=== PATIENT | female | born 1945 | race Caucasian/White ===

== ENCOUNTER 2020-09-10 09:28 | Outpatient (REF) | payer MEDICARE, OTHER, SELFPAY ==
[2020-09-10 11:35] LABS: Estimated Average Glucose 128 mg/dL; Hemoglobin A1c % 6.1 %
[2020-09-10 11:47] LABS: Alanine Aminotransferase 17 U/L (0-31); Albumin Level 4.2 g/dL (3.5-5.0); Alkaline Phosphatase 82 U/L (39-117); Anion Gap 13 (12-20); Aspartate Amino Transferase 18 U/L (5-31); Bilirubin Total 0.3 mg/dL (0.0-1.0); Blood Urea Nitrogen 24 mg/dL (9-16); Calcium 8.6 mg/dL (8.4-10.2); Carbon Dioxide 20 mmol/L (22-29); Chloride 108 mmol/L (96-108); Cholesterol 134 mg/dL; Estimated Glomerular Filt Rate 56; Glucose Random 137 mg/dL (60-115); HDL Cholesterol 34 mg/dL; LDL Cholesterol Calculated 63 mg/dl; Potassium 4.3 mmol/l (3.3-5.1); Sodium 137 mmol/L (135-145); Total Protein 6.7 g/dL (6.5-8.0); Triglycerides 187 mg/dL
[2020-09-10 16:59] LABS: Creatinine Urine 145.22 mg/dL; Microalbum/Creatinine Ratio Ur 35.8 ug/mg cr
== END 2020-09-10 09:29 | disposition home or self-care (01) ==
LOC: HO.LAB 09:28
PROVIDERS: Visit Provider Internal Medicine
DX: E11.9 Type 2 diabetes mellitus without complications (principal); I10 Essential (primary) hypertension; E78.2 Mixed hyperlipidemia; F32.5 Major depressive disorder, single episode, in full remission; R63.5 Abnormal weight gain
CPT/HCPCS: 80053; 80061; 82043; 83036

== ENCOUNTER 2020-10-26 14:44 | Emergency (ER) | payer MEDICARE, OTHER, SELFPAY ==
--- NOTE | ~2020-10-26 | XR_ITS ---
EXAMINATION: CHEST 2 VIEWS CLINICAL INFORMATION: pt c chest pain . COMPARISON: 02/11/2020. TECHNIQUE: PA and lateral views of the chest obtained. FINDINGS: The lungs are well expanded. No focal infiltrate, effusion, edema, or pneumothorax. Cardiac and mediastinal silhouettes are within normal limits for technique. No acute bony abnormality seen XR/XR chest 2V IMPRESSION: No evidence of acute disease
--- NOTE | ~2020-10-26 | US_ITS ---
EXAMINATION: US ABDOMEN COMPLETE CLINICAL INFORMATION: Decreased appetite and epigastric/chest pain. Evaluate for gallstones. COMPARISON: CT abdomen/pelvis dated 05/04/2016. TECHNIQUE: Real-time imaging of the abdominal viscera. FINDINGS: PANCREAS: Normal. ABDOMINAL AORTA: The proximal, mid, and distal segments are normal in caliber. INFERIOR VENA CAVA: Visualized portions are normal. LIVER: The liver is normal in size. The liver contour is normal. There is diffuse increased liver parenchymal echogenicity, consistent with hepatic steatosis. No focal hepatic lesion. There is no intrahepatic biliary duct dilatation seen. GALLBLADDER: Normal. The gallbladder is physiologically distended without evidence of stones, sludge, polyps, wall thickening or pericholecystic fluid. COMMON BILE DUCT: Normal in caliber measuring 0.2 cm in diameter. RIGHT KIDNEY: Normal. No hydronephrosis. No renal calculi or focal parenchymal lesions. The kidney measures 9.1 cm in maximum dimension. LEFT KIDNEY: Normal. No hydronephrosis. No renal calculi or focal parenchymal lesions. The kidney measures 9.7 cm in maximum dimension. SPLEEN: Normal. The spleen measures 9.6 cm in maximum dimension. FREE FLUID: None. US/US abdomen complete IMPRESSION: No cholelithiasis, gallbladder wall thickening, or pericholecystic free fluid to suggest acute cholecystitis. Hepatic steatosis. No hepatic parenchymal lesion or biliary ductal dilatation.
--- NOTE | ~2020-10-26 | CT_ITS ---
EXAMINATION: CT HEAD WITHOUT CONTRAST CLINICAL INFORMATION: Dizziness and generalized weakness. COMPARISON: None TECHNIQUE: Contiguous axial imaging was performed from the skull base to vertex without intravenous administration of contrast. This CT examination was performed using dose optimization techniques as appropriate, variously including the following: *Automated exposure control *Adjustment of mA and/or kV according to patient size (this includes techniques or standardized protocols for targeted exams where dose is matched to indication/reason for exam; i.e. extremities or head) *Use of iterative reconstruction technique DLP: 959 mGy-cm FINDINGS: There is no evidence of acute intracranial hemorrhage or territorial infarction. No abnormal mass effect or midline shift is seen. Garcia to white matter differentiation is well preserved. No extra-axial fluid collections are identified. Mild prominence of the ventricles out of proportion to the sulci, which can be seen in the setting of normal pressure hydrocephalus. Mild periventricular white matter hypoattenuation, consistent with mild chronic microvascular ischemic disease. The osseous structures and soft tissues are normal. The mastoid air cells and visualized portions of the paranasal sinuses are well aerated. CT/CT head/brain wo con IMPRESSION: No acute intracranial hemorrhage or mass effect. Mild chronic microvascular ischemic disease. Mild prominence of the ventricles out of proportion to the sulci, which may be related to atrophy or be seen in the setting of normal pressure hydrocephalus.
[2020-10-26 14:45] VITALS: BMI 26.0
--- NOTE | 2020-10-26 14:49 | ECG_ITS ---
Test Reason : EPIGASTRIC PAIN Blood Pressure : / mmHG Vent. Rate : 060 BPM Atrial Rate : 060 BPM P-R Int : 138 ms QRS Dur : 090 ms QT Int : 466 ms P-R-T Axes : 018 040 097 degrees QTc Int : 466 ms Normal sinus rhythm ST & T wave abnormality, consider anterolateral ischemia Abnormal ECG When compared with ECG of 26-OCT-2020 14:50, Left bundle branch block is no longer Present Referred By: Olga Lidia Ohara Electronically Signed By:Brandon Lozano
[2020-10-26 15:17] VITALS: BP 189/82; PULSE 69; RESP 20; TEMP 36.9; O2SAT 99; BMI 26.5
--- NOTE | 2020-10-26 15:42 | ED_ITS ---
HPI - General Adult General Chief complaint: General Medical Stated complaint: chest pain Time Seen by Provider: 10/26/20 14:46 Source: patient Mode of arrival: ambulatory Limitations: no limitations Related Data Allergies Allergy/AdvReac Type Severity Reaction Status Date / Time No Known Allergies Allergy Unverified 05/29/20 19:08 [No Known Allergies*] [facility] Past Medical History Medical History (Updated 10/26/20 @ 15:20 by Sinai Joiner) High cholesterol HTN (hypertension) Social History Social History Advance Directives: No Advance Directives Information Provided: Yes Physical Exam Vital Signs: Vital Signs: Last Vital Signs Temp 98.4 F 10/26/20 15:17 Pulse 69 10/26/20 15:17 Resp 20 10/26/20 15:17 BP 189/82 H 10/26/20 15:17 Pulse Ox 99 10/26/20 15:17 Body Mass Index 26.5
--- NOTE | 2020-10-26 15:47 | ED.CHESTPAIN ---
HPI - Chest Pain General Chief Complaint: General Medical Stated Complaint: chest pain Time Seen by Provider: 10/26/20 14:46 Source: patient Mode of arrival: ambulatory Limitations: no limitations History of Present Illness HPI narrative: 75-year-old female with a past medical history of anxiety disorder, hypertension, hyperlipidemia, diabetes, diverticulosis and insomnia presenting to the ED with complaints of generalized weakness, dizziness, loss of appetite, midsternal chest pain/epigastric abdominal pain, having to put her finger down her throat to forcefully make herself vomit constant for the past 2 weeks. Along with diarrhea that started today. Reports associated weight loss although cannot explain how much weight loss. Reports that she has a primary care appointment on Tuesday. Denies any fevers, focal weakness, headaches, jaw pain, paresthesia, dyspnea on exertion, orthopnea, cough, palpitations, extremity edema, back pain, dysuria, constipation or any other symptoms complaints or concerns at this time. MD complaint: chest pain Pertinent past history: other (See above) Onset (ago): week(s) (Two weeks) Timing of current episode: constant Prior episodes: No Onset: other (Cannot recall due to his been 2 weeks per patient) Pain location: substernal and epigastric Pain radiation: none Severity: moderate Quality: aching Relieving factors: nothing Exacerbating factors: nothing Associated symptoms: nausea and vomiting Treatment prior to arrival: none Risk Factors Coronary artery disease risk factors: diabetes, hyperlipidemia and hypertension Thoracic aortic dissection risk factors: none Related Data On Oral Contraceptives: No Allergies Allergy/AdvReac Type Severity Reaction Status Date / Time No Known Allergies Allergy Unverified 05/29/20 19:08 [No Known Allergies*] Review of Systems Review of Systems: Constitutional : + Weight loss, + Fatigue, + Malaise, No Fever, No Chills, No Night Sweats, No Fatigue, No Malaise ENT/Mouth : No Hearing loss, No Ear Pain, No Nasal Congestion, No Sinus Pain, No Hoarseness, No sore throat, No Rhinorrhea, No Swallowing Difficulty Eyes: No Eye Pain, No Swelling, No Redness, No Foreign Body, No Discharge, No Vision Changes Cardiovascular : + Chest pain, No SOB, no Dyspnea on Exertion, No Orthopnea, No Edema, No extremity swelling, No Palpitations Respiratory : No Cough, No Sputum, No Wheezing, No Dyspnea Gastrointestinal : + Nausea, + Vomiting, + Diarrhea, + abdominal Pain, No Hematochezia, No Melena Genitourinary : No irregular bleeding, No Dysuria, No Urinary Frequency, No Hematuria, No Urinary Incontinence, No Urgency, No Flank Pain, No Urinary Flow Changes, No Hesitancy Musculoskeletal : No joint pain, No Myalgias, No Joint Swelling Skin : No Skin Lesions, No rash Neuro : + Gen Weakness, + Dizziness, No Focal Weakness, No Numbness, No Paresthesias, No Loss of Consciousness, No Headache Psych : No Anxiety/Panic, No Depression, No SI/HI/AH/VH Heme/Lymph: No Bruising, No Bleeding,No Lymphadenopathy Endocrine : No Polyuria, No Polydipsia, No Temperature Intolerance Yes all other systems are reviewed and are negative [facility] Past Medical History Attestation statement: The following information was validated with the patient. Medical History High cholesterol HTN (hypertension) Social History Social History Advance Directives: No Advance Directives Information Provided: Yes Physical Exam Vital Signs: Vital Signs: Last Vital Signs Temp 98.4 F 10/26/20 15:17 Pulse 69 10/26/20 15:17 Resp 20 10/26/20 15:17 BP 189/82 H 10/26/20 15:17 Pulse Ox 99 10/26/20 15:17 Body Mass Index 26.5 Vital signs have been reviewed as normal and appeared to be correct. Blood pressure hypertensive at 189/82. Heart rate normal. Respiration rate normal. Temperature normal. Oxygen saturation normal. Appearance: Alert. Oriented X3. No acute distress. Head: Normal external exam. Normocephalic. Atraumatic. Able to rotate head bilaterally. Eyes: PERRLA. EOMI. No nystagmus noted. Conjunctiva and sclera normal. Eyelids normal. Corneal reflex normal. ENT: Hearing normal. Pharynx normal. Uvula midline. tongue midline. Moist mucous membranes. No trismus noted. No drooling noted. No muffled voice noted. No nystagmus noted. Neck: Normal inspection. Neck supple. FROM. No adenopathy. Trachea midline. Thyroid Normal. No meningeal signs. No neck mass noted. CVS: Normal heart rate and rhythm. Heart sound normal. No murmurs noted. Pulses normal throughout. Respiratory: No respiratory distress. Painless inspiration. Breath sounds normal. No wheezes/rales/rhonchi noted. Chest nontender. No accessory muscle usage noted or decreased air movement noted. Abdomen: Soft and tenderness to palpation to epigastric area. Bowel sounds normal in all 4 quadrants. No distention noted. No organomegaly noted. No visible injury noted. Negative Blanco's/negative Rovsing signs/negative obturator's/negative psoas sign. Back: No CVA tenderness. Full range of motion noted. Skin: Skin warm and dry. Normal skin color. Normal skin turgor. No rashes/lesions/lacerations noted. Extremities: No lower extremity edema. No calf tenderness noted. Extremities exhibit normal range of motion. Extremities nontender. Able to shrug shoulders bilaterally and keep up against resistance. Neuro: Oriented X 3. No motor deficit. No sensory deficit. Reflexes normal. Moving all extremities. No focal motor deficits. Cranial nerves II-XI intact bilaterally. Facial strength normal. Normal cognition. Speech normal. Gait normal. Strength 5/5 throughout. No pronator drift. No tremor noted. No fasciculations noted. No rigidity noted. Muscle tone normal throughout. No asterixis noted. NIHSS score 0. Course Course Course Narrative: 15:40pm - 75-year-old female with a past medical history of anxiety disorder, hypertension, hyperlipidemia, diabetes, diverticulosis and insomnia presenting to the ED with complaints of generalized weakness, dizziness, loss of appetite, midsternal chest pain/epigastric abdominal pain, having to put her finger down her throat to forcefully make herself vomit constant for the past 2 weeks. Along with diarrhea that started today. On exam patient is very anxious with pressured speech otherwise not in any acute distress. Nontoxic appearing. No signs of dehydration. Patient is hypertensive at 189/82 otherwise all other vitals are within normal limits. Patient alert and oriented x3. No focal neuro deficits noted. Patient has a normal steady gait. NIH SS score 0 at this time. Concern for CVA vs ACS versus cholelithiasis versus cholecystitis versus viral syndrome versus COVID Plan: Labs, chest x-ray, CT scan of brain, abdominal ultrasound, EKG, orthostatic vitals. Provide a L of IV fluids, 30 mg of IV Toradol, 0.5 mg of Ativan and 4 mg of Zofran then re-evaluate. Reevaluation(s) Reevaluation #1: - patient with elevated white blood cell count at 13,000. - troponin 31.5 therefore patient will have a repeat in 3 hours. - all other labs still pending - EKG was normal sinus rhythm with nonspecific T-wave abnormalities no acute ischemic changes noted today. - chest x-ray within normal limits no acute processes noted. - abdominal ultrasound revealed hepatic steatosis otherwise no other acute processes noted. - revealed chronic changes such as normal pressure hydrocephalus no acute processes noted. - sign-out to VENKATA Jarrell pending repeat troponin and other labs. Time: 17:07 [facility] - Chest Pain Medical Records Data Attestation: I reviewed the patient's medical records. Lab Data Attestation: I reviewed the patient's lab results. Result diagrams: 10/26/20 15:56 10/26/20 15:56 Labs: Lab Results 10/26/20 10/26/20 10/26/20 Range/Units 15:56 15:56 15:56 WBC 13.0 H (4.8-10.8) X10*3/uL RBC 3.78 L (4.20-5.50) X10*6/uL Hgb 11.8 L (12.0-16.0) g/dl Hct 35.2 L (37-47) % MCV 93.1 (80-98) fL MCH 31.2 (27.0-33.0) pg MCHC 33.5 (31.0-35.0) g/dl RDW 13.3 (11.0-16.0) % Plt Count 502 H (160-400) X10*3/uL MPV 9.1 L (9.4-12.3) fL Immature Gran % (Auto) 0.4 (0.0-0.4) % Neut % (Auto) 72.5 (45-73) % Lymph % (Auto) 17.1 L (20-40) % Anson % (Auto) 7.2 (2-11) % Eos % (Auto) 2.1 (0-4) % Baso % (Auto) 0.7 (0-2) % Lymph # (Auto) 2.2 (1.2-4.9) X10*3/uL Anson # (Auto) 0.9 (0.1-1.2) X10*3/uL Eos # (Auto) 0.3 (0.0-0.4) X10*3/uL Baso # (Auto) 0.1 (0.0-0.2) X10*3/uL Abs Immat Gran (auto) 0.05 H (0.00-0.03) X10*3/uL Absolute Neuts (auto) 9.4 H (2.0-8.3) X10*3/uL Absolute Nucleated RBC 0.000 (0.0-0.012) X10*3/uL Nucleated RBC % (auto) 0.0 (0.0-0.2) /100WBC Troponin I High Sens 31.5 H (<3.5-17.0) ng/L B-Natriuretic Peptide 66 (<100) pg/mL Coronavirus (PCR) NEGATIVE (Negative) Influenza Type A (PCR) NEGATIVE (Negative) Influenza Type B (PCR) NEGATIVE (Negative) RSV RNA Qual (PCR) NEGATIVE (Negative) Imaging Data Chest x-ray: Attestation: I personally reviewed and interpreted this imaging study as follows: Radiologist's impression: FINDINGS: The lungs are well expanded. No focal infiltrate, effusion, edema, or pneumothorax. Cardiac and mediastinal silhouettes are within normal limits for technique. No acute bony abnormality seen XR/XR chest 2V IMPRESSION: No evidence of acute disease Abdominal ultrasound: Attestation: I personally reviewed and interpreted this imaging study as follows: Radiologist's impression: FINDINGS: The lungs are well expanded. No focal infiltrate, effusion, edema, or pneumothorax. Cardiac and mediastinal silhouettes are within normal limits for technique. No acute bony abnormality seen XR/XR chest 2V IMPRESSION: No evidence of acute disease CT scan of brain: Attestation: I personally reviewed and interpreted this imaging study as follows: Radiologist's impression: FINDINGS: There is no evidence of acute intracranial hemorrhage or territorial infarction. No abnormal mass effect or midline shift is seen. Garcia to white matter differentiation is well preserved. No extra-axial fluid collections are identified. Mild prominence of the ventricles out of proportion to the sulci, which can be seen in the setting of normal pressure hydrocephalus. Mild periventricular white matter hypoattenuation, consistent with mild chronic microvascular ischemic disease. The osseous structures and soft tissues are normal. The mastoid air cells and visualized portions of the paranasal sinuses are well aerated. CT/CT head/brain wo con IMPRESSION: No acute intracranial hemorrhage or mass effect. Mild chronic microvascular ischemic disease. Mild prominence of the ventricles out of proportion to the sulci, which may be related to atrophy or be seen in the setting of normal pressure hydrocephalus. ECG Data ECG #1: Attestation: I personally reviewed and interpreted this ECG as follows: ECG interpretation date: 10/26/20 ECG interpretation time: 16:11 Interpretation: Normal sinus rhythm with nonspecific ST and T-wave abnormalities in V1/V2/V6 otherwise no acute ischemic changes noted at this time. Patient had a prior left bundle branch block on EKG in February 10 and today she does not have a left bundle branch block at this time. Could possibly be that patient has a rate control left bundle-branch block. Discharge Plan Discharge Clinical Impression: Elevated troponin, Hydrocephalus, idiopathic normal pressure
[2020-10-26 16:01] LABS: MANUAL DIFF FLAG NO
[2020-10-26 16:06] LABS: Basophils Absolute Auto 0.1 X10*3/uL (0.0-0.2); Basophils Percent Auto 0.7 % (0-2); Eosinophils Absolute Auto 0.3 X10*3/uL (0.0-0.4); Eosinophils Percent Auto 2.1 % (0-4); Hematocrit 35.2 % (37-47); Hemoglobin 11.8 g/dl (12.0-16.0); Imm Gran Abs Auto 0.05 X10*3/uL (0.00-0.03); Imm Gran Pct Auto 0.4 % (0.0-0.4); Lymphocytes Absolute Auto 2.2 X10*3/uL (1.2-4.9); Lymphocytes Percent Auto 17.1 % (20-40); Mean Corpuscular HGB Conc 33.5 g/dl (31.0-35.0); Mean Corpuscular Hemoglobin 31.2 pg (27.0-33.0); Mean Corpuscular Volume 93.1 fL (80-98); Mean Platelet Volume 9.1 fL (9.4-12.3); Monocytes Absolute Auto 0.9 X10*3/uL (0.1-1.2); Monocytes Percent Auto 7.2 % (2-11); Neutrophils Absolute Auto 9.4 X10*3/uL (2.0-8.3); Neutrophils Percent Auto 72.5 % (45-73); Platelet Count 502 X10*3/uL (160-400); Red Blood Count 3.78 X10*6/uL (4.20-5.50); Red Cell Distribution Width 13.3 % (11.0-16.0)
[2020-10-26] MEDS: ondansetron HCL 4 MG/2 ML VIAL IVPUSH (16:09)
[2020-10-26] MEDS: Ketorolac Tromethamine 30 MG/ML VIAL IVPUSH (16:10)
[2020-10-26] MEDS: 0.9 % Sodium Chloride 1,000 ML 999 ML IVCONT ×2 (16:10→20:19)
[2020-10-26] MEDS: LORazepam 2 MG/ML VIAL 0.5 MG IVPUSH (16:11)
[2020-10-26 16:45] LABS: B Type Natriuretic Peptide 66 pg/mL (<100); Troponin-I High Sensitivity 31.5 ng/L (<3.5-17.0)
[2020-10-26 16:54] LABS: Influenza A PCR NEGATIVE (Negative); Influenza B PCR NEGATIVE (Negative); Resp Syncy Virus RNA Qual PCR NEGATIVE (Negative); SARS COV2 PCR INHOUSE NEGATIVE (Negative)
--- NOTE | 2020-10-26 17:31 | PC.NURSE ---
Pt reporting epigastric pain and nausea, decreased appetite x 1 month. Upon initial assessment pt noted to be anxious and asking repeated questions, Ativan ordered and given with good effect. States pain improved s/p IV medications given and down to 5/10.
[2020-10-26 17:32] VITALS: BP 181/66; PULSE 106
[2020-10-26 17:33] VITALS: BP 191/86; BP 206/83; PULSE 106; PULSE 109
[2020-10-26 18:02] LABS: Glucose Urine UA NEG (NEG); Leukocyte Esterase Urine 1+ (NEG); Nitrite Urine NEG (NEG); UACC Culture Trigger YES; Urine Blood NEG (NEG); Urine Ketones NEG (NEG); Urine Protein NEG (NEG-TRACE)
[2020-10-26 18:09] LABS: Appearance Urine CLOUDY; Color Urine YELLOW
[2020-10-26 18:10] LABS: Bacteria Urine 4+ /LPF; RBC Urine 0-2 /HPF (0); Squamous Epithelial Cell Urine 1+ /LPF; WBC Urine 30-49 /HPF (0-4)
[2020-10-26 18:18] VITALS: BP 110/85; PULSE 72; RESP 16; TEMP 36.4; O2SAT 96
[2020-10-26 19:36] VITALS: BP 145/76; PULSE 67; RESP 17; TEMP 36.9; O2SAT 100
[2020-10-26 19:47] LABS: INTERNATIONAL NORM RATIO 1.1 (0.9-1.1); Prothrombin Time 13.5 SEC (10.8-13.0)
[2020-10-26 19:54] LABS: Partial Thromboplastin Time 73.3 SEC (24.1-38.0)
[2020-10-26 20:00] VITALS: BP 146/71; PULSE 62; RESP 18; O2SAT 98
[2020-10-26] MEDS: Simethicone 80 MG TAB.CHEW PO (20:01)
[2020-10-26] MEDS: Magnesium Hydrox/Alum Hydrox 30 ML ORAL.SUSP PO (20:01)
[2020-10-26 20:15] LABS: Alanine Aminotransferase 14 U/L (0-31); Albumin Level 4.2 g/dL (3.5-5.0); Alkaline Phosphatase 93 U/L (39-117); Anion Gap 15 (12-20); Aspartate Amino Transferase 17 U/L (5-31); Bilirubin Direct < 0.2 mg/dL (0.0-0.5); Bilirubin Total 0.5 mg/dL (0.0-1.0); Blood Urea Nitrogen 12 mg/dL (9-16); Calcium 9.3 mg/dL (8.4-10.2); Carbon Dioxide 25 mmol/L (22-29); Chloride 101 mmol/L (96-108); Creatinine Clr Calc Pharmacy 44.5; Estimated Glomerular Filt Rate 55; Glucose Random 133 mg/dL (60-115); Lipase 22 U/L (8-78); Magnesium 2.7 mg/dL (1.6-2.6); Potassium 4.2 mmol/L (3.3-5.1); Sodium 137 mmol/L (135-145); Total Protein 7.1 g/dL (6.5-8.0)
[2020-10-26 20:18] LABS: Troponin-I High Sensitivity 38.3 ng/L (<3.5-17.0)
[2020-10-26] MEDS: cefTRIAXone sodium 1 GM in 0.9 % Sodium Chloride 50 ML IV (20:19)
[2020-10-26 20:59] LABS: Lactic Acid 2.2 mmol/L (0.5-2.0)
[2020-10-26 22:23] LABS: Reflex Lactate? Lactic Acid Added
== END 2020-10-26 21:50 | disposition home or self-care (01) ==
PROVIDERS: Nurse Practitioner Family; Physician Assistant Medical; Emergency Provider Emergency Medicine Emergency Medical Services; PCP Internal Medicine
DX: G91.9 Hydrocephalus, unspecified (principal); R10.13 Epigastric pain; R77.8 Other specified abnormalities of plasma proteins; Z20.822 Contact with and (suspected) exposure to COVID-19; Z79.899 Other long term (current) drug therapy
CPT/HCPCS: 0241U; 36415; 70450; 71046; 76700; 80048; 80076; 81001; 81003; 83605; 83690; 83735; 83880; 84484; 85025; 85610; 85730; 87040; 87086; 87088; 87186; 93005; 96361; 96365; 96375; 99284; J0696; J1885; J2060; J2405

== ENCOUNTER 2020-10-29 16:55 | Inpatient (IN) | payer MEDICARE, OTHER, SELFPAY ==
--- NOTE | ~2020-10-29 | CT_ITS ---
EXAMINATION: CT ABDOMEN AND PELVIS WITHOUT CONTRAST CLINICAL INFORMATION: Abdominal pain. Bloody stool. COMPARISON: 05/04/2016 TECHNIQUE: Multidetector volumetric imaging was performed from the superior aspect of the liver through the pubic symphysis. Sagittal and coronal reformatted images were obtained on the technologist's workstation. This CT examination was performed using dose optimization techniques as appropriate, variously including the following: *Automated exposure control *Adjustment of mA and/or kV according to patient size (this includes techniques or standardized protocols for targeted exams where dose is matched to indication/reason for exam; i.e. extremities or head) *Use of iterative reconstruction technique DLP: 504 mGy-cm FINDINGS: LUNG BASES: The visualized lung bases are unremarkable. LIVER, GALLBLADDER, AND BILIARY TREE: The liver is normal in size and shape with decreased attenuation. No focal hepatic lesion or biliary ductal dilatation is present. The gallbladder is unremarkable with no evidence of radiopaque gallstones, gallbladder wall thickening, or obvious pericholecystic inflammatory changes. PANCREAS: Mild atrophy of the pancreas. No focal pancreatic lesion. SPLEEN: Unremarkable. ADRENAL GLANDS: Unremarkable. KIDNEYS AND URETERS: The kidneys are normal in size, shape, and attenuation. No hydronephrosis, hydroureter, or calculi seen. No perinephric stranding. BLADDER: Unremarkable. GASTROINTESTINAL TRACT: The stomach is unremarkable. Normal caliber small bowel. There is no obstruction. Normal appendix. No colonic wall thickening or acute inflammatory change. Scattered diverticulosis involving the descending colon. More prominent diverticulosis of the sigmoid colon. The sigmoid colon is decompressed which limits evaluation for wall thickening. There is faint stranding in the fat adjacent to the sigmoid colon. No free air. ABDOMINAL WALL: No significant hernia is appreciated. LYMPH NODES: Normal. VASCULAR: Normal caliber aorta with moderate atherosclerotic calcification. PELVIC VISCERA: The uterus and adnexa are unremarkable. OSSEOUS STRUCTURES: No acute or suspicious osseous abnormality. Degenerative changes throughout the spine. 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 CT/CT abdomen pelvis wo con IMPRESSION: Mild sigmoid diverticulitis. Hepatic steatosis.
--- NOTE | ~2020-10-29 | NM_ITS ---
EXAMINATION: NUCLEAR MEDICINE BLEEDING STUDY CLINICAL INFORMATION: Reason GI bleed COMPARISON: None TECHNIQUE: 22.4 mCi technetium used to label the patient's red blood cells. Imaging over the abdomen for 60 minutes FINDINGS: Angiographic images are within normal limits. On sequential imaging over 60 minutes there is no evidence for GI bleed. Some activity in the left and right upper quadrant is felt to be kidney and renal collecting system. There is bladder activity collected during the exam. NM/NM GI bleeding IMPRESSION: No convincing scintigraphic evidence for GI bleed at this time.
--- NOTE | ~2020-10-29 | XR_ITS ---
EXAMINATION: XR CHEST CLINICAL INFORMATION: ET tube placement COMPARISON: Chest x-ray 10/26/2020 TECHNIQUE: Frontal portable view of the chest was obtained. 7:32 PM FINDINGS: Tubes and lines: 1. Endotracheal tube in good position about 2 cm above magy. 2. Right IJ catheter tip in superior vena cava about 5 cm proximal from the caval atrial junction. 3. Nasogastric tube looped into the stomach. 4. Drainage catheter seen over the right upper quadrant of abdomen. Lung volume is low. There is patchy and linear airspace opacities at the right lung base with elevated right diaphragm. This is likely atelectasis. No significant central pulmonary vascular congestion. There is no pleural effusion and there is no pneumothorax. XR/XR chest 1V IMPRESSION: 1. Endotracheal tube in good position about 2 cm above magy. 2. Right IJ catheter tip in superior vena cava about 5 cm proximal from the caval atrial junction. 3. Nasogastric tube looped into the stomach. 4. Drainage catheter seen over the right upper quadrant of abdomen. 5. Low lung volume. There is patchy and linear airspace opacity at the right lung base.
--- NOTE | ~2020-10-29 | XR_ITS ---
EXAMINATION: XR ABDOMEN KUB CLINICAL INDICATION: No instrument count done COMPARISON: CT abdomen pelvis 10/30/2019 TECHNIQUE: AP view of the abdomen. A large portion of the pelvis is not included on the study. FINDINGS: NG tube is present in the stomach. A drain is present in the upper abdomen. No other foreign bodies are seen. Mild dilatation is present involving small bowel with possibly mild wall thickening. XR/XR KUB IMPRESSION: No retained surgical foreign bodies or instruments.
[2020-10-29 17:16] VITALS: BP 104/50; PULSE 102; RESP 20; TEMP 36.4; O2SAT 99
[2020-10-29 20:15] VITALS: BP 103/54; PULSE 87; RESP 22; TEMP 37.1; O2SAT 99; BMI 23.0
[2020-10-30] VITALS (21 sets, daily range): BP systolic 101–150; BP diastolic 45–80; PULSE 58–112; RESP 14–23; TEMP 36.1–37.3; O2SAT 95–100
--- NOTE | 2020-10-30 02:19 | ECG_ITS ---
Test Reason : WEAKNESS Blood Pressure : / mmHG Vent. Rate : 093 BPM Atrial Rate : 093 BPM P-R Int : 116 ms QRS Dur : 138 ms QT Int : 412 ms P-R-T Axes : -20 -08 150 degrees QTc Int : 512 ms Normal sinus rhythm Left bundle branch block Abnormal ECG When compared with ECG of 26-OCT-2020 16:11, Vent. rate has increased BY 33 BPM Left bundle branch block is now Present Referred By: Juanito Mix Electronically Signed By:Brandon Lozano
--- NOTE | 2020-10-30 02:28 | ED_ITS ---
HPI - General Adult General Chief complaint: General Medical Stated complaint: LOW BP Time Seen by Provider: 10/30/20 02:19 History of Present Illness HPI narrative: 75-year-old female who presents emergency department for evaluation of weakness, dizziness, abdominal pain. The patient was seen in the emergency department on 10/26/2020 for evaluation of generalized weakness, dizziness, loss of appetite, midsternal chest pain, epigastric pain vomiting and loose diarrheal stools. The patient's urinalysis revealed 30-49 WBCs and the patient was started on cefuroxime 500 mg q.12 hours for urinary tract infection. The patient states that she continues to feel very weak. She states that she has had 4-6 loose, dark, red, watery bowel movements per day. She states she is feeling dizzy and lightheaded. She is also complaining of epigastric pain which she describes as an ?gas which is intermittent and moderate in intensity. The patient had a telemedicine visit with her doctor today and was advised to go to the emergency department for evaluation. In reviewing her previous visit, the patient had an ultrasound of the upper abdomen which revealed hepatic steatosis otherwise unremarkable, chest x-ray was unremarkable, she had an elevated troponin 38.3, but refused repeat troponin. Related Data Home Medications Medication Instructions Recorded Confirmed losartan-hydrochlorothiazide 1 tab PO DAILY 10/26/20 10/30/20 sertraline 1 tab PO DAILY 10/26/20 10/30/20 simvastatin 1 tab PO BEDTIME 10/26/20 10/30/20 trazodone 1 tab PO BEDTIME 10/26/20 10/30/20 Previous Rx's Medication Instructions Recorded cefuroxime axetil 500 mg PO Q12H 7 Days #14 tab 10/26/20 Allergies Allergy/AdvReac Type Severity Reaction Status Date / Time No Known Allergies Allergy Verified 10/26/20 19:14 [No Known Allergies*] Review of Systems Review of Systems: Yes all other systems are reviewed and are negative Neurologic: Reports Abnormal speech present [facility] Past Medical History [facility] Narrative: Past medical history consistent with hypertension, depression, diabetes mellitus, high cholesterol, colonoscopy in 2009. She denies tobacco, alcohol and drug use. Medical History High cholesterol HTN (hypertension) UTI (urinary tract infection) Social History Social History Smoking Status: Former smoker Advance Directives: No Advance Directives Information Provided: No Physical Exam Vital Signs: Vital Signs: Last Vital Signs Temp 98.3 F 10/30/20 03:05 Pulse 86 10/30/20 03:05 Resp 20 10/30/20 03:05 BP 101/75 10/30/20 03:05 Pulse Ox 99 10/30/20 03:05 Body Mass Index 23.0 Const: General: cooperative and other (Anxious) Orientation/consciousness: oriented to person and oriented to place Limitations: no limitations HENMT: Head: Yes normal to inspection, Yes normocephalic and Yes atraumatic Ears: external ears normal General nose exam: Normal external nose present Face and sinus: Yes normal facial exam Mouth: Normal oral and palatal mucosa present Throat: Yes posterior oropharynx normal Eyes: Periorbital: periorbital findings normal Eyelids: Yes eyelids normal Conjunctivae: conjunctivae normal Sclerae: sclerae normal Corneas: corneas normal Pupils: Equal, round and reactive pupils present Direct Ophthalmoscopy: normal light reflex Neck: Neck: Yes full ROM, Yes no lymphadenopathy, Yes no meningeal signs, Yes trachea midline and Yes supple Chest: Chest palpation & inspection: normal inspection of the chest and tende rness (Anterior chest and sternum) Resp: Effort & Inspection: normal respiratory effort and able to speak in complete sentences Auscultation: clear to auscultation bilaterally Cardio: Rate: regular rate Rhythm: regular rhythm Heart sounds: S1 normal heart sound present, S2 normal heart sound present and no murmurs GI: Inspection: Yes normal to inspection Palpation (GI): Soft to palpation, Tenderness to palpation present (GI) in the epigastrum (Moderate), no guarding, not rigid and No hepatosplenomegaly present Rectal Exam - Female: visual inspection normal, normal sphincter tone and heme positive stool (Dark stool which was Hemoccult positive) : General: Yes no CVA tenderness Back/Spine/Pelvis: Back: no CVA tenderness Cervical Spine: normal cervical lordosis Thoracic/Lumbar Spine: thoracic and lumbar spine normal to inspection Skin: Lesions: no lesions Rashes: no rashes Wounds: no wounds Neuro: General: oriented to person, oriented to place and no meningeal signs Cranial nerves: Yes CN's II-XII intact bilaterally and Yes Equal, round and reactive pupils present Cognition (Neuro): normal cognition Speech: Abnormal speech present Motor exam (neuro): 5/5 motor strength present throughout Extrem: General: Yes normal to inspection and Yes full ROM Psych: Appearance: well kempt Mental Status: mental status grossly normal Speech and movement: Normal speech and movement present Affect: Anxious affect present Attitude: cooperative Thought process: Normal thought proc ess present Thought content: Normal thought content present Course Course Course Narrative: 75-year-old female who presents emergency department for evaluation of weakness, dizziness, abdominal pain, chest pain and 4-5 loose, dark, red stools times 1 week. Patient was seen in the emergency department on 10/26/2020 with similar complaints and diagnosed with urinary tract infection. On exam today she does have chest wall tenderness, midepigastric tenderness and dark stool which was Hemoccult positive. Laboratory evaluation revealed an H&H of 9.8 and 29.3 compared to an H&H of 11.8 and 35.2 on 10/26/2020. [place] [address]. The patient has an elevated BUN and creatinine of 46 and 2.05 compared to twelve and 0.89 from 10/26/2020. This could be secondary to an upper GI bleed or volume depletion. COVID-19 was negative. The patient's urine culture from her previous visit grew no bacteria. This time I suspect the patient's symptoms are secondary to a lower GI bleed, possible that she may have infectious colitis [place] [address]. I did order a type and screen on the patient, CT scan of the abdomen pelvis without IV contrast, normal saline IV x2 L. The patient will be treated with Zosyn 3.375 mg IV and Flagyl 500 mg IV. 0424: I did discuss the patient's presentation with the covering hospitalist. The patient will be admitted to the intermediate care unit for further treatment. The patient does meet SIRS criteria but I do not think that she has severe sepsis. She did have an elevated lactic acid and she did receive normal saline IV x2 L. Medical Decision Making Lab Data Result diagrams: 10/30/20 02:31 10/30/20 02:25 Labs: Lab Results 10/30/20 10/30/20 10/30/20 Range/Units 02:25 02:25 02:31 WBC 22.6 H (4.8-10.8) X10*3/uL RBC 3.14 L (4.20-5.50) X10*6/uL Hgb 9.8 L (12.0-16.0) g/dl Hct 29.3 L (37-47) % MCV 93.3 (80-98) fL MCH 31.2 (27.0-33.0) pg MCHC 33.4 (31.0-35.0) g/dl RDW 13.7 (11.0-16.0) % Plt Count 560 H (160-400) X10*3/uL MPV 9.3 L (9.4-12.3) fL Immature Gran % (Auto) 0.5 H (0.0-0.4) % Neut % (Auto) 80.7 H (45-73) % Lymph % (Auto) 12.6 L (20-40) % [place] % (Auto) 5.6 (2-11) % Eos % (Auto) 0.2 (0-4) % Baso % (Auto) 0.4 (0-2) % Lymph # (Auto) 2.9 (1.2-4.9) X10*3/uL [place] # (Auto) 1.3 H (0.1-1.2) X10*3/uL Eos # (Auto) 0.1 (0.0-0.4) X10*3/uL Baso # (Auto) 0.1 (0.0-0.2) X10*3/uL Abs Immat Gran (auto) 0.12 H (0.00-0.03) X10*3/uL Absolute Neuts (auto) 18.2 H (2.0-8.3) X10*3/uL Absolute Nucleated RBC 0.000 (0.0-0.012) X10*3/uL Nucleated RBC % (auto) 0.0 (0.0-0.2) /100WBC PT (10.8-13.0) SEC INR (0.9-1.1) APTT (24.1-38.0) SEC Sodium 132 L (135-145) mmol/L Potassium 3.8 (3.3-5.1) mmol/L Chloride 100 (96-108) mmol/L Carbon Dioxide 15 L (22-29) mmol/L Anion Gap 21 H (12-20) BUN 46 H D (9-16) mg/dL Creatinine 2.05 H (0.5-1.4) mg/dL Estim Creat Clear Calc 19.0 Estimated GFR 23 POC Glucose (60-115) mg/dL Random Glucose 214 H D (60-115) mg/dL Lactic Acid (0.5-2.0) mmol/L Calcium 8.6 D (8.4-10.2) mg/dL Total Bilirubin 0.3 (0.0-1.0) mg/dL AST 15 (5-31) U/L ALT 15 (0-31) U/L Alkaline Phosphatase 82 (39-117) U/L Troponin I High Sens (<3.5-17.0) ng/L Total Protein 6.5 (6.5-8.0) g/dL Albumin 4.0 (3.5-5.0) g/dL Stool Occult Blood (NEG) COVID-19 ([facility]) (Negative) COVID-19 Clin Com Blood Type O Positive Antibody Screen NEGATIVE 10/30/20 10/30/20 10/30/20 Range/Units 02:31 02:31 02:32 WBC (4.8-10.8) X10*3/uL RBC (4.20-5.50) X10*6/uL Hgb (12.0-16.0) g/dl Hct (37-47) % MCV (80-98) fL MCH (27.0-33.0) pg MCHC (31.0-35.0) g/dl RDW (11.0-16.0) % Plt Count (160-400) X10*3/uL MPV (9.4-12.3) fL Immature Gran % (Auto) (0.0-0.4) % Neut % (Auto) (45-73) % Lymph % (Auto) (20-40) % [place] % (Auto) (2-11) % Eos % (Auto) (0-4) % Baso % (Auto) (0-2) % Lymph # (Auto) (1.2-4.9) X10*3/uL [place] # (Auto) (0.1-1.2) X10*3/uL Eos # (Auto) (0.0-0.4) X10*3/uL Baso # (Auto) (0.0-0.2) X10*3/uL Abs Immat Gran (auto) (0.00-0.03) X10*3/uL Absolute Neuts (auto) (2.0-8.3) X10*3/uL Absolute Nucleated RBC (0.0-0.012) X10*3/uL Nucleated RBC % (auto) (0.0-0.2) /100WBC PT 12.9 (10.8-13.0) SEC INR 1.1 (0.9-1.1) APTT 33.1 D (24.1-38.0) SEC Sodium (135-145) mmol/L Potassium (3.3-5.1) mmol/L Chloride (96-108) mmol/L Carbon Dioxide (22-29) mmol/L Anion Gap (12-20) BUN (9-16) mg/dL Creatinine (0.5-1.4) mg/dL Estim Creat Clear Calc Estimated GFR POC Glucose (60-115) mg/dL Random Glucose (60-115) mg/dL Lactic Acid 2.4 H* (0.5-2.0) mmol/L Calcium (8.4-10.2) mg/dL Total Bilirubin (0.0-1.0) mg/dL AST (5-31) U/L ALT (0-31) U/L Alkaline Phosphatase (39-117) U/L Troponin I High Sens (<3.5-17.0) ng/L Total Protein (6.5-8.0) g/dL Albumin (3.5-5.0) g/dL Stool Occult Blood (NEG) COVID-19 ([facility]) Negative (Negative) COVID-19 Clin Com See Note Blood Type Antibody Screen 10/30/20 10/30/20 10/30/20 Range/Units 02:32 02:35 03:06 WBC (4.8-10.8) X10*3/uL RBC (4.20-5.50) X10*6/uL Hgb (12.0-16.0) g/dl Hct (37-47) % MCV (80-98) fL MCH (27.0-33.0) pg MCHC (31.0-35.0) g/dl RDW (11.0-16.0) % Plt Count (160-400) X10*3/uL MPV (9.4-12.3) fL Immature Gran % (Auto) (0.0-0.4) % Neut % (Auto) (45-73) % Lymph % (Auto) (20-40) % [place] % (Auto) (2-11) % Eos % (Auto) (0-4) % Baso % (Auto) (0-2) % Lymph # (Auto) (1.2-4.9) X10*3/uL [place] # (Auto) (0.1-1.2) X10*3/uL Eos # (Auto) (0.0-0.4) X10*3/uL Baso # (Auto) (0.0-0.2) X10*3/uL Abs Immat Gran (auto) (0.00-0.03) X10*3/uL Absolute Neuts (auto) (2.0-8.3) X10*3/uL Absolute Nucleated RBC (0.0-0.012) X10*3/uL Nucleated RBC % (auto) (0.0-0.2) /100WBC PT (10.8-13.0) SEC INR (0.9-1.1) APTT (24.1-38.0) SEC Sodium (135-145) mmol/L Potassium (3.3-5.1) mmol/L Chloride (96-108) mmol/L Carbon Dioxide (22-29) mmol/L Anion Gap (12-20) BUN (9-16) mg/dL Creatinine (0.5-1.4) mg/dL Estim Creat Clear Calc Estimated GFR POC Glucose 210 H (60-115) mg/dL Random Glucose (60-115) mg/dL Lactic Acid (0.5-2.0) mmol/L Calcium (8.4-10.2) mg/dL Total Bilirubin (0.0-1.0) mg/dL AST (5-31) U/L ALT (0-31) U/L Alkaline Phosphatase (39-117) U/L Troponin I High Sens 40.9 H (<3.5-17.0) ng/L Total Protein (6.5-8.0) g/dL Albumin (3.5-5.0) g/dL Stool Occult Blood POS (NEG) COVID-19 ([facility]) (Negative) COVID-19 Clin Com Blood Type Antibody Screen ECG Data Attestation: I personally reviewed and interpreted this ECG as follows: Interpretation: 0237: Normal sinus rhythm with a rate of 98, prolonged QRS of [address] of 512 milliseconds, inverted Q-waves in lead 1 and aVL, poor R-wave progression V1 through V3, left bundle-branch block, no old EKG for comparison. Pacemaker function: normal pacer function Discharge Plan Discharge Clinical Impression: Acute gastrointestinal bleeding, Acute diverticulitis, Anemia, Elevated troponin Patient Disposition: Admitted As Inpatient Prescriptions: No Action trazodone 50 mg tablet 1 tab PO BEDTIME RF: 0 simvastatin 40 mg tablet 1 tab PO BEDTIME RF: 0 losartan-hydrochlorothiazide 100-25 mg tablet 1 tab PO DAILY RF: 0 sertraline 50 mg tablet 1 tab PO DAILY RF: 0 cefuroxime axetil 500 mg tablet 500 mg PO Q12H 7 Days Qty: 14 RF: 0
[2020-10-30 02:39] LABS: Basophils Absolute Auto 0.1 X10*3/uL (0.0-0.2); Basophils Percent Auto 0.4 % (0-2); Eosinophils Absolute Auto 0.1 X10*3/uL (0.0-0.4); Eosinophils Percent Auto 0.2 % (0-4); Hematocrit 29.3 % (37-47); Hemoglobin 9.8 g/dl (12.0-16.0); Imm Gran Abs Auto 0.12 X10*3/uL (0.00-0.03); Imm Gran Pct Auto 0.5 % (0.0-0.4); Lymphocytes Absolute Auto 2.9 X10*3/uL (1.2-4.9); Lymphocytes Percent Auto 12.6 % (20-40); MANUAL DIFF FLAG NO; Mean Corpuscular HGB Conc 33.4 g/dl (31.0-35.0); Mean Corpuscular Hemoglobin 31.2 pg (27.0-33.0); Mean Corpuscular Volume 93.3 fL (80-98); Mean Platelet Volume 9.3 fL (9.4-12.3); Monocytes Absolute Auto 1.3 X10*3/uL (0.1-1.2); Monocytes Percent Auto 5.6 % (2-11); Neutrophils Absolute Auto 18.2 X10*3/uL (2.0-8.3); Neutrophils Percent Auto 80.7 % (45-73); Platelet Count 560 X10*3/uL (160-400); Red Blood Count 3.14 X10*6/uL (4.20-5.50); Red Cell Distribution Width 13.7 % (11.0-16.0); White Blood Count 22.6 X10*3/uL (4.8-10.8)
[2020-10-30 02:46] LABS: INTERNATIONAL NORM RATIO 1.1 (0.9-1.1); Prothrombin Time 12.9 SEC (10.8-13.0)
[2020-10-30 02:48] LABS: Partial Thromboplastin Time 33.1 SEC (24.1-38.0)
[2020-10-30 02:51] LABS: Alanine Aminotransferase 15 U/L (0-31); Alkaline Phosphatase 82 U/L (39-117); Anion Gap 21 (12-20); Aspartate Amino Transferase 15 U/L (5-31); Bilirubin Total 0.3 mg/dL (0.0-1.0); Blood Urea Nitrogen 46 mg/dL (9-16); Calcium 8.6 mg/dL (8.4-10.2); Carbon Dioxide 15 mmol/L (22-29); Chloride 100 mmol/L (96-108); Estimated Glomerular Filt Rate 23; Glucose Random 214 mg/dL (60-115); Potassium 3.8 mmol/L (3.3-5.1); Sodium 132 mmol/L (135-145); Total Protein 6.5 g/dL (6.5-8.0)
[2020-10-30] MEDS: ondansetron HCL 4 MG/2 ML VIAL IVPUSH (02:56)
[2020-10-30] MEDS: Pantoprazole Sodium 40 MG/10 ML VIAL 80 MG IVPUSH (02:56)
[2020-10-30] MEDS: 0.9 % Sodium Chloride 1,000 ML 999 ML IV ×2 (02:57→03:46)
[2020-10-30 03:04] LABS: Lactic Acid 2.4 mmol/L (0.5-2.0)
[2020-10-30 03:06] LABS: COVID-19 Test Negative (Negative); IDNOW Serial# 9DD0AD1C
[2020-10-30 03:07] LABS: Glucose, Whole Blood 210 mg/dL (60-115)
[2020-10-30 03:09] LABS: Troponin-I High Sensitivity 40.9 ng/L (<3.5-17.0)
[2020-10-30 03:12] LABS: OBS Int Ctl Valid YES; OBS1 POS (NEG)
[2020-10-30] MEDS: Piperacillin Sodium/Tazobactam 3.375 GM in 0.9 % Sodium Chloride 50 ML IV (03:46)
--- NOTE | 2020-10-30 04:31 | P.HPHOSP_ITS ---
History of Present Illness Date of Service: 10/30/20 Chief Complaint: Abdominal pain 75-year-old female with a past medical history of hypertension, hyperlipidemia, diabetes, anxiety, depression presented to the hospital with a chief complaint of abdominal pain. Patient presented to the hospital on 10/26/2020 with chief complaint of abdominal pain/dizziness. Noted to have slightly abnormal urinalysis and slight ly elevated troponin. Patient denied any chest pain. Patient was given cefuroxime and was discharged home for presumed UTI. A follow-up urine cultures came back negative. Patient presented to the hospital today with a chief complaint of abdominal pain and also noted to have multiple episodes of dark stool. And had nausea and vomiting. Denied any fevers. Also mentioned having loose stools. Currently denies any chest pain palpitations. Denies any numbness tingling. Review of all other systems is negative except mentioned above ER course Per ER team, patient had an episode of vomiting with blood in it concern for retching versus Adrienne-Oconnell tear in the ER. Lab showed drop in hemoglobin from 9.8-9.8. Also chemistry showed elevated creatinine consistent with a KI. CT abdomen showed mild sigmoid diverticulitis. Rectal exam showed guaiac- positive stools. Patient was given Zosyn and Flagyl. Blood cultures were sent. Stool studies were sent for C diff and stool culture. ER team also mentioned that on abdominal examination patient has mild tenderness; no guarding no rigidity. Admitted to the hospital for further management. [facility] Medical History High cholesterol HTN (hypertension) UTI (urinary tract infection) Social History Smoking Status: Former smoker Advance Directives: No Advance Directives Information Provided: No Meds Allergies Allergy/AdvReac Type Severity Reaction Status Date / Time No Known Allergies Allergy Verified 10/26/20 19:14 [No Known Allergies*] Active Medications: Current Medications Generic Name Dose Route Start Last Admin Trade Name Freq PRN Reason Stop Dose Admin Acetaminophen 650 mg 10/30/20 04:21 Acetaminophen Supp 650 Mg Supp.Rect OR Q6H PRN Pain, Mild (Pain Scale 1-3) Dextrose/Sodium Chloride 1,000 mls @ 100 mls/hr 10/30/20 04:30 D51/2ns IVCONT .Q10H LEOPOLDO Piperacillin Sod/Tazobactam 50 mls @ 100 mls/hr 10/30/20 04:30 Sod 2.25 gm/ Sodium Chloride IV Q6H LEOPOLDO Insulin Human Lispro 0 unit 10/30/20 07:30 Insulin Lispro 100 Unit/Ml 3 Ml Vial SUBCUT QIDACHS LEOPOLDO Pantoprazole Sodium 40 mg 10/30/20 06:30 Pantoprazole Sodium 40 Mg/10 Ml Vial IVPUSH DAILY@0630 LEOPOLDO Sertraline HCl 50 mg 10/30/20 09:00 Sertraline Hcl 50 Mg Tablet PO DAILY LEOPOLDO Sodium Chloride 3 ml 10/30/20 08:00 0.9 % Sodium Chloride Flush 3 Ml Syringe IVFLUSH QSHIFT LEOPOLDO Trazodone HCl 50 mg 10/30/20 21:00 Trazodone Hcl 50 Mg Tablet PO BEDTIME LEOPOLDO Zolpidem Tartrate 5 mg 10/30/20 04:21 Zolpidem Tartrate 5 Mg Tablet PO BEDTIME PRN Insomnia Home Medications Medication Instructions Recorded Confirmed Last Taken Type losartan-hydrochlorothiazide 1 tab PO DAILY 10/26/20 10/30/20 10/29/20 History sertraline 1 tab PO DAILY 10/26/20 10/30/20 10/29/20 History simvastatin 1 tab PO BEDTIME 10/26/20 10/30/20 10/29/20 History trazodone 1 tab PO BEDTIME 10/26/20 10/30/20 10/29/20 History Physical Exam Vital Signs and Narrative: Vital Signs: Last Vital Signs Temp 98.3 F 10/30/20 03:05 Pulse 90 10/30/20 03:30 Resp 20 10/30/20 03:30 BP 101/76 10/30/20 03:30 Pulse Ox 97 10/30/20 03:30 Body Mass Index 23.0 Gen: Appears be in no acute distress HEENT: NCAT, Moist mucosa. Pulmonary: Vesicular breath sounds, fair air entry CVS: Normal S1-S2 Abdomen: BS+, Soft, mildly tender diffusely; no guarding no rigidity. Extremities: Warm well perfused Neuro: Alert and awake. Results Labs CBC and Chem 7: 10/30/20 02:31 10/30/20 02:25 Labs: Laboratory Results - last 24 hr 10/30/20 10/30/20 10/30/20 02:25 02:25 02:31 MCV 93.3 MCH 31.2 MCHC 33.4 RDW 13.7 Plt Count 560 H MPV 9.3 L Immature Gran % (Auto) 0.5 H Neut % (Auto) 80.7 H Lymph % (Auto) 12.6 L [place] % (Auto) 5.6 Eos % (Auto) 0.2 Baso % (Auto) 0.4 Lymph # (Auto) 2.9 [place] # (Auto) 1.3 H Eos # (Auto) 0.1 Baso # (Auto) 0.1 Abs Immat Gran (auto) 0.12 H Absolute Neuts (auto) 18.2 H Absolute Nucleated RBC 0.000 Nucleated RBC % (auto) 0.0 PT INR APTT Anion Gap 21 H Estim Creat Clear Calc 19.0 Estimated GFR 23 POC Glucose Random Glucose 214 H D Lactic Acid Calcium 8.6 D Total Bilirubin 0.3 AST 15 ALT 15 Alkaline Phosphatase 82 Troponin I High Sens Total Protein 6.5 Albumin 4.0 Stool Occult Blood COVID-19 ([facility]) COVID-[employer] Com Blood Type O Positive Antibody Screen NEGATIVE 10/30/20 10/30/20 10/30/20 02:31 02:31 02:32 MCV MCH MCHC RDW Plt Count MPV Immature Gran % (Auto) Neut % (Auto) Lymph % (Auto) [place] % (Auto) Eos % (Auto) Baso % (Auto) Lymph # (Auto) [place] # (Auto) Eos # (Auto) Baso # (Auto) Abs Immat Gran (auto) Absolute Neuts (auto) Absolute Nucleated RBC Nucleated RBC % (auto) PT 12.9 INR 1.1 APTT 33.1 D Anion Gap Estim Creat Clear Calc Estimated GFR POC Glucose Random Glucose Lactic Acid 2.4 H* Calcium Total Bilirubin AST ALT Alkaline Phosphatase Troponin I High Sens Total Protein Albumin Stool Occult Blood COVID-19 ([facility]) Negative COVID-[employer] See Note Blood Type Antibody Screen 10/30/20 10/30/20 10/30/20 02:32 02:35 03:06 MCV MCH MCHC RDW Plt Count MPV Immature Gran % (Auto) Neut % (Auto) Lymph % (Auto) [place] % (Auto) Eos % (Auto) Baso % (Auto) Lymph # (Auto) [place] # (Auto) Eos # (Auto) Baso # (Auto) Abs Immat Gran (auto) Absolute Neuts (auto) Absolute Nucleated RBC Nucleated RBC % (auto) PT INR APTT Anion Gap Estim Creat Clear Calc Estimated GFR POC Glucose 210 H Random Glucose Lactic Acid Calcium Total Bilirubin AST ALT Alkaline Phosphatase Troponin I High Sens 40.9 H Total Protein Albumin Stool Occult Blood POS COVID-19 ([facility]) COVID-19 Clin Com Blood Type Antibody Screen Imaging Radiologist's Impressions: Impressions Abdomen/Pelvis CT 10/30/20 03:03 IMPRESSION: Mild sigmoid diverticulitis. Hepatic steatosis. Assessment and Plan (1) Acute diverticulitis: Status: Acute 75-year-old female with a past medical history of hypertension, hyperlipidemia, diabetes presented to the hospital with a chief complaint of nausea vomiting diarrhea, abdominal pain, blood in the stool. Noted to have MARIA LUZ/diverticulitis/GI bleed/anemia. Admitted to the hospital for further management Acute sigmoid diverticulitis: Patient has mild abdominal tenderness. No guarding no rigidity. Patient was recently on antibiotics presumed UTI. C diff and stool cultures have been sent-pending results. Continue IV Zosyn. Follow blood cultures. Consult general surgery for further recommendations. NPO IV fluids Pain control with morphine MARIA LUZ: Likely in the setting of dehydration. Prerenal. Gentle IV fluids. Avoid nephrotoxins. Hold home losartan/hydrochlorothiazide. GI bleed: Patient had dark stools. Guaiac-positive stools. Also had an episode of vomiting with blood in it concern for retching versus Adrienne-Oconnell tear. IV ppi GI consult possible EGD and colonoscopy. NPO as mentioned. Anemia: In the setting of GI bleed. Hemoglobin dropped from 11.8-9.8. Serial H& H. Type and screen done. Transfuse p.r.n. if H&H less than 7-8. High troponins: Patient denies any chest pain. EKG showed LBBB. Patient had similar troponins when she presented prior to the ER. Echocardiogram. Cardiology consult. History of hypertension: Hold home antihypertensives given soft blood pressure. History of diabetes: Insulin sliding scale. Monitor fingerstick glucose. DVT prophylaxis: SCD boots Code status: Full code
[2020-10-30 04:36] LABS: Reflex Lactate? Lactic Acid Added
[2020-10-30] MEDS: metroNIDAZOLE/NS 500 MG/100 ML PIGGYBACK 100 MG IV (04:41)
[2020-10-30 06:03] LABS: MANUAL DIFF FLAG NO
[2020-10-30 06:05] LABS: Basophils Percent Auto 0.2 % (0-2); Eosinophils Percent Auto 0.1 % (0-4); Hematocrit 24.4 % (37-47); Hemoglobin 7.8 g/dl (12.0-16.0); Imm Gran Abs Auto 0.09 X10*3/uL (0.00-0.03); Imm Gran Pct Auto 0.5 % (0.0-0.4); Lymphocytes Absolute Auto 1.7 X10*3/uL (1.2-4.9); Lymphocytes Percent Auto 9.7 % (20-40); Mean Corpuscular Volume 96.8 fL (80-98); Mean Platelet Volume 9.3 fL (9.4-12.3); Monocytes Percent Auto 5.5 % (2-11); Neutrophils Absolute Auto 14.7 X10*3/uL (2.0-8.3); Platelet Count 419 X10*3/uL (160-400); Red Blood Count 2.52 X10*6/uL (4.20-5.50); Red Cell Distribution Width 13.8 % (11.0-16.0); White Blood Count 17.5 X10*3/uL (4.8-10.8)
[2020-10-30] MEDS: Dextrose 5 % and 0.45 % NaCl 1,000 ML 100 ML IVCONT (06:22)
--- NOTE | 2020-10-30 06:32 | PC.NURSE ---
orders from hosptialist to hold protonix this morning. patient received 80mg at 3am and no more to be given this am.
[2020-10-30 06:45] LABS: Troponin-I High Sensitivity 39.5 ng/L (<3.5-17.0)
[2020-10-30 06:46] LABS: ~Lactic Acid-LAB USE ONLY 0.9 mmol/L (0.5-2.0)
[2020-10-30 08:12] LABS: Glucose Urine UA NEG (NEG); Leukocyte Esterase Urine 2+ (NEG); Nitrite Urine NEG (NEG); PH 5.5 (5.0-8.0); UACC Culture Trigger YES; Urine Blood 1+ (NEG); Urine Ketones NEG (NEG); Urine Protein NEG (NEG-TRACE)
[2020-10-30 08:13] LABS: Appearance Urine HAZY; Color Urine YELLOW
[2020-10-30 08:20] LABS: Bacteria Urine 1+ /LPF; Mucus Urine 1+ /LPF; Squamous Epithelial Cell Urine 2+ /LPF; WBC Urine 30-49 /HPF (0-4)
--- NOTE | 2020-10-30 08:53 | P.CONCA_ITS ---
History of Present Illness History of Present Illness Date of Service: 10/30/20 Requesting physician: Elvia Kuo Chief complaint: GI Bleed, positive troponins Narrative: 75-year-old female with HTN, HLD, anemia, DM and LBBB presenting for vague symptoms. Poor historian. She is saying she was dizzy and that is why her son brought her to the hospital. She has been experiencing some dyspepsia as well as poor appetite for long time. She also reportedly had some hematemesis. Black stools were noticed which are guaiac +. She does not remember any bleeding or abdominal pain. She is noticed to be anemic. We have been consulted for positive troponins. She is denying any chest pain or shortness of breath right now. There was significant drop in her hemoglobin. Review of Systems Review of Systems: Dizziness, dyspepsia Yes all other systems are reviewed and are negative PMF Past Medical History Medical History High cholesterol HTN (hypertension) UTI (urinary tract infection) Social History Social History Smoking Status: Former smoker Advance Directives: No Advance Directives Information Provided: No Meds Allergies Allergy/AdvReac Type Severity Reaction Status Date / Time No Known Allergies Allergy Verified 10/26/20 19:14 [No Known Allergies*] Active Medications: Current Medications Generic Name Dose Route Start Last Admin Trade Name Freq PRN Reason Stop Dose Admin Acetaminophen 650 mg 10/30/20 04:21 Acetaminophen Supp 650 Mg Supp.Rect TN Q6H PRN Pain, Mild (Pain Scale 1-3) Dextrose/Sodium Chloride 1,000 mls @ 100 mls/hr 10/30/20 04:30 10/30/20 06:22 D51/2ns IVCONT 100 mls/hr .Q10H LEOPOLDO Administration Piperacillin Sod/Tazobactam 50 mls @ 100 mls/hr 10/30/20 10:00 Sod 2.25 gm/ Sodium Chloride IV Q6H LEOPOLDO Insulin Human Lispro 0 unit 10/30/20 07:30 Insulin Lispro 100 Unit/Ml 3 Ml Vial SUBCUT QIDACHS LEOPOLDO Pantoprazole Sodium 40 mg 10/30/20 06:30 10/30/20 06:34 Pantoprazole Sodium 40 Mg/10 Ml Vial IVPUSH Not Given DAILY@0630 [facility] Sertraline HCl 50 mg 10/30/20 09:00 Sertraline Hcl 50 Mg Tablet PO DAILY LEOPOLDO Sodium Chloride 3 ml 10/30/20 08:00 0.9 % Sodium Chloride Flush 3 Ml Syringe IVFLUSH QSHIFT LEOPOLDO Trazodone HCl 50 mg 10/30/20 21:00 Trazodone Hcl 50 Mg Tablet PO BEDTIME LEOPOLDO Zolpidem Tartrate 5 mg 10/30/20 04:21 Zolpidem Tartrate 5 Mg Tablet PO BEDTIME PRN Insomnia Home Medications Medication Instructions Recorded Confirmed Last Taken Type losartan-hydrochlorothiazide 1 tab PO DAILY 10/26/20 10/30/20 10/29/20 History sertraline 1 tab PO DAILY 10/26/20 10/30/20 10/29/20 History simvastatin 1 tab PO BEDTIME 10/26/20 10/30/20 10/29/20 History trazodone 1 tab PO BEDTIME 10/26/20 10/30/20 10/29/20 History Physical Exam Vital Signs: Vital Signs: Last Vital Signs Temp 99.2 F 10/30/20 06:00 Pulse 70 10/30/20 06:00 Resp 20 10/30/20 06:00 BP 101/45 L 10/30/20 06:00 Pulse Ox 95 10/30/20 06:00 Body Mass Index 23.0 GENERAL APPEARANCE: in no acute distress, well developed, well nourished. HEENT: unremarkable. HEAD: normocephalic, atraumatic. NECK/THYROID: no carotid bruit, no jugular venous distention. SKIN: no suspicious lesions, warm and dry. HEART: no murmurs, regular rate and rhythm, S1, S2 normal. LUNGS: clear to auscultation bilaterally. ABDOMEN: normal, bowel sounds present, soft, nontender, nondistended. EXTREMITIES: no clubbing, cyanosis, or edema. PERIPHERAL PULSES: equal. NEUROLOGIC: nonfocal, alert and oriented. PSYCH: mood/affect full range. Results Labs and Meds Result diagrams: 10/30/20 10:47 10/30/20 02:25 Lab results: Laboratory Results - last 24 hr 10/30/20 10/30/20 10/30/20 02:25 02:25 02:31 WBC 22.6 H RBC 3.14 L Hgb 9.8 L Hct 29.3 L MCV 93.3 MCH 31.2 MCHC 33.4 RDW 13.7 Plt Count 560 H MPV 9.3 L Immature Gran % (Auto) 0.5 H Neut % (Auto) 80.7 H Lymph % (Auto) 12.6 L [place] % (Auto) 5.6 Eos % (Auto) 0.2 Baso % (Auto) 0.4 Lymph # (Auto) 2.9 [place] # (Auto) 1.3 H Eos # (Auto) 0.1 Baso # (Auto) 0.1 Abs Immat Gran (auto) 0.12 H Absolute Neuts (auto) 18.2 H Absolute Nucleated RBC 0.000 Nucleated RBC % (auto) 0.0 PT INR APTT Sodium 132 L Potassium 3.8 Chloride 100 Carbon Dioxide 15 L Anion Gap 21 H BUN 46 H D Creatinine 2.05 H Estim Creat Clear Calc 19.0 Estimated GFR 23 POC Glucose Random Glucose 214 H D Lactic Acid Lactic Acid Fup @ 2Hr Calcium 8.6 D Total Bilirubin 0.3 AST 15 ALT 15 Alkaline Phosphatase 82 Troponin I High Sens Total Protein 6.5 Albumin 4.0 Urine Color Urine Appearance Urine pH Ur Specific [place] Urine Protein Urine Glucose (UA) Urine Ketones Urine Blood Urine Nitrite Ur Leukocyte Esterase Urine RBC Urine WBC Ur Squamous Epith Cells Urine Bacteria Urine Mucus Stool Occult Blood COVID-19 ([facility]) COVID-19 Clin Com Blood Type O Positive Antibody Screen NEGATIVE 10/30/20 10/30/20 10/30/20 02:31 02:31 02:32 WBC RBC Hgb Hct MCV MCH MCHC RDW Plt Count MPV Immature Gran % (Auto) Neut % (Auto) Lymph % (Auto) [place] % (Auto) Eos % (Auto) Baso % (Auto) Lymph # (Auto) [place] # (Auto) Eos # (Auto) Baso # (Auto) Abs Immat Gran (auto) Absolute Neuts (auto) Absolute Nucleated RBC Nucleated RBC % (auto) PT 12.9 INR 1.1 APTT 33.1 D Sodium Potassium Chloride Carbon Dioxide Anion Gap BUN Creatinine Estim Creat Clear Calc Estimated GFR POC Glucose Random Glucose Lactic Acid 2.4 H* Lactic Acid Fup @ 2Hr Calcium Total Bilirubin AST ALT Alkaline Phosphatase Troponin I High Sens Total Protein Albumin Urine Color Urine Appearance Urine pH Ur Specific [place] Urine Protein Urine Glucose (UA) Urine Ketones Urine Blood Urine Nitrite Ur Leukocyte Esterase Urine RBC Urine WBC Ur Squamous Epith Cells Urine Bacteria Urine Mucus Stool Occult Blood COVID-19 ([facility]) Negative COVID-19 Clin Com See Note Blood Type Antibody Screen 10/30/20 10/30/20 10/30/20 02:32 02:35 03:06 WBC RBC Hgb Hct MCV MCH MCHC RDW Plt Count MPV Immature Gran % (Auto) Neut % (Auto) Lymph % (Auto) [place] % (Auto) Eos % (Auto) Baso % (Auto) Lymph # (Auto) [place] # (Auto) Eos # (Auto) Baso # (Auto) Abs Immat Gran (auto) Absolute Neuts (auto) Absolute Nucleated RBC Nucleated RBC % (auto) PT INR APTT Sodium Potassium Chloride Carbon Dioxide Anion Gap BUN Creatinine Estim Creat Clear Calc Estimated GFR POC Glucose 210 H Random Glucose Lactic Acid Lactic Acid Fup @ 2Hr Calcium Total Bilirubin AST ALT Alkaline Phosphatase Troponin I High Sens 40.9 H Total Protein Albumin Urine Color Urine Appearance Urine pH Ur Specific [place] Urine Protein Urine Glucose (UA) Urine Ketones Urine Blood Urine Nitrite Ur Leukocyte Esterase Urine RBC Urine WBC Ur Squamous Epith Cells Urine Bacteria Urine Mucus Stool Occult Blood POS COVID-19 ([facility]) COVID-19 [employer] Com Blood Type Antibody Screen 10/30/20 10/30/20 10/30/20 05:58 05:58 05:58 WBC 17.5 H RBC 2.52 L Hgb 7.8 L D Hct 24.4 L MCV 96.8 MCH 31.0 MCHC 32.0 RDW 13.8 Plt Count 419 H D MPV 9.3 L Immature Gran % (Auto) 0.5 H Neut % (Auto) 84.0 H Lymph % (Auto) 9.7 L [place] % (Auto) 5.5 Eos % (Auto) 0.1 Baso % (Auto) 0.2 Lymph # (Auto) 1.7 [place] # (Auto) 1.0 Eos # (Auto) 0.0 Baso # (Auto) 0.0 Abs Immat Gran (auto) 0.09 H Absolute Neuts (auto) 14.7 H Absolute Nucleated RBC 0.000 Nucleated RBC % (auto) 0.0 PT INR APTT Sodium Potassium Chloride Carbon Dioxide Anion Gap BUN Creatinine Estim Creat Clear Calc Estimated GFR POC Glucose Random Glucose Lactic Acid Lactic Acid Fup @ 2Hr 0.9 Calcium Total Bilirubin AST ALT Alkaline Phosphatase Troponin I High Sens 39.5 H Total Protein Albumin Urine Color Urine Appearance Urine pH Ur Specific [place] Urine Protein Urine Glucose (UA) Urine Ketones Urine Blood Urine Nitrite Ur Leukocyte Esterase Urine RBC Urine WBC Ur Squamous Epith Cells Urine Bacteria Urine Mucus Stool Occult Blood COVID-19 ([facility]) COVID-19 [employer] Com Blood Type Antibody Screen 10/30/20 08:05 WBC RBC Hgb Hct MCV MCH MCHC RDW Plt Count MPV Immature Gran % (Auto) Neut % (Auto) Lymph % (Auto) [place] % (Auto) Eos % (Auto) Baso % (Auto) Lymph # (Auto) [place] # (Auto) Eos # (Auto) Baso # (Auto) Abs Immat Gran (auto) Absolute Neuts (auto) Absolute Nucleated RBC Nucleated RBC % (auto) PT INR APTT Sodium Potassium Chloride Carbon Dioxide Anion Gap BUN Creatinine Estim Creat Clear Calc Estimated GFR POC Glucose Random Glucose Lactic Acid Lactic Acid Fup @ 2Hr Calcium Total Bilirubin AST ALT Alkaline Phosphatase Troponin I High Sens Total Protein Albumin Urine Color YELLOW Urine Appearance HAZY Urine pH 5.5 Ur Specific [place] 1.020 Urine Protein NEG Urine Glucose (UA) NEG Urine Ketones NEG Urine Blood 1+ H Urine Nitrite NEG Ur Leukocyte Esterase 2+ H Urine RBC 5-9 H Urine WBC 30-49 H Ur Squamous Epith Cells 2+ Urine Bacteria 1+ Urine Mucus 1+ Stool Occult Blood COVID-19 ([facility]) COVID-19 [employer] Com Blood Type Antibody Screen Imaging Radiologist's impression: Impressions Abdomen/Pelvis CT 10/30/20 03:03 IMPRESSION: Mild sigmoid diverticulitis. Hepatic steatosis. Assessment and Plan (1) Hypertension: Qualifiers: Hypertension type: essential hypertension Qualified Code(s): I10 - Essential (primary) hypertension Status: Acute (2) Acute gastrointestinal bleeding: Status: Acute (3) Elevated troponin: Status: Acute Pleasant 75-year-old female who is presenting with dizziness and some dyspepsia like episodes. Reportedly she had hematemesis and had significant drop in hemoglobin at this point. I think the troponin elevation is due to type 2 [place] due to anemia from blood loss. She is somewhat hypotensive at this point. Hold the antihypertensive therapy. She will need blood transfusion and GI input. No significant cardiovascular issues going on. She has known left bundle-branch block. She can have further testing for that as outpatient if required. Please call if any questions arise. Thank you for allowing me to participate in the care of your patient. Please feel free to contact me if you have any questions.
[2020-10-30 09:05] LABS: INTERNATIONAL NORM RATIO 1.1 (0.9-1.1); Prothrombin Time 13.2 SEC (10.8-13.0)
[2020-10-30 09:34] LABS: Magnesium 2.6 mg/dL (1.6-2.6)
[2020-10-30 10:54] LABS: Hematocrit 21.4 % (37-47); Hemoglobin 7.1 g/dl (12.0-16.0)
[2020-10-30] MEDS: Sertraline HCL 50 MG TABLET PO (11:28)
[2020-10-30] MEDS: Piperacillin Sodium/Tazobactam 2.25 GM in 0.9 % Sodium Chloride 50 ML IV ×3 (11:28→22:40)
[2020-10-30] MEDS: Lactated Ringers 1,000 ML 80 ML IVCONT ×2 (11:31→22:42)
[2020-10-30 12:16] LABS: Glucose, Whole Blood 112 mg/dL (60-115)
--- NOTE | 2020-10-30 13:49 | P.EN_ITS ---
Event Note Date of Service: 10/30/20 Event Note: GI Consult-Full note dictated Imp: 75 yo female on daily OTC Naprosyn for at least one month presenting with progressive anorexia and some weight loss, as well as approx 1 week of dark stools. She came to the ER for weakness and dizziness. She has had continued B M's that are dark as well as mixed with some BRB. She hd on episode of N/V with ? of BRB. She has had a drop in Hgb and is receiving 2 u PRBC.She denies abdominal pain and her abdominal exam is benign. The CT scan shows very questionable evidence of some sigmoid diverticulitis, but her exam is benign and the CT is far from definitive. Diff dx: UGI Bleed due to NSAIDs-R/O ulcer vs significant gastritis. I doubt this reflects a lower GI bleed. Rec: EGD with MAC. Full consent obtained from her for this, including risks of bleeding and perforation. Continue resuscitation with transfusions. F/U labs closely. Continue IV PPI. I don't think she needs antibiotics for any intraabdominal process. If EGD is negative then she would need an eventual Colonoscopy. D/W patient in detail. Thanks
--- NOTE | 2020-10-30 14:18 | P.CONGS_ITS ---
History of Present Illness Consult details Consult date: 10/30/20 <Agustina Vee PA-C - Last Filed: 10/30/20 14:41> Reason for consult: abdominal pain <ROMAN Holman Last Filed: 10/30/20 14:41> Requesting physician: Elvia Kuo <ROMAN Holman Last Filed: 10/30/20 14:41> Narrative: 75-year-old female with a past medical history of hypertension, hyperlipi demia, diabetes, anxiety, depression presented to the hospital with a chief complaint of upper abdominal pain and dark tarry stools. She was recently seen in the ED on 10/26/2020 with chief complaint of abdominal pain/dizziness found to have a slightly abnormal urinalysis and slightly elevated troponin. She was given cefuroxime and was discharged home for presumed UTI. Patient came back to the hospital today for the same epigastric abdominal pain. Patient apparently vomited in the ED and there was blood in the emesis which arose concern for a Adrienne-Oconnell tear. Lab values showed at that time a drop in hemoglobin from 9.8-7.8 and she had guaiac-positive stools. CT abdomen showed question of mild sigmoid diverticulitis. Patient was given Zosyn and Flagyl and she was admitted to the medical service for further management of the GI bleed, question of sigmoid diverticulitis. Surgery was consulted for the acute diverticulitis. She currently denies any abdominal pain and reports she only had epigastric pain, never lower abdominal pain. She does report dark tarry stools at home over the past couple of days and loose stools for the past month. She has been taking naprosyn 3 tablets in the morning every day for the past month for her back pain. She had a colonoscopy in 2012 which was normal and this was supposed to be repeated in 10 years. <ROMAN Holman Last Filed: 10/30/20 14:41> Review of Systems Constitutional: Constitutional: Denies chills, Denies fever(s) and Denies weakness <ROMAN Holman Last Filed: 10/30/20 14:41> Eyes: Eyes: Denies blurry vision <ROMAN Holman Filed: 10/30/20 14:41> ENT: Denies dizziness <Agustina Vee PA-C - Last Filed: 10/30/20 14:41> Cardiovascular: Cardiovascular: Denies chest pain, Denies rapid heart rate and Denies dyspnea <Agustina Vee PA-C - Last Filed: 10/30/20 14:41> Respiratory: Respiratory: Denies dyspnea <Agustina Vee PA-C - Last Filed: 10/30/20 14:41> Gastrointestinal: Gastrointestinal: Reports as per HPI, Reports melena, Reports diarrhea and Reports hematemesis <Agustina Vee PA-C - Last Filed: 10/30/20 14:41> Musculoskeletal: Musculoskeletal: Reports back pain <Agustina Vee PA-C - Last Filed: 10/30/20 14:41> Neurologic: Denies confusion, Denies dizziness, Reports focal weakness and Denies weakness <Agustina Vee PA-C - Last Filed: 10/30/20 14:41> Psychiatric: Psychiatric: Denies confusion <Agustina Vee PA-C - Last Filed: 10/30/20 14:41> [facility] Past Medical History Medical History: Medical History High cholesterol HTN (hypertension) UTI (urinary tract infection) <Agustina Vee PA-C - Last Filed: 10/30/20 14:41> Social History Social History: Social History (Updated 10/30/20 @ 14:33 by Agustina Vee PA-C) Household Members: Family and Children Housing: Apartment Smoking Status: Former smoker Tobacco Type: Cigarette Packs Per Day: 1 Years Smoked: 55 Smoked in Last 30 Days: No Smoking Quit Date: 2 years ago Second Hand Smoke Exposure: No <Agustina Vee PA-C - Last Filed: 10/30/20 14:41> Meds Allergies/Adverse reactions: Allergies Allergy/AdvReac Type Severity Reaction Status Date / Time No Known Allergies Allergy Verified 10/26/20 19:14 [No Known Allergies*] <Agustina Vee PA-C - Last Filed: 10/30/20 14:41> Active Medications: Current Medications Generic Name Dose Route Start Last Admin Trade Name Freq PRN Reason Stop Dose Admin Acetaminophen 650 mg 10/30/20 04:21 Acetaminophen Supp 650 Mg Supp.Rect TN Q6H PRN Pain, Mild (Pain Scale 1-3) Piperacillin Sod/Tazobactam 50 mls @ 100 mls/hr 10/30/20 10:00 10/30/20 12:15 Sod 2.25 gm/ Sodium Chloride IV Infused Q6H LEOPOLDO Infusion Lactated Ringer's 1,000 mls @ 80 mls/hr 10/30/20 09:30 10/30/20 11:31 Lr IVCONT 80 mls/hr .[id number] LEOPOLDO Administration Insulin Human Lispro 0 unit 10/30/20 07:30 10/30/20 12:14 Insulin Lispro 100 Unit/Ml 3 Ml Vial SUBCUT Not Given QIDACHS LEOPOLDO Pantoprazole Sodium 40 mg 10/30/20 06:30 10/30/20 06:34 Pantoprazole Sodium 40 Mg/10 Ml Vial IVPUSH Not Given DAILY@0630 [facility] Sertraline HCl 50 mg 10/30/20 09:00 10/30/20 11:28 Sertraline Hcl 50 Mg Tablet PO 50 mg DAILY LEOPOLDO Administration Sodium Chloride 3 ml 10/30/20 08:00 10/30/20 11:34 0.9 % Sodium Chloride Flush 3 Ml Syringe IVFLUSH Not Given QSHIFT LEOPOLDO Trazodone HCl 50 mg 10/30/20 21:00 Trazodone Hcl 50 Mg Tablet PO BEDTIME LEOPOLDO Zolpidem Tartrate 5 mg 10/30/20 04:21 Zolpidem Tartrate 5 Mg Tablet PO BEDTIME PRN Insomnia <Agustina Vee PA-C - Last Filed: 10/30/20 14:41> Home medications: Home Medications Medication Instructions Recorded Confirmed Last Taken Type losartan-hydrochlorothiazide 1 tab PO DAILY 10/26/20 10/30/20 10/29/20 History sertraline 1 tab PO DAILY 10/26/20 10/30/20 10/29/20 History simvastatin 1 tab PO BEDTIME 10/26/20 10/30/20 10/29/20 History trazodone 1 tab PO BEDTIME 0210/30/20 10/29/20 History <DIMITRIOS Holman [email or web address] Last Filed: 10/30/20 14:41> Physical Exam Vital Signs: Vital Signs: Last Vital Signs Temp 97.9 F 10/30/20 13:17 Pulse 81 10/30/20 13:17 Resp 17 10/30/20 13:17 BP 131/61 10/30/20 13:17 Pulse Ox 100 10/30/20 12:00 Body Mass Index 23.0 <DIMITRIOS Holman - Last Filed: 10/30/20 14:41> Const: General: No confusion <DIMITRIOS Holman [email or web address] Last Filed: 10/30/20 14:41> Orientation/consciousness: patient oriented x3 and No confusion <DIMITRIOS Webb [email or web address] Last Filed: 10/30/20 14:41> Eyes: Sclerae: sclerae normal <DIMITRIOS Holman [email or web address] Last Filed: 10/30/20 14:41> Resp: Effort & Inspection: normal respiratory effort <DIMITRIOS Holman [email or web address] Last Filed: 10/30/20 14:41> Cardio: Rate: regular rate <DIMITRIOS Holman [email or web address] Last Filed: 10/30/20 14:41> Rhythm: regular rhythm <DIMITRIOS Holman [email or web address] Last Filed: 10/30/20 14:41> GI: Inspection: Yes normal to inspection and No distended <DIMITRIOS Moffett [email or web address] Last Filed: 10/30/20 14:41> Palpation (GI): Soft to palpation, nontender, no guarding, not rigid and No Rebound tenderness present <DIMITRIOS Holman [email or web address] Last Filed: 10/30/20 14:41> Percussion: Yes normal to percussion <Agustina Vee PA-C [email or web address] Last Filed: 10/30/20 14:41> Skin: General skin exam: no rashes or lesions noted <DIMITRIOS Holman [email or web address] Last Filed: 10/30/20 14:41> Neuro: General: patient oriented x3 and No confusion <Agustina Vee PA-C - Last Filed: 10/30/20 14:41> Extrem: General: Yes no clubbing, cyanosis or edema <Agustina Vee PA-C - Last Filed: 10/30/20 14:41> Results Labs Result diagrams: : 10/30/20 10:47 10/30/20 02:25 <Agustina Vee PA-C - Last Filed: 10/30/20 14:41> Labs: Abnormal lab results 10/30/20 10/30/20 10/30/20 Range/Units 02:25 02:25 02:31 WBC 22.6 H (4.8-10.8) X10*3/uL RBC 3.14 L (4.20-5.50) X10*6/uL Hgb 9.8 L (12.0-16.0) g/dl Hct 29.3 L (37-47) % Plt Count 560 H (160-400) X10*3/uL MPV 9.3 L (9.4-12.3) fL Immature Gran % (Auto) 0.5 H (0.0-0.4) % Neut % (Auto) 80.7 H (45-73) % Lymph % (Auto) 12.6 L (20-40) % [place] # (Auto) 1.3 H (0.1-1.2) X10*3/uL Abs Immat Gran (auto) 0.12 H (0.00-0.03) X10*3/uL Absolute Neuts (auto) 18.2 H (2.0-8.3) X10*3/uL PT (10.8-13.0) SEC Sodium 132 L (135-145) mmol/L Carbon Dioxide 15 L (22-29) mmol/L Anion Gap 21 H (12-20) BUN 46 H D (9-16) mg/dL Creatinine 2.05 H (0.5-1.4) mg/dL POC Glucose (60-115) mg/dL Random Glucose 214 H D (60-115) mg/dL Lactic Acid (0.5-2.0) mmol/L Troponin I High Sens (<3.5-17.0) ng/L Urine Blood (NEG) Ur Leukocyte Esterase (NEG) Urine RBC (0) /HPF Urine WBC (0-4) /HPF Crossmatch See Detail 10/30/20 10/30/20 10/30/20 Range/Units 02:31 02:32 02:35 WBC (4.8-10.8) X10*3/uL RBC (4.20-5.50) X10*6/uL Hgb (12.0-16.0) g/dl Hct (37-47) % Plt Count (160-400) X10*3/uL MPV (9.4-12.3) fL Immature Gran % (Auto) (0.0-0.4) % Neut % (Auto) (45-73) % Lymph % (Auto) (20-40) % [place] # (Auto) (0.1-1.2) X10*3/uL Abs Immat Gran (auto) (0.00-0.03) X10*3/uL Absolute Neuts (auto) (2.0-8.3) X10*3/uL PT (10.8-13.0) SEC Sodium (135-145) mmol/L Carbon Dioxide (22-29) mmol/L Anion Gap (12-20) BUN (9-16) mg/dL Creatinine (0.5-1.4) mg/dL POC Glucose 210 H (60-115) mg/dL Random Glucose (60-115) mg/dL Lactic Acid 2.4 H* (0.5-2.0) mmol/L Troponin I High Sens 40.9 H (<3.5-17.0) ng/L Urine Blood (NEG) Ur Leukocyte Esterase (NEG) Urine RBC (0) /HPF Urine WBC (0-4) /HPF Crossmatch 10/30/20 10/30/20 10/30/20 Range/Units 05:58 05:58 08:05 WBC 17.5 H (4.8-10.8) X10*3/uL RBC 2.52 L (4.20-5.50) X10*6/uL Hgb 7.8 L D (12.0-16.0) g/dl Hct 24.4 L (37-47) % Plt Count 419 H D (160-400) X10*3/uL MPV 9.3 L (9.4-12.3) fL Immature Gran % (Auto) 0.5 H (0.0-0.4) % Neut % (Auto) 84.0 H (45-73) % Lymph % (Auto) 9.7 L (20-40) % [place] # (Auto) (0.1-1.2) X10*3/uL Abs Immat Gran (auto) 0.09 H (0.00-0.03) X10*3/uL Absolute Neuts (auto) 14.7 H (2.0-8.3) X10*3/uL PT (10.8-13.0) SEC Sodium (135-145) mmol/L Carbon Dioxide (22-29) mmol/L Anion Gap (12-20) BUN (9-16) mg/dL Creatinine (0.5-1.4) mg/dL POC Glucose (60-115) mg/dL Random Glucose (60-115) mg/dL Lactic Acid (0.5-2.0) mmol/L Troponin I High Sens 39.5 H (<3.5-17.0) ng/L Urine Blood 1+ H (NEG) Ur Leukocyte Esterase 2+ H (NEG) Urine RBC 5-9 H (0) /HPF Urine WBC 30-49 H (0-4) /HPF Crossmatch 10/30/20 10/30/20 Range/Units 08:45 10:47 WBC (4.8-10.8) X10*3/uL RBC (4.20-5.50) X10*6/uL Hgb 7.1 L (12.0-16.0) g/dl Hct 21.4 L (37-47) % Plt Count (160-400) X10*3/uL MPV (9.4-12.3) fL Immature Gran % (Auto) (0.0-0.4) % Neut % (Auto) (45-73) % Lymph % (Auto) (20-40) % [place] # (Auto) (0.1-1.2) X10*3/uL Abs Immat Gran (auto) (0.00-0.03) X10*3/uL Absolute Neuts (auto) (2.0-8.3) X10*3/uL PT 13.2 H (10.8-13.0) SEC Sodium (135-145) mmol/L Carbon Dioxide (22-29) mmol/L Anion Gap (12-20) BUN (9-16) mg/dL Creatinine (0.5-1.4) mg/dL POC Glucose (60-115) mg/dL Random Glucose (60-115) mg/dL Lactic Acid (0.5-2.0) mmol/L Troponin I High Sens (<3.5-17.0) ng/L Urine Blood (NEG) Ur Leukocyte Esterase (NEG) Urine RBC (0) /HPF Urine WBC (0-4) /HPF Crossmatch Short CBC 10/30/20 10/30/20 10/30/20 Range/Units 02:31 05:58 10:47 WBC 22.6 H 17.5 H (4.8-10.8) X10*3/uL Hgb 9.8 L 7.8 L D 7.1 L (12.0-16.0) g/dl Hct 29.3 L 24.4 L 21.4 L (37-47) % Plt Count 560 H 419 H D (160-400) X10*3/uL BMP 10/30/20 02:25 Sodium 132 L Potassium 3.8 Chloride 100 Carbon Dioxide 15 L BUN 46 H D Creatinine 2.05 H Calcium 8.6 D Liver Function 10/30/20 Range/Units 02:25 Total Bilirubin 0.3 (0.0-1.0) mg/dL AST 15 (5-31) U/L ALT 15 (0-31) U/L Alkaline Phosphatase 82 (39-117) U/L Albumin 4.0 (3.5-5.0) g/dL Urine 10/30/20 Range/Units 08:05 Urine Color YELLOW Urine Appearance HAZY Urine pH 5.5 (5.0-8.0) Ur Specific [place] 1.020 (1.005-1.025) Urine Protein NEG (NEG-TRACE) MG/DL Urine Glucose (UA) NEG (NEG) MG/DL All other labs normal. CT SCAN- question of mild sigmoid diverticulitis. GASTROINTESTINAL TRACT: The stomach is unremarkable. Normal caliber small bowel. There is no obstruction. Normal appendix. No colonic wall thickening or acute inflammatory change. Scattered diverticulosis involving the descending colon. More prominent diverticulosis of the sigmoid colon. The sigmoid colon is decompressed which limits evaluation for wall thickening. There is faint stranding in the fat adjacent to the sigmoid colon. No free air. <Agustina Vee PA-C - Last Filed: 10/30/20 14:41> Assessment and Plan (1) Acute gastrointestinal bleeding: Status: Acute <Agustina Vee PA-C - Last Filed: 10/30/20 14:41> Patient seen and examined Records reviewed Imaging studies also reviewed She was admitted for episodes of bleeding per rectum, initially dark and becoming more bright Multiple episodes since admission last night Hemoglobin has dropped to 7.1 from 9 Notes state that she had an episode of vomiting with small amounts of blood the ER Seen by GI -likely upper GI bleed patient, scheduled for upper GI endoscopy tomorrow - bleeding thought to be secondary to NSAIDs Need to rule out lower GI bleed as well; consider nuclear study Patient was having another bloody BM does before being interview Unlikely to have acute diverticulitis based on review of CT scan Follow hemoglobin Transfuse as needed Will follow closely <Dougie Parham MD - Last Filed: 10/30/20 15:26> (2) Diverticulosis: Status: Acute <Agustina Vee PA-C - Last Filed: 10/30/20 14:41> 75 year old female admitted for anemia, UGI bleed with CT scan showing question of sigmoid diverticulitis. She is completely asymptomatic in regards to abdominal pain. Her abdomen is completely benign- soft, nontender, nondistended. CT scan shows diverticulosis of the sigmoid colon with faint stranding in the fat adjacent to the sigmoid colon. Her WBC is normal. Unlikely that this actually represents diverticulitis. Can hold off on antibiotic treatment. GI consult for UGI bleed. Can advance diet as tolerated following possible endoscopic intervention. Thank you for the courtesy of this consult. Case discussed with Dr. Parham. <Agustina Vee PA-C - Last Filed: 10/30/20 14:41>
--- NOTE | 2020-10-30 14:55 | CONS_ITS ---
DATE OF SERVICE: 10/30/2020 REASON FOR CONSULTATION: GI bleeding and anemia. HISTORY OF PRESENT ILLNESS: This has been obtained from the patient, her nurse, and the medical record. The patient is a 75-year-old female, who describes using 3 [id number] Naprosyn every day for back pain over the past month or so. During this time, she has noticed a progressive anorexia and an approximately 10 pound weight loss. About a week or so ago, she began noticing some dark stool. There may have been some small amounts of bright red blood with it. She did have some nausea and belching, but no particular abdominal pain. She did have some nausea and vomiting in the ER today with perhaps a small amount of blood, but she has had no further episodes of vomiting. When she came to the ER yesterday, she was weak and somewhat dizzy. She has had a drop in her hemoglobin from a hemoglobin of 11.8 on October 26 to 9.8 on presentation early this morning. Her hemoglobin several hours later at 6 a.m. today was 7.8 and repeated at 11 a.m. was 7.1. She denies any history of ulcer disease. Aside from the Naprosyn, she does not use any other NSAIDs nor aspirin. She stopped smoking about 2 years ago. She does not use any significant amounts of alcohol. Prior to the past month or 2, she denies any real chronic GI complaints. She denies any history of ulcer disease. She does describe a negative colonoscopy about 7 years ago while living elsewhere in [place]. MEDICATIONS: At home are listed as recent course of cefuroxime for UTI, losartan, sertraline, simvastatin, and trazodone. Her medications here in the hospital include IV Zosyn, IV Flagyl, acetaminophen, sliding scale insulin, IV Protonix, sertraline, trazodone, and Ambien. PAST MEDICAL HISTORY: Fractured left ankle surgery. She denies any other surgeries. Medical problems include hyperlipidemia, back pain, hypertension, and urinary infections. She has history of anxiety. She denies history of [place], stroke, nor lung disease. SOCIAL HISTORY: She is single. She currently does not smoke or use any alcohol. FAMILY HISTORY: Noncontributory. REVIEW OF SYSTEMS: CONSTITUTIONAL: She has been feeling weak and anorectic over at least the past month or so. SKIN: Without rash. No pruritus. CARDIAC: No chest pain. PULMONARY: No cough. No hemoptysis. GASTROINTESTINAL: As above. PHYSICAL EXAMINATION: GENERAL: The patient is a pleasant, alert, comfortable-appearing female, in no distress. She answers questions appropriately. SKIN: Warm and dry. Anicteric sclerae. NECK: Supple. CHEST: Clear. CARDIAC: Normal S1 and S2. ABDOMEN: Soft, nondistended, normal bowel sounds, nontender without palpable mass, tenderness, rebound, or guarding. LABORATORY DATA: As above. Platelet count 419,000. PT 13.2 with INR 1.1. Sodium 132, potassium 3.8, BUN 46, creatinine 2.1, blood sugar 214. LFTs are normal. Her troponin levels are somewhat elevated at 40.9 at 2 a.m. and 39.5 at 6 a.m. IMPRESSION: Given the patient's clinical history of chronic NSAID use, dark stool, and worsening appetite with associated nausea, I suspect she is having an upper GI bleed in relation to an NSAID induced ulcer or significant gastritis. At this point, I would recommend continuing resuscitation with transfusions. Once things have stabilized, then she will need upper endoscopy with monitored anesthesia care. Full consent has been obtained from her for the upper endoscopy, including risks of bleeding and perforation. In the meantime, I would keep her n.p.o. and continue to monitor her blood work closely. I would continue her IV PPI. In reviewing her CAT scan, I do not think she has any significant intraabdominal process given the CAT scan reading and her very benign abdomen. Therefore, I think her antibiotics could be stopped. Of note, if the upper endoscopy is not revealing, she would need eventual colonoscopy for further evaluation as well. This has been discussed with the patient in detail and she is comfortable with the plan. Thank you for this consultation. MD CEFERINO Bustamante/FAITH / [phone] MTDFernie
--- NOTE | 2020-10-30 16:52 | HO.PM.IMPN ---
Subjective Subjective Date of Service: 10/31/20 Interval History: abd pain- seems to be improved, still keep bleeding per rectum pain less. Review of Systems Denies any nausea or vomiting or any weakness or numbness Physical Exam Vital Signs: Vital Signs: Last Vital Signs Temp 97.5 F 10/30/20 15:25 Pulse 63 10/30/20 15:25 Resp 19 10/30/20 15:25 BP 131/58 L 10/30/20 15:25 Pulse Ox 100 10/30/20 15:25 Body Mass Index 23.0 Physical exam : Constitutional: Noted acute distress. Heent: eyes : anicteric , no discharge. Cvs: rrr, [id number] , no murmur res: clear to auscultation ,no rhonchii or wheezing abd: no rebound or guarding ,nt, bs present. ext pulses present , no cyanosis neuro: axo3 , nonfocal. Objective Data Current Medications Generic Name Dose Route Start Last Admin Trade Name Freq PRN Reason Stop Dose Admin Acetaminophen 650 mg 10/30/20 04:21 Acetaminophen Supp 650 Mg Supp.Rect [place] Q6H PRN Pain, Mild (Pain Scale 1-3) Piperacillin Sod/Tazobactam 50 mls @ 100 mls/hr 10/30/20 10:00 10/30/20 12:15 Sod 2.25 gm/ Sodium Chloride IV Infused Q6H LEOPOLDO Infusion Lactated Ringer's 1,000 mls @ 80 mls/hr 10/30/20 09:30 10/30/20 11:31 Lr IVCONT 80 mls/hr .[id number] LEOPOLDO Administration Pantoprazole Sodium 80 mg/ 100 mls @ 10 mls/hr 10/30/20 15:15 Sodium Chloride IV .Q10H LEOPOLDO 8 MG/HR Insulin Human Lispro 0 unit 10/30/20 07:30 10/30/20 12:14 Insulin Lispro 100 Unit/Ml 3 Ml Vial SUBCUT Not Given QIDACHS LEOPOLDO Sertraline HCl 50 mg 10/30/20 09:00 10/30/20 11:28 Sertraline Hcl 50 Mg Tablet PO 50 mg DAILY LEOPOLDO Administration Sodium Chloride 3 ml 10/30/20 08:00 10/30/20 11:34 0.9 % Sodium Chloride Flush 3 Ml Syringe IVFLUSH Not Given QSHIFT LEOPOLDO Trazodone HCl 50 mg 10/30/20 21:00 Trazodone Hcl 50 Mg Tablet PO BEDTIME LEOPOLDO Zolpidem Tartrate 5 mg 10/30/20 04:21 Zolpidem Tartrate 5 Mg Tablet PO BEDTIME PRN Insomnia Labs CBC & Chem 7: 10/31/20 05:41 10/31/20 05:41 Assessment and Plan (1) GI bleed: Status: Acute Assessment and Plan: 75-year-old female with a past medical history of hypertension, hyperlipidemia, diabetes presented to the hospital with a chief complaint of nausea vomiting diarrhea, abdominal pain, blood in the stool. Noted to have MARIA LUZ/diverticulitis/GI bleed/anemia. Admitted to the hospital for further management 1.Acute sigmoid diverticulitis andacute blood loss anemia GI bleed : ? UGIB: Patient takes Naprosyn at home Patient still keep having per rectum bleeding 2 episodes since this morning fobt positive C diff and stool cultures ordered. urine and blood cultures -pending results. NPO IV fluids, Monitor H&H, transfuse 2 PRBC, bleeding scan, continue Zosyn seen buy GI: Recommended to transfuse, continue PPI drip, if continue to bleed significantly or any hemodynamic in separate instability patient may need ICU, and also will need GI to re-evaluate for EGD. Will repeat H&H after 2 PRBC if still low between 7-8 range may need more transfusion. Bleeding scan is being done now. 2.MARIA LUZ:multifcatorial: Likely in the setting of dehydration/Gi bleed Gentle IV fluids. Avoid nephrotoxins. Hold home losartan/hydrochlorothiazide. repeat cbc and bmp in the evening Acidosis is seems multifactorial-dehydration/GI bleed: Resolved with hydration. 3.High troponins: Patient denies any chest pain. EKG showed LBBB which is known. Further cardiac workup out patiently 4.History of hypertension: Hold home antihypertensives given soft blood pressure. 5.History of diabetes: Insulin sliding scale. Monitor fingerstick glucose
[2020-10-30 17:59] LABS: Glucose, Whole Blood 103 mg/dL (60-115)
[2020-10-30] MEDS: 0.9 % Sodium Chloride Flush 3 ML SYRINGE IVFLUSH ×2 (17:59→19:54)
[2020-10-30] MEDS: Acetaminophen 325 MG TABLET 650 MG PO (17:59)
--- NOTE | 2020-10-30 18:19 | PM.EVENT ---
Event Note Date of Service: 10/30/20 Event Note: remains comfortable looks well no further episodes of bloody BMs since last seen earlier ongoing blood transfusion - 2nd unit nuclear study done - no obvious suggestion of ongoing bleeding, official report pending follow Hg PPI dw GI - likely upper GI source? with hx of NSAIDS pt also has severe diverticulosis of the sigmoid as per GI - EGD tomorrow hemodynamically stable
[2020-10-30] MEDS: traZODone HCL 50 MG TABLET PO (19:52)
[2020-10-30 20:07] LABS: Hematocrit 31.5 % (37-47); Hemoglobin 10.5 g/dl (12.0-16.0)
[2020-10-30 20:59] LABS: Glucose, Whole Blood 92 mg/dL (60-115)
[2020-10-30] MEDS: Pantoprazole Sodium 80 MG in 0.9 % Sodium Chloride 80 ML 10 MG IV (23:15)
[2020-10-31] VITALS (11 sets, daily range): BP systolic 116–189; BP diastolic 57–89; PULSE 56–99; RESP 17–24; TEMP 35.8–37; O2SAT 96–100
[2020-10-31 00:04] LABS: Hematocrit 33.7 % (37-47); Hemoglobin 11.4 g/dl (12.0-16.0)
[2020-10-31] MEDS: Piperacillin Sodium/Tazobactam 2.25 GM in 0.9 % Sodium Chloride 50 ML IV ×2 (03:27→09:09)
[2020-10-31 06:33] LABS: MANUAL DIFF FLAG NO
[2020-10-31 07:04] LABS: Basophils Absolute Auto 0.1 X10*3/uL (0.0-0.2); Basophils Percent Auto 0.6 % (0-2); Eosinophils Absolute Auto 0.4 X10*3/uL (0.0-0.4); Eosinophils Percent Auto 3.1 % (0-4); Hemoglobin 10.2 g/dl (12.0-16.0); Imm Gran Abs Auto 0.06 X10*3/uL (0.00-0.03); Imm Gran Pct Auto 0.5 % (0.0-0.4); Lymphocytes Percent Auto 16.6 % (20-40); Mean Corpuscular Hemoglobin 31.7 pg (27.0-33.0); Mean Corpuscular Volume 93.2 fL (80-98); Mean Platelet Volume 9.4 fL (9.4-12.3); Monocytes Absolute Auto 0.8 X10*3/uL (0.1-1.2); Monocytes Percent Auto 6.7 % (2-11); NRBC Pct Auto 0.2 /100WBC (0.0-0.2); Neutrophils Absolute Auto 8.5 X10*3/uL (2.0-8.3); Neutrophils Percent Auto 72.5 % (45-73); Platelet Count 350 X10*3/uL (160-400); Red Blood Count 3.22 X10*6/uL (4.20-5.50); Red Cell Distribution Width 13.7 % (11.0-16.0); White Blood Count 11.8 X10*3/uL (4.8-10.8)
[2020-10-31 07:20] LABS: Anion Gap 12 (12-20); Blood Urea Nitrogen 34 mg/dL (9-16); Carbon Dioxide 21 mmol/L (22-29); Chloride 110 mmol/L (96-108); Creatinine Clr Calc Pharmacy 37.1; Estimated Glomerular Filt Rate 51; Glucose Fasting 81 mg/dL (60-99); Potassium 3.6 mmol/L (3.3-5.1); Sodium 139 mmol/L (135-145)
[2020-10-31 07:32] LABS: Calcium 7.6 mg/dL (8.4-10.2)
[2020-10-31 07:49] LABS: Glucose, Whole Blood 87 mg/dL (60-115)
--- NOTE | 2020-10-31 08:07 | PM.PNGS ---
Subjective Subjective Date of Service: 10/31/20 <Agustina Vee PA-C - Last Filed: 10/31/20 08:11> 10/31/20 <Dougie Parham MD - Last Filed: 10/31/20 08:53> Interval history: Having christa blood from rectum now. Less dizzy after transfusions. Denies abdominal pain. <Agustina Vee PA-C - Last Filed: 10/31/20 08:11> Physical Exam Vital Signs: Vital Signs: Last Vital Signs Temp 98.6 F 10/31/20 03:29 Pulse 61 10/31/20 03:29 Resp 18 10/31/20 03:29 BP 145/62 H 10/31/20 03:29 Pulse Ox 96 10/31/20 03:29 Body Mass Index 23.0 <Agustina Vee PA-C - Last Filed: 10/31/20 08:11> Const: General: comfortable and no acute distress <Agustina Vee PA-C - Last Filed: 10/31/20 08:11> Orientation/consciousness: patient oriented x3 <Agustina Vee PA-C - Last Filed: 10/31/20 08:11> Eyes: Sclerae: sclerae normal <Agustina Vee PA-C - Last Filed: 10/31/20 08:11> Resp: Effort & Inspection: normal respiratory effort <Agustina Vee PA-C - Last Filed: 10/31/20 08:11> GI: Inspection: Yes normal to inspection and No distended <Agustina Vee PA-C - Last Filed: 10/31/20 08:11> Palpation (GI): Soft to palpation and nontender <Agustina Vee PA-C - Last Filed: 10/31/20 08:11> Skin: Other: normal color, warm and dry <Agustina Vee PA-C - Last Filed: 10/31/20 08:11> General skin exam: no rashes or lesions noted <Agustina Vee PA-C - Last Filed: 10/31/20 08:11> Neuro: General: patient oriented x3 <Agustina Vee PA-C - Last Filed: 10/31/20 08:11> Extrem: General: Yes no clubbing, cyanosis or edema <Agustina Vee PA-C - Last Filed: 10/31/20 08:11> Progress Note: A&P Assessment and plan (1) GI bleed: Status: Acute <Agustina Vee PA-C - Last Filed: 10/31/20 08:11> Assessment and Plan: Nuclear scan negative for lower GI bleed yesterday. Appropriate rise in H/H following transfusions yesterday but slightly drifted down this morning. VSS. Abd exam benign. NPO for upper endo today. Continue to trend H/H, tranfuse as needed. <Agustina Vee PA-C - Last Filed: 10/31/20 08:11> says she feels well epsiode of blood per rectum this morning nuclear scan last night - no bleeding seen Hg up after transfusion - had 2 units yesterday abd soft clinically no diveriticulitis looks well EGD today with Dr. Oconnell PPI seen and examined - agree with TOYA Mills <Dougie Parham MD - Last Filed: 10/31/20 08:53> (2) Diverticulosis: Status: Acute <Agustina Vee PA-C - Last Filed: 10/31/20 08:11> (3) Anemia: Status: Acute <Agustina Vee PA-C - Last Filed: 10/31/20 08:11> (4) Elevated troponin: Status: Acute <Agustina Vee PA-C - Last Filed: 10/31/20 08:11> Fall Risk Details Current Medications: Current Medications Generic Name Dose Route Start Last Admin Trade Name Freq PRN Reason Stop Dose Admin Acetaminophen 650 mg 10/30/20 04:21 Acetaminophen Supp 650 Mg Supp.Rect [place] Q6H PRN Pain, Mild (Pain Scale 1-3) Piperacillin Sod/Tazobactam 50 mls @ 100 mls/hr 10/30/20 10:00 10/31/20 05:08 Sod 2.25 gm/ Sodium Chloride IV Infused Q6H LEOPOLDO Infusion Lactated Ringer's 1,000 mls @ 80 mls/hr 10/30/20 09:30 10/31/20 05:52 Lr IVCONT 0 mls/hr .[id number] LEOPOLDO Infusion Pantoprazole Sodium 80 mg/ 100 mls @ 10 mls/hr 10/30/20 15:15 10/30/20 23:15 Sodium Chloride IV 8 mg/hr .Q10H LEOPOLDO 10 mls/hr Administration 8 MG/HR Insulin Human Lispro 0 unit 10/30/20 07:30 10/30/20 21:05 Insulin Lispro 100 Unit/Ml 3 Ml Vial SUBCUT Not Given QIDACHS LEOPOLDO Sertraline HCl 50 mg 10/30/20 09:00 10/30/20 11:28 Sertraline Hcl 50 Mg Tablet PO 50 mg DAILY LEOPOLDO Administration Sodium Chloride 3 ml 10/30/20 08:00 10/30/20 19:54 0.9 % Sodium Chloride Flush 3 Ml Syringe IVFLUSH 3 ml QSHIFT LEOPOLDO Administration Trazodone HCl 50 mg 10/30/20 21:00 10/30/20 19:52 Trazodone Hcl 50 Mg Tablet PO 50 mg BEDTIME LEOPOLDO Administration Zolpidem Tartrate 5 mg 10/30/20 04:21 Zolpidem Tartrate 5 Mg Tablet PO BEDTIME PRN Insomnia <Agustina Vee PA-C - Last Filed: 10/31/20 08:11> Time Spent With Patient Time: Total time spent is greater than 50% in coordination of care (as documented) at patient's floor/unit and/or counseling patient: <Agustina Vee PA-C - Last Filed: 10/31/20 08:11> Time with patient: less than 15 minutes <ROMAN Holman Last Filed: 10/31/20 08:11>
[2020-10-31] MEDS: oxyCODONE HCl Immed Release 5 MG TABLET PO ×2 (09:09→13:41)
[2020-10-31] MEDS: Sertraline HCL 50 MG TABLET PO (09:10)
--- NOTE | 2020-10-31 09:25 | P.CDIC_ITS ---
CDI Concurrent Query Service Date: 10/31/20 Documentation Clarification: Please clarify if you are treating a proba ble/suspected/likely or confirmed: Sirs (POA)- not present Please specify if known or other Provider Response: Other Other Diagnosis: divertculitis , no sirs PLEASE DO NOT DELETE/MODIFY EXISTING CONTENT Additional information is needed in order to code to the highest accuracy and appropriate Severity of Illness (SOI). Please clarify the information noted below in your progress notes and discharge summary. Risk Factors/Clinical Indicators/Treatments Ed: patient does meet SIRS criteria but not severe sepsis, IV fluids. WBC 22.6 CDS: Janessa Rizvi CCS, CDIS Contact Number: Please Review the information above and exercise your independent professional judgment in responding to the query. If you concur, pleas document in the PROGRESS NOTES and DISCHARGE SUMMARY. If you do not agree with the query, please document in the query above. THIS QUERY IS PART OF THE PERMANENT MEDICAL RECORD
[2020-10-31] MEDS: Lactated Ringers 1,000 ML 80 ML IVCONT (09:49)
[2020-10-31] MEDS: Pantoprazole Sodium 80 MG in 0.9 % Sodium Chloride 80 ML 10 MG IV ×2 (09:50→21:57)
[2020-10-31 11:35] LABS: Glucose, Whole Blood 85 mg/dL (60-115)
[2020-10-31 14:07] LABS: Glucose, Whole Blood 74 mg/dL (60-115)
[2020-10-31] MEDS: Lactated Ringers 1,000 ML 100 ML IVCONT (14:11)
--- NOTE | 2020-10-31 14:40 | HO.PM.IMPN ---
Subjective Subjective Date of Service: 11/01/20 Interval History: gi bleed Review of Systems Denies any abdominal pain or nausea or vomiting. Denies any shortness of breath or chest pain or any weakness or numbness Physical Exam Vital Signs: Vital Signs: Last Vital Signs Temp 97 F 10/31/20 13:50 Pulse 70 10/31/20 13:50 Resp 20 10/31/20 13:50 BP 146/60 H 10/31/20 13:50 Pulse Ox 98 10/31/20 13:50 Body Mass Index 23.0 Physical exam Constitutional: Noted acute distress. Heent: eyes : anicteric , no discharge. Cvs: rrr, [id number] , no murmur res: clear to auscultation ,no rhonchii or wheezing abd: no rebound or guarding ,nt, bs present. ext pulses present , no cyanosis neuro: axo3 , nonfocal. Objective Data Current Medications Generic Name Dose Route Start Last Admin Trade Name Freq PRN Reason Stop Dose Admin Acetaminophen 650 mg 10/30/20 04:21 Acetaminophen Supp 650 Mg Supp.Rect [place] Q6H PRN Pain, Mild (Pain Scale 1-3) Piperacillin Sod/Tazobactam 50 mls @ 100 mls/hr 10/30/20 10:00 10/31/20 09:40 Sod 2.25 gm/ Sodium Chloride IV Infused Q6H LEOPOLDO Infusion Lactated Ringer's 1,000 mls @ 80 mls/hr 10/30/20 09:30 10/31/20 09:49 Lr IVCONT 80 mls/hr .[id number] LEOPOLDO Administration Pantoprazole Sodium 80 mg/ 100 mls @ 10 mls/hr 10/30/20 15:15 10/31/20 09:50 Sodium Chloride IV 8 mg/hr .Q10H LEOPOLDO 10 mls/hr Administration 8 MG/HR Lactated Ringer's 1,000 mls @ 100 mls/hr 10/31/20 14:00 10/31/20 14:11 Lr IVCONT 100 mls/hr .Q10H LEOPOLDO Administration Insulin Human Lispro 0 unit 10/30/20 07:30 10/31/20 11:42 Insulin Lispro 100 Unit/Ml 3 Ml Vial SUBCUT Not Given QIDACHS LEOPOLDO Oxycodone HCl 5 mg 10/31/20 08:55 10/31/20 13:41 Oxycodone Hcl Immed Release 5 Mg Tablet PO 5 mg Q6H PRN Administration Pain, Moderate (Pain Scale 4-6 Sertraline HCl 50 mg 10/30/20 09:00 10/31/20 09:10 Sertraline Hcl 50 Mg Tablet PO 50 mg DAILY LEOPOLDO Administration Sodium Chloride 3 ml 10/30/20 08:00 10/31/20 08:15 0.9 % Sodium Chloride Flush 3 Ml Syringe IVFLUSH Not Given QSHIFT LEOPOLDO Trazodone HCl 50 mg 10/30/20 21:00 10/30/20 19:52 Trazodone Hcl 50 Mg Tablet PO 50 mg BEDTIME LEOPOLDO Administration Zolpidem Tartrate 5 mg 10/30/20 04:21 Zolpidem Tartrate 5 Mg Tablet PO BEDTIME PRN Insomnia Labs CBC & Chem 7: 11/01/20 05:07 11/01/20 05:07 Microbiology Microbiology Results: Microbiology 10/30/20 07:56 Urine clean catch - Clean Catch Midstream Urine Culture - Final 10/30/20 03:41 Blood - Venous Blood Culture - Preliminary No growth after 24 hours. 10/30/20 02:25 Blood - Venous Blood Culture - Preliminary No growth after 24 hours. Assessment and Plan (1) Diabetes: Status: Acute (2) GI bleed: Status: Acute Assessment and Plan: 75-year-old female with a past medical history of hypertension, hyperlipidemia, diabetes presented to the hospital with a chief complaint of nausea vomiting diarrhea, abdominal pain, blood in the stool. Noted to have MARIA LUZ/diverticulitis/GI bleed/anemia. Admitted to the hospital for further management 1.Acute sigmoid diverticulitis and acute blood loss anemia GI bleed : ? UGIB: Patient takes Naprosyn at home. fobt positive Bleeding scan negative In addition: C diff and stool cultures needs to be sent , Urine culture growin-mixed, <50k caloniies Blood culture preliminary negative, leukocytosis trending down, no fever, did not met SIRS criteria on admission. plan: Patient is status post 3 PRBC transfusion:h/h improved from 7 to 10 now- h/h stable around 10 she seems haemodynmically stable , but still having bloody diarrahe went to egd today moniter h/h closley -next h/h diverticulitis:continue zosyn day/. 2.MARIA LUZ:multifcatorial: Likely in the setting of dehydration/Gi bleed Gentle IV fluids. Avoid nephrotoxins. Hold home losartan/hydrochlorothiazide. seems to be imrpoving with above management moniter bmp 3.High troponins: Patient denies any chest pain. EKG showed LBBB which is known. Further cardiac workup out patiently 4.History of hypertension: Hold home antihypertensives given soft blood pressure. 5.History of diabetes: Insulin sliding scale. Monitor fingerstick glucose. avoid coverage below 200 mg/dl patient was found to have active Gi bleed fromduodenal bulb ulcer -went to OR for emergent sugery . ICU is aware about above also
--- NOTE | 2020-10-31 15:01 | P.CONAN_ITS ---
[facility] Active Problems Active Problems: All Active Problems (Updated 10/30/20 @ 16:57 by Elvia feliciano MD) GI bleed (Acute) Hypertension (Acute) Hyperlipidemia (Acute) Diabetes (Acute) Insomnia (Acute) Diverticulosis (Acute) Anxiety reaction (Acute) Acute gastrointestinal bleeding (Acute) Acute diverticulitis (Acute) Anemia (Acute) Elevated troponin (Acute) Past Medical History Medical History High cholesterol HTN (hypertension) UTI (urinary tract infection) Social History Social History (Updated 10/30/20 @ 14:33 by Agustina Vee PA-C) Household Members: Family and Children Housing: Apartment Smoking Status: Never smoker Tobacco Type: Cigarette Packs Per Day: 1 Years Smoked: 55 Smoked in Last 30 Days: No Smoking Quit Date: 2 years ago Second Hand Smoke Exposure: No Meds Allergies Allergy/AdvReac Type Severity Reaction Status Date / Time No Known Allergies Allergy Verified 10/26/20 19:14 [No Known Allergies*] Active Medications: Current Medications Generic Name Dose Route Start Last Admin Trade Name Freq PRN Reason Stop Dose Admin Acetaminophen 650 mg 10/30/20 04:21 Acetaminophen Supp 650 Mg Supp.Rect AL Q6H PRN Pain, Mild (Pain Scale 1-3) Piperacillin Sod/Tazobactam 50 mls @ 100 mls/hr 10/30/20 10:00 10/31/20 09:40 Sod 2.25 gm/ Sodium Chloride IV Infused Q6H LEOPOLDO Infusion Lactated Ringer's 1,000 mls @ 80 mls/hr 10/30/20 09:30 10/31/20 09:49 Lr IVCONT 80 mls/hr .[id number] LEOPOLDO Administration Pantoprazole Sodium 80 mg/ 100 mls @ 10 mls/hr 10/30/20 15:15 10/31/20 09:50 Sodium Chloride IV 8 mg/hr .Q10H LEOPOLDO 10 mls/hr Administration 8 MG/HR Lactated Ringer's 1,000 mls @ 100 mls/hr 10/31/20 14:00 10/31/20 14:11 Lr IVCONT 100 mls/hr .Q10H LEOPOLDO Administration Insulin Human Lispro 0 unit 10/30/20 07:30 10/31/20 11:42 Insulin Lispro 100 Unit/Ml 3 Ml Vial SUBCUT Not Given QIDACHS LEOPOLDO Oxycodone HCl 5 mg 10/31/20 08:55 10/31/20 13:41 Oxycodone Hcl Immed Release 5 Mg Tablet PO 5 mg Q6H PRN Administration Pain, Moderate (Pain Scale 4-6 Sertraline HCl 50 mg 10/30/20 09:00 10/31/20 09:10 Sertraline Hcl 50 Mg Tablet PO 50 mg DAILY LEOPOLDO Administration Sodium Chloride 3 ml 10/30/20 08:00 10/31/20 08:15 0.9 % Sodium Chloride Flush 3 Ml Syringe IVFLUSH Not Given QSHIFT LEOPOLDO Trazodone HCl 50 mg 10/30/20 21:00 10/30/20 19:52 Trazodone Hcl 50 Mg Tablet PO 50 mg BEDTIME LEOPOLDO Administration Zolpidem Tartrate 5 mg 10/30/20 04:21 Zolpidem Tartrate 5 Mg Tablet PO BEDTIME PRN Insomnia Home Medications Medication Instructions Recorded Confirmed Last Taken Type losartan-hydrochlorothiazide 1 tab PO DAILY 10/26/20 10/30/20 10/29/20 History sertraline 1 tab PO DAILY 10/26/20 10/30/20 10/29/20 History simvastatin 1 tab PO BEDTIME 10/26/20 10/30/20 10/29/20 History trazodone 1 tab PO BEDTIME 10/26/20 10/30/20 10/29/20 History Exam Exam Date and Time: October 31, 2020 1501 Height,Weight and Vital Signs: Height 5 ft 3 in Weight 58.967 kg Last Vital Signs Temp 97 F 10/31/20 13:50 Pulse 70 10/31/20 13:50 Resp 20 10/31/20 13:50 BP 146/60 H 10/31/20 13:50 Pulse Ox 98 10/31/20 13:50 Pertinent Lab Results Pertinent Lab Results: Laboratory Tests 10/30/20 10/30/20 10/30/20 02:25 02:25 02:31 WBC 22.6 H RBC 3.14 L Hgb 9.8 L Hct 29.3 L MCV 93.3 MCH 31.2 MCHC 33.4 RDW 13.7 Plt Count 560 H MPV 9.3 L Immature Gran % (Auto) 0.5 H Neut % (Auto) 80.7 H Lymph % (Auto) 12.6 L Saunders % (Auto) 5.6 Eos % (Auto) 0.2 Baso % (Auto) 0.4 Lymph # (Auto) 2.9 Saunders # (Auto) 1.3 H Eos # (Auto) 0.1 Baso # (Auto) 0.1 Abs Immat Gran (auto) 0.12 H Absolute Neuts (auto) 18.2 H Absolute Nucleated RBC 0.000 Nucleated RBC % (auto) 0.0 PT INR APTT Sodium 132 L Potassium 3.8 Chloride 100 Carbon Dioxide 15 L Anion Gap 21 H BUN 46 H D Creatinine 2.05 H Estim Creat Clear Calc 19.0 Estimated GFR 23 POC Glucose Random Glucose 214 H D Fasting Glucose Lactic Acid Lactic Acid Fup @ 2Hr Calcium 8.6 D Magnesium Total Bilirubin 0.3 AST 15 ALT 15 Alkaline Phosphatase 82 Troponin I High Sens Total Protein 6.5 Albumin 4.0 Urine Color Urine Appearance Urine pH Ur Specific [place] Urine Protein Urine Glucose (UA) Urine Ketones Urine Blood Urine Nitrite Ur Leukocyte Esterase Urine RBC Urine WBC Ur Squamous Epith Cells Urine Bacteria Urine Mucus Stool Occult Blood COVID-19 ([facility]) COVID-19 Clin Com Blood Type O Positive Antibody Screen NEGATIVE Crossmatch See Detail 10/30/20 10/30/20 10/30/20 02:31 02:31 02:32 WBC RBC Hgb Hct MCV MCH MCHC RDW Plt Count MPV Immature Gran % (Auto) Neut % (Auto) Lymph % (Auto) Saunders % (Auto) Eos % (Auto) Baso % (Auto) Lymph # (Auto) Saunders # (Auto) Eos # (Auto) Baso # (Auto) Abs Immat Gran (auto) Absolute Neuts (auto) Absolute Nucleated RBC Nucleated RBC % (auto) PT 12.9 INR 1.1 APTT 33.1 D Sodium Potassium Chloride Carbon Dioxide Anion Gap BUN Creatinine Estim Creat Clear Calc Estimated GFR POC Glucose Random Glucose Fasting Glucose Lactic Acid 2.4 H* Lactic Acid Fup @ 2Hr Calcium Magnesium Total Bilirubin AST ALT Alkaline Phosphatase Troponin I High Sens Total Protein Albumin Urine Color Urine Appearance Urine pH Ur Specific [place] Urine Protein Urine Glucose (UA) Urine Ketones Urine Blood Urine Nitrite Ur Leukocyte Esterase Urine RBC Urine WBC Ur Squamous Epith Cells Urine Bacteria Urine Mucus Stool Occult Blood COVID-19 ([facility]) Negative COVID-19 Clin Com See Note Blood Type Antibody Screen Crossmatch 10/30/20 10/30/20 10/30/20 02:32 02:35 03:06 WBC RBC Hgb Hct MCV MCH MCHC RDW Plt Count MPV Immature Gran % (Auto) Neut % (Auto) Lymph % (Auto) Saunders % (Auto) Eos % (Auto) Baso % (Auto) Lymph # (Auto) Saunders # (Auto) Eos # (Auto) Baso # (Auto) Abs Immat Gran (auto) Absolute Neuts (auto) Absolute Nucleated RBC Nucleated RBC % (auto) PT INR APTT Sodium Potassium Chloride Carbon Dioxide Anion Gap BUN Creatinine Estim Creat Clear Calc Estimated GFR POC Glucose 210 H Random Glucose Fasting Glucose Lactic Acid Lactic Acid Fup @ 2Hr Calcium Magnesium Total Bilirubin AST ALT Alkaline Phosphatase Troponin I High Sens 40.9 H Total Protein Albumin Urine Color Urine Appearance Urine pH Ur Specific [place] Urine Protein Urine Glucose (UA) Urine Ketones Urine Blood Urine Nitrite Ur Leukocyte Esterase Urine RBC Urine WBC Ur Squamous Epith Cells Urine Bacteria Urine Mucus Stool Occult Blood POS COVID-19 ([facility]) COVID-19 Clin Com Blood Type Antibody Screen Crossmatch 10/30/20 10/30/20 10/30/20 05:58 05:58 05:58 WBC 17.5 H RBC 2.52 L Hgb 7.8 L D Hct 24.4 L MCV 96.8 MCH 31.0 MCHC 32.0 RDW 13.8 Plt Count 419 H D MPV 9.3 L Immature Gran % (Auto) 0.5 H Neut % (Auto) 84.0 H Lymph % (Auto) 9.7 L Saunders % (Auto) 5.5 Eos % (Auto) 0.1 Baso % (Auto) 0.2 Lymph # (Auto) 1.7 Saunders # (Auto) 1.0 Eos # (Auto) 0.0 Baso # (Auto) 0.0 Abs Immat Gran (auto) 0.09 H Absolute Neuts (auto) 14.7 H Absolute Nucleated RBC 0.000 Nucleated RBC % (auto) 0.0 PT INR APTT Sodium Potassium Chloride Carbon Dioxide Anion Gap BUN Creatinine Estim Creat Clear Calc Estimated GFR POC Glucose Random Glucose Fasting Glucose Lactic Acid Lactic Acid Fup @ 2Hr 0.9 Calcium Magnesium Total Bilirubin AST ALT Alkaline Phosphatase Troponin I High Sens 39.5 H Total Protein Albumin Urine Color Urine Appearance Urine pH Ur Specific [place] Urine Protein Urine Glucose (UA) Urine Ketones Urine Blood Urine Nitrite Ur Leukocyte Esterase Urine RBC Urine WBC Ur Squamous Epith Cells Urine Bacteria Urine Mucus Stool Occult Blood COVID-19 ([facility]) COVID-19 [facility] Blood Type Antibody Screen Crossmatch 10/30/20 10/30/20 10/30/20 08:05 08:45 08:45 WBC RBC Hgb Hct MCV MCH MCHC RDW Plt Count MPV Immature Gran % (Auto) Neut % (Auto) Lymph % (Auto) Saunders % (Auto) Eos % (Auto) Baso % (Auto) Lymph # (Auto) Saunders # (Auto) Eos # (Auto) Baso # (Auto) Abs Immat Gran (auto) Absolute Neuts (auto) Absolute Nucleated RBC Nucleated RBC % (auto) PT 13.2 H INR 1.1 APTT Sodium Potassium Chloride Carbon Dioxide Anion Gap BUN Creatinine Estim Creat Clear Calc Estimated GFR POC Glucose Random Glucose Fasting Glucose Lactic Acid Lactic Acid Fup @ 2Hr Calcium Magnesium 2.6 Total Bilirubin AST ALT Alkaline Phosphatase Troponin I High Sens Total Protein Albumin Urine Color YELLOW Urine Appearance HAZY Urine pH 5.5 Ur Specific [place] 1.020 Urine Protein NEG Urine Glucose (UA) NEG Urine Ketones NEG Urine Blood 1+ H Urine Nitrite NEG Ur Leukocyte Esterase 2+ H Urine RBC 5-9 H Urine WBC 30-49 H Ur Squamous Epith Cells 2+ Urine Bacteria 1+ Urine Mucus 1+ Stool Occult Blood COVID-19 ([facility]) COVID-19 [facility] Blood Type Antibody Screen Crossmatch 10/30/20 10/30/20 10/30/20 10:47 12:12 17:54 WBC RBC Hgb 7.1 L Hct 21.4 L MCV MCH MCHC RDW Plt Count MPV Immature Gran % (Auto) Neut % (Auto) Lymph % (Auto) Saunders % (Auto) Eos % (Auto) Baso % (Auto) Lymph # (Auto) Saunders # (Auto) Eos # (Auto) Baso # (Auto) Abs Immat Gran (auto) Absolute Neuts (auto) Absolute Nucleated RBC Nucleated RBC % (auto) PT INR APTT Sodium Potassium Chloride Carbon Dioxide Anion Gap BUN Creatinine Estim Creat Clear Calc Estimated GFR POC Glucose 112 103 Random Glucose Fasting Glucose Lactic Acid Lactic Acid Fup @ 2Hr Calcium Magnesium Total Bilirubin AST ALT Alkaline Phosphatase Troponin I High Sens Total Protein Albumin Urine Color Urine Appearance Urine pH Ur Specific [place] Urine Protein Urine Glucose (UA) Urine Ketones Urine Blood Urine Nitrite Ur Leukocyte Esterase Urine RBC Urine WBC Ur Squamous Epith Cells Urine Bacteria Urine Mucus Stool Occult Blood COVID-19 ([facility]) COVID-19 Clin Com Blood Type Antibody Screen Crossmatch 10/30/20 10/30/20 10/30/20 19:52 20:43 23:41 WBC RBC Hgb 10.5 L D 11.4 L Hct 31.5 L D 33.7 L MCV MCH MCHC RDW Plt Count MPV Immature Gran % (Auto) Neut % (Auto) Lymph % (Auto) Saunders % (Auto) Eos % (Auto) Baso % (Auto) Lymph # (Auto) Saunders # (Auto) Eos # (Auto) Baso # (Auto) Abs Immat Gran (auto) Absolute Neuts (auto) Absolute Nucleated RBC Nucleated RBC % (auto) PT INR APTT Sodium Potassium Chloride Carbon Dioxide Anion Gap BUN Creatinine Estim Creat Clear Calc Estimated GFR POC Glucose 92 Random Glucose Fasting Glucose Lactic Acid Lactic Acid Fup @ 2Hr Calcium Magnesium Total Bilirubin AST ALT Alkaline Phosphatase Troponin I High Sens Total Protein Albumin Urine Color Urine Appearance Urine pH Ur Specific [place] Urine Protein Urine Glucose (UA) Urine Ketones Urine Blood Urine Nitrite Ur Leukocyte Esterase Urine RBC Urine WBC Ur Squamous Epith Cells Urine Bacteria Urine Mucus Stool Occult Blood COVID-19 ([facility]) COVID-19 [facility] Com Blood Type Antibody Screen Crossmatch 10/31/20 10/31/20 10/31/20 05:41 05:41 07:39 WBC 11.8 H RBC 3.22 L D Hgb 10.2 L Hct 30.0 L MCV 93.2 MCH 31.7 MCHC 34.0 RDW 13.7 Plt Count 350 MPV 9.4 Immature Gran % (Auto) 0.5 H Neut % (Auto) 72.5 Lymph % (Auto) 16.6 L Saunders % (Auto) 6.7 Eos % (Auto) 3.1 Baso % (Auto) 0.6 Lymph # (Auto) 2.0 Saunders # (Auto) 0.8 Eos # (Auto) 0.4 Baso # (Auto) 0.1 Abs Immat Gran (auto) 0.06 H Absolute Neuts (auto) 8.5 H Absolute Nucleated RBC 0.020 H Nucleated RBC % (auto) 0.2 PT INR APTT Sodium 139 Potassium 3.6 Chloride 110 H Carbon Dioxide 21 L Anion Gap 12 BUN 34 H Creatinine 1.05 Estim Creat Clear Calc 37.1 Estimated GFR 51 POC Glucose 87 Random Glucose Cancelled Fasting Glucose 81 Lactic Acid Lactic Acid Fup @ 2Hr Calcium 7.6 L D Magnesium Total Bilirubin AST ALT Alkaline Phosphatase Troponin I High Sens Total Protein Albumin Urine Color Urine Appearance Urine pH Ur Specific [place] Urine Protein Urine Glucose (UA) Urine Ketones Urine Blood Urine Nitrite Ur Leukocyte Esterase Urine RBC Urine WBC Ur Squamous Epith Cells Urine Bacteria Urine Mucus Stool Occult Blood COVID-19 ([facility]) COVID-19 [facility] Com Blood Type Antibody Screen Crossmatch 10/31/20 10/31/20 11:20 14:03 WBC RBC Hgb Hct MCV MCH MCHC RDW Plt Count MPV Immature Gran % (Auto) Neut % (Auto) Lymph % (Auto) Saunders % (Auto) Eos % (Auto) Baso % (Auto) Lymph # (Auto) Saunders # (Auto) Eos # (Auto) Baso # (Auto) Abs Immat Gran (auto) Absolute Neuts (auto) Absolute Nucleated RBC Nucleated RBC % (auto) PT INR APTT Sodium Potassium Chloride Carbon Dioxide Anion Gap BUN Creatinine Estim Creat Clear Calc Estimated GFR POC Glucose 85 74 Random Glucose Fasting Glucose Lactic Acid Lactic Acid Fup @ 2Hr Calcium Magnesium Total Bilirubin AST ALT Alkaline Phosphatase Troponin I High Sens Total Protein Albumin Urine Color Urine Appearance Urine pH Ur Specific [place] Urine Protein Urine Glucose (UA) Urine Ketones Urine Blood Urine Nitrite Ur Leukocyte Esterase Urine RBC Urine WBC Ur Squamous Epith Cells Urine Bacteria Urine Mucus Stool Occult Blood COVID-19 ([facility]) COVID-19 [facility] [place] Com Blood Type Antibody Screen Crossmatch Airway Mallampati Class: II TM Dist: >3cm Neck ROM: Full Lungs: CTA Other: CTA
--- NOTE | 2020-10-31 16:11 | MHC.CM.PN ---
CM attempted to see pt multiple times. Pt off unit. CM to return tomorrow
--- NOTE | 2020-10-31 16:48 | PM.EVENT ---
Event Note Date of Service: 10/31/20 Event Note: 75 year old female patient with active bleeding found on endoscopy at the duodenal bulb. Patient will need an emergency exploratory laparotomy to control the active bleeding. Patient's son, Trell, contacted and consent obtained.
--- NOTE | 2020-10-31 18:29 | W.PM.CCHP ---
Procedures Central Line Placement Right IJ: Central Line Comments: Right internal jugular Cordis sheath introducer emergently placed in the operating room during the surgical procedure for hemorrhagic shock resuscitation under ultrasound guidance and usual sterile technique with no immediate complications.
--- NOTE | 2020-10-31 18:45 | W.PM.OPN ---
Operative Note Operative Note Date of Service: 10/31/20 Narrative: Preoperative diagnosis: Bleeding duodenal ulcer Postoperative diagnosis: Same Procedure: Exploratory laparotomy, duodenotomy, suture plication of bleeding duodenal ulcer Surgeon: Jeramy Lau MD Sheet Metal Worker Apprentice: None Anesthesia: General endotracheal Indications for procedure: 75-year-old female patient with history of ibuprofen use found to have bloody stools, underwent upper endoscopy this afternoon performed by Dr. Oconnell. A large bleeding duodenal ulcer was noted at the duodenal bulb. This was located at a difficult location to reach endoscopically. The patient was found to be actively bleeding and the patient was hypotensive due to the acute blood-loss. Surgical consultation was requested for emergency exploratory laparotomy. Operative findings: Bleeding posterior gastroduodenal vessel noted in the duodenal bulb just beyond the pylorus. A large amount of liquid and clotted blood was noted within the duodenum and stomach. Specimen: None Estimated blood loss: 250 Complications: None Drains: Ryan-Monroy Procedure details: Patient was brought to the OR emergently and placed in a supine position. After administering general anesthesia the patient's abdomen was prepped with Betadine and draped in a sterile fashion. A surgical time-out was called. Consent could not be obtained from the patient due to the Emergency of the procedure. Verbal consent was obtained from the patient's son Trell ([phone]). A generous midline incision was made in the upper abdomen extended down just below the umbilicus. This was carried out through subcutaneous tissue past the linea alba and into the abdominal cavity. A self retaining retractors was then placed in the abdominal cavity. The abdomen was explored and an area of inflammation noted in the 1st portion of the duodenum. Two stay sutures were placed through the pylorus an a longitudinal incision made through the proximal duodenum and distal stomach through the pylorus. A large blood clot and liquid blood was found in this location. This was evacuated with suction. The area of bleeding was identified in the posterior wall consistent with a bleeding gastroduodenal vessel. 3-0 Surgilon sutures were then used to ligate this vessel in 3 quadrants. Excellent hemostasis was achieved. Remaining clot was evacuated from the stomach and the ulcer observed while of anesthesia was able to catch up on blood loss. Once the patient's blood pressure was stabilized the duodenum was closed transversely using a running 3-0 chromic suture on the anterior wall for hemostasis. This was followed by interrupted Lembert 3-0 Surgilon sutures. Omentum was then brought up and placed over the repair and secured using 3-0 Surgilon sutures. A large Ryan-Monroy drain was then placed over the omentum and brought out through a separate stab wound in the right upper quadrant. This was secured to skin using a 3-0 nylon suture. The drain was connected to bulb suction. The abdomen was then irrigated and suctioned dry. Fascia was then closed using a running 0 Maxon suture from above and below and tied in the center. Dermis was then reapproximated using interrupted 3-0 Polysorb sutures. Skin was closed using skin raulito. Sterile dressings were then applied. The patient was subsequently transported to ICU with a stable blood pressure. An abdominal x-ray was obtained in the operating room and no foreign bodies identified within the abdominal cavity. As this was an emergency procedure an adequate count was not able to be performed.
--- NOTE | 2020-10-31 19:18 | P.EN_ITS ---
Event Note Date of Service: 10/31/20 Event Note: GI-EGD-Full note dictated Findings: 1. Large approx. 2cm duodenal bulb ulcer with an actively bleeding vessel that was refractory to clipping x 1, cauterization, and sclerotherapy with 1:10,000 Epi. Active bleeding remained brisk and pulsatile with resultant poor v isualization. 2. < 10mm prepyloric gastric ulcers-no active bleeding nor visible vessels. Due to the ongoing and significant bleeding with hemodynamic compromise a call was made to Dr. Lau. At that point the patient was taken directly to the OR for emergent surgery. Her son was advised of these plans by Dr. Lau.
--- NOTE | 2020-10-31 19:25 | PM.OP ---
Brief Operative Note Date of Service: 10/31/20 Pre-op diagnosis: UGI bleeding Post-op diagnosis: other (Duodenal bulb ulcer with active bleeding, inactive gastric ulcers) Procedure: EGD with Resolution clip x1, Gold probe cautery, and sclerotherapy with 1:10,000 Epi Surgeon: Cruz Oconnell Anesthesia: MAC Estimated blood loss (mL): 200 Pathology: none sent Condition: critical Disposition: other (OR with Dr. Lau for emergent surgery)
[2020-10-31] MEDS: propofoL 1,000 MG/100 ML VIAL 7.08 MG IVCONT (19:47)
[2020-10-31] MEDS: Albumin Human 25 % 100 ML IV (19:53)
[2020-10-31 20:02] LABS: MANUAL DIFF FLAG NO
[2020-10-31 20:04] LABS: Basophils Absolute Auto 0.1 X10*3/uL (0.0-0.2); Basophils Percent Auto 0.3 % (0-2); Eosinophils Absolute Auto 0.1 X10*3/uL (0.0-0.4); Eosinophils Percent Auto 0.3 % (0-4); Hematocrit 43.1 % (37-47); Hemoglobin 14.5 g/dl (12.0-16.0); Imm Gran Abs Auto 0.32 X10*3/uL (0.00-0.03); Imm Gran Pct Auto 1.4 % (0.0-0.4); Lymphocytes Absolute Auto 1.7 X10*3/uL (1.2-4.9); Lymphocytes Percent Auto 7.5 % (20-40); Mean Corpuscular HGB Conc 33.6 g/dl (31.0-35.0); Mean Platelet Volume 8.9 fL (9.4-12.3); Monocytes Absolute Auto 1.3 X10*3/uL (0.1-1.2); Monocytes Percent Auto 5.7 % (2-11); NRBC Pct Auto 0.1 /100WBC (0.0-0.2); Neutrophils Absolute Auto 18.9 X10*3/uL (2.0-8.3); Neutrophils Percent Auto 84.8 % (45-73); Platelet Count 209 X10*3/uL (160-400); Red Blood Count 4.84 X10*6/uL (4.20-5.50); Red Cell Distribution Width 14.8 % (11.0-16.0); White Blood Count 22.3 X10*3/uL (4.8-10.8)
[2020-10-31 20:05] LABS: Base Excess VBG -10.2 mmol/L; HCO3 VBG 16 mmol/L; PCO2 VBG 40 mmHg; PO2 VBG 71 mmHg; pH VBG 7.22 (7.32-7.43)
[2020-10-31 20:15] LABS: Fibrinogen 428 MG/DL (259-690); INTERNATIONAL NORM RATIO 1.1 (0.9-1.1); Prothrombin Time 13.2 SEC (10.8-13.0)
[2020-10-31 20:19] LABS: Albumin Level 3.7 g/dL (3.5-5.0)
[2020-10-31] MEDS: Magnesium Sulfate/H2O 2 GM/50 ML PIGGYBACK IV (20:23)
[2020-10-31 20:28] LABS: Glucose, Whole Blood 141 mg/dL (60-115)
[2020-10-31 20:32] LABS: Alanine Aminotransferase 57 U/L (0-31); Albumin Level 3.7 g/dL (3.5-5.0); Alkaline Phosphatase 64 U/L (39-117); Anion Gap 18 (12-20); Aspartate Amino Transferase 75 U/L (5-31); Bilirubin Total 0.5 mg/dL (0.0-1.0); Blood Urea Nitrogen 25 mg/dL (9-16); Calcium 7.4 mg/dL (8.4-10.2); Carbon Dioxide 18 mmol/L (22-29); Chloride 109 mmol/L (96-108); Creatinine Clr Calc Pharmacy 47.5; Estimated Glomerular Filt Rate > 60; Glucose Random 168 mg/dL (60-115); Magnesium 1.7 mg/dL (1.6-2.6); Potassium 3.6 mmol/L (3.3-5.1); Sodium 141 mmol/L (135-145); Total Protein 5.4 g/dL (6.5-8.0)
--- NOTE | 2020-10-31 20:36 | P.EN_ITS ---
Event Note Date of Service: 10/31/20 Event Note: This is a 75-year-old female with a past medical history of hypert ension, hyperlipidemia, diabetes mellitus and NSAID use who was admitted on 10/26/2020 and to Hospital Medicine for acute diverticulitis/ GI bleed/ anemia. Today during upper endoscopy procedure with Dr Oconnell A large bleeding duodenal ulcer was noted at the duodenal bulb which did not respond to clipping x 1, cauterization, and sclerotherapy with 1:10,000 Epi. Due to the ongoing and significant bleeding with severe hypotension she was taken emergently to OR by Dr. Colon . In the OR The area of bleeding was identified in the posterior wall consistent with a bleeding gastroduodenal vessel, sutures were then used to ligated. There was also significant amount of blood noted in the stomach, required x 4 RBCs, 1 FFP and platelets. Patient required ICU admission for mechanical ventilation and hemodynamic monitoring. Plan: Repeat labs Avoid hypotension Wean of vent when possible Case discussed with ICU attending Dr Ha
--- NOTE | 2020-10-31 21:18 | OP_ITS ---
SURGEON: Cruz Oconnell MD INDICATIONS: The patient presents for evaluation of GI bleeding with associated melena and anemia. Full consent has been obtained from her for this, including risks of bleeding and perforation. PREOPERATIVE DIAGNOSIS: Upper gastrointestinal bleeding. POSTOPERATIVE DIAGNOSIS: PROCEDURE PERFORMED: Esophagogastroduodenoscopy with placement of 1 resolution clip and Gold probe cauterization of duodenal ulcer, as well as attempted sclerotherapy with Epinephrine 1:10,000. ESTIMATED BLOOD LOSS: COMPLICATIONS: ANESTHESIA: Monitored anesthesia care. ASSISTANTS: SPECIMENS: POSTOPERATIVE DIAGNOSES: Upper gastrointestinal bleeding with large duodenal bulb ulcer with active bleeding vessel that was not able to be controlled by endoscopic therapy. Also, noted were small inactive gastric ulcers. DESCRIPTION OF PROCEDURE: The patient was placed in the left lateral decubitus position. The Olympus video gastroscope was passed in the posterior oropharynx and upper esophagus under direct vision. The scope was passed slowly to the distal esophagus. The gastroesophageal junction appeared normal at 36 cm. There was no sign of any esophagitis nor varices. The scope was entered into the stomach. There was a small hiatal hernia. The scope was advanced to pylorus. There was no blood in the stomach. There were several small less than 1 cm pre-pyloric antral ulcers with clean bases and no bleeding. There was good peristalsis. The duodenum was cannulated to the descending portion. The descending duodenum appeared normal. As the scope was withdrawn back in the duodenal bulb, I was able to visualize a large ulcer crater. It was quite large, approximately 2cm, and deep. There was initially no sign of bleeding and no definitive visible vessel. However, as I was inspecting it carefully, there began to be brisk, pulsatile bleeding from a visible vessel in the center of the ulcer. I deployed a single resolution clip onto the vessel with good deployment, but with only very transient hemostasis. At that point, there was quite a bit of further brisk bleeding which persisted. Visualization was very limited. I therefore tried to control bleeding by injecting epinephrine. However, the epinephrine would not inject into the ulcer nor surrounding area despite numerous attempts. It was met with quite a bit of resistance. Ultimately, I was not able to inject any epinephrine other than topically into the ulcer crater itself in the vicinity of the pulsatile bleeding. Bleeding continued to remain quite active. After copious irrigation and suction, I was able to visualize the bleeding site intermittently. I used the Gold probe to try to cauterize that, but also without any success. Visualization remained very limited, and for the great majority of the time, visualization was impossible. At that point, a call was put out to Dr. Lau given what I felt was active bleeding that would not be amenable to endoscopic treatment. She was hemodynamically unstable with associated hypotension and tachycardia, and at that point further endoscopic treatment was abandoned in favor of resuscitative efforts by the anesthesia team with transfusions and pressor agents. Upon Dr. Lau's arrival in the endoscopy room, it became quite apparent that the patient needed to go to surgery. Dr. Lau was able to reach one of her sons to explain the situation to them. At that point, she was taken directly to the OR. At that point, her care was turned over to Dr. Lau. IMPRESSION: Large duodenal bulb ulcer with active and persistent bleeding, with associated hemodynamic compromise.. PLAN: At this point, her care will be taken over by Dr. Lau, as mentioned above. Hopefully, she will tolerate surgery and be able to make a recovery. As mentioned, Dr. Lau was able to reach one of her sons prior to the surgery, and was able to explain the situation to him. MD CEFERINO Bustamante/FAITH / [phone] MTDFernie
[2020-11-01] VITALS (23 sets, daily range): BP systolic 116–154; BP diastolic 49–76; PULSE 66–96; RESP 12–29; TEMP 36.3–37.6; O2SAT 91–100
--- NOTE | 2020-11-01 | ECG_ITS ---
Test Reason : chest pain Blood Pressure : / mmHG Vent. Rate : 085 BPM Atrial Rate : 085 BPM P-R Int : 154 ms QRS Dur : 144 ms QT Int : 432 ms P-R-T Axes : 045 031 188 degrees QTc Int : 514 ms Normal sinus rhythm Left bundle branch block Abnormal ECG When compared with ECG of 30-OCT-2020 02:37, Inverted T waves have replaced nonspecific T wave abnormality in Inferior leads Referred By: Fred Ha Electronically Signed By:Brandon Lozano
[2020-11-01] MEDS: 0.9 % Sodium Chloride Flush 3 ML SYRINGE IVFLUSH ×3 (00:11→18:27)
[2020-11-01] MEDS: Piperacillin Sodium/Tazobactam 2.25 GM in 0.9 % Sodium Chloride 50 ML IV ×5 (00:15→22:17)
[2020-11-01] MEDS: propofoL 1,000 MG/100 ML VIAL 14.15 MG IVCONT ×2 (00:24→05:20)
[2020-11-01] MEDS: fentaNYL citrate/PF 100 MCG/2 ML VIAL 50 MCG IVPUSH ×8 (00:30→15:00)
[2020-11-01] MEDS: Calcium Gluconate/NaCl,Iso-Osm 1 GM/50 ML PLAST..BAG IV (01:47)
[2020-11-01 05:14] LABS: Basophils Percent Auto 0.2 % (0-2); Eosinophils Percent Auto 0.1 % (0-4); Hematocrit 31.6 % (37-47); Hemoglobin 10.9 g/dl (12.0-16.0); Imm Gran Abs Auto 0.08 X10*3/uL (0.00-0.03); Imm Gran Pct Auto 0.6 % (0.0-0.4); Lymphocytes Absolute Auto 1.5 X10*3/uL (1.2-4.9); Lymphocytes Percent Auto 10.3 % (20-40); MANUAL DIFF FLAG NO; Mean Corpuscular HGB Conc 34.5 g/dl (31.0-35.0); Mean Corpuscular Volume 87.1 fL (80-98); Mean Platelet Volume 9.3 fL (9.4-12.3); Monocytes Absolute Auto 0.6 X10*3/uL (0.1-1.2); Monocytes Percent Auto 4.5 % (2-11); Neutrophils Absolute Auto 11.8 X10*3/uL (2.0-8.3); Neutrophils Percent Auto 84.3 % (45-73); Platelet Count 218 X10*3/uL (160-400); Red Blood Count 3.63 X10*6/uL (4.20-5.50); Red Cell Distribution Width 14.9 % (11.0-16.0)
[2020-11-01 05:28] LABS: Base Excess VBG -2.8 mmol/L; HCO3 VBG 20 mmol/L; PCO2 VBG 28 mmHg; PO2 VBG 47 mmHg; pH VBG 7.45 (7.32-7.43)
--- NOTE | 2020-11-01 05:44 | PC.NURSE ---
PT TO ICU AT 1920 LAST NIGHT FROM RECOVERY ROOM ON ASSIST CONTROL VENT SETTINGS IN NO ACUTE DISTRESS. VITAL SIGNS STABLE. MONITOR SHOWS SR-ST, 90-110, BBB NOTED, OCC PVC NOTED. PROPOFOL DRIP STARTED. BP STARTED TO GO UP 160/65, 209/89. TEMP 95.8 RECTALLY. WARMING BLANKET PUT ON PT. TEMP CAME UP TO 97.7 AND BLANKET TAKEN OFF. TEMP CONTINUES TO RISE TO 99-100 RANGE CORE VIA ESPHAGEAL TEMP PROBE. BP CAME DOWN TO NORMAL. SORENSEN CATH #16 INSERTED, DRAINED 400 ML CLEAR YELLOW URINE INITIALLY THEN DWINDLED EACH HOUR TO 3-40 ML/HR. VENKATA WISE AWARE OF URINE OUTPUT. PANTOPRAZOLE DRIP AT 8 MG/HR. OGT TO LOW WALL INTERMITTENT SUCTION DRAINING BLOODY OUTPUT 150 ML OVERNIGHT. LARGE MIDLINE ABD DSG IS INTACT WITH SMALL AMT OF BLOODY STAINING MARKED AT 2100 AND NO NEW STAINING SINCE. LABS DRAWN AT 1999 REVIEWED BY VENKATA WISE AND VENT CHANGES MADE. VENT HAD BEEN CHANGED TO PRESSURE CONTROLSETTINGS JUST AFTER ARRIVAL TO THE UNIT AND AFTER LAB RESULTS CAME BACK, RATE WAS INCREASED TO 20. FIO2 SLOWLY WEANED FROM 100% TO 40%. PT WILL WAKE UP AND BECOME ANXIOUS AND RECEIVED FENTANYL 50 MG PRN FOR VENT CONTROL WITH GOOD EFFECT.
[2020-11-01 05:50] LABS: Anion Gap 11 (12-20); Blood Urea Nitrogen 27 mg/dL (9-16); Calcium 7.9 mg/dL (8.4-10.2); Carbon Dioxide 22 mmol/L (22-29); Chloride 112 mmol/L (96-108); Creatinine Clr Calc Pharmacy 46.9; Estimated Glomerular Filt Rate > 60; Glucose Random 85 mg/dL (60-115); Magnesium 2.1 mg/dL (1.6-2.6); Potassium 3.2 mmol/L (3.3-5.1); Sodium 142 mmol/L (135-145)
[2020-11-01] MEDS: Pantoprazole Sodium 80 MG in 0.9 % Sodium Chloride 80 ML 10 MG IV ×2 (06:35→19:32)
[2020-11-01 07:09] LABS: Glucose, Whole Blood 76 mg/dL (60-115)
[2020-11-01] MEDS: Albumin Human 25 % 100 ML IV (08:10)
--- NOTE | 2020-11-01 08:49 | PM.PNGS ---
Subjective Subjective Date of Service: 11/01/20 Interval history: POD #1 exploratory laparotomy, ligation of bleeding duodenal ulcer. Patient intubated and sedated in ICU. Dark blood per NG tube. Physical Exam Vital Signs: Vital Signs: Last Vital Signs Temp 99.7 F 11/01/20 07:57 Pulse 76 11/01/20 07:57 Resp 20 11/01/20 07:57 BP 136/61 11/01/20 07:57 Pulse Ox 98 11/01/20 07:57 Body Mass Index 23.0 Const: Other: Intubated and sedated on vent Resp: Other: On vent GI: Other: Abdominal incisions dressings clean and intact. CATRACHO with thin serosanguineous fluid, no bilious fluid Abdomen image: 1. Midline incision 2. CATRACHO drain right upper quadrant Skin: Other: Warm and dry, no rash Extrem: Other: Pedal edema bilaterally Progress Note: A&P Assessment and plan (1) Acute duodenal ulcer with bleeding: Status: Acute Assessment and Plan: Postoperative day 1. Status post exploratory laparotomy with suture ligation of bleeding duodenal ulcer. Patient has dark bloody fluid for NG tube which is not unexpected due to the large amount of clot within her stomach. Patient remains in critical condition, on vent, sedated. No evidence of rebleeding at this time. Will continue to monitor closely (2) Anemia: Status: Acute Assessment and Plan: Anemia of acute blood loss due to upper GI bleed. No evidence of ongoing bleeding. Fall Risk Details Current Medications: Current Medications Generic Name Dose Route Start Last Admin Trade Name Freq PRN Reason Stop Dose Admin Fentanyl 50 mcg 10/31/20 23:23 11/01/20 08:04 Fentanyl Citrate/Pf 100 Mcg/2 Ml Vial IVPUSH 50 mcg Q2H PRN Administration Pain, Severe (Pain Scale 7-10) Piperacillin Sod/Tazobactam 50 mls @ 100 mls/hr 10/30/20 10:00 11/01/20 06:34 Sod 2.25 gm/ Sodium Chloride IV Infused Q6H LEOPOLDO Infusion Pantoprazole Sodium 80 mg/ 100 mls @ 10 mls/hr 10/30/20 15:15 11/01/20 06:35 Sodium Chloride IV 8 mg/hr .Q10H LEOPOLDO 10 mls/hr Administration 8 MG/HR Propofol 1,000 mg in 100 mls @ 0 mls/hr 10/31/20 18:30 11/01/20 05:20 Diprivan IVCONT 40 mcg/kg/min .Q0M LEOPOLDO 14.15 mls/hr Administration Protocol Per Protocol Potassium Chloride 40 meq in 100 mls @ 100 mls/hr 11/01/20 08:40 IV 11/01/20 09:39 ONCE ONE Insulin Human Lispro 0 unit 10/30/20 07:30 11/01/20 08:16 Insulin Lispro 100 Unit/Ml 3 Ml Vial SUBCUT Not Given QIDACHS LEOPOLDO Sodium Chloride 3 ml 10/30/20 08:00 11/01/20 08:09 0.9 % Sodium Chloride Flush 3 Ml Syringe IVFLUSH 3 ml QSHIFT LEOPOLDO Administration Time Spent With Patient Time: Total time spent is greater than 50% in coordination of care (as documented) at patient's floor/unit and/or counseling patient: Time with patient: 15 - 24 minutes
[2020-11-01] MEDS: ondansetron HCL 4 MG/2 ML VIAL IVPUSH (09:30)
--- NOTE | 2020-11-01 10:40 | HO.POSTANES ---
Post Anesthesia Evaluation Post Anesthesia Evaluation Vital Signs: Vital Signs Temp Pulse Resp BP Pulse Ox 11/01/20 09:57 83 20 144/55 H 94 11/01/20 09:30 12 11/01/20 08:54 99.7 F 76 20 133/54 L 98 11/01/20 07:57 99.7 F 76 20 136/61 98 11/01/20 06:59 99.3 F 72 20 116/49 L 99 11/01/20 06:00 99.3 F 77 20 132/62 97 11/01/20 05:00 99.3 F 75 20 150/70 H 100 11/01/20 04:00 99.7 F 74 20 143/64 H 99 11/01/20 03:00 99.3 F 72 20 147/64 H 100 11/01/20 02:00 99 F 66 20 146/66 H 100 11/01/20 01:00 99 F 71 20 129/60 100 11/01/20 00:00 99.1 F 72 20 154/70 H 100 10/31/20 22:53 97.7 F 79 20 149/70 H Anesthesia: General Endotracheal-GETA Mental Status: Awake Pain Control: Satisfactory Nausea/Vomiting: None Hydration: Adequate Anesthesia-Related Issues: No Anes. Related Issues
--- NOTE | 2020-11-01 11:01 | PM.CCPN ---
Subjective Subjective Date of Service: 11/01/20 Interval History: 75-year-old lady with underlying history of hypertension, UTI, recent NSAID use admitted 10/30/2020 with upper GI bleed and sigmoid diverticulitis. Patient has been monitored on the general medical ocampo and on 10/31/2020 she has had an EGD which demonstrated an actively bleeding duodenal ulcer with development of hemorrhagic shock that required conversion to emergent exploratory laparotomy with surgical ligation for hemostasis. Patient has a remained intubated after the procedure and has been transferred to intensive care unit. Her hemoglobin has stabilized. She has been extubated 11/01/2020 uneventfully. Physical Exam Vital Signs: Vital Signs: Last Vital Signs Temp 99.7 F 11/01/20 08:54 Pulse 83 11/01/20 09:57 Resp 20 11/01/20 09:57 BP 144/55 H 11/01/20 09:57 Pulse Ox 94 11/01/20 09:57 Body Mass Index 23.0 Const: General: no acute distress, alert and awake Eyes: Sclerae: sclerae normal EOM: EOMs intact bilaterally Neck: Neck: Yes no lymphadenopathy, Yes trachea midline and Yes supple Resp: Effort & Inspection: normal respiratory effort and no respiratory distress Auscultation: clear to auscultation bilaterally Cardio: Rate: regular rate Rhythm: regular rhythm Heart sounds: no gallops, no murmurs and no rubs GI: Inspection: Yes other (Surgical incision with dressing, CATRACHO drainage) Palpation (GI): Soft to palpation and Other GI palpation findings present ( Nontender) Auscultation: normal bowel sounds Extrem: General: Yes no pedal edema, No clubbing and No cyanosis Objective Data Labs CBC & Chem 7: 11/01/20 05:07 11/01/20 05:07 Labs: Laboratory Results - last 24 hr 10/30/20 10/31/20 10/31/20 02:25 11:20 14:03 WBC RBC Hgb Hct MCV MCH MCHC RDW Plt Count MPV Immature Gran % (Auto) Neut % (Auto) Lymph % (Auto) [place] % (Auto) Eos % (Auto) Baso % (Auto) Lymph # (Auto) [place] # (Auto) Eos # (Auto) Baso # (Auto) Abs Immat Gran (auto) Absolute Neuts (auto) Absolute Nucleated RBC Nucleated RBC % (auto) PT INR Fibrinogen VBG pH VBG pCO2 VBG pO2 VBG HCO3 VBG O2 Saturation VBG Base Excess Sodium Potassium Chloride Carbon Dioxide Anion Gap BUN Creatinine Estim Creat Clear Calc Estimated GFR POC Glucose 85 74 Random Glucose Calcium Phosphorus Magnesium Total Bilirubin AST ALT Alkaline Phosphatase Total Protein Albumin Blood Type O Positive Antibody Screen NEGATIVE Crossmatch See Detail 10/31/20 10/31/20 10/31/20 19:56 19:56 19:56 WBC 22.3 H RBC 4.84 D Hgb 14.5 D Hct 43.1 D MCV 89.0 MCH 30.0 MCHC 33.6 RDW 14.8 Plt Count 209 D MPV 8.9 L Immature Gran % (Auto) 1.4 H Neut % (Auto) 84.8 H Lymph % (Auto) 7.5 L [place] % (Auto) 5.7 Eos % (Auto) 0.3 Baso % (Auto) 0.3 Lymph # (Auto) 1.7 [place] # (Auto) 1.3 H Eos # (Auto) 0.1 Baso # (Auto) 0.1 Abs Immat Gran (auto) 0.32 H Absolute Neuts (auto) 18.9 H Absolute Nucleated RBC 0.020 H Nucleated RBC % (auto) 0.1 PT 13.2 H INR 1.1 Fibrinogen 428 VBG pH VBG pCO2 VBG pO2 VBG HCO3 VBG O2 Saturation VBG Base Excess Sodium 141 Potassium 3.6 Chloride 109 H Carbon Dioxide 18 L Anion Gap 18 BUN 25 H Creatinine 0.82 Estim Creat Clear Calc 47.5 Estimated GFR > 60 POC Glucose Random Glucose 168 H Calcium 7.4 L Phosphorus 4.0 Magnesium 1.7 Total Bilirubin 0.5 AST 75 H ALT 57 H Alkaline Phosphatase 64 D Total Protein 5.4 L Albumin 3.7 Blood Type Antibody Screen Crossmatch 10/31/20 10/31/20 10/31/20 19:56 19:56 20:20 WBC RBC Hgb Hct MCV MCH MCHC RDW Plt Count MPV Immature Gran % (Auto) Neut % (Auto) Lymph % (Auto) [place] % (Auto) Eos % (Auto) Baso % (Auto) Lymph # (Auto) [place] # (Auto) Eos # (Auto) Baso # (Auto) Abs Immat Gran (auto) Absolute Neuts (auto) Absolute Nucleated RBC Nucleated RBC % (auto) PT INR Fibrinogen VBG pH 7.22 L VBG pCO2 40 VBG pO2 71 VBG HCO3 16 VBG O2 Saturation 89.0 VBG Base Excess -10.2 Sodium Potassium Chloride Carbon Dioxide Anion Gap BUN Creatinine Estim Creat Clear Calc Estimated GFR POC Glucose 141 H Random Glucose Calcium Phosphorus Magnesium Total Bilirubin AST ALT Alkaline Phosphatase Total Protein Albumin 3.7 Blood Type Antibody Screen Crossmatch 11/01/20 11/01/20 11/01/20 05:07 05:07 05:07 WBC 14.0 H RBC 3.63 L D Hgb 10.9 L D Hct 31.6 L D MCV 87.1 MCH 30.0 MCHC 34.5 RDW 14.9 Plt Count 218 MPV 9.3 L Immature Gran % (Auto) 0.6 H Neut % (Auto) 84.3 H Lymph % (Auto) 10.3 L [place] % (Auto) 4.5 Eos % (Auto) 0.1 Baso % (Auto) 0.2 Lymph # (Auto) 1.5 [place] # (Auto) 0.6 Eos # (Auto) 0.0 Baso # (Auto) 0.0 Abs Immat Gran (auto) 0.08 H Absolute Neuts (auto) 11.8 H Absolute Nucleated RBC 0.000 Nucleated RBC % (auto) 0.0 PT INR Fibrinogen VBG pH 7.45 H VBG pCO2 28 VBG pO2 47 VBG HCO3 20 VBG O2 Saturation 78.0 VBG Base Excess -2.8 Sodium 142 Potassium 3.2 L Chloride 112 H Carbon Dioxide 22 Anion Gap 11 L BUN 27 H Creatinine 0.83 Estim Creat Clear Calc 46.9 Estimated GFR > 60 POC Glucose Random Glucose 85 D Calcium 7.9 L D Phosphorus 3.0 Magnesium 2.1 Total Bilirubin AST ALT Alkaline Phosphatase Total Protein Albumin 3.0 L Blood Type Antibody Screen Crossmatch 11/01/20 07:03 WBC RBC Hgb Hct MCV MCH MCHC RDW Plt Count MPV Immature Gran % (Auto) Neut % (Auto) Lymph % (Auto) [place] % (Auto) Eos % (Auto) Baso % (Auto) Lymph # (Auto) [place] # (Auto) Eos # (Auto) Baso # (Auto) Abs Immat Gran (auto) Absolute Neuts (auto) Absolute Nucleated RBC Nucleated RBC % (auto) PT INR Fibrinogen VBG pH VBG pCO2 VBG pO2 VBG HCO3 VBG O2 Saturation VBG Base Excess Sodium Potassium Chloride Carbon Dioxide Anion Gap BUN Creatinine Estim Creat Clear Calc Estimated GFR POC Glucose 76 Random Glucose Calcium Phosphorus Magnesium Total Bilirubin AST ALT Alkaline Phosphatase Total Protein Albumin Blood Type Antibody Screen Crossmatch Microbiology Microbiology Results: Microbiology 10/30/20 03:41 Blood - Venous Blood Culture - Preliminary No growth after 48 hours. 10/30/20 02:25 Blood - Venous Blood Culture - Preliminary No growth after 48 hours. 10/30/20 07:56 Urine clean catch - Clean Catch Midstream Urine Culture - Final Progress Note: A&P Assessment and plan (1) Acute duodenal ulcer with bleeding: Status: Acute Assessment and Plan: Assessment: 75-year-old lady admitted with upper GI bleed and sigmoid diverticulitis, EGD with actively bleeding duodenal ulcer, now postop day 1 after exploratory laparotomy with ligation of bleeding ulcer. Plan: Neuro: No acute issues. Cardiac: No acute issues. Underlying history of hypertension. Pulmonary: Remains intubated after the procedure. Extubated uneventfully this a.m. Renal: No acute issues. Endo: No acute issues. Underlying diabetes mellitus. GI: Upper GI bleed secondary to duodenal ulcer, now status post exploratory laparotomy a with ligation of bleeding ulcer. Gastroenterology and General surgery services care appreciated. ID: No acute issues Heme/Onc: Hemorrhagic shock secondary to upper GI bleed, now resolved. Hemoglobin stabilized. Psych: No acute issues. Miscellaneous: No acute issues. Prophylaxis: Intermittent pneumatic compression Diet: Nothing by mouth Critical care time spent: 60 minutes (2) Diabetes: Status: Acute (3) Hemorrhagic shock: Status: Acute (4) Hypertension: Status: Acute Time Spent With Patient Total time spent with greater than 50% in coordination of care (as documented) at patient's floor/unit and/or counseling patient:: 0 Critical Care Time Critical Care Time (minutes): 60
[2020-11-01 11:24] LABS: Glucose, Whole Blood 102 mg/dL (60-115)
[2020-11-01] MEDS: LORazepam 2 MG/ML VIAL 0.5 MG IVPUSH (11:25)
[2020-11-01] MEDS: Potassium Chloride/H20 10 MEQ/100 ML PIGGYBACK 100 MEQ IV ×4 (11:27→18:24)
--- NOTE | 2020-11-01 11:53 | MHC.CM.PN ---
imm 11/01/20 pt is in icu; intubated, sedated, on mech. vent. dc plan deferred to a future time. cm to cont. to follow.
[2020-11-01 12:09] LABS: MANUAL DIFF FLAG NO
[2020-11-01 12:11] LABS: Basophils Percent Auto 0.3 % (0-2); Eosinophils Absolute Auto 0.1 X10*3/uL (0.0-0.4); Eosinophils Percent Auto 0.3 % (0-4); Hematocrit 31.8 % (37-47); Hemoglobin 10.9 g/dl (12.0-16.0); Imm Gran Pct Auto 0.7 % (0.0-0.4); Lymphocytes Absolute Auto 1.3 X10*3/uL (1.2-4.9); Lymphocytes Percent Auto 8.2 % (20-40); Mean Corpuscular HGB Conc 34.3 g/dl (31.0-35.0); Mean Corpuscular Hemoglobin 29.9 pg (27.0-33.0); Mean Corpuscular Volume 87.4 fL (80-98); Mean Platelet Volume 9.3 fL (9.4-12.3); Monocytes Absolute Auto 0.9 X10*3/uL (0.1-1.2); Monocytes Percent Auto 5.5 % (2-11); Neutrophils Absolute Auto 13.1 X10*3/uL (2.0-8.3); Platelet Count 225 X10*3/uL (160-400); Red Blood Count 3.64 X10*6/uL (4.20-5.50); Red Cell Distribution Width 15.1 % (11.0-16.0); White Blood Count 15.4 X10*3/uL (4.8-10.8)
--- NOTE | 2020-11-01 15:59 | PC.NURSE ---
ASSUMED CARE AT 0700. PATIENT WAS ON VENTILATOR, PRESSURE CONTROL SETTINGS, WAS FAIRLY RESTLESS AND ROUSABLE TO LIGHT PAIN DESPITE SEDATION OF 30 OF PROPOFOL, UPTITRATED TO 40. PATIENT HAD SOME BLOOD-TINGED SECRETIONS TO INLINE CATHETER, AND MD AWARE. PATIENT APPEARED UNCOMFORTABLE AT THAT TIME, AND WAS MEDICATED WITH PRN FENTANYL. MD ORDERED SEDATION VACATION, AND ASSESSMENT OF READINESS TO EXTUBATE, AND THIS WAS DONE SUCESSFULLY, AND PATIENT WAS EXTUBATED AT 0915. SHE WAS GIVEN ORAL CARE AND WAS EDUCATED TO HER HEALTH STATUS AND PLAN OF CARE, AND MONITORED AND HER NEUROLOGICAL STATUS WAS IMPROVING THROUGHOUT THE DAY, SHE WAS ALERT AND ORIENTED X4, BUT FORGETFUL AND VAGUE AND NEEDING FREQUENT REMINDERS NOT TO REACH FOR HER NASOGASTRIC TUBE, WHICH WAS TO LOW INTERMITTENT SUCTION, AND PUT OUT 150 CCS OF BRACKISH BILEOUS RED-TINGED LIQUID SINCE 07:00 AM. PATIENT PLACED ON 3 LPM NASAL CANNULA, AND SATTING IN MID 90'S. PATENT HAS ABDOMINAL INCISION AND ABDOMINAL DRESSING IS INTACT, DRY, AND HAS SLIGHT SHADOWING ON DISTAL END, WHICH WAS CIRCLED FROM PREVIOUS SHIFT AND APPEARS NOT TO HAVE INCREASED. PATIENT HAS RACHEL-CARBAJAL DRAIN TO INCISION SITE, WHICH PUT OUT 35 CCS OF SEROSANGUINEOUS FLUID SINCE 7 AM. PATIENT WAS EDUCATED ABOUT ALL THESE DRAINS WITH GOOD TEACHBACK. PATIENT CENTRAL LINE WAS FOUND TO BE NO LONGER PATENT AFTER EXTUBATION; MD NOTIFIED AND IN TO ASSESS, AND ORDERED REMOVAL, WHICH WAS ACCOMPLISHED BY 1200, XEROFORM AND GAUZE DRESSING APPLIED, MINIMAL BLEEDING NOTED. NEW PERIPHERAL 22 G TO RIGHT HAND, LEAKING IV WAS REMOVED FROM RIGHT ARM. IV POTASSIUM DOSAGE WAS CHANGED BY MD TO REFLECT LACK OF CENTRAL LINE, AND 3/4 BAGS OF 10 MEQ KCL WERE GIVEN PERIPHERALLY, WITH FOURTH TO BE GIVEN ON IMC, WARM HANDOVER GIVEN.
[2020-11-01 16:20] LABS: Glucose, Whole Blood 97 mg/dL (60-115)
[2020-11-01] MEDS: Morphine Sulfate 2 MG/ML CARTRIDGE IVPUSH ×3 (18:23→22:48)
[2020-11-01] MEDS: Dextrose 5 % and 0.9 % NaCl 1,000 ML 80 ML IVCONT (18:32)
--- NOTE | 2020-11-01 19:03 | PC.NURSE ---
Patient transferred from ICU around 1600. Both of the patient's IV's infiltrated; new IVs placed: #20 to left forearm and #22 to left hand. Patient reports 9/10 pain to abdomen, morphine administered with good effect. CATRACHO drain draining serosangeous fluid, stevens draining clear, yellow urine, and NG tube suctioning dark, red output. Patient very anxious and yells ay frequently. Bowel sounds not present, patient reports not passing flatus at this time. Area of shadowing outlined on abdominal dressing.
[2020-11-01 20:01] LABS: Glucose, Whole Blood 95 mg/dL (60-115)
[2020-11-01] MEDS: Melatonin 3 MG TABLET 6 MG PO (22:45)
[2020-11-02 03:44] VITALS: BP 153/63; PULSE 79; RESP 18; TEMP 36.8; O2SAT 94
[2020-11-02] MEDS: Piperacillin Sodium/Tazobactam 2.25 GM in 0.9 % Sodium Chloride 50 ML IV ×4 (03:49→21:41)
[2020-11-02] MEDS: Dextrose 5 % and 0.9 % NaCl 1,000 ML 80 ML IVCONT ×2 (04:29→18:08)
[2020-11-02] MEDS: Pantoprazole Sodium 80 MG in 0.9 % Sodium Chloride 80 ML 10 MG IV ×2 (04:29→19:13)
[2020-11-02] MEDS: Morphine Sulfate 2 MG/ML CARTRIDGE IVPUSH ×2 (04:35→08:17)
[2020-11-02 07:04] LABS: MANUAL DIFF FLAG NO
[2020-11-02 07:12] LABS: Basophils Absolute Auto 0.1 X10*3/uL (0.0-0.2); Basophils Percent Auto 0.4 % (0-2); Eosinophils Absolute Auto 0.5 X10*3/uL (0.0-0.4); Eosinophils Percent Auto 3.8 % (0-4); Hematocrit 30.6 % (37-47); Hemoglobin 10.1 g/dl (12.0-16.0); Imm Gran Abs Auto 0.12 X10*3/uL (0.00-0.03); Lymphocytes Absolute Auto 1.6 X10*3/uL (1.2-4.9); Mean Corpuscular Hemoglobin 29.5 pg (27.0-33.0); Mean Corpuscular Volume 89.5 fL (80-98); Mean Platelet Volume 9.8 fL (9.4-12.3); Monocytes Absolute Auto 0.8 X10*3/uL (0.1-1.2); Monocytes Percent Auto 6.6 % (2-11); Neutrophils Absolute Auto 9.2 X10*3/uL (2.0-8.3); Neutrophils Percent Auto 75.2 % (45-73); Platelet Count 264 X10*3/uL (160-400); Red Blood Count 3.42 X10*6/uL (4.20-5.50); Red Cell Distribution Width 15.6 % (11.0-16.0); White Blood Count 12.2 X10*3/uL (4.8-10.8)
[2020-11-02 07:43] LABS: Albumin Level 3.3 g/dL (3.5-5.0); Anion Gap 12 (12-20); Blood Urea Nitrogen 20 mg/dL (9-16); Calcium 7.7 mg/dL (8.4-10.2); Carbon Dioxide 23 mmol/L (22-29); Chloride 114 mmol/L (96-108); Creatinine Clr Calc Pharmacy 48.7; Estimated Glomerular Filt Rate > 60; Glucose Random 109 mg/dL (60-115); Potassium 3.5 mmol/L (3.3-5.1); Sodium 145 mmol/L (135-145)
[2020-11-02 08:00] VITALS: BP 180/81; PULSE 83; RESP 20; TEMP 36.6; O2SAT 93
[2020-11-02 08:15] LABS: Glucose, Whole Blood 120 mg/dL (60-115)
--- NOTE | 2020-11-02 08:57 | PM.PNGS ---
Subjective Subjective Date of Service: 11/02/20 Interval history: Reports incisional pain. Pain medication helps but for short period of time. Patient transferred from ICU to [facility] yesterday afternoon. Patient informed of the operative findings and the need for emergency surgery. Patient's questions answered to her apparent satisfaction. Physical Exam Vital Signs: Vital Signs: Last Vital Signs Temp 97.8 F 11/02/20 08:00 Pulse 83 11/02/20 08:00 Resp 20 11/02/20 08:00 BP 180/81 H 11/02/20 08:00 Pulse Ox 93 11/02/20 08:00 Body Mass Index 23.0 Const: General: cooperative and anxious Nutritional Appearance: well nourished Orientation/consciousness: patient oriented x3 Eyes: Sclerae: sclerae normal EOM: EOMs intact bilaterally Resp: Effort & Inspection: normal respiratory effort, no stridor and not tachypneic GI: Other: Incision clean and intact with dressings clean with only small amount of staining. CATRACHO intact with serosanguineous output. No bile noted in drainage. Abdomen slightly distended Skin: Other: Warm, dry, no rash Neuro: General: patient oriented x3 Extrem: Other: Pedal edema Progress Note: A&P Assessment and plan (1) Hemorrhagic shock: Status: Acute Assessment and Plan: Blood pressure stabilized, hemoglobin and hematocrit stabilized. No evidence of ongoing bleeding. Nasogastric tube draining old appearing blood (2) Acute duodenal ulcer with bleeding: Status: Acute Assessment and Plan: Status post exploratory laparotomy, duodenotomy, plication of bleeding duodenal ulcer, postoperative day 2. Patient reports incisional pain therefore I will increase her pain medication. NG tube draining old blood. Will keep the tube in for now to the keep the stomach and duodenum decompressed. Ryan-Monroy draining only bloody fluid. No evidence of duodenal leak at this time. Continue to monitor output. Patient will need to mobilize including out of bed to chair, ambulation. Miller catheter to be removed. Continue pantoprazole drip. Recheck CBC in a.m. Fall Risk Details Current Medications: Current Medications Generic Name Dose Route Start Last Admin Trade Name Freq PRN Reason Stop Dose Admin Piperacillin Sod/Tazobactam 50 mls @ 100 mls/hr 10/30/20 10:00 11/02/20 04:28 Sod 2.25 gm/ Sodium Chloride IV Infused Q6H LEOPOLDO Infusion Pantoprazole Sodium 80 mg/ 100 mls @ 10 mls/hr 10/30/20 15:15 11/02/20 04:29 Sodium Chloride IV 8 mg/hr .Q10H LEOPOLDO 10 mls/hr Administration 8 MG/HR Dextrose/Sodium Chloride 1,000 mls @ 80 mls/hr 11/01/20 15:45 11/02/20 04:29 D5ns IVCONT 80 mls/hr .[id number] LEOPOLDO Administration Insulin Human Lispro 0 unit 10/30/20 07:30 11/02/20 08:13 Insulin Lispro 100 Unit/Ml 3 Ml Vial SUBCUT Not Given QIDACHS LEOPOLDO Melatonin 6 mg 11/01/20 22:38 11/01/20 22:45 Melatonin 3 Mg Tablet PO 6 mg BEDTIME PRN Administration Insomnia Morphine Sulfate 4 mg 11/02/20 08:47 Morphine Sulfate 2 Mg/Ml Cartridge IVPUSH Q3H PRN Pain, Severe (Pain Scale 7-10) Ondansetron HCl 4 mg 11/01/20 09:20 11/01/20 09:30 Ondansetron Hcl 4 Mg/2 Ml Vial IVPUSH 4 mg Q6H PRN Administration nausea Sodium Chloride 3 ml 10/30/20 08:00 11/02/20 08:13 0.9 % Sodium Chloride Flush 3 Ml Syringe IVFLUSH Not Given QSHIFT [facility] Time Spent With Patient Time: Total time spent is greater than 50% in coordination of care (as documented) at patient's floor/unit and/or counseling patient: Time with patient: 25 - 35 minutes
[2020-11-02 10:05] VITALS: BP 158/74; PULSE 74
--- NOTE | 2020-11-02 10:18 | MHC.CM.PN ---
CM met with Patient at bedside (IMM had already been addressed by another CM). Patient lives in an apartment with her Son/Trell and she was functionally independent [employer] (now apparently requiring 2 assist). Patient had VNA in the distant past and her goal is to return home. Patient will need a PT eval to assist with home vs str determination. DC planning has been initiated and CM will follow to secure the dc plan.PCP is Dr.Purnima Alberto.
[2020-11-02 11:27] VITALS: BP 164/74; PULSE 76; RESP 18; TEMP 36.7; O2SAT 94
[2020-11-02 11:27] LABS: Glucose, Whole Blood 120 mg/dL (60-115)
--- NOTE | 2020-11-02 11:36 | P.PNIM_ITS ---
Subjective Subjective Date of Service: 11/02/20 Interval History: Patient seen and examined at bedside patient was reporting abdominal pain Constitutional Constitutional: Denies chills, Denies fever(s) and Denies weakness Eyes Eyes: Denies blurry vision ENT Ears, Nose, Mouth, and Throat: Denies dizziness Cardiovascular Cardiovascular: Denies chest pain, Denies rapid heart rate and Denies dyspnea Respiratory Respiratory: Denies dyspnea Gastrointestinal Gastrointestinal: Reports as per HPI, Reports melena, Reports diarrhea and Reports hematemesis Musculoskeletal Musculoskeletal: Reports back pain Neurologic Neurologic: Reports Abnormal speech present, Denies confusion, Denies dizziness, Reports focal weakness and Denies weakness Psychiatric Psychiatric: Denies confusion Physical Exam Vital Signs: Vital Signs: Last Vital Signs Temp 98.1 F 11/02/20 11:27 Pulse 76 11/02/20 11:27 Resp 18 11/02/20 11:27 BP 164/74 H 11/02/20 11:27 Pulse Ox 94 11/02/20 11:27 Body Mass Index 23.0 Const: General: cooperative, comfortable, no acute distress, alert, awake, anxious and other (Anxious); No confusion Nutritional Appearance: well nourished Orientation/consciousness: oriented to person, oriented to place, patient oriented x3 and No confusion Limitations: no limitations and No language barrier HENMT: Head: Yes normal to inspection, Yes normocephalic and Yes atraumatic Ears: external ears normal General nose exam: Normal external nose present Face and sinus: Yes normal facial exam Mouth: Normal oral and palatal mucosa present Throat: Yes posterior oropharynx normal Eyes: Periorbital: periorbital findings normal Eyelids: Yes eyelids normal Conjunctivae: conjunctivae normal Sclerae: sclerae normal Corneas: corneas normal Pupils: Equal, round and reactive pupils present EOM: EOMs intact bilaterally Direct Ophthalmoscopy: normal light reflex Neck: Neck: Yes full ROM, Yes no lymphadenopathy, Yes no meningeal signs, Yes trachea midline and Yes supple Chest: Chest palpation & inspection: normal inspection of the chest and tenderness (Anterior chest and sternum) Resp: Effort & Inspection: normal respiratory effort, able to speak in complete sentences, no respiratory distress, no stridor and not tachypneic Auscultation: clear to auscultation bilaterally Cardio: Rate: regular rate Rhythm: regular rhythm Heart sounds: S1 normal heart sound present, S2 normal heart sound present, no gallops, no murmurs and no rubs GI: Inspection: Yes normal to inspection, No distended and Yes other (Surgical incision with dressing, CATRACHO drainage) Palpation (GI): Soft to palpation, nontender, no guarding, not rigid, No hepatosplenomegaly present, No Rebound tenderness present and Other GI palpation findings present ( Nontender) Percussion: Yes normal to percussion Auscultation: normal bowel sounds Rectal Exam - Female: visual inspection normal, normal sphincter tone and heme positive stool (Dark stool which was Hemoccult positive) : General: Yes no CVA tenderness Back/Spine/Pelvis: Back: no CVA tenderness Cervical Spine: normal cervical lordosis Thoracic/Lumbar Spine: thoracic and lumbar spine normal to inspection Skin: General skin exam: no rashes or lesions noted Lesions: no lesions Rashes: no rashes Wounds: no wounds Neuro: General: oriented to person, oriented to place, patient oriented x3, no meningeal signs and No confusion Cranial nerves: Yes CN's II-XII intact bilaterally and Yes Equal, round and reactive pupils present Cognition (Neuro): normal cognition Speech: Abnormal speech present Motor exam (neuro): 5/5 motor strength present throughout Extrem: General: Yes normal to inspection, Yes full ROM, Yes no clubbing, cyanosis or edema, Yes no pedal edema, No clubbing and No cyanosis Psych: Appearance: well kempt Mental Status: mental status grossly normal Speech and movement: Normal speech and movement present Affect: Anxious affect present Attitude: cooperative Thought process: Normal thought process present Thought content: Normal thought content present Objective Data Current Medications Generic Name Dose Route Start Last Admin Trade Name Freq PRN Reason Stop Dose Admin Piperacillin Sod/Tazobactam 50 mls @ 100 mls/hr 10/30/20 10:00 11/02/20 10:58 Sod 2.25 gm/ Sodium Chloride IV Infused Q6H LEOPOLDO Infusion Pantoprazole Sodium 80 mg/ 100 mls @ 10 mls/hr 10/30/20 15:15 11/02/20 04:29 Sodium Chloride IV 8 mg/hr .Q10H LEOPOLDO 10 mls/hr Administration 8 MG/HR Dextrose/Sodium Chloride 1,000 mls @ 80 mls/hr 11/01/20 15:45 11/02/20 04:29 D5ns IVCONT 80 mls/hr .[id number] LEOPOLDO Administration Insulin Human Lispro 0 unit 10/30/20 07:30 11/02/20 08:13 Insulin Lispro 100 Unit/Ml 3 Ml Vial SUBCUT Not Given QIDACHS LEOPOLDO Melatonin 6 mg 11/01/20 22:38 11/01/20 22:45 Melatonin 3 Mg Tablet PO 6 mg BEDTIME PRN Administration Insomnia Morphine Sulfate 4 mg 11/02/20 08:47 Morphine Sulfate 2 Mg/Ml Cartridge IVPUSH Q3H PRN Pain, Severe (Pain Scale 7-10) Ondansetron HCl 4 mg 11/01/20 09:20 11/01/20 09:30 Ondansetron Hcl 4 Mg/2 Ml Vial IVPUSH 4 mg Q6H PRN Administration nausea Sodium Chloride 3 ml 10/30/20 08:00 11/02/20 08:13 0.9 % Sodium Chloride Flush 3 Ml Syringe IVFLUSH Not Given QSHIFT [facility] Labs CBC & Chem 7: 11/02/20 05:41 11/02/20 05:41 Microbiology Microbiology Results: Microbiology 10/30/20 03:41 Blood - Venous Blood Culture - Preliminary No growth after 48 hours. 10/30/20 02:25 Blood - Venous Blood Culture - Preliminary No growth after 48 hours. 10/30/20 07:56 Urine clean catch - Clean Catch Midstream Urine Culture - Final Assessment and Plan (1) Diabetes: Status: Acute (2) GI bleed: Status: Acute Assessment and Plan: 75-year-old lady with underlying history of hypertension, UTI, recent NSAID use admitted 10/30/2020 with upper GI bleed and sigmoid diverticulitis. Patient has been monitored on the general medical ocampo and on 10/31/2020 she has had an EGD which demonstrated an actively bleeding duodenal ulcer with development of hemorrhagic shock that required conversion to emergent exploratory laparotomy with surgical ligation for hemostasis. Patient has a remained intubated after the procedure and transferred to intensive care unit. Her hemoglobin was stabilized. She has been extubated 11/01/2020 uneventfully.and transferred to floor Acute blood loss anemia secondary to UGIB s/p EGD shows active bleeding ulcer status post exploratory laparotomy with surgical ligation for anastomosis status post 3 PRBC transfusion:h/h improved from 7 to 10 now- h/h stable around 10 continue PPI drip monitor H&H continue NG tube per surgery management per surgery continue IV fluid Acute diverticulitis: continue zosyn day / supportive management currently NPO given surgery MARIA LUZ:multifcatorial: Likely in the setting of dehydration/Gi bleed resolving creatinine trended down to 1 back to baseline Avoid nephrotoxins. mildly elevated troponin with flat trend no chest pain EKG shows chronic LBB ACS less likely Further cardiac workup out patiently Hypertension: Hold home antihypertensives given GI bleed if blood pressure continues to remain high Will restart BP meds Diabetes mellitus blood glucose controlled on lower side continue Insulin sliding scale monitor blood glucose DVT prophylaxis Venodyne given GI bleed
[2020-11-02] MEDS: Morphine Sulfate 2 MG/ML CARTRIDGE 4 MG IVPUSH ×3 (13:38→21:42)
[2020-11-02 15:30] VITALS: BP 152/74; PULSE 80; RESP 18; TEMP 36.7; O2SAT 94
[2020-11-02] MEDS: 0.9 % Sodium Chloride Flush 3 ML SYRINGE IVFLUSH (16:29)
[2020-11-02 16:48] LABS: Glucose, Whole Blood 124 mg/dL (60-115)
[2020-11-02 19:16] VITALS: BP 145/86; PULSE 84; RESP 18; TEMP 36.8; O2SAT 95
[2020-11-02 20:39] LABS: Glucose, Whole Blood 122 mg/dL (60-115)
[2020-11-02] MEDS: Melatonin 3 MG TABLET 6 MG PO (21:42)
[2020-11-03] VITALS (7 sets, daily range): BP systolic 141–178; BP diastolic 70–82; PULSE 78–89; RESP 16–20; TEMP 36.1–37.2; O2SAT 92–95
[2020-11-03] MEDS: Pantoprazole Sodium 80 MG in 0.9 % Sodium Chloride 80 ML 10 MG IV ×3 (03:46→23:58)
[2020-11-03] MEDS: Morphine Sulfate 2 MG/ML CARTRIDGE 4 MG IVPUSH ×4 (03:46→20:50)
[2020-11-03] MEDS: Piperacillin Sodium/Tazobactam 2.25 GM in 0.9 % Sodium Chloride 50 ML IV ×2 (03:46→10:32)
[2020-11-03] MEDS: Dextrose 5 % and 0.9 % NaCl 1,000 ML 80 ML IVCONT ×2 (04:27→20:56)
[2020-11-03 06:49] LABS: MANUAL DIFF FLAG NO
[2020-11-03 06:54] LABS: Basophils Absolute Auto 0.1 X10*3/uL (0.0-0.2); Basophils Percent Auto 0.4 % (0-2); Eosinophils Absolute Auto 0.5 X10*3/uL (0.0-0.4); Eosinophils Percent Auto 4.1 % (0-4); Hematocrit 30.3 % (37-47); Hemoglobin 10.1 g/dl (12.0-16.0); Imm Gran Abs Auto 0.11 X10*3/uL (0.00-0.03); Imm Gran Pct Auto 0.9 % (0.0-0.4); Lymphocytes Absolute Auto 1.8 X10*3/uL (1.2-4.9); Mean Corpuscular HGB Conc 33.3 g/dl (31.0-35.0); Mean Corpuscular Hemoglobin 30.1 pg (27.0-33.0); Mean Corpuscular Volume 90.4 fL (80-98); Mean Platelet Volume 9.6 fL (9.4-12.3); Monocytes Absolute Auto 0.9 X10*3/uL (0.1-1.2); Monocytes Percent Auto 6.9 % (2-11); Neutrophils Absolute Auto 9.3 X10*3/uL (2.0-8.3); Neutrophils Percent Auto 73.7 % (45-73); Platelet Count 286 X10*3/uL (160-400); Red Blood Count 3.35 X10*6/uL (4.20-5.50); Red Cell Distribution Width 15.6 % (11.0-16.0); White Blood Count 12.6 X10*3/uL (4.8-10.8)
[2020-11-03 07:24] LABS: Glucose, Whole Blood 143 mg/dL (60-115)
[2020-11-03 08:19] LABS: Anion Gap 12 (12-20); Blood Urea Nitrogen 10 mg/dL (9-16); Calcium 7.6 mg/dL (8.4-10.2); Carbon Dioxide 21 mmol/L (22-29); Chloride 114 mmol/L (96-108); Creatinine Clr Calc Pharmacy 56.4; Estimated Glomerular Filt Rate > 60; Glucose Random 149 mg/dL (60-115); Potassium 3.3 mmol/L (3.3-5.1); Sodium 144 mmol/L (135-145)
[2020-11-03] MEDS: 0.9 % Sodium Chloride Flush 3 ML SYRINGE IVFLUSH ×3 (08:37→20:53)
[2020-11-03] MEDS: LORazepam 2 MG/ML VIAL 0.5 MG IVPUSH (10:32)
--- NOTE | 2020-11-03 10:39 | PM.PNGS ---
Subjective Subjective Date of Service: 11/03/20 <Agustina Vee PA-C - Last Filed: 11/03/20 10:46> 11/03/20 <Jeramy Lau MD - Last Filed: 11/03/20 16:00> Interval history: Complaining about NGT discomfort. Also c/o incisional pain but comfortable with medications. Has not been OOB. Denies flatus. <Agustina Vee PA-C - Last Filed: 11/03/20 10:46> Physical Exam Vital Signs: Vital Signs: Last Vital Signs Temp 97 F 11/03/20 07:07 Pulse 78 11/03/20 07:07 Resp 20 11/03/20 07:07 BP 141/77 H 11/03/20 07:07 Pulse Ox 94 11/03/20 07:07 Body Mass Index 23.0 <Agustina Vee PA-C - Last Filed: 11/03/20 10:46> Const: General: comfortable, no acute distress and alert <Agustina Vee PA-C - Last Filed: 11/03/20 10:46> Orientation/consciousness: patient oriented x3 <Agustina Vee PA-C - Last Filed: 11/03/20 10:46> Eyes: Sclerae: sclerae normal <Agustina Vee PA-C Last Filed: 11/03/20 10:46> Resp: Effort & Inspection: normal respiratory effort <Agustina Vee PA-C - Last Filed: 11/03/20 10:46> Cardio: Rate: regular rate <Agustina Vee PA-C - Last Filed: 11/03/20 10:46> GI: Other: CATRACHO with serosanguineous drainage <ROMAN Holman Last Filed: 11/03/20 10:46> Inspection: Yes distended (mild) and Yes incision (clean, no erythema) <ROMAN Holman Last Filed: 11/03/20 10:46> Palpation (GI): Soft to palpation, Tenderness to palpation present (GI) (incisional), no guarding, not rigid and No Rebound tenderness present <ROMAN Holman Last Filed: 11/03/20 10:46> Percussion: Yes normal to percussion <ROMAN Holman Last Filed: 11/03/20 10:46> Skin: Other: normal color, warm and dry <ROMAN Holman Last Filed: 11/03/20 10:46> General skin exam: no rashes or lesions noted <ROMAN Holman Last Filed: 11/03/20 10:46> Neuro: General: patient oriented x3 and moves all extremities <ROMAN Holman Last Filed: 11/03/20 10:46> Extrem: General: Yes no clubbing, cyanosis or edema and Yes no calf tenderness <ROMAN Holman Last Filed: 11/03/20 10:46> Progress Note: A&P Assessment and plan (1) Hemorrhagic shock: Status: Acute <ROMAN Holman Last Filed: 11/03/20 10:46> Assessment and Plan: Transferred from ICU to [facility] [place] 11/01/20. BP, HR and H/H remain stable. <Agustina Vee PA-C Last Filed: 11/03/20 10:46> (2) Acute duodenal ulcer with bleeding: Problem details: POD #3 Status post exploratory laparotomy, duodenotomy, plication of bleeding duodenal ulcer <ROMAN Holman Last Filed: 11/03/20 10:46> Status: Acute <ROMAN Holman Last Filed: 11/03/20 10:46> Assessment and Plan: Doing fairly well now post operatively. NGT with moderate output, old blood, will continue for stomach and duodenum decompression. VSS. Abd exam with appopriate post op tenderness, incision clean. [place]Monroy with nonbilious output, serosanguineous drainage. No evidence of duodenal leak at this time. Continue to monitor output. Encouraged OOB/ambulation and IS use. D/c stevens. Continue pantoprazole drip. H/H stable, Follow CBC. <Agustina Vee PA-C - Last Filed: 11/03/20 10:46> Agree with the above assessment and plan. Patient remains hemodynamically stable with a stable hemoglobin. She complains of incisional pain but this is improved from yesterday. May be able to remove nasogastric tube tomorrow and start clear liquids. Patient does not have incentive spirometry in her room. Encourage patient to take deep breaths every hour. She does not know if she was out of bed today. Encouraged her to get helping get out of bed daily. <Jeramy Lau MD - Last Filed: 11/03/20 16:00> (3) Diverticulosis: Status: Acute <Agustina Vee PA-C - Last Filed: 11/03/20 10:46> Assessment and Plan: No evidence of acute diverticulitis. Bib driver d/c. <Agustina Vee PA-C - Last Filed: 11/03/20 10:46> Fall Risk Details Current Medications: Current Medications Generic Name Dose Route Start Last Admin Trade Name Freq PRN Reason Stop Dose Admin Dextrose/Sodium Chloride 1,000 mls @ 80 mls/hr 11/01/20 15:45 11/03/20 04:27 D5ns IVCONT 80 mls/hr .[id number] LEOPOLDO Administration Pantoprazole Sodium 80 mg/ 100 mls @ 10 mls/hr 11/02/20 18:15 11/03/20 03:46 Sodium Chloride IV 8 mg/hr .Q10H LEOPOLDO 10 mls/hr Administration 8 MG/HR Insulin Human Lispro 0 unit 10/30/20 07:30 11/03/20 08:38 Insulin Lispro 100 Unit/Ml 3 Ml Vial SUBCUT Not Given QIDACHS LEOPOLDO Melatonin 6 mg 11/01/20 22:38 11/02/20 21:42 Melatonin 3 Mg Tablet PO 6 mg BEDTIME PRN Administration Insomnia Morphine Sulfate 4 mg 11/02/20 08:47 11/03/20 08:37 Morphine Sulfate 2 Mg/Ml Cartridge IVPUSH 4 mg Q3H PRN Administration Pain, Severe (Pain Scale 7-10) Ondansetron HCl 4 mg 11/01/20 09:20 11/01/20 09:30 Ondansetron Hcl 4 Mg/2 Ml Vial IVPUSH 4 mg Q6H PRN Administration nausea Sodium Chloride 3 ml 02/18/21 08:00 11/03/20 08:37 0.9 % Sodium Chloride Flush 3 Ml Syringe IVFLUSH 3 ml QSHIFT LEOPOLDO Administration <Agustina Vee PA-C - Last Filed: 11/03/20 10:46> Time Spent With Patient Time: Total time spent is greater than 50% in coordination of care (as documented) at patient's floor/unit and/or counseling patient: <Agustina Vee PA-C - Last Filed: 11/03/20 10:46> Time with patient: 15 - 24 minutes <Agustina Vee PA-C - Last Filed: 11/03/20 10:46>
[2020-11-03 11:09] LABS: Glucose, Whole Blood 119 mg/dL (60-115)
--- NOTE | 2020-11-03 14:35 | HO.PM.IMPN ---
Subjective Subjective Date of Service: 11/03/20 Interval History: Patient seen and examined at bedside patient was reporting abdominal pain feeling anxious today Constitutional Constitutional: Denies chills, Denies fever(s) and Denies weakness Eyes Eyes: Denies blurry vision ENT Ears, Nose, Mouth, and Throat: Denies dizziness Cardiovascular Cardiovascular: Denies chest pain, Denies rapid heart rate and Denies dyspnea Respiratory Respiratory: Denies dyspnea Gastrointestinal Gastrointestinal: Reports as per HPI, Reports melena, Reports diarrhea and Reports hematemesis Musculoskeletal Musculoskeletal: Reports back pain Neurologic Neurologic: Reports Abnormal speech present, Denies confusion, Denies dizziness, Reports focal weakness and Denies weakness Psychiatric Psychiatric: Denies confusion Physical Exam Vital Signs: Vital Signs: Last Vital Signs Temp 98 F 11/03/20 10:52 Pulse 83 11/03/20 10:52 Resp 20 11/03/20 10:52 BP 174/81 H 11/03/20 10:52 Pulse Ox 95 11/03/20 10:52 Body Mass Index 23.0 Const: General: cooperative, comfortable, no acute distress, alert, awake, anxious and other (Anxious); No confusion Nutritional Appearance: well nourished Orientation/consciousness: oriented to person, oriented to place, patient oriented x3 and No confusion Limitations: no limitations and No language barrier HENMT: Head: Yes normal to inspection, Yes normocephalic and Yes atraumatic Ears: external ears normal General nose exam: Normal external nose present Face and sinus: Yes normal facial exam Mouth: Normal oral and palatal mucosa present Throat: Yes posterior oropharynx normal Eyes: Periorbital: periorbital findings normal Eyelids: Yes eyelids normal Conjunctivae: conjunctivae normal Sclerae: sclerae normal Corneas: corneas normal Pupils: Equal, round and reactive pupils present EOM: EOMs intact bilaterally Direct Ophthalmoscopy: normal light reflex Neck: Neck: Yes full ROM, Yes no lymphadenopathy, Yes no meningeal signs, Yes trachea midline and Yes supple Chest: Chest palpation & inspection: normal inspection of the chest and tenderness (Anterior chest and sternum) Resp: Effort & Inspection: normal respiratory effort, able to speak in complete sentences, no respiratory distress, no stridor and not tachypneic Auscultation: clear to auscultation bilaterally Cardio: Rate: regular rate Rhythm: regular rhythm Heart sounds: S1 normal heart sound present, S2 normal heart sound present, no gallops, no murmurs and no rubs GI: Inspection: Yes distended and Yes other (Surgical incision with dressing, CATRACHO drainagein place ) Palpation (GI): Soft to palpation, Tenderness to palpation present (GI), no guarding, not rigid, No hepatosplenomegaly present, No Rebound tenderness present and Other GI palpation findings present ( Nontender) Auscultation: Hyperactive bowel sounds present Rectal Exam - Female: heme positive stool (Dark stool which was Hemoccult positive) : General: Yes no CVA tenderness Back/Spine/Pelvis: Back: no CVA tenderness Cervical Spine: normal cervical lordosis Thoracic/Lumbar Spine: thoracic and lumbar spine normal to inspection Skin: General skin exam: no rashes or lesions noted Lesions: no lesions Rashes: no rashes Wounds: no wounds Neuro: General: oriented to person, oriented to place, patient oriented x3, no meningeal signs and No confusion Cranial nerves: Yes CN's II-XII intact bilaterally and Yes Equal, round and reactive pupils present Cognition (Neuro): normal cognition Speech: Abnormal speech present Motor exam (neuro): 5/5 motor strength present throughout Extrem: General: Yes normal to inspection, Yes full ROM, Yes no clubbing, cyanosis or edema, Yes no pedal edema, No clubbing and No cyanosis Psych: Appearance: well kempt Mental Status: mental status grossly normal Speech and movement: Normal speech and movement present Affect: Anxious affect present Attitude: cooperative Thought process: Normal thought process present Thought content: Normal thought content present Objective Data Current Medications Generic Name Dose Route Start Last Admin Trade Name Freq PRN Reason Stop Dose Admin Dextrose/Sodium Chloride 1,000 mls @ 80 mls/hr 11/01/20 15:45 11/03/20 04:27 D5ns IVCONT 80 mls/hr .[id number] LEOPOLDO Administration Pantoprazole Sodium 80 mg/ 100 mls @ 10 mls/hr 11/02/20 18:15 11/03/20 14:23 Sodium Chloride IV 8 mg/hr .Q10H LEOPOLDO 10 mls/hr Administration 8 MG/HR Insulin Human Lispro 0 unit 10/30/20 07:30 11/03/20 12:35 Insulin Lispro 100 Unit/Ml 3 Ml Vial SUBCUT Not Given QIDACHS LEOPOLDO Melatonin 6 mg 11/01/20 22:38 11/02/20 21:42 Melatonin 3 Mg Tablet PO 6 mg BEDTIME PRN Administration Insomnia Morphine Sulfate 4 mg 11/02/20 08:47 11/03/20 14:20 Morphine Sulfate 2 Mg/Ml Cartridge IVPUSH 4 mg Q3H PRN Administration Pain, Severe (Pain Scale 7-10) Ondansetron HCl 4 mg 11/01/20 09:20 11/01/20 09:30 Ondansetron Hcl 4 Mg/2 Ml Vial IVPUSH 4 mg Q6H PRN Administration nausea Sodium Chloride 3 ml 10/30/20 08:00 11/03/20 08:37 0.9 % Sodium Chloride Flush 3 Ml Syringe IVFLUSH 3 ml QSHIFT LEOPOLDO Administration Labs CBC & Chem 7: 11/03/20 05:54 11/03/20 05:54 Microbiology Microbiology Results: Microbiology 10/30/20 03:41 Blood - Venous Blood Culture - Preliminary No growth after 48 hours. 10/30/20 02:25 Blood - Venous Blood Culture - Preliminary No growth after 48 hours. 10/30/20 07:56 Urine clean catch - Clean Catch Midstream Urine Culture - Final Assessment and Plan (1) Diabetes: Status: Acute (2) GI bleed: Status: Acute Assessment and Plan: 75-year-old lady with underlying history of hypertension, UTI, recent NSAID use admitted 10/30/2020 with upper GI bleed and sigmoid diverticulitis. Patient has been monitored on the general medical ocampo and on 10/31/2020 she has had an EGD which demonstrated an actively bleeding duodenal ulcer with development of hemorrhagic shock that required conversion to emergent exploratory laparotomy with surgical ligation for hemostasis. Patient has a remained intubated after the procedure and transferred to intensive care unit. Her hemoglobin was stabilized. She has been extubated 11/01/2020 uneventfully.and transferred to floor Acute blood loss anemia secondary to UGIB s/p EGD shows active bleeding ulcer status post exploratory laparotomy with surgical ligation for anastomosis status post 3 PRBC transfusion:h/h improved from 7 to 10 now- h/h stable around 10 continue PPI drip monitor H&H continue NG tube per surgery management per surgery continue IV fluid Acute diverticulitis: continue zosyn day 5/7 supportive management MARIA LUZ:multifcatorial: Likely in the setting of dehydration/Gi bleed resolving creatinine trended down to 1 back to baseline Avoid nephrotoxins. mildly elevated troponin with flat trend no chest pain EKG shows chronic LBB ACS less likely Further cardiac workup out patiently Hypertension: blood pressure on higher side will restart losartan Diabetes mellitus blood glucose controlled on lower side continue Insulin sliding scale monitor blood glucose DVT prophylaxis Venodyne given GI bleed
[2020-11-03] MEDS: Losartan Potassium 50 MG TABLET PO (15:45)
[2020-11-03 16:17] LABS: Glucose, Whole Blood 134 mg/dL (60-115)
[2020-11-03 19:49] LABS: Glucose, Whole Blood 114 mg/dL (60-115)
[2020-11-03] MEDS: Melatonin 3 MG TABLET 6 MG PO (20:51)
[2020-11-03] MEDS: ondansetron HCL 4 MG/2 ML VIAL IVPUSH (20:53)
--- NOTE | 2020-11-03 22:25 | PM.GIPN ---
Subjective Subjective Date of Service: 11/03/20 Interval History: Hx via patient and her RN, and from the EMR. Course noted. She continues with the NG tube which is draining small amounts of old blood. She is having small amounts of melena. She c/o incisional pain. But overall, she feels fairly well considering the course of events on 10/31. Physical Exam Vital Signs: Vital Signs: Last Vital Signs Temp 98.9 F 11/03/20 19:31 Pulse 82 11/03/20 19:31 Resp 18 11/03/20 19:31 BP 178/82 H 11/03/20 19:31 Pulse Ox 95 11/03/20 19:31 Body Mass Index 23.0 Const: General: cooperative, comfortable and alert Nutritional Appearance: well nourished Eyes: Sclerae: sclerae normal Objective Data Labs CBC & Chem 7: 11/03/20 05:54 11/03/20 05:54 Labs: Laboratory Results - last 24 hr 10/30/20 11/03/20 11/03/20 02:25 05:54 05:54 WBC 12.6 H RBC 3.35 L Hgb 10.1 L Hct 30.3 L MCV 90.4 MCH 30.1 MCHC 33.3 RDW 15.6 Plt Count 286 MPV 9.6 Immature Gran % (Auto) 0.9 H Neut % (Auto) 73.7 H Lymph % (Auto) 14.0 L [place] % (Auto) 6.9 Eos % (Auto) 4.1 H Baso % (Auto) 0.4 Lymph # (Auto) 1.8 [place] # (Auto) 0.9 Eos # (Auto) 0.5 H Baso # (Auto) 0.1 Abs Immat Gran (auto) 0.11 H Absolute Neuts (auto) 9.3 H Absolute Nucleated RBC 0.000 Nucleated RBC % (auto) 0.0 Sodium 144 Potassium 3.3 Chloride 114 H Carbon Dioxide 21 L Anion Gap 12 BUN 10 Creatinine 0.69 Estim Creat Clear Calc 56.4 Estimated GFR > 60 POC Glucose Random Glucose 149 H D Calcium 7.6 L Blood Type O Positive Antibody Screen NEGATIVE Crossmatch See Detail 11/03/20 11/03/20 11/03/20 07:08 10:54 16:14 WBC RBC Hgb Hct MCV MCH MCHC RDW Plt Count MPV Immature Gran % (Auto) Neut % (Auto) Lymph % (Auto) [place] % (Auto) Eos % (Auto) Baso % (Auto) Lymph # (Auto) [place] # (Auto) Eos # (Auto) Baso # (Auto) Abs Immat Gran (auto) Absolute Neuts (auto) Absolute Nucleated RBC Nucleated RBC % (auto) Sodium Potassium Chloride Carbon Dioxide Anion Gap BUN Creatinine Estim Creat Clear Calc Estimated GFR POC Glucose 143 H 119 H 134 H Random Glucose Calcium Blood Type Antibody Screen Crossmatch 11/03/20 19:45 WBC RBC Hgb Hct MCV MCH MCHC RDW Plt Count MPV Immature Gran % (Auto) Neut % (Auto) Lymph % (Auto) [place] % (Auto) Eos % (Auto) Baso % (Auto) Lymph # (Auto) [place] # (Auto) Eos # (Auto) Baso # (Auto) Abs Immat Gran (auto) Absolute Neuts (auto) Absolute Nucleated RBC Nucleated RBC % (auto) Sodium Potassium Chloride Carbon Dioxide Anion Gap BUN Creatinine Estim Creat Clear Calc Estimated GFR POC Glucose 114 Random Glucose Calcium Blood Type Antibody Screen Crossmatch Microbiology Microbiology Results: Microbiology 10/30/20 03:41 Blood - Venous Blood Culture - Preliminary No growth after 48 hours. 10/30/20 02:25 Blood - Venous Blood Culture - Preliminary No growth after 48 hours. 10/30/20 07:56 Urine clean catch - Clean Catch Midstream Urine Culture - Final Progress Note: A&P Assessment and plan (1) Acute duodenal ulcer with bleeding: Problem details: Imp: Overall, doing remarkably well considering her hemorrhagic shock on 10/31 in relation to the large duodenal bulb ulcer. She has not shown any signs of recurrent bleeding. Rec: Continue plans as per surgery. Continue IV PPI infusion. Once taking po's she can be switched to a BID oral PPI Rx. F/U labs. Of note, I did speak with the patient's Medical Lab Technologist at her request. I reviewed the course of events during and after the endoscopy with both of them in detail. 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 They were comfortable with this explanation and the current plan. Thanks Status: Acute Fall Risk Details Current Medications: Current Medications Generic Name Dose Route Start Last Admin Trade Name Freq PRN Reason Stop Dose Admin Dextrose/Sodium Chloride 1,000 mls @ 80 mls/hr 11/01/20 15:45 11/03/20 20:56 D5ns IVCONT 80 mls/hr .[id number] LEOPOLDO Administration Pantoprazole Sodium 80 mg/ 100 mls @ 10 mls/hr 11/02/20 18:15 11/03/20 14:23 Sodium Chloride IV 8 mg/hr .Q10H LEOPOLDO 10 mls/hr Administration 8 MG/HR Insulin Human Lispro 0 unit 10/30/20 07:30 11/03/20 20:47 Insulin Lispro 100 Unit/Ml 3 Ml Vial SUBCUT Not Given QIDACHS LEOPOLDO Losartan Potassium 50 mg 11/03/20 14:40 11/03/20 15:45 Losartan Potassium 50 Mg Tablet PO 50 mg DAILY LEOPOLDO Administration Protocol Melatonin 6 mg 11/01/20 22:38 11/03/20 20:51 Melatonin 3 Mg Tablet PO 6 mg BEDTIME PRN Administration Insomnia Morphine Sulfate 4 mg 11/02/20 08:47 11/03/20 20:50 Morphine Sulfate 2 Mg/Ml Cartridge IVPUSH 4 mg Q3H PRN Administration Pain, Severe (Pain Scale 7-10) Ondansetron HCl 4 mg 11/01/20 09:20 11/03/20 20:53 Ondansetron Hcl 4 Mg/2 Ml Vial IVPUSH 4 mg Q6H PRN Administration nausea Sodium Chloride 3 ml 10/30/20 08:00 11/03/20 20:53 0.9 % Sodium Chloride Flush 3 Ml Syringe IVFLUSH 3 ml QSHIFT LEOPOLDO Administration Time Spent With Patient Time: Total time spent is greater than 50% in coordination of care (as documented) at patient's floor/unit and/or counseling patient: Time with patient: 15 - 24 minutes Procedures Date of Service Date of Service: 11/03/20
[2020-11-04] MEDS: Morphine Sulfate 2 MG/ML CARTRIDGE 4 MG IVPUSH (03:38)
[2020-11-04] MEDS: ondansetron HCL 4 MG/2 ML VIAL IVPUSH (03:39)
[2020-11-04 03:45] VITALS: BP 167/71; PULSE 80; RESP 18; TEMP 36.2; O2SAT 93
--- NOTE | 2020-11-04 05:56 | PC.NURSE ---
At approximately 0500 patient began to call out for help and upon arrival, was noted to have displaced her NG tube. Hospitalist Jerome was contacted, informed of the patients visit and current condition and she recommended that surgery be called in regards to if the NG tube needed to be replaced or not. Dr. Delgadillo was the provider supervisor home energy consultant and she was informed of the current status of the patient. Per her recommendation, the pt does not need the NG tube to be replaced at this time and further assessment will happen during hospital rounds. Patient was informed of this information and educated on the plan of care.
[2020-11-04 06:22] LABS: MANUAL DIFF FLAG NO
[2020-11-04 06:45] LABS: Basophils Absolute Auto 0.1 X10*3/uL (0.0-0.2); Basophils Percent Auto 0.4 % (0-2); Eosinophils Absolute Auto 0.5 X10*3/uL (0.0-0.4); Eosinophils Percent Auto 3.7 % (0-4); Hematocrit 30.1 % (37-47); Hemoglobin 9.9 g/dl (12.0-16.0); Imm Gran Pct Auto 0.8 % (0.0-0.4); Lymphocytes Absolute Auto 1.8 X10*3/uL (1.2-4.9); Lymphocytes Percent Auto 13.4 % (20-40); Mean Corpuscular HGB Conc 32.9 g/dl (31.0-35.0); Mean Corpuscular Hemoglobin 29.6 pg (27.0-33.0); Mean Corpuscular Volume 89.9 fL (80-98); Mean Platelet Volume 9.5 fL (9.4-12.3); Monocytes Absolute Auto 0.9 X10*3/uL (0.1-1.2); Monocytes Percent Auto 6.7 % (2-11); Neutrophils Absolute Auto 9.9 X10*3/uL (2.0-8.3); Platelet Count 360 X10*3/uL (160-400); Red Blood Count 3.35 X10*6/uL (4.20-5.50); Red Cell Distribution Width 15.2 % (11.0-16.0); White Blood Count 13.2 X10*3/uL (4.8-10.8)
[2020-11-04 06:54] LABS: Anion Gap 11 (12-20); Blood Urea Nitrogen 8 mg/dL (9-16); Calcium 7.9 mg/dL (8.4-10.2); Carbon Dioxide 23 mmol/L (22-29); Chloride 112 mmol/L (96-108); Creatinine Clr Calc Pharmacy 54.8; Estimated Glomerular Filt Rate > 60; Glucose Fasting 138 mg/dL (60-99); Potassium 3.3 mmol/L (3.3-5.1); Sodium 143 mmol/L (135-145)
[2020-11-04 07:17] VITALS: BP 150/86; PULSE 74; RESP 20; TEMP 36; O2SAT 92
[2020-11-04 07:21] LABS: Glucose, Whole Blood 128 mg/dL (60-115)
[2020-11-04] MEDS: Morphine Sulfate 4 MG/ML CARTRIDGE IVPUSH (08:07)
[2020-11-04] MEDS: Losartan Potassium 50 MG TABLET PO (08:09)
--- NOTE | 2020-11-04 08:09 | PM.PNGS ---
Subjective Subjective Date of Service: 11/04/20 Interval history: Patient pulled out in nasogastric tube during the night, output had decreased significantly. Feels much improved this morning with no abdominal pain. Denies nausea or vomiting. Physical Exam Vital Signs: Vital Signs: Last Vital Signs Temp 96.8 F 11/04/20 07:17 Pulse 74 11/04/20 07:17 Resp 20 11/04/20 07:17 BP 150/86 H 11/04/20 07:17 Pulse Ox 92 11/04/20 07:17 Body Mass Index 23.0 Const: General: cooperative, comfortable and no acute distress Resp: Effort & Inspection: normal respiratory effort Cardio: Jugular venous distension: no JVD Rate: regular rate Rhythm: regular rhythm GI: Other: Wounds clean and intact Palpation (GI): Soft to palpation Auscultation: normal bowel sounds Skin: General skin exam: dry skin Rashes: no rashes Extrem: General: Yes pedal edema Progress Note: A&P Assessment and plan (1) Acute duodenal ulcer with bleeding: Status: Acute Assessment and Plan: Patient feels much improved this morning following removal of nasogastric tube. Patient remains hemodynamically stable with no evidence of ongoing bleeding. Output has decreased therefore the tube will be left out and she will be started on a clear liquid diet. Diet to be advanced as tolerated. Patient still has not been given incentive spirometer. She was provided with 1 by me instructed on how to use the instrument 10 times every hour. She expressed understanding and agreed to the plan. Patient should be ambulating every shift. Anticipate discharge in the next 2-3 days. Fall Risk Details Current Medications: Current Medications Generic Name Dose Route Start Last Admin Trade Name Ciriloq PRN Reason Stop Dose Admin Dextrose/Sodium Chloride 1,000 mls @ 80 mls/hr 11/01/20 15:45 11/03/20 20:56 D5ns IVCONT 80 mls/hr .[id number] LEOPOLDO Administration Pantoprazole Sodium 80 mg/ 100 mls @ 10 mls/hr 11/02/20 18:15 11/03/20 23:58 Sodium Chloride IV 8 mg/hr .Q10H LEOPOLDO 10 mls/hr Administration 8 MG/HR Insulin Human Lispro 0 unit 10/30/20 07:30 11/03/20 20:47 Insulin Lispro 100 Unit/Ml 3 Ml Vial SUBCUT Not Given QIDACHS LEOPOLDO Losartan Potassium 50 mg 11/03/20 14:40 11/03/20 15:45 Losartan Potassium 50 Mg Tablet PO 50 mg DAILY LEOPOLDO Administration Protocol Melatonin 6 mg 11/01/20 22:38 11/03/20 20:51 Melatonin 3 Mg Tablet PO 6 mg BEDTIME PRN Administration Insomnia Morphine Sulfate 4 mg 11/04/20 08:01 Morphine Sulfate 4 Mg/Ml Cartridge IVPUSH Q3H PRN Pain, Severe (Pain Scale 7-10) Ondansetron HCl 4 mg 11/01/20 09:20 11/04/20 03:39 Ondansetron Hcl 4 Mg/2 Ml Vial IVPUSH 4 mg Q6H PRN Administration nausea Sodium Chloride 3 ml 10/30/20 08:00 11/03/20 20:53 0.9 % Sodium Chloride Flush 3 Ml Syringe IVFLUSH 3 ml QSHIFT LEOPOLDO Administration Time Spent With Patient Time: Total time spent is greater than 50% in coordination of care (as documented) at patient's floor/unit and/or counseling patient: Time with patient: 15 - 24 minutes Procedures Date of Service Date of Service: 11/04/20
[2020-11-04] MEDS: Dextrose 5 % and 0.9 % NaCl 1,000 ML 80 ML IVCONT ×2 (09:37→20:27)
[2020-11-04] MEDS: Pantoprazole Sodium 80 MG in 0.9 % Sodium Chloride 80 ML 10 MG IV ×2 (11:04→20:27)
[2020-11-04 11:17] VITALS: BP 157/83; PULSE 76; RESP 18; TEMP 35.5; O2SAT 97
[2020-11-04 11:28] LABS: Glucose, Whole Blood 153 mg/dL (60-115)
[2020-11-04] MEDS: oxyCODONE HCl Immed Release 5 MG TABLET 10 MG PO ×2 (12:30→18:47)
--- NOTE | 2020-11-04 14:45 | P.PNIM_ITS ---
Subjective Subjective Date of Service: 11/04/20 Interval History: Patient seen and examined at bedside patient was reporting feeling better Patient pulled out NG tube last In nausea vomiting Constitutional Constitutional: Denies chills, Denies fever(s) and Denies weakness Eyes Eyes: Denies blurry vision ENT Ears, Nose, Mouth, and Throat: Denies dizziness Cardiovascular Cardiovascular: Denies chest pain, Denies rapid heart rate and Denies dyspnea Respiratory Respiratory: Denies dyspnea Gastrointestinal Gastrointestinal: Reports as per HPI, Reports melena, Reports diarrhea and Reports hematemesis Musculoskeletal Musculoskeletal: Reports back pain Neurologic Neurologic: Reports Abnormal speech present, Denies confusion, Denies dizziness, Reports focal weakness and Denies weakness Psychiatric Psychiatric: Denies confusion Physical Exam Vital Signs: Vital Signs: Last Vital Signs Temp 96 F L 11/04/20 11:17 Pulse 76 11/04/20 11:17 Resp 18 11/04/20 11:17 BP 157/83 H 11/04/20 11:17 Pulse Ox 97 11/04/20 11:17 Body Mass Index 23.0 Const: General: cooperative, comfortable, no acute distress, alert, awake, anxious and other (Anxious); No confusion Nutritional Appearance: well nourished Orientation/consciousness: oriented to person, oriented to place, patient oriented x3 and No confusion Limitations: no limitations and No language barrier HENMT: Head: Yes normal to inspection, Yes normocephalic and Yes atraumatic Ears: external ears normal General nose exam: Normal external nose present Face and sinus: Yes normal facial exam Mouth: Normal oral and palatal mucosa present Throat: Yes posterior oropharynx normal Eyes: Periorbital: periorbital findings normal Eyelids: Yes eyelids normal Conjunctivae: conjunctivae normal Sclerae: sclerae normal Corneas: corneas normal Pupils: Equal, round and reactive pupils present EOM: EOMs intact bilaterally Direct Ophthalmoscopy: normal light reflex Neck: Neck: Yes full ROM, Yes no lymphadenopathy, Yes no meningeal signs, Yes trachea midline and Yes supple Chest: Chest palpation & inspection: normal inspection of the chest and tenderness (Anterior chest and sternum) Resp: Effort & Inspection: normal respiratory effort, able to speak in complete sentences, no respiratory distress, no stridor and not tachypneic Auscultation: clear to auscultation bilaterally Cardio: Rate: regular rate Rhythm: regular rhythm Heart sounds: S1 normal heart sound present, S2 normal heart sound present, no gallops, no murmurs and no rubs GI: Inspection: Yes distended and Yes other (Surgical incision with dressing, CATRACHO drainagein place ) Palpation (GI): Soft to palpation, Tenderness to palpation present (GI), no guarding, not rigid, No hepatosplenomegaly present, No Rebound tenderness present and Other GI palpation findings present ( Nontender) Percussion: Yes normal to percussion Auscultation: Hyperactive bowel sounds present Rectal Exam - Female: heme positive stool (Dark stool which was Hemoccult positive) : General: Yes no CVA tenderness Back/Spine/Pelvis: Back: no CVA tenderness Cervical Spine: normal cervical lordosis Thoracic/Lumbar Spine: thoracic and lumbar spine normal to inspection Skin: General skin exam: no rashes or lesions noted Lesions: no lesions Rashes: no rashes Wounds: no wounds Neuro: General: oriented to person, oriented to place, patient oriented x3, no meningeal signs and No confusion Cranial nerves: Yes CN's II-XII intact bilaterally and Yes Equal, round and reactive pupils present Cognition (Neuro): normal cognition Speech: Abnormal speech present Motor exam (neuro): 5/5 motor strength present throughout Extrem: General: Yes normal to inspection, Yes full ROM, Yes no clubbing, cyanosis or edema, Yes no pedal edema, No clubbing and No cyanosis Psych: Appearance: well kempt Mental Status: mental status grossly normal Speech and movement: Normal speech and movement present Affect: Anxious affect present Attitude: cooperative Thought process: Normal thought process present Thought content: Normal thought content present Objective Data Current Medications Generic Name Dose Route Start Last Admin Trade Name Vaishali PRN Reason Stop Dose Admin Dextrose/Sodium Chloride 1,000 mls @ 80 mls/hr 11/01/20 15:45 11/04/20 09:37 D5ns IVCONT 80 mls/hr .[id number] LEOPOLDO Administration Pantoprazole Sodium 80 mg/ 100 mls @ 10 mls/hr 11/02/20 18:15 11/04/20 11:04 Sodium Chloride IV 8 mg/hr .Q10H LEOPOLDO 10 mls/hr Administration 8 MG/HR Insulin Human Lispro 0 unit 10/30/20 07:30 11/04/20 12:25 Insulin Lispro 100 Unit/Ml 3 Ml Vial SUBCUT Not Given QIDACHS [facility] Losartan Potassium 50 mg 11/03/20 14:40 11/04/20 08:09 Losartan Potassium 50 Mg Tablet PO 50 mg DAILY [facility] Administration Protocol Melatonin 6 mg 11/01/20 22:38 11/03/20 20:51 Melatonin 3 Mg Tablet PO 6 mg BEDTIME PRN Administration Insomnia Morphine Sulfate 4 mg 11/04/20 08:01 11/04/20 08:07 Morphine Sulfate 4 Mg/Ml Cartridge IVPUSH 4 mg Q3H PRN Administration Pain, Severe (Pain Scale 7-10) Ondansetron HCl 4 mg 11/01/20 09:20 11/04/20 03:39 Ondansetron Hcl 4 Mg/2 Ml Vial IVPUSH 4 mg Q6H PRN Administration nausea Oxycodone HCl 5 mg 11/04/20 10:39 Oxycodone Hcl Immed Release 5 Mg Tablet PO Q4H PRN Pain, Moderate (Pain Scale 4-6 Oxycodone HCl 10 mg 11/04/20 10:39 11/04/20 12:30 Oxycodone Hcl Immed Release 5 Mg Tablet PO 10 mg Q4H PRN Administration Pain, Severe (Pain Scale 7-10) Sodium Chloride 3 ml 10/30/20 08:00 11/04/20 08:08 0.9 % Sodium Chloride Flush 3 Ml Syringe IVFLUSH Not Given QSHIFT [facility] Labs CBC & Chem 7: 11/04/20 05:32 11/04/20 05:32 Microbiology Microbiology Results: Microbiology 10/30/20 03:41 Blood - Venous Blood Culture - Final No growth after 5 days. 10/30/20 02:25 Blood - Venous Blood Culture - Final No growth after 5 days. 10/30/20 07:56 Urine clean catch - Clean Catch Midstream Urine Culture - Final Assessment and Plan (1) Diabetes: Status: Acute (2) GI bleed: Status: Acute Assessment and Plan: 75-year-old lady with underlying history of hypertension, UTI, recent NSAID use admitted 10/30/2020 with upper GI bleed and sigmoid diverticulitis. Patient has been monitored on the general medical ocampo and on 10/31/2020 she has had an EGD which demonstrated an actively bleeding duodenal ulcer with development of hemorrhagic shock that required conversion to emergent exploratory laparotomy with surgical ligation for hemostasis. Patient has a remained intubated after the procedure and transferred to intensive care unit. Her hemoglobin was stabilized. She has been extubated 11/01/2020 uneventfully.and transferred to floor Acute blood loss anemia secondary to UGIB s/p EGD shows active bleeding ulcer status post exploratory laparotomy with surgical ligation for anastomosis status post 3 PRBC transfusion:h/h improved from 7 to 10 now- h/h stable around 10 continue PPI drip monitor H&H Stable management per surgery continue IV fluid Advanced diet as tolerated started on clear per surgery Acute diverticulitis: continue zosyn day 6/7 supportive management MARIA LUZ:multifcatorial: Likely in the setting of dehydration/Gi bleed resolving creatinine trended down to 1 back to baseline Avoid nephrotoxins. mildly elevated troponin with flat trend no chest pain EKG shows chronic LBB ACS less likely Further cardiac workup out patiently Hypertension: Continue losartan Monitor blood pressure Diabetes mellitus blood glucose controlled on lower side continue Insulin sliding scale monitor blood glucose DVT prophylaxis Venodyne given GI bleed
[2020-11-04 15:42] VITALS: BP 142/76; PULSE 86; RESP 16; TEMP 36.4; O2SAT 96
[2020-11-04] MEDS: 0.9 % Sodium Chloride Flush 3 ML SYRINGE IVFLUSH ×2 (16:17→23:49)
[2020-11-04 16:24] LABS: Glucose, Whole Blood 106 mg/dL (60-115)
[2020-11-04 19:15] VITALS: BP 170/87; PULSE 80; RESP 14; TEMP 37; O2SAT 94
[2020-11-04 19:43] LABS: Glucose, Whole Blood 130 mg/dL (60-115)
[2020-11-04] MEDS: Melatonin 3 MG TABLET 6 MG PO (21:31)
[2020-11-04 23:37] VITALS: BP 168/78; PULSE 79; RESP 18; TEMP 36.9; O2SAT 93
[2020-11-05] VITALS (10 sets, daily range): BP systolic 118–184; BP diastolic 67–95; PULSE 64–91; RESP 18–20; TEMP 36.4–37.8; O2SAT 94–98
[2020-11-05] MEDS: oxyCODONE HCl Immed Release 5 MG TABLET 10 MG PO ×3 (04:26→18:45)
[2020-11-05] MEDS: Pantoprazole Sodium 80 MG in 0.9 % Sodium Chloride 80 ML 10 MG IV (06:31)
[2020-11-05 07:01] LABS: MANUAL DIFF FLAG NO
[2020-11-05 07:10] LABS: Basophils Absolute Auto 0.1 X10*3/uL (0.0-0.2); Basophils Percent Auto 0.4 % (0-2); Eosinophils Absolute Auto 0.5 X10*3/uL (0.0-0.4); Hematocrit 28.6 % (37-47); Hemoglobin 9.5 g/dl (12.0-16.0); Imm Gran Abs Auto 0.11 X10*3/uL (0.00-0.03); Imm Gran Pct Auto 0.8 % (0.0-0.4); Lymphocytes Absolute Auto 1.6 X10*3/uL (1.2-4.9); Mean Corpuscular HGB Conc 33.2 g/dl (31.0-35.0); Mean Corpuscular Hemoglobin 29.9 pg (27.0-33.0); Mean Corpuscular Volume 89.9 fL (80-98); Mean Platelet Volume 9.3 fL (9.4-12.3); Monocytes Percent Auto 7.5 % (2-11); Neutrophils Absolute Auto 9.9 X10*3/uL (2.0-8.3); Neutrophils Percent Auto 75.3 % (45-73); Platelet Count 392 X10*3/uL (160-400); Red Blood Count 3.18 X10*6/uL (4.20-5.50); Red Cell Distribution Width 15.2 % (11.0-16.0); White Blood Count 13.1 X10*3/uL (4.8-10.8)
[2020-11-05 07:45] LABS: Glucose, Whole Blood 127 mg/dL (60-115)
[2020-11-05] MEDS: Losartan Potassium 50 MG TABLET PO (07:56)
[2020-11-05] MEDS: 0.9 % Sodium Chloride Flush 3 ML SYRINGE IVFLUSH ×2 (07:57→16:03)
--- NOTE | 2020-11-05 08:04 | P.PNGS_ITS ---
Subjective Subjective Date of Service: 11/05/20 <Agustina Vee PA-C - Last Filed: 11/05/20 08:10> 11/05/20 <Jeramy Lau MD - Last Filed: 11/05/20 08:29> Interval history: Feeling better. Sore but comfortable. Was OOB to chair yesterday. Passing flatus. Tolerating clear liquids. <Agustina Vee PA-C - Last Filed: 11/05/20 08:10> Physical Exam Vital Signs: Vital Signs: Last Vital Signs Temp 98.1 F 11/05/20 03:26 Pulse 83 11/05/20 03:26 Resp 18 11/05/20 03:26 BP 160/74 H 11/05/20 03:26 Pulse Ox 97 11/05/20 03:26 Body Mass Index 23.0 <Agustina Vee PA-C - Last Filed: 11/05/20 08:10> Const: General: comfortable, no acute distress and alert <Agustina Vee PA-C - Last Filed: 11/05/20 08:10> Orientation/consciousness: patient oriented x3 <Agustina Vee PA-C - Last Filed: 11/05/20 08:10> Eyes: Sclerae: sclerae normal <Agustina Vee PA-C Last Filed: 11/05/20 08:10> Resp: Effort & Inspection: normal respiratory effort <Agustina Vee PA-C - Last Filed: 11/05/20 08:10> Cardio: Rate: regular rate <Agustina Vee PA-C - Last Filed: 11/05/20 08:10> GI: Other: CATRACHO with scanty serous output <Agustina Vee PA-C - Last Filed: 11/05/20 08:10> Inspection: Yes incision (clean, some mild ecchymosis) <ROMAN Holman Last Filed: 11/05/20 08:10> Palpation (GI): Soft to palpation, Tenderness to palpation present (GI) (mild, incisional), no guarding and No Rebound tenderness present <Agustina Vee PA-C - Last Filed: 11/05/20 08:10> Percussion: Yes normal to percussion <ROMAN Holman Last Filed: 11/05/20 08:10> Skin: Other: normal color, warm and dry <ROMAN Holman Last Filed: 11/05/20 08:10> General skin exam: no rashes or lesions noted <ROMAN Holman Last Filed: 11/05/20 08:10> Neuro: General: patient oriented x3 <ROMAN Holman Last Filed: 11/05/20 08:10> Extrem: General: Yes no clubbing, cyanosis or edema <ROMAN Holman Last Filed: 11/05/20 08:10> Progress Note: A&P Assessment and plan (1) Hemorrhagic shock: Status: Acute <ROMAN Holman Last Filed: 11/05/20 08:10> (2) Acute duodenal ulcer with bleeding: Problem details: POD #5 s/p ex lap, duodenotomy, suture plication of bleeding duodenal ulcer <ROMAN Holman Last Filed: 11/05/20 08:10> Status: Acute <ROMAN Holman Last Filed: 11/05/20 08:10> Assessment and Plan: Doing very well post op, no further evidence of active or recurrent bleed. VSS. H/H remains stable, WBC remains slightly elevated. Abd benign, incision clean and CATRACHO with scanty nonbilious output, and therefore removed. Advance to solid diet. D/c IVF. Transition to PO PPI BID. Encouraged to get OOB and ambulate every shift, IS use. Anticipate discharge in the next 1-2 days. <ROMAN Holman Last Filed: 11/05/20 08:10> Agree with the above assessment and plan. Advance diet to regular. Ryan-Monroy drain removed today. Agree with increased mobilization and incentive spirometry. Discharge planning for 1-2 days. Patient with itching diffusely may be related to morphine.. Morphine and IV Protonix. Switch to oral meds. Benadryl for itching. <Jeramy Lau MD - Last Filed: 11/05/20 08:29> (3) Diabetes: Status: Acute <Agustina Vee PA-C - Last Filed: 11/05/20 08:10> (4) Anemia: Status: Acute <Agustina Vee PA-C - Last Filed: 11/05/20 08:10> (5) Elevated troponin: Status: Acute <Agustina Vee PA-C - Last Filed: 11/05/20 08:10> (6) Hypertension: Status: Acute <Agustina Vee PA-C - Last Filed: 11/05/20 08:10> Fall Risk Details Current Medications: Current Medications Generic Name Dose Route Start Last Admin Trade Name Freq PRN Reason Stop Dose Admin Pantoprazole Sodium 80 mg/ 100 mls @ 10 mls/hr 11/02/20 18:15 11/05/20 06:31 Sodium Chloride IV 8 mg/hr .Q10H LEOPOLDO 10 mls/hr Administration 8 MG/HR Insulin Human Lispro 0 unit 10/30/20 07:30 11/04/20 20:28 Insulin Lispro 100 Unit/Ml 3 Ml Vial SUBCUT Not Given QIDACHS [facility] Losartan Potassium 50 mg 11/03/20 14:40 11/04/20 08:09 Losartan Potassium 50 Mg Tablet PO 50 mg DAILY LEOPOLDO Administration Protocol Melatonin 6 mg 11/01/20 22:38 11/04/20 21:31 Melatonin 3 Mg Tablet PO 6 mg BEDTIME PRN Administration Insomnia Morphine Sulfate 4 mg 11/04/20 08:01 11/04/20 08:07 Morphine Sulfate 4 Mg/Ml Cartridge IVPUSH 4 mg Q3H PRN Administration Pain, Severe (Pain Scale 7-10) Ondansetron HCl 4 mg 11/01/20 09:20 11/04/20 03:39 Ondansetron Hcl 4 Mg/2 Ml Vial IVPUSH 4 mg Q6H PRN Administration nausea Oxycodone HCl 5 mg 11/04/20 10:39 Oxycodone Hcl Immed Release 5 Mg Tablet PO Q4H PRN Pain, Moderate (Pain Scale 4-6 Oxycodone HCl 10 mg 11/04/20 10:39 11/05/20 04:26 Oxycodone Hcl Immed Release 5 Mg Tablet PO 10 mg Q4H PRN Administration Pain, Severe (Pain Scale 7-10) Sodium Chloride 3 ml 10/30/20 08:00 11/04/20 23:49 0.9 % Sodium Chloride Flush 3 Ml Syringe IVFLUSH 3 ml QSHIFT LEOPOLDO Administration <Agustina Vee PA-C - Last Filed: 11/05/20 08:10> Time Spent With Patient Time: Total time spent is greater than 50% in coordination of care (as documented) at patient's floor/unit and/or counseling patient: <Agustina Vee PA-C - Last Filed: 11/05/20 08:10> Time with patient: 15 - 24 minutes <Agustina Vee PA-C - Last Filed: 11/05/20 08:10> Procedures Date of Service Date of Service: 11/05/20 <Agustina Vee PA-C - Last Filed: 11/05/20 08:10>
[2020-11-05] MEDS: Omeprazole 40 MG CAPSULE.DR PO ×2 (09:40→17:41)
[2020-11-05] MEDS: diphenhydrAMINE HCL 25 MG TABLET PO (09:40)
--- NOTE | 2020-11-05 10:59 | MHC.CM.PN ---
Per MD documentation, anticipate dc within 1-2 days. CATRAHCO drain has been removed and will try to advance diet to Solid. Patient may benefit from a PT eval to determine home vs STR. CM will follow to confirm the dc plan.
[2020-11-05 11:17] LABS: Glucose, Whole Blood 115 mg/dL (60-115)
--- NOTE | 2020-11-05 15:42 | HO.PM.IMPN ---
Subjective Subjective Date of Service: 11/05/20 Interval History: Patient seen and examined at bedside patient was reporting feeling better Constitutional Constitutional: Denies chills, Denies fever(s) and Denies weakness Eyes Eyes: Denies blurry vision ENT Ears, Nose, Mouth, and Throat: Denies dizziness Cardiovascular Cardiovascular: Denies chest pain, Denies rapid heart rate and Denies dyspnea Respiratory Respiratory: Denies dyspnea Gastrointestinal Gastrointestinal: Reports as per HPI, Reports melena, Reports diarrhea and Reports hematemesis Musculoskeletal Musculoskeletal: Reports back pain Neurologic Neurologic: Reports Abnormal speech present, Denies confusion, Denies dizziness, Reports focal weakness and Denies weakness Psychiatric Psychiatric: Denies confusion Physical Exam Vital Signs: Vital Signs: Last Vital Signs Temp 98 F 11/05/20 11:14 Pulse 77 11/05/20 11:14 Resp 18 11/05/20 11:14 BP 118/67 11/05/20 11:14 Pulse Ox 95 11/05/20 11:12 Body Mass Index 23.0 Const: General: cooperative, comfortable, no acute distress, alert, awake, anxious and other (Anxious); No confusion Nutritional Appearance: well nourished Orientation/consciousness: oriented to person, oriented to place, patient oriented x3 and No confusion Limitations: no limitations and No language barrier HENMT: Head: Yes normal to inspection, Yes normocephalic and Yes atraumatic Ears: external ears normal General nose exam: Normal external nose present Face and sinus: Yes normal facial exam Mouth: Normal oral and palatal mucosa present Throat: Yes posterior oropharynx normal Eyes: Periorbital: periorbital findings normal Eyelids: Yes eyelids normal Conjunctivae: conjunctivae normal Sclerae: sclerae normal Corneas: corneas normal Pupils: Equal, round and reactive pupils present EOM: EOMs intact bilaterally Direct Ophthalmoscopy: normal light reflex Neck: Neck: Yes full ROM, Yes no lymphadenopathy, Yes no meningeal signs, Yes trachea midline and Yes supple Chest: Chest palpation & inspection: normal inspection of the chest and tenderness (Anterior chest and sternum) Resp: Effort & Inspection: normal respiratory effort, able to speak in complete sentences, no respiratory distress, no stridor and not tachypneic Auscultation: clear to auscultation bilaterally Cardio: Rate: regular rate Rhythm: regular rhythm Heart sounds: S1 normal heart sound present, S2 normal heart sound present, no gallops, no murmurs and no rubs GI: Inspection: Yes distended and Yes other (Surgical incision with dressing, CATRACHO drainagein place ) Palpation (GI): Soft to palpation, Tenderness to palpation present (GI), no guarding, not rigid, No hepatosplenomegaly present, No Rebound tenderness present and Other GI palpation findings present ( Nontender) Percussion: Yes normal to percussion Auscultation: Hyperactive bowel sounds present Rectal Exam - Female: heme positive stool (Dark stool which was Hemoccult positive) : General: Yes no CVA tenderness Back/Spine/Pelvis: Back: no CVA tenderness Cervical Spine: normal cervical lordosis Thoracic/Lumbar Spine: thoracic and lumbar spine normal to inspection Skin: General skin exam: no rashes or lesions noted Lesions: no lesions Rashes: no rashes Wounds: no wounds Neuro: General: oriented to person, oriented to place, patient oriented x3, no meningeal signs and No confusion Cranial nerves: Yes CN's II-XII intact bilaterally and Yes Equal, round and reactive pupils present Cognition (Neuro): normal cognition Speech: Abnormal speech present Motor exam (neuro): 5/5 motor strength present throughout Extrem: General: Yes normal to inspection, Yes full ROM, Yes no clubbing, cyanosis or edema, Yes no pedal edema, No clubbing and No cyanosis Psych: Appearance: well kempt Mental Status: mental status grossly normal Speech and movement: Normal speech and movement present Affect: Anxious affect present Attitude: cooperative Thought process: Normal thought process present Thought content: Normal thought content present Objective Data Current Medications Generic Name Dose Route Start Last Admin Trade Name Ciriloq PRN Reason Stop Dose Admin Diphenhydramine HCl 25 mg 11/05/20 08:04 11/05/20 09:40 Diphenhydramine Hcl 25 Mg Tablet PO 25 mg Q6H PRN Administration Itching Insulin Human Lispro 0 unit 10/30/20 07:30 11/05/20 11:46 Insulin Lispro 100 Unit/Ml 3 Ml Vial SUBCUT Not Given QIDACHS LEOPOLDO Losartan Potassium 50 mg 11/03/20 14:40 11/05/20 07:56 Losartan Potassium 50 Mg Tablet PO 50 mg DAILY LEOPOLDO Administration Protocol Melatonin 6 mg 11/01/20 22:38 11/04/20 21:31 Melatonin 3 Mg Tablet PO 6 mg BEDTIME PRN Administration Insomnia Omeprazole 40 mg 11/05/20 08:15 11/05/20 09:40 Omeprazole 40 Mg Capsule. PO 40 mg BID@0630,1630 [facility] Administration Ondansetron HCl 4 mg 11/01/20 09:20 11/04/20 03:39 Ondansetron Hcl 4 Mg/2 Ml Vial IVPUSH 4 mg Q6H PRN Administration nausea Oxycodone HCl 5 mg 11/04/20 10:39 Oxycodone Hcl Immed Release 5 Mg Tablet PO Q4H PRN Pain, Moderate (Pain Scale 4-6 Oxycodone HCl 10 mg 11/04/20 10:39 11/05/20 14:43 Oxycodone Hcl Immed Release 5 Mg Tablet PO 10 mg Q4H PRN Administration Pain, Severe (Pain Scale 7-10) Sodium Chloride 3 ml 10/30/20 08:00 11/05/20 07:57 0.9 % Sodium Chloride Flush 3 Ml Syringe IVFLUSH 3 ml QSHIFT [facility] Administration Labs CBC & Chem 7: 11/05/20 06:28 11/04/20 05:32 Microbiology Microbiology Results: Microbiology 10/30/20 03:41 Blood - Venous Blood Culture - Final No growth after 5 days. 10/30/20 02:25 Blood - Venous Blood Culture - Final No growth after 5 days. 10/30/20 07:56 Urine clean catch - Clean Catch Midstream Urine Culture - Final Assessment and Plan (1) Diabetes: Status: Acute (2) GI bleed: Status: Acute Assessment and Plan: 75-year-old lady with underlying history of hypertension, UTI, recent NSAID use admitted 10/30/2020 with upper GI bleed and sigmoid diverticulitis. Patient has been monitored on the general medical ocampo and on 10/31/2020 she has had an EGD which demonstrated an actively bleeding duodenal ulcer with development of hemorrhagic shock that required conversion to emergent exploratory laparotomy with surgical ligation for hemostasis. Patient has a remained intubated after the procedure and transferred to intensive care unit. Her hemoglobin was stabilized. She has been extubated 11/01/2020 uneventfully.and transferred to floor Acute blood loss anemia secondary to UGIB s/p EGD shows active bleeding ulcer status post exploratory laparotomy with surgical ligation for anastomosis status post 3 PRBC transfusion:h/h improved from 7 to 10 now- h/h stable around 10 continue PPI drip monitor H&H Stable management per surgery continue IV fluid Advanced diet as tolerated on clear per surgery Acute diverticulitis: completed zosyn supportive management MARIA LUZ:multifcatorial: Likely in the setting of dehydration/Gi bleed resolving creatinine trended down to 1 back to baseline Avoid nephrotoxins. mildly elevated troponin with flat trend no chest pain EKG shows chronic LBB ACS less likely Further cardiac workup out patiently Hypertension: Continue losartan Monitor blood pressure Diabetes mellitus blood glucose controlled on lower side continue Insulin sliding scale monitor blood glucose DVT prophylaxis Venodyne given GI bleed
[2020-11-05 16:10] LABS: Glucose, Whole Blood 107 mg/dL (60-115)
[2020-11-05 17:46] LABS: Anion Gap 13 (12-20); Blood Urea Nitrogen 7 mg/dL (9-16); Calcium 8.2 mg/dL (8.4-10.2); Carbon Dioxide 22 mmol/L (22-29); Chloride 110 mmol/L (96-108); Creatinine Clr Calc Pharmacy 53.4; Estimated Glomerular Filt Rate > 60; Glucose Random 96 mg/dL (60-115); Potassium 3.1 mmol/L (3.3-5.1); Sodium 142 mmol/L (135-145)
[2020-11-05] MEDS: Acetaminophen 325 MG TABLET 650 MG PO (18:46)
[2020-11-05 20:19] LABS: Glucose, Whole Blood 144 mg/dL (60-115)
[2020-11-05] MEDS: Melatonin 3 MG TABLET 6 MG PO (21:58)
[2020-11-06] MEDS: diphenhydrAMINE HCL 25 MG TABLET PO (00:01)
[2020-11-06] MEDS: 0.9 % Sodium Chloride Flush 3 ML SYRINGE IVFLUSH ×2 (00:03→08:14)
[2020-11-06 03:13] VITALS: BP 161/74; PULSE 70; RESP 20; TEMP 36.9; O2SAT 96
[2020-11-06 05:00] LABS: MANUAL DIFF FLAG NO
[2020-11-06 05:05] LABS: Basophils Percent Auto 0.3 % (0-2); Eosinophils Absolute Auto 0.5 X10*3/uL (0.0-0.4); Hematocrit 28.9 % (37-47); Hemoglobin 9.6 g/dl (12.0-16.0); Imm Gran Abs Auto 0.12 X10*3/uL (0.00-0.03); Imm Gran Pct Auto 0.9 % (0.0-0.4); Lymphocytes Absolute Auto 2.2 X10*3/uL (1.2-4.9); Lymphocytes Percent Auto 16.6 % (20-40); Mean Corpuscular HGB Conc 33.2 g/dl (31.0-35.0); Mean Corpuscular Hemoglobin 29.8 pg (27.0-33.0); Mean Corpuscular Volume 89.8 fL (80-98); Mean Platelet Volume 9.3 fL (9.4-12.3); Monocytes Absolute Auto 1.2 X10*3/uL (0.1-1.2); Monocytes Percent Auto 9.1 % (2-11); Neutrophils Absolute Auto 9.1 X10*3/uL (2.0-8.3); Neutrophils Percent Auto 69.1 % (45-73); Platelet Count 442 X10*3/uL (160-400); Red Blood Count 3.22 X10*6/uL (4.20-5.50); Red Cell Distribution Width 15.3 % (11.0-16.0); White Blood Count 13.1 X10*3/uL (4.8-10.8)
[2020-11-06] MEDS: Omeprazole 40 MG CAPSULE.DR PO (06:02)
--- NOTE | 2020-11-06 06:36 | PC.NURSE ---
pt had 2 small dark stools and she ambulated in [place] up to window and back about 200 feet she used inspr up to 1500
[2020-11-06 07:28] VITALS: PULSE 74; RESP 20; TEMP 36.5; O2SAT 95
[2020-11-06 07:29] LABS: Glucose, Whole Blood 100 mg/dL (60-115)
[2020-11-06] MEDS: oxyCODONE HCl Immed Release 5 MG TABLET 10 MG PO (08:13)
[2020-11-06 08:14] VITALS: BP 161/74; PULSE 74
[2020-11-06] MEDS: Losartan Potassium 50 MG TABLET PO (08:14)
[2020-11-06 11:09] VITALS: BP 161/75; PULSE 78; RESP 20; TEMP 36.3; O2SAT 95
[2020-11-06 11:29] LABS: Glucose, Whole Blood 99 mg/dL (60-115)
--- NOTE | 2020-11-06 12:38 | PM.DS ---
DS: Providers Provider Date of Service: 11/11/20 Date of admission: 10/30/20 04:22 Primary care physician: Argelia Alberto MD Consults: 10/30/20 04:24 Consult to Gastroenterology Routine Consulting Provider: Cruz Oconnell Reason for consultation: GI bleed Consult to General Surgery Routine Consulting Provider: Jeramy Lau Reason for consultation: diverticulitis; 10/30/20 05:28 Consult to Cardiology Routine Consulting Provider: Brandon Lozano Reason for consultation: high trops;LBBB DS: Diagnosis Discharge Diagnosis (1) Hemorrhagic shock: Status: Acute (2) Acute duodenal ulcer with bleeding: Status: Acute Problem details: POD #6 s/p ex lap, duodenotomy, suture plication of bleeding duodenal ulcer (3) Diverticulosis: Status: Acute (4) Diabetes: Status: Acute (5) Hypertension: Status: Acute DS: Medications Discharge Medications Home Medications: Home Medications Medication Instructions Recorded Confirmed losartan-hydrochlorothiazide 1 tab PO DAILY 10/26/20 10/30/20 sertraline 1 tab PO DAILY 10/26/20 10/30/20 simvastatin 1 tab PO BEDTIME 10/26/20 10/30/20 trazodone 1 tab PO BEDTIME 10/26/20 10/30/20 Previous Rx's Medication Instructions Recorded omeprazole 40 mg PO BID #60 cap 11/04/20 acetaminophen [Tylenol 8 Hour] 650 mg PO Q8H PRN #30 tab 11/05/20 oxycodone 5 mg PO Q4H PRN #26 cap 11/05/20 walker #1 ea 11/06/20 DS: Summary Hospital Course Hospital Course: BRIEF HPI: 75-year-old female with a past medical history of hypertension, hyperlipidemia, diabetes, anxiety, depression presented to the hospital with a chief complaint of upper abdominal pain and dark tarry stools. She was recently seen in the ED on 10/26/2020 with chief complaint of abdominal pain/dizziness found to have a slightly abnormal urinalysis and slightly elevated troponin. She was given cefuroxime and was discharged home for presumed UTI. Patient came back to the hospital for the same epigastric abdominal pain. Patient apparently vomited in the ED and there was blood in the emesis which arose concern for a Adrienne-Oconnell tear. Lab values showed at that time a drop in hemoglobin from 9.8-7.8 and she had guaiac-positive stools. CT abdomen showed question of mild sigmoid diverticulitis. Patient was given Zosyn and Flagyl and she was admitted to the medical service for further management of the GI bleed, question of sigmoid diverticulitis. Surgery was consulted for the acute diverticulitis. She currently denies any abdominal pain and reports she only had epigastric pain, never lower abdominal pain. She does report dark tarry stools at home over the past couple of days and loose stools for the past month. She has been taking naprosyn 3 tablets in the morning every day for the past month for her back pain. She had a colonoscopy in 2012 which was normal and this was supposed to be repeated in 10 years. HOSPITAL COURSE: The patient was admitted to the hospitalist service for further treatment of the GI bleed. She received 1U of FFP and several units of PRBC that first day with appropriate rise in her H/H. She was started on IVF, IV protonix and made NPO. She was started on IV zosyn for the presumed diverticulitis on CT scan. She was also noted to have a mild elevation in her troponins with LBBB on EKG. Echocardiogram and cardiology consult were therefore obtained who felt elevated troponin was due to type 2 NJ due to anemia from blood loss, without any significant cardiovascular issues currently and can have further outpatient work up. GI consult was also obtained for management of the GI bleed and surgical consult for the possible diverticulitis. She was seen by Dr. Oconnell of GI who recommended upper endoscopy for evaluation of the UGI bleed and she was added onto the OR schedule for the following day. She was asymptomatic in regards to lower abdominal pain and her abdomen was very benign and it was felt unlikely that it actually represents diverticulitis. A nuclear study for lower GI bleed was performed to r/o lower GI bleed which was negative. The following day, on 10/31/20, an upper endoscopy was performed by Dr. Oconnell. A large bleeding duodenal ulcer was noted at the duodenal bulb and was located at a difficult location to reach endoscopically. She was actively bleeding and the patient was hypotensive and unstable due to the acute blood-loss. Surgical consultation was requested for emergency exploratory laparotomy and she was brought immediately to the OR. On 10/31/20, an exploratory laparotomy, duodenotomy, suture plication of bleeding duodenal ulcer was performed by Dr. Jeramy Lau without immediate complication. A bleeding posterior gastroduodenal vessel noted in the duodenal bulb just beyond the pylorus with a large amount of liquid and clotted blood was noted within the duodenum and stomach intraoperatively. A CATRACHO drain and NGT was placed intraoperatively. She required 4U PRBCs, 1 FFP and platelets intraoperatively.The patient remained intubated and was transferred to the ICU for mechanical ventilation and hemodynamic monitoring. She was extubated on POD #1. Her vitals and H/H remained stable. [place] [facility] [place] The NGT was kept in place for decompression. She was kept NPO, on IVF. Zosyn was d/c. She had an uncomplicated recovery course. Post operative days 2-6, her pain gradually became better controlled. She accidently removed her NGT tube on POD #4, however the output was minimal and she was advanced to a clear liquid diet and then a solid diet later. Her stevens was removed. She was ambulated. Her H/H remained stable throughout this time without any evidence of rebleeding. She began to pass flatus and move her bowels. Her CATRACHO drain had scanty serous output and was removed. A PT consult was obtained for disposition planning who recommended home with VNA and PT services. On the day of discharge, the patient felt well, her vitals were stable. She was tolerating a solid diet without N/V, her incisional pain was well controlled, her abdomen was benign with a clean incision. She was getting OOB and ambulating well with a walker. She felt ready for discharge. She was discharged to home on 11/06/20 in stable condition with VNA/PT services. She was discharged to home on omeprazole 40mg PO BID. She was thoroughly educated to avoid all NSAIDs. Status at Discharge Functional status at discharge: uses cane/walker Overall status at discharge: patient is progressing back to baseline Time Spent with Patient Time attestation: Total time spent providing and/or coordinating discharge services: 45 min Discharge coordination time: Greater than 30 minutes Physical Exam Vital Signs: Vital Signs: Last Vital Signs Temp 97.4 F 11/06/20 11:09 Pulse 78 11/06/20 11:09 Resp 20 11/06/20 11:09 BP 161/75 H 11/06/20 11:09 Pulse Ox 95 11/06/20 11:09 Body Mass Index 23.0 Const: General: comfortable, no acute distress and alert Orientation/consciousness: patient oriented x3 Eyes: Sclerae: sclerae normal Resp: Effort & Inspection: normal respiratory effort Cardio: Rate: regular rate GI: Inspection: No distended and Yes incision (clean) Palpation (GI): Soft to palpation, Tenderness to palpation present (GI) (mild, incisional), no guarding and not rigid Percussion: Yes normal to percussion Skin: Other: normal color, warm and dry General skin exam: no rashes or lesions noted Neuro: General: patient oriented x3 Extrem: General: Yes no clubbing, cyanosis or edema DS: Data Data Completed and Pending Completed studies during hospitalization [Text1]: Procedures Control Bleeding in Gastrointestinal Tract, Via Natural or Artificial Opening Endoscopic (10/30/20) Insertion of Infusion Device into Superior Vena Cava, Percutaneous Approach (10/30/20) Transfusion of Nonautologous Frozen Plasma into Peripheral Vein, Percutaneous Approach (10/30/20) Transfusion of Nonautologous Platelets into Peripheral Vein, Percutaneous Approach (10/30/20) Transfusion of Nonautologous Red Blood Cells into Peripheral Vein, Percutaneous Approach (10/30/20) Ultrasonography of Superior Vena Cava, Guidance (10/30/20) Discharge Plan Discharge Patient Disposition: Home Health Service Referrals: [facility] [Outside] Argelia Alberto MD [Primary Care Provider] - 2 Weeks (Upon discharge) Brandon Lozano MD [Physician] - 2 Weeks (elevated troponins, known LBBB) Jeramy Lau MD [Physician] - 1 Week Cruz Oconnell [Physician] - 1 Month Discharge Medications: New omeprazole 40 mg capsule,delayed release(DR/EC) 40 mg PO BID Qty: 60 RF: 1 oxycodone 5 mg capsule 5 mg PO Q4H PRN (Reason: pain) Qty: 26 RF: 0 acetaminophen [Tylenol 8 Hour] 650 mg tablet extended release 650 mg PO Q8H PRN (Reason: pain) Qty: 30 RF: 0 (DME) walker Misc See Rx Instructions .ROUTE .MEDSUPPLY Qty: 1 RF: 0 Continued trazodone 50 mg tablet 1 tab PO BEDTIME RF: 0 simvastatin 40 mg tablet 1 tab PO BEDTIME RF: 0 losartan-hydrochlorothiazide 100-25 mg tablet 1 tab PO DAILY RF: 0 sertraline 50 mg tablet 1 tab PO DAILY RF: 0 Discontinued cefuroxime axetil 500 mg tablet 500 mg PO Q12H 7 Days Qty: 14 RF: 0 Discharge Orders: Discharge Order (Routine); Ordered 11/06/20 Ordered By: Agustina Vee Diet: diabetic diet Activity on Discharge: No heavy lifting Stand Alone Forms: Patient Portal Discharge page Activity Restrictions/Additional Instructions: If the incision area is tender, you may apply an ice pack for short intervals (No more than 20 minutes on, followed by at least 20 minutes off). Do not apply heat. Do not use creams, lotions, or topical antibiotics unless instructed to do so by your surgeon. These can cause infection or allergic reaction. Ok to shower. You have raulito closing your incision and these will be removed approximately 10-14 days after surgery. NO HEAVY LIFTING (<10lbs)! AVOID ALL NSAIDS (ie ibuprofen, motrin, advil, aleve, naprosyn, aspirin) Call Your Doctor If: -Your temperature exceeds 101.5? F -You experience excessive pain or swelling -You have an unexpected reaction to medication -You have excessive bleeding -You experience continued vomiting/nausea -Your incision begins to separate -Your incision shows signs of infection such as increased redness, swelling, excessive pain, drainage (light blood or clear fluid is normal) or heat Care Plan Goals: Return to baseline health and activity following recovery period Health Concerns: GI bleed from duodenal ulcer, s/p EGD and ex lap, duodenotomy, suture plication of bleeding duodenal ulcer Plan of Treatment: AVOID NSAIDs, PPI BID, discharge to home with services Discharge Date/Time: 11/06/20 17:27
--- NOTE | 2020-11-06 12:54 | PM.PNGS ---
Subjective Subjective Date of Service: 11/06/20 Interval history: Feels a lot better. Having pain at incision but comfortable with analgesics. Has been able to get OOB and ambulate in halls with walker. Tolerating solid diet. Wants to go home. Physical Exam Vital Signs: Vital Signs: Last Vital Signs Temp 97.4 F 11/06/20 11:09 Pulse 78 11/06/20 11:09 Resp 20 11/06/20 11:09 BP 161/75 H 11/06/20 11:09 Pulse Ox 95 11/06/20 11:09 Body Mass Index 23.0 Const: General: comfortable, no acute distress and alert Orientation/consciousness: patient oriented x3 Eyes: Sclerae: sclerae normal Resp: Effort & Inspection: normal respiratory effort Cardio: Rate: regular rate GI: Inspection: No distended and Yes incision (clean) Palpation (GI): Soft to palpation, Tenderness to palpation present (GI) (incisional), no guarding, not rigid and No Rebound tenderness present Percussion: Yes normal to percussion Skin: Other: normal color, warm and dry General skin exam: no rashes or lesions noted Neuro: General: patient oriented x3 Extrem: General: Yes no clubbing, cyanosis or edema Progress Note: A&P Assessment and plan (1) Hemorrhagic shock: Status: Acute (2) Acute duodenal ulcer with bleeding: Problem details: POD #6 s/p ex lap, duodenotomy, suture plication of bleeding duodenal ulcer Status: Acute Assessment and Plan: Doing well. Tolerating solid diet, pain controlled on PO analgesics, ambulating with walker without difficulty. VSS. Abd exam benign, incision clean. Her H/H has been stable and there is no evidence of further bleeding. She feels ready and comfortable with discharge to home today with VNA/PT services per PT recommendations. Will d/c on omeprazole 40mg PO BID, educated thoroughly to avoid all NSAIDs, no heavy lifting. F/u in office with Dr. Lau in 1 week. F/u with Dr. Oconnell and Dr. Lozano in office. (3) Diverticulosis: Status: Acute (4) Diabetes: Status: Acute (5) Hypertension: Status: Acute Fall Risk Details Current Medications: Current Medications Generic Name Dose Route Start Last Admin Trade Name Freq PRN Reason Stop Dose Admin Acetaminophen 650 mg 11/05/20 18:26 11/05/20 18:46 Acetaminophen 325 Mg Tablet PO 650 mg Q6H PRN Administration Fever Diphenhydramine HCl 25 mg 11/05/20 08:04 11/06/20 00:01 Diphenhydramine Hcl 25 Mg Tablet PO 25 mg Q6H PRN Administration Itching Insulin Human Lispro 0 unit 10/30/20 07:30 11/06/20 12:23 Insulin Lispro 100 Unit/Ml 3 Ml Vial SUBCUT Not Given QIDACHS [facility] Losartan Potassium 50 mg 11/03/20 14:40 11/06/20 08:14 Losartan Potassium 50 Mg Tablet PO 50 mg DAILY LEOPOLDO Administration Protocol Melatonin 6 mg 11/01/20 22:38 11/05/20 21:58 Melatonin 3 Mg Tablet PO 6 mg BEDTIME PRN Administration Insomnia Omeprazole 40 mg 11/05/20 08:15 11/06/20 06:02 Omeprazole 40 Mg Capsule.Dr PO 40 mg BID@0630,8620 [facility] Administration Ondansetron HCl 4 mg 11/01/20 09:20 11/04/20 03:39 Ondansetron Hcl 4 Mg/2 Ml Vial IVPUSH 4 mg Q6H PRN Administration nausea Oxycodone HCl 5 mg 11/04/20 10:39 Oxycodone Hcl Immed Release 5 Mg Tablet PO Q4H PRN Pain, Moderate (Pain Scale 4-6 Oxycodone HCl 10 mg 11/04/20 10:39 11/06/20 08:13 Oxycodone Hcl Immed Release 5 Mg Tablet PO 5 mg Q4H PRN Administration Pain, Severe (Pain Scale 7-10) Sodium Chloride 3 ml 10/30/20 08:00 11/06/20 08:14 0.9 % Sodium Chloride Flush 3 Ml Syringe IVFLUSH 3 ml QSHIFT [facility] Administration Time Spent With Patient Time: Total time spent is greater than 50% in coordination of care (as documented) at patient's floor/unit and/or counseling patient: Time with patient: 15 - 24 minutes Procedures Date of Service Date of Service: 11/06/20
--- NOTE | 2020-11-06 13:02 | W.MHC.F2F ---
Service Date Service Date: 11/06/20 Encounter Date of encounter: 11/06/20 Reasons for Services Signs and symptoms assessed: Abdominal pain, incision appearance, abdominal tenderness; H/H Reason for retirement: wound care and postoperative assessment and/or care Reason for physical therapy: home safety and mobility Overseeing Care: Jeramy Lau Homebound: Leaving the home is medically contraindicated at this time without the asist of a device and/or another person due th the listed conditions above and below. Reason homebound: weakness related to hospital stay and unable to drive Homebound supporting statement: Ms. Dickinson had a significant UGI bleed secondary to a large duodenal ulcer necessitating surgical intervention with an upper endoscopy and ultimately an exploratory laparotomy, suture plication of bleeding duodenal ulcer. She developed hemorrhagic shock due to the GI bleed and required ICU level care. She is deconditioned and weak related to the hospital stay and will need home services while she recovers. Certification: Based on the above findings, I certify that this patient is confined to the home and needs intermittent retirement care, physical therapy and/or speech therapy, or continues to need occupational therapy. The patient is under my care, and I have initiated the establishment of the plan of care. The patient will be followed by a physician who will periodically review the plan of care.
--- NOTE | 2020-11-06 13:25 | MHC.CM.PN ---
Patient has been medically cleared for dc to home today, with services. A referral has been made to [facility], who has been made aware of today's dc. Second IMM addressed with Patient and original has been given to her and a copy has been placed on the chart.
[2020-11-06] MEDS: oxyCODONE HCl Immed Release 5 MG TABLET PO (14:21)
[2020-11-06] MEDS: Potassium Chloride ER 20 MEQ TAB.ER.PRT 40 MEQ PO (14:21)
== END 2020-11-06 17:27 | disposition home health service (06) | DRG 326 ==
LOC: HO.ED 10-30 04:27 → HO.EDOVER 10-30 04:34 → HO.IMC 10-30 11:05 → HO.ICU 10-31 19:10 → HO.IMC 11-01 13:47
PROVIDERS: Internal Medicine; Internal Medicine Pulmonary Disease; Physician Assistant Surgical; Admitting Provider Hospitalist; Emergency Provider Emergency Medicine Emergency Medical Services; PCP Internal Medicine; Visit Provider Surgery
PROC: 0W3P8ZZ Control Bleeding in Gastrointestinal Tract, Via Natural or Artificial Opening Endoscopic (ICD-10-PCS; principal; 2020-10-31 14:20)
PROC: 30233K1 Transfusion of Nonautologous Frozen Plasma into Peripheral Vein, Percutaneous Approach (ICD-10-PCS; CPT 49000; 2020-10-31 14:20)
DX: K26.0 Acute duodenal ulcer with hemorrhage (principal); R57.8 Other shock; D62 Acute posthemorrhagic anemia; N17.9 Acute kidney failure, unspecified; K57.33 Diverticulitis of large intestine without perforation or abscess with bleeding; I44.7 Left bundle-branch block, unspecified; E11.9 Type 2 diabetes mellitus without complications; I10 Essential (primary) hypertension; E86.0 Dehydration; E78.5 Hyperlipidemia, unspecified; F17.210 Nicotine dependence, cigarettes, uncomplicated; Z20.822 Contact with and (suspected) exposure to COVID-19; Z79.899 Other long term (current) drug therapy
CPT/HCPCS: 36415; 36430; 71045; 74018; 74176; 78278; 80048; 80053; 81001; 81003; 82040; 82272; 82803; 82947; 83605; 83735; 84100; 84484; 85014; 85018; 85025; 85027; 85384; 85610; 85730; 86850; 86900; 86901; 86923; 87040; 87086; 87635; 93005; 94002; 94003; 96361; 96365; 96367; 96375; 97116; 97162; 97530; 99024; 99285; A9512; J0171; J0610; J2060; J2250; J2270; J2370; J2405; J2543; J3010; J3475; P9016; P9017; P9035; P9047; Q0163

== ENCOUNTER → 2020-11-12 14:21 | Outpatient (BNVA) | payer MEDICARE, OTHER, SELFPAY | PROVIDERS: PCP Internal Medicine; Visit Provider Surgery | DX: Z48.815 Encounter for surgical aftercare following surgery on the digestive system (principal); Z87.19 Personal history of other diseases of the digestive system | CPT/HCPCS: 99212 ==

== ENCOUNTER 2020-11-18 13:14 | Outpatient (REF) | payer MEDICARE, OTHER, SELFPAY ==
[2020-11-18 14:21] LABS: MANUAL DIFF FLAG NO
[2020-11-18 14:25] LABS: Basophils Absolute Auto 0.1 X10*3/uL (0.0-0.2); Basophils Percent Auto 0.8 % (0-2); Eosinophils Absolute Auto 0.3 X10*3/uL (0.0-0.4); Eosinophils Percent Auto 3.6 % (0-4); Hematocrit 38.9 % (37-47); Hemoglobin 12.7 g/dl (12.0-16.0); Imm Gran Abs Auto 0.02 X10*3/uL (0.00-0.03); Imm Gran Pct Auto 0.2 % (0.0-0.4); Lymphocytes Absolute Auto 2.5 X10*3/uL (1.2-4.9); Lymphocytes Percent Auto 27.7 % (20-40); Mean Corpuscular HGB Conc 32.6 g/dl (31.0-35.0); Mean Corpuscular Hemoglobin 29.6 pg (27.0-33.0); Mean Corpuscular Volume 90.7 fL (80-98); Monocytes Percent Auto 10.8 % (2-11); Neutrophils Absolute Auto 5.1 X10*3/uL (2.0-8.3); Neutrophils Percent Auto 56.9 % (45-73); Platelet Count 608 X10*3/uL (160-400); Red Blood Count 4.29 X10*6/uL (4.20-5.50); Red Cell Distribution Width 15.9 % (11.0-16.0); White Blood Count 8.9 X10*3/uL (4.8-10.8)
[2020-11-18 15:18] LABS: Alanine Aminotransferase 14 U/L (0-31); Albumin Level 4.2 g/dL (3.5-5.0); Alkaline Phosphatase 96 U/L (39-117); Anion Gap 16 (12-20); Aspartate Amino Transferase 18 U/L (5-31); Bilirubin Total 0.4 mg/dL (0.0-1.0); Blood Urea Nitrogen 16 mg/dL (9-16); Calcium 9.6 mg/dL (8.4-10.2); Carbon Dioxide 22 mmol/L (22-29); Chloride 104 mmol/L (96-108); Estimated Glomerular Filt Rate 36; Glucose Random 127 mg/dL (60-115); Potassium 3.4 mmol/L (3.3-5.1); Sodium 139 mmol/L (135-145); Total Protein 7.5 g/dL (6.5-8.0)
== END 2020-11-18 13:15 | disposition home or self-care (01) ==
LOC: HO.LAB 13:14
PROVIDERS: PCP Internal Medicine; Visit Provider Internal Medicine
DX: A08.39 Other viral enteritis (principal); I95.89 Other hypotension; N39.0 Urinary tract infection, site not specified; R53.83 Other fatigue
CPT/HCPCS: 36415; 80053; 85025

== ENCOUNTER → 2020-11-24 11:44 | Outpatient (BNVA) | payer MEDICARE, OTHER, SELFPAY | PROVIDERS: PCP Internal Medicine; Visit Provider Nurse Practitioner Family | DX: I21.4 Non-ST elevation (NSTEMI) myocardial infarction (principal); I10 Essential (primary) hypertension; E78.5 Hyperlipidemia, unspecified; K92.2 Gastrointestinal hemorrhage, unspecified; Z98.890 Other specified postprocedural states; Z79.899 Other long term (current) drug therapy | CPT/HCPCS: 99212 ==

== ENCOUNTER → 2020-12-16 10:28 | Outpatient (BNVA) | payer MEDICARE, OTHER, SELFPAY | PROVIDERS: PCP Internal Medicine; Visit Provider Surgery | DX: Z98.890 Other specified postprocedural states (principal) | CPT/HCPCS: 99212 ==

== ENCOUNTER → 2020-12-23 11:37 | Outpatient (BNVA) | payer MEDICARE, OTHER, SELFPAY | PROVIDERS: PCP Internal Medicine; Visit Provider Surgery | DX: K26.0 Acute duodenal ulcer with hemorrhage (principal); Z98.890 Other specified postprocedural states | CPT/HCPCS: 99212 ==

== ENCOUNTER 2021-02-04 09:35 | Outpatient (REF) | payer MEDICARE, OTHER, SELFPAY ==
[2021-02-04 10:13] LABS: MANUAL DIFF FLAG NO
[2021-02-04 10:17] LABS: Basophils Absolute Auto 0.1 X10*3/uL (0.0-0.2); Basophils Percent Auto 0.9 % (0-2); Eosinophils Absolute Auto 0.4 X10*3/uL (0.0-0.4); Eosinophils Percent Auto 4.6 % (0-4); Hematocrit 38.4 % (37-47); Hemoglobin 12.4 g/dl (12.0-16.0); Imm Gran Abs Auto 0.03 X10*3/uL (0.00-0.03); Imm Gran Pct Auto 0.4 % (0.0-0.4); Lymphocytes Percent Auto 25.1 % (20-40); Mean Corpuscular HGB Conc 32.3 g/dl (31.0-35.0); Mean Corpuscular Hemoglobin 29.7 pg (27.0-33.0); Mean Corpuscular Volume 92.1 fL (80-98); Mean Platelet Volume 9.4 fL (9.4-12.3); Monocytes Absolute Auto 0.6 X10*3/uL (0.1-1.2); Neutrophils Absolute Auto 4.7 X10*3/uL (2.0-8.3); Platelet Count 411 X10*3/uL (160-400); Red Blood Count 4.17 X10*6/uL (4.20-5.50); Red Cell Distribution Width 14.5 % (11.0-16.0); White Blood Count 7.8 X10*3/uL (4.8-10.8)
[2021-02-04 11:00] LABS: Vitamin B12 413 pg/mL (200-900)
[2021-02-04 11:14] LABS: Alanine Aminotransferase 11 U/L (0-31); Albumin Level 4.1 g/dL (3.5-5.0); Alkaline Phosphatase 80 U/L (39-117); Anion Gap 16 (12-20); Aspartate Amino Transferase 16 U/L (5-31); Bilirubin Total 0.4 mg/dL (0.0-1.0); Blood Urea Nitrogen 12 mg/dL (9-16); Calcium 9.4 mg/dL (8.4-10.2); Carbon Dioxide 22 mmol/L (22-29); Chloride 105 mmol/L (96-108); Cholesterol 164 mg/dL; Estimated Glomerular Filt Rate 50; Glucose Random 97 mg/dL (60-115); HDL Cholesterol 37 mg/dL; LDL Cholesterol Calculated 91 mg/dl; Potassium 3.9 mmol/L (3.3-5.1); Sodium 139 mmol/L (135-145); Total Protein 7.1 g/dL (6.5-8.0); Triglycerides 183 mg/dL
[2021-02-04 11:33] LABS: Ferritin 25 ng/mL (10-250)
== END 2021-02-04 09:36 | disposition home or self-care (01) ==
LOC: HO.LAB 09:35
PROVIDERS: PCP Internal Medicine; Visit Provider Internal Medicine
DX: Z00.01 Encounter for general adult medical examination with abnormal findings (principal); D50.0 Iron deficiency anemia secondary to blood loss (chronic); E11.9 Type 2 diabetes mellitus without complications; F32.9 Major depressive disorder, single episode, unspecified; N18.32 Chronic kidney disease, stage 3b; R10.9 Unspecified abdominal pain; R42 Dizziness and giddiness; R63.4 Abnormal weight loss
CPT/HCPCS: 36415; 80053; 80061; 82607; 82728; 85025

== ENCOUNTER 2021-10-13 11:57 | Outpatient (REF) | payer MEDICARE, OTHER, SELFPAY ==
[2021-10-13 12:41] LABS: MANUAL DIFF FLAG NO
[2021-10-13 13:03] LABS: Basophils Absolute Auto 0.1 X10*3/uL (0.0-0.2); Basophils Percent Auto 0.7 % (0-2); Eosinophils Absolute Auto 0.2 X10*3/uL (0.0-0.4); Eosinophils Percent Auto 2.9 % (0-4); Hematocrit 39.2 % (37.0-47.0); Hemoglobin 12.7 g/dl (12.0-16.0); Imm Gran Abs Auto 0.03 X10*3/uL (0.00-0.03); Imm Gran Pct Auto 0.4 % (0.0-0.4); Lymphocytes Percent Auto 27.3 % (20-40); Mean Corpuscular HGB Conc 32.4 g/dl (31.0-35.0); Mean Corpuscular Hemoglobin 30.1 pg (27.0-33.0); Mean Corpuscular Volume 92.9 fL (80.0-98.0); Mean Platelet Volume 9.2 fL (9.4-12.3); Monocytes Absolute Auto 0.6 X10*3/uL (0.1-1.2); Monocytes Percent Auto 8.4 % (2-11); Neutrophils Absolute Auto 4.4 x10*3/uL (2.0-8.3); Neutrophils Percent Auto 60.3 % (45-73); Platelet Count 413 X10*3/uL (160-400); Red Blood Count 4.22 X10*6/uL (4.20-5.50); Red Cell Distribution Width 13.2 % (11.0-16.0); White Blood Count 7.4 X10*3/uL (4.8-10.8)
[2021-10-13 13:35] LABS: Alanine Aminotransferase 15 U/L (0-31); Albumin Level 4.5 g/dL (3.5-5.0); Alkaline Phosphatase 95 U/L (39-117); Anion Gap 13 (12-20); Aspartate Amino Transferase 17 U/L (5-31); Bilirubin Total 0.4 mg/dL (0.0-1.0); Blood Urea Nitrogen 13 mg/dL (9-16); Calcium 9.9 mg/dL (8.4-10.2); Carbon Dioxide 25 mmol/L (22-29); Chloride 105 mmol/L (96-108); Cholesterol 187 mg/dL; Estimated Glomerular Filt Rate 38; Glucose Random 84 mg/dL (60-115); HDL Cholesterol 33 mg/dL; LDL Cholesterol Calculated 104 mg/dl; Potassium 3.9 mmol/L (3.3-5.1); Sodium 139 mmol/L (135-145); Total Protein 7.5 g/dL (6.5-8.0); Triglycerides 252 mg/dL
[2021-10-13 13:44] LABS: Estimated Average Glucose 148 mg/dL; Hemoglobin A1c % 6.8 %
[2021-10-13 13:59] LABS: Thyroid Stimulating Hormone 1.97 uIU/mL (0.32-4.0)
== END 2021-10-13 11:58 | disposition home or self-care (01) ==
LOC: HO.LAB 11:57
PROVIDERS: PCP Internal Medicine; Visit Provider Internal Medicine
DX: E11.9 Type 2 diabetes mellitus without complications (principal); E78.2 Mixed hyperlipidemia; F32.5 Major depressive disorder, single episode, in full remission; I10 Essential (primary) hypertension
CPT/HCPCS: 36415; 80053; 80061; 83036; 84443; 85025

== ENCOUNTER 2021-11-02 15:01 | Emergency (ER) | payer MEDICARE, OTHER, SELFPAY ==
--- NOTE | ~2021-11-02 | XR_ITS ---
EXAMINATION: XR RIBS, RIGHT CLINICAL INFORMATION: Right rib pain. Status post fall COMPARISON: None TECHNIQUE: 4 views of the right ribs were obtained. Chest one view. FINDINGS: Lungs are clear. No consolidation, pneumothorax, or pleural effusion. The cardiomediastinal silhouette and pulmonary vasculature are normal. Osseous structures are unremarkable. Multiple views of right ribs reveal no visible fracture. No fractures are identified. XR/XR ribs RT min 3V w CXR1V IMPRESSION: Unremarkable chest and right rib exam.
--- NOTE | ~2021-11-02 | CT_ITS ---
EXAMINATION: CT BRAIN, CT CERVICAL SPINE AND CT FACIAL BONES. CLINICAL INFORMATION: Status post fall with head injury. COMPARISON: None TECHNIQUE: 5 mm thin axial and reformatted 2 mm thin sagittal and coronal images of brain were obtained. Axial 3 mm thin and reformatted 2 mm thin sagittal and coronal images of cervical spine were obtained. Lastly axial 3 mm thin and reformatted 1.5 mm thin sagittal and coronal images of facial bones were obtained. DLP [id number]. FINDINGS: BRAIN: There is no acute intra-axial, extra-axial bleed, masses or midline shift. There is no acute infarct in evolution. There is no edema. The lateral ventricles are symmetrical but moderately enlarged. There is diffuse periventricular hypodensity in both cerebral hemispheres without mass effect. Bone windows reveal no calvarial abnormality. Bilateral paranasal sinuses and mastoid air cells are well-aerated. FACIAL BONES: There is normal aeration of bilateral paranasal sinuses with minimal mucoperiosteal thickening right maxillary sinus. Rest the paranasal sinuses and the bony sinus alexander are intact. The drainage pathways are widely patent. The nasal septum is mildly deviated to left with symmetrical turbinates. The lamina papyracea and cribriform plate is normal. The bony orbits are symmetrical and intact.. Bilateral TM joints and the mandible appears normal. The nasal bone is intact. CERVICAL SPINE: There is mild straightening of cervical lordosis. The vertebral heights and alignment is normal. There is mild loss of C5-C6 disc height. The craniovertebral junction and the C1-C2 alignment is normal. There is mild superior spondylosis at the C1-C2 disc level. No lytic or sclerotic process seen. There is mild left C4-C5 facet joint arthropathy. No lytic process seen. The prevertebral and the paravertebral soft tissues are normal. The lung apices are clear. Central trachea is clear. CT/CT cervical spine wo con IMPRESSION: No acute intracranial process seen except for moderate cerebral volume loss and mild chronic small vessel ischemic changes. No maxillofacial, nasal or mandibular fracture. Mild degenerative disc changes C5-C6 disc level with mild ventral spondylosis. No visible acute fracture, dislocation or subluxation seen.`
[2021-11-02 15:08] VITALS: BP 146/97; PULSE 72; RESP 20; TEMP 36.8; O2SAT 100; BMI 24.7
[2021-11-02] MEDS: Acetaminophen 325 MG TABLET 650 MG PO (15:18)
--- NOTE | 2021-11-02 18:50 | ED.GENADULT ---
HPI - General Adult General Chief complaint: Fall Stated complaint: fall head laceration chest pain Time Seen by Provider: 11/02/21 15:23 Source: patient and family Mode of arrival: ambulatory Limitations: no limitations History of Present Illness HPI narrative: This is a 76-year-old female past medical history significant for diabetes, hyperlipidemia, hypertension, NSTEMI presenting to the emergency department status post trip and fall with pain to her right Graves in the right side of her forehead patient also has a laceration on the right side of her forehead. Patient tells me she was walking, she tripped on a board falling forward, hitting her face on the ground. Patient did not lose consciousness, she denies headache or neck pain. She is not on blood thinners. There were no preceding symptoms such as chest pain, shortness of breath, dizziness, vision changes. Patient denies chest pain, nausea, vomiting, chest pain, shortness of breath, abdominal pain, vision changes, neck pain. Onset (ago): hour(s) (2) Location: head, face and chest (right sided ribs ) Radiation: non-radiation Severity: mild Quality: burning Pain Consistency: constant Relieving factors: none Exacerbating factors: none Associated symptoms: denies other symptoms Treatments prior to arrival: none Related Data Home Medications Medication Instructions Recorded Confirmed losartan 100 1 tab PO DAILY 10/26/20 12/23/20 mg-hydrochlorothiazide 25 mg tablet sertraline 50 mg tablet 1 tab PO DAILY 10/26/20 12/23/20 simvastatin 40 mg tablet 1 tab PO BEDTIME 10/26/20 12/23/20 trazodone 50 mg tablet 1 tab PO BEDTIME 10/26/20 12/23/20 Previous Rx's Medication Instructions Recorded acetaminophen 650 mg 650 mg PO Q8H PRN #30 tab 11/05/20 tablet,extended release (Tylenol 8 Hour) oxycodone 5 mg capsule 5 mg PO Q4H PRN #26 cap 11/05/20 walker #1 ea 11/06/20 omeprazole 40 mg capsule,delayed 40 mg PO BID #60 cap 03/11/21 release doxycycline hyclate 100 mg capsule 100 mg PO BID 10 Days #20 cap 11/02/21 Allergies Allergy/AdvReac Type Severity Reaction Status Date / Time No Known Allergies Allergy Verified 10/26/20 19:14 [No Known Allergies*] Review of Systems Review of Systems: Constitutional : No Weight loss, No Fever, No Chills, No Fatigue, No Malaise ENT/Mouth : No sore throat, No Rhinorrhea Eyes: No Eye Pain, No Swelling, No Redness Cardiovascular : No Chest Pain, No SOB, No Dyspnea on Exertion, No Orthopnea, No Edema, No Palpitations Respiratory : No Cough, No Sputum, No Wheezing Gastrointestinal : No Nausea, No Vomiting, No Diarrhea, No Constipation, No abdominal Pain, No Hematochezia, No Melena Genitourinary : No Dysuria, No Urinary Frequency, No Hematuria, Musculoskeletal : No joint pain, No Myalgias, No Joint Swelling, + right sided rib pain Skin : No Skin Lesions, No rash, + laceration Neuro : No Weakness, No Numbness, No Dizziness, No Headache Psych : No Anxiety/Panic, No Depression All other systems reviewed and are negative Yes all other systems are reviewed and are negative [facility] Past Medical History Attestation statement: The following information was validated with the patient. Source: old records reviewed Medical History Acute diverticulitis Acute duodenal ulcer with bleeding High cholesterol HTN (hypertension) NSTEMI (non-ST elevated myocardial infarction) UTI (urinary tract infection) Surgical History Status post exploratory laparotomy (~10/2020) Social History Social History Household Members: Family and Children Housing: Apartment Do you presently have visiting nurse or other home services: No Cigarette Packs Per Day: 1 Years Smoked: 55 Second Hand Smoke Exposure: No Advance Directives: No Advance Directives Information Provided: Yes Physical Exam ED Vital Signs: Vital Signs - 24 hr 11/02/21 15:08 Temperature 98.3 F Pulse Rate 72 Respiratory Rate 20 Blood Pressure 146/97 H Pulse Oximetry 100 BMI result Body Mass Index 24.7 VSS Appearance: Alert.? Oriented X3.? No acute distress.? Head: Normocephalic, atraumatic, no step-offs or deformities Eyes: Pupils equal, round and reactive to light.? Extraocular movements intact. ENT: Pharynx normal.? Neck: Normal inspection.? Neck supple.? CVS: Normal heart rate and rhythm.? Pulses normal.? Respiratory: No respiratory distress.? Breath sounds normal.? Abdomen: Soft and nontender.? Skin: Skin warm and dry.? Normal skin color.? Normal skin turgor.?+ 5 cm laceration to right eyebrow linear, no fb visualized in laceration Extremities: No lower extremity edema.? No calf ttp. 5/5 strength to bilateral upper and lower extremities Back: No midline tenderness, no C-spine tenderness, full range of motion, no CVA tenderness bilaterally Neuro: Oriented X 3.? No motor deficit.? No sensory deficit. CN 2-12 intact. Patient ambulating with steady gait. Course Reevaluation(s) Reevaluation #1: Area was successfully sutured using non-disolvable 6-0 sutures 7 of them patient tolerated procedure well. X-ray of the ribs unremarkable. No pneumothorax. No acute intracranial processes seen on CT scan, no maxillofacial nasal or mandibular fractures. No cervical spine dislocations subluxations or fractures. At this time patient will be discharged home on doxycycline p.o. b.i.d. x7 days for infection prophylaxis is patient is a diabetic and high risk for infection. Although this was a simple laceration it was deep so will cover with antibiotics. Educated patient on worrisome signs and symptoms, alkaline them on her discharge. Comfortable with discharge home with PCP follow-up or returning to the emergency department with new or worsening symptoms. Time: 18:57 Procedures Laceration Laceration 1: Site: face Side (If applicable): right Size (cm): 5 Description: linear Depth: simple, single layer Local Anesthetic: lidocaine 2% Amount of anesthesia used (mL): 5 Pre-repair: wound explored, irrigated extensively and deep structures intact Skin layer closed with: vicryl Size (cm): 6-0 Number of sutures: 7 Medical Decision Making [facility] Narrative Medical decision making narrative: 1845 76 yo f presnts s/p trip and fall with laceration to right eye brow and right sided rib pain. Patient fell at home, no preceding symptoms. Appears to be a mechanical trip and fall. Not on blood thinners no loss of consciousness. No neck pain, headache, vision changes, dizziness. Physical examination significant for a 5 cm laceration overlying the right eyebrow, linear, no foreign bodies visualized. Patient's neuro exam nonfocal. No changes overlying the right side of thorax/ribs. Patient ambulating with a steady gait. Pupils equal round and reactive. Extraocular movements intact. Lungs clear. Regular rate and rhythm. Based off history and physical examination low probability for pneumothorax however imaging will be obtained. Low suspicion for ICH. Plan at this time is to obtain imaging and suture the laceration. Medical Records Medical records reviewed: Yes I reviewed the patient's medical records. Lab Data Lab results reviewed: Yes I reviewed the patient's lab results. Critical Care Time Critical Care Time Critical Care Time: No Discharge Plan Discharge Clinical Impression: Eyebrow laceration, Fall, Rib pain Patient Disposition: Home, Self-Care Instructions: Care For Your Stitches (DC), Laceration (DC), Fall Prevention for Older Adults (ED), Fall Prevention (ED), Facial Laceration (ED) Additional Instructions: Take your medications as prescribed. If you were prescribed antibiotics today, it is important that you take your medication to their entirety, do not skip any doses, do not finish them early. Follow-up with your primary care provider this week. Return to the emergency department with new or worsening symptoms. Such as nausea, vomiting, headache, neck pain, vision changes, dizziness, shortness of breath, chest pain. In case of emergency call 911 [place] cathy medicamentos seg?n lo prescrito. Si le recetaron antibi?ticos hoy, es importante que tome nugent medicamento en nugent totalidad, no se salte ninguna dosis, no los termine antes de tiempo. Seguimiento con nugent proveedor de atenci?n primaria esta semana. Regrese al departamento de emergencias con s?ntomas nuevos o que empeoran. Tales valerio n?useas, v?mitos, dolor de nahomi, dolor de janeth, cambios en la visi?n, mareos, dificultad para respirar, dolor en el pecho. En jose de emergencia llama al 911 Prescriptions: New doxycycline hyclate 100 mg capsule 100 mg PO BID 10 Days Qty: 20 0RF No Action omeprazole 40 mg capsule,delayed release(DR/EC) 40 mg PO BID Qty: 60 1RF trazodone 50 mg tablet 1 tab PO BEDTIME 0RF simvastatin 40 mg tablet 1 tab PO BEDTIME 0RF losartan-hydrochlorothiazide 100-25 mg tablet 1 tab PO DAILY 0RF sertraline 50 mg tablet 1 tab PO DAILY 0RF oxycodone 5 mg capsule 5 mg PO Q4H PRN (Reason: pain) Qty: 26 0RF Rx Instructions: Take 1-2 capsules every 4-6 hours as needed for pain. acetaminophen [Tylenol 8 Hour] 650 mg tablet extended release 650 mg PO Q8H PRN (Reason: pain) Qty: 30 0RF (DME) [facility] [place]TE .MEDSUPPLY Qty: 1 0RF Rx Instructions: As needed Referrals: Argelia Alberto MD [Primary Care Provider] - 2 days Stand Alone Forms: Work/School Release
[2021-11-02] MEDS: Lidocaine HCl 2 % MPF 5 ML VIAL SUBCUT (19:10)
[2021-11-02] MEDS: Diphth,Pertus(ACell),Tet Adult 0.5 ML SYRINGE IM (19:10)
== END 2021-11-02 19:21 | disposition home or self-care (01) ==
PROVIDERS: Emergency Provider Internal Medicine; PCP Internal Medicine
DX: S01.81XA Laceration without foreign body of other part of head, initial encounter (principal); S00.81XA Abrasion of other part of head, initial encounter; G44.309 Post-traumatic headache, unspecified, not intractable; R07.81 Pleurodynia; W01.0XXA Fall on same level from slipping, tripping and stumbling without subsequent striking against object, initial encounter; Y93.9 Activity, unspecified; Y92.9 Unspecified place or not applicable; Y99.9 Unspecified external cause status; Z79.899 Other long term (current) drug therapy
CPT/HCPCS: 12013; 70450; 70486; 71101; 72125; 90471; 90715; 99284

== ENCOUNTER 2021-11-08 11:47 | Emergency (ER) | payer MEDICARE, OTHER, SELFPAY ==
--- NOTE | ~2021-11-08 | XR_ITS ---
EXAMINATION: XR CHEST CLINICAL INFORMATION: Chest pain COMPARISON: 11/02/2021 TECHNIQUE: 2 views of the chest were obtained. FINDINGS: No significant abnormality is noted involving the heart, lungs, mediastinum, bony thorax or soft tissues. XR/XR chest 2V IMPRESSION: Unremarkable examination, without interval change.
[2021-11-08 12:03] VITALS: BP 131/99; PULSE 60; RESP 17; TEMP 36.6; O2SAT 100; BMI 25.7
--- NOTE | 2021-11-08 14:04 | ED.GENADULT ---
HPI - General Adult General Chief complaint: General Medical Stated complaint: Suture removal/breast pain Time Seen by Provider: 11/08/21 14:04 History of Present Illness HPI narrative: Patient presents for both suture removal for a laceration on her forehead as well as re-evaluation for some right chest wall pain since a fall 6 days ago She hit her chest when she fell several days ago and came here and had a negative x-ray and had the forehead laceration sewed up, she has no difficulty breathing, her pain is with movement of the right side of her chest there is no exertional component Related Data Home Medications Medication Instructions Recorded Confirmed losartan 100 1 tab PO DAILY 10/26/20 12/23/20 mg-hydrochlorothiazide 25 mg tablet sertraline 50 mg tablet 1 tab PO DAILY 10/26/20 12/23/20 simvastatin 40 mg tablet 1 tab PO BEDTIME 10/26/20 12/23/20 trazodone 50 mg tablet 1 tab PO BEDTIME 10/26/20 12/23/20 Previous Rx's Medication Instructions Recorded acetaminophen 650 mg 650 mg PO Q8H PRN #30 tab 11/05/20 tablet,extended release (Tylenol 8 Hour) oxycodone 5 mg capsule 5 mg PO Q4H PRN #26 cap 11/05/20 walker #1 ea 11/06/20 omeprazole 40 mg capsule,delayed 40 mg PO BID #60 cap 03/11/21 release doxycycline hyclate 100 mg capsule 100 mg PO BID 10 Days #20 cap 11/02/21 oxycodone 5 mg tablet 2.5 mg PO Q8H PRN #10 tab 11/08/21 Allergies Allergy/AdvReac Type Severity Reaction Status Date / Time No Known Allergies Allergy Verified 11/08/21 12:02 [No Known Allergies*] Review of Systems Review of Systems: Positive for right side chest wall pain and suture removal Negatives are no fever no chills no dizziness no weakness no headache no confusion no loss of consciousness no vomiting no fainting no feeling faint no palpitations no shortness of breath no radiation of the chest pain, no pain when she is not moving, no exertional component no abdominal pain no nausea vomiting no extremity pains Yes all other systems are reviewed and are negative PMFSH Past Medical History Source: nursing notes reviewed Medical History Acute diverticulitis Acute duodenal ulcer with bleeding High cholesterol HTN (hypertension) NSTEMI (non-ST elevated myocardial infarction) UTI (urinary tract infection) Surgical History Status post exploratory laparotomy (~10/2020) Social History Social History Household Members: Family and Children Housing: Apartment Do you presently have visiting nurse or other home services: No Cigarette Packs Per Day: 1 Years Smoked: 55 Second Hand Smoke Exposure: No Advance Directives: No Advance Directives Information Provided: No Physical Exam ED Vital Signs: Vital Signs - 24 hr 11/08/21 12:03 11/08/21 14:25 Temperature 98 F 98.2 F Pulse Rate 60 58 Respiratory Rate 17 18 Blood Pressure 131/99 H 171/72 H Pulse Oximetry 100 99 BMI result Body Mass Index 25.7 General appearance is no acute distress There is sutures in place on the forehead with no evidence of wound infection no redness no swelling no discharge, the head is otherwise normocephalic atraumatic neck is supple Respiratory no distress The chest is clear to auscultation bilateral with symmetric equal breath sounds The chest wall exam there is tenderness over the right ribs which is reproduced with movement palpation and a deep breath Abdomen is soft nontender Extremities full range of motion x4 , no calf swelling or tenderness Neuro no focal deficits Course Course Course Narrative: Sutures were removed from cut on the right side of the forehead with no wound dehiscence no problems Chest x-ray was done with no acute findings and well-appearing patient was discharged breathing easily Discharge Plan Discharge Clinical Impression: Visit for suture removal, Rib pain on right side Patient Disposition: Home, Self-Care Additional Instructions: Sutures were removed with no problem from the face X-ray did not show any infection or obvious broken bones on the right side of the chest X-ray can miss small injuries If Tylenol is not enough you can try the oxycodone which is a narcotic which may cause dizziness so use with caution I wrote for a half tablet which is 2.5 mg, if that is not sufficient and there are no side effects it is okay to take 5 mg which is 2 half tablets or 1 whole tablet Follow with primary care doctor Return any time if worse Prescriptions: New oxycodone 5 mg tablet 2.5 mg PO Q8H PRN (Reason: pain) Qty: 10 0RF Rx Instructions: Narcotic may cause dizziness or drowsiness so use with caution No Action omeprazole 40 mg capsule,delayed release(DR/EC) 40 mg PO BID Qty: 60 1RF trazodone 50 mg tablet 1 tab PO BEDTIME 0RF simvastatin 40 mg tablet 1 tab PO BEDTIME 0RF losartan-hydrochlorothiazide 100-25 mg tablet 1 tab PO DAILY 0RF sertraline 50 mg tablet 1 tab PO DAILY 0RF oxycodone 5 mg capsule 5 mg PO Q4H PRN (Reason: pain) Qty: 26 0RF Rx Instructions: Take 1-2 capsules every 4-6 hours as needed for pain. acetaminophen [Tylenol 8 Hour] 650 mg tablet extended release 650 mg PO Q8H PRN (Reason: pain) Qty: 30 0RF (DME) [facility] See Rx Instructions .ROUTE .MEDSUPPLY Qty: 1 0RF Rx Instructions: As needed doxycycline hyclate 100 mg capsule 100 mg PO BID 10 Days Qty: 20 0RF Interventions: ED Discharge Assessment Last Done: 11/08/21 15:45 Discharge Date/Time: 11/08/21 15:46
[2021-11-08 14:25] VITALS: BP 171/72; PULSE 58; RESP 18; TEMP 36.8; O2SAT 99
== END 2021-11-08 15:46 | disposition home or self-care (01) ==
PROVIDERS: Emergency Provider Emergency Medicine Emergency Medical Services; PCP Internal Medicine
DX: N64.4 Mastodynia (principal); Z48.02 Encounter for removal of sutures; Z79.899 Other long term (current) drug therapy
CPT/HCPCS: 71046; 99284

== ENCOUNTER 2022-01-14 11:17 | Outpatient (REF) | payer MEDICARE, OTHER, SELFPAY ==
[2022-01-14 11:33] LABS: MANUAL DIFF FLAG NO
[2022-01-14 11:48] LABS: Basophils Absolute Auto 0.1 X10*3/uL (0.0-0.2); Basophils Percent Auto 0.8 % (0-2); Eosinophils Absolute Auto 0.3 X10*3/uL (0.0-0.4); Eosinophils Percent Auto 4.4 % (0-4); Hematocrit 37.9 % (37.0-47.0); Hemoglobin 12.3 g/dl (12.0-16.0); Imm Gran Abs Auto 0.03 X10*3/uL (0.00-0.03); Imm Gran Pct Auto 0.4 % (0.0-0.4); Lymphocytes Absolute Auto 1.9 X10*3/uL (1.2-4.9); Lymphocytes Percent Auto 26.5 % (20-40); Mean Corpuscular HGB Conc 32.5 g/dl (31.0-35.0); Mean Corpuscular Hemoglobin 29.9 pg (27.0-33.0); Mean Corpuscular Volume 92.2 fL (80.0-98.0); Mean Platelet Volume 9.3 fL (9.4-12.3); Monocytes Absolute Auto 0.6 X10*3/uL (0.1-1.2); Monocytes Percent Auto 7.6 % (2-11); Neutrophils Absolute Auto 4.4 x10*3/uL (2.0-8.3); Neutrophils Percent Auto 60.3 % (45-73); Platelet Count 336 X10*3/uL (160-400); Red Blood Count 4.11 X10*6/uL (4.20-5.50); Red Cell Distribution Width 13.4 % (11.0-16.0); White Blood Count 7.2 X10*3/uL (4.8-10.8)
[2022-01-14 11:57] LABS: Estimated Average Glucose 137 mg/dL; Hemoglobin A1c % 6.4 %
[2022-01-14 12:21] LABS: Alanine Aminotransferase 11 U/L (0-31); Albumin Level 4.3 g/dL (3.5-5.0); Alkaline Phosphatase 105 U/L (39-117); Anion Gap 12 (12-20); Aspartate Amino Transferase 16 U/L (5-31); Bilirubin Total 0.4 mg/dL (0.0-1.0); Blood Urea Nitrogen 12 mg/dL (9-16); Calcium 9.7 mg/dL (8.4-10.2); Carbon Dioxide 24 mmol/L (22-29); Chloride 105 mmol/L (96-108); Cholesterol 181 mg/dL; Estimated Glomerular Filt Rate 45; Glucose Random 92 mg/dL (60-115); HDL Cholesterol 40 mg/dL; LDL Cholesterol Calculated 89 mg/dl; Potassium 3.6 mmol/L (3.3-5.1); Sodium 137 mmol/L (135-145); Triglycerides 260 mg/dL
[2022-01-14 12:41] LABS: Vitamin B12 425 pg/mL (200-900)
[2022-01-14 13:18] LABS: Creatinine Urine 135.24 mg/dL; Microalbum/Creatinine Ratio Ur 18.4 ug/mg cr
== END 2022-01-14 11:18 | disposition home or self-care (01) ==
LOC: HO.LAB 11:17
PROVIDERS: PCP Internal Medicine; Visit Provider Internal Medicine
DX: E11.9 Type 2 diabetes mellitus without complications (principal); E78.2 Mixed hyperlipidemia; N18.30 Chronic kidney disease, stage 3 unspecified; H81.11 Benign paroxysmal vertigo, right ear; S20.01XS Contusion of right breast, sequela
CPT/HCPCS: 36415; 80053; 80061; 82043; 82607; 83036; 85025

== ENCOUNTER 2022-01-22 16:28 | Outpatient (REF) | payer MEDICARE, OTHER, SELFPAY ==
--- NOTE | ~2022-01-22 | MM_ITS ---
EXAMINATION: MM SCREENING DIGITAL BREAST TOMOSYNTHESIS, BILATERAL CLINICAL INFORMATION: Screening. Asymptomatic. The lifetime risk of breast cancer based on the Tyrer-Cuzick Model is 2%. COMPARISON: Mammography: 01/24/2017. TECHNIQUE: Digital breast tomosynthesis is performed in both the craniocaudal and mediolateral oblique views along with computer-aided detection (CAD). Synthesized 2D images are generated from the tomosynthesis. Additional left MLO view is provided. FINDINGS: There are scattered areas of fibroglandular density (ACR BI-RADS breast composition Category b). Parenchymal pattern is similar to prior studies. Mild retroareolar duct ectasia on right stable. There is no interval mass or architectural abnormality. No abnormal calcifications. The axilla and skin contours are unremarkable. MM/MM tomosynthesis screening BI IMPRESSION: No significant changes from prior exam. ASSESSMENT: BI-RADS 2: Benign RECOMMENDATION: Routine annual mammography screening. This patient's information was entered into a reminder system with a target due date for their next mammogram.
== END 2022-01-22 16:29 | disposition home or self-care (01) ==
LOC: HO.MAMMO 16:28
PROVIDERS: PCP Internal Medicine; Visit Provider Internal Medicine
DX: Z12.31 Encounter for screening mammogram for malignant neoplasm of breast (principal)
CPT/HCPCS: 77063; 77067

== ENCOUNTER 2022-04-13 12:30 | Emergency (ER) | payer MEDICARE, OTHER, SELFPAY ==
[2022-04-13 13:29] VITALS: BP 146/99; PULSE 62; RESP 18; TEMP 35.9; O2SAT 98; BMI 24.8
[2022-04-13 13:46] LABS: MANUAL DIFF FLAG NO
[2022-04-13 13:51] LABS: Basophils Absolute Auto 0.1 X10*3/uL (0.0-0.2); Basophils Percent Auto 0.8 % (0-2); Eosinophils Absolute Auto 0.3 X10*3/uL (0.0-0.4); Eosinophils Percent Auto 3.7 % (0-4); Hematocrit 38.6 % (37.0-47.0); Hemoglobin 12.8 g/dl (12.0-16.0); Imm Gran Abs Auto 0.03 X10*3/uL (0.00-0.03); Imm Gran Pct Auto 0.4 % (0.0-0.4); Lymphocytes Absolute Auto 1.6 X10*3/uL (1.2-4.9); Lymphocytes Percent Auto 20.6 % (20-40); Mean Corpuscular HGB Conc 33.2 g/dl (31.0-35.0); Mean Corpuscular Hemoglobin 29.8 pg (27.0-33.0); Mean Platelet Volume 9.7 fL (9.4-12.3); Monocytes Absolute Auto 0.6 X10*3/uL (0.1-1.2); Monocytes Percent Auto 8.4 % (2-11); Neutrophils Percent Auto 66.1 % (45-73); Platelet Count 340 X10*3/uL (160-400); Red Blood Count 4.29 X10*6/uL (4.20-5.50); Red Cell Distribution Width 13.3 % (11.0-16.0); White Blood Count 7.6 X10*3/uL (4.8-10.8)
[2022-04-13 14:09] LABS: Alanine Aminotransferase 13 U/L (0-31); Albumin Level 4.4 g/dL (3.5-5.0); Alkaline Phosphatase 89 U/L (39-117); Anion Gap 14 (12-20); Aspartate Amino Transferase 15 U/L (5-31); Bilirubin Total 0.3 mg/dL (0.0-1.0); Blood Urea Nitrogen 13 mg/dL (9-16); Calcium 9.4 mg/dL (8.4-10.2); Carbon Dioxide 22 mmol/L (22-29); Chloride 106 mmol/L (96-108); Creatinine Clr Calc Pharmacy 34.9; Estimated Glomerular Filt Rate 44; Glucose Random 166 mg/dL (60-115); Potassium 2.9 mmol/L (3.3-5.1); Sodium 139 mmol/L (135-145); Total Protein 7.2 g/dL (6.5-8.0)
== END 2022-04-13 19:36 | disposition left against medical advice (07) ==
PROVIDERS: Emergency Provider Emergency Medicine; PCP Internal Medicine
DX: R19.7 Diarrhea, unspecified (principal); R53.1 Weakness; R42 Dizziness and giddiness; I10 Essential (primary) hypertension; E11.9 Type 2 diabetes mellitus without complications; E78.5 Hyperlipidemia, unspecified
CPT/HCPCS: 36415; 80053; 85025; 99281; 99283

== ENCOUNTER 2022-05-10 11:29 | Outpatient (REF) | payer MEDICARE, OTHER, SELFPAY ==
[2022-05-10 13:41] LABS: MANUAL DIFF FLAG NO
[2022-05-10 13:50] LABS: Basophils Absolute Auto 0.1 X10*3/uL (0.0-0.2); Basophils Percent Auto 1.1 % (0-2); Eosinophils Absolute Auto 0.3 X10*3/uL (0.0-0.4); Eosinophils Percent Auto 4.1 % (0-4); Hematocrit 37.7 % (37.0-47.0); Hemoglobin 12.6 g/dl (12.0-16.0); Imm Gran Abs Auto 0.03 X10*3/uL (0.00-0.03); Imm Gran Pct Auto 0.5 % (0.0-0.4); Lymphocytes Absolute Auto 1.8 X10*3/uL (1.2-4.9); Mean Corpuscular HGB Conc 33.4 g/dl (31.0-35.0); Mean Corpuscular Hemoglobin 30.2 pg (27.0-33.0); Mean Corpuscular Volume 90.4 fL (80.0-98.0); Mean Platelet Volume 9.6 fL (9.4-12.3); Monocytes Absolute Auto 0.5 X10*3/uL (0.1-1.2); Monocytes Percent Auto 8.1 % (2-11); Neutrophils Absolute Auto 3.7 x10*3/uL (2.0-8.3); Neutrophils Percent Auto 58.2 % (45-73); Platelet Count 377 X10*3/uL (160-400); Red Blood Count 4.17 X10*6/uL (4.20-5.50); Red Cell Distribution Width 14.1 % (11.0-16.0); White Blood Count 6.3 X10*3/uL (4.8-10.8)
[2022-05-10 14:10] LABS: Alanine Aminotransferase 16 U/L (0-31); Albumin Level 4.4 g/dL (3.5-5.0); Alkaline Phosphatase 94 U/L (39-117); Anion Gap 15 (12-20); Aspartate Amino Transferase 19 U/L (5-31); Bilirubin Total 0.5 mg/dL (0.0-1.0); Blood Urea Nitrogen 13 mg/dL (9-16); Calcium 9.5 mg/dL (8.4-10.2); Carbon Dioxide 23 mmol/L (22-29); Chloride 105 mmol/L (96-108); Estimated Glomerular Filt Rate 48; Glucose Fasting 108 mg/dL (60-99); Potassium 4.4 mmol/L (3.3-5.1); Sodium 139 mmol/L (135-145); Total Protein 7.2 g/dL (6.5-8.0)
[2022-05-10 14:17] LABS: Estimated Average Glucose 140 mg/dL; Hemoglobin A1c % 6.5 %
[2022-05-10 14:25] LABS: Thyroid Stimulating Hormone 2.54 uIU/mL (0.32-4.0)
[2022-05-10 14:34] LABS: Vitamin B12 432 pg/mL (200-900)
== END 2022-05-10 11:30 | disposition home or self-care (01) ==
LOC: HO.10HDL 11:29
PROVIDERS: Visit Provider Internal Medicine
DX: E11.9 Type 2 diabetes mellitus without complications (principal); K92.1 Melena; N18.30 Chronic kidney disease, stage 3 unspecified; R19.7 Diarrhea, unspecified; R26.81 Unsteadiness on feet; R42 Dizziness and giddiness
CPT/HCPCS: 36415; 80053; 82607; 83036; 84443; 85025

== ENCOUNTER 2022-08-16 10:31 | Emergency (ER) | payer MEDICARE, OTHER, SELFPAY ==
--- NOTE | ~2022-08-16 | XR_ITS ---
EXAMINATION: XR FOOT, LEFT CLINICAL INFORMATION: Pain after falling COMPARISON: None TECHNIQUE: AP, lateral, and oblique views of the left foot. FINDINGS: Diffuse osteopenia but no fracture or destructive process. Alignment is preserved. 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 Vascular calcifications are present. XR/XR foot LT min 3V IMPRESSION: No acute findings.
--- NOTE | ~2022-08-16 | CT_ITS ---
EXAMINATION: CT HEAD WITHOUT CONTRAST CLINICAL INFORMATION: False COMPARISON: None TECHNIQUE: Contiguous axial imaging was performed from the skull base to vertex without intravenous administration of contrast. This CT examination was performed using dose optimization techniques as appropriate, variously including the following: *Automated exposure control *Adjustment of mA and/or kV according to patient size (this includes techniques or standardized protocols for targeted exams where dose is matched to indication/reason for exam; i.e. extremities or head) *Use of iterative reconstruction technique DLP: 1182 mGy-cm FINDINGS: There is no acute intra-axial, extra-axial bleed, masses or midline shift. There is no acute infarction evolution. There is no edema. There is diffuse periventricular hypodensity in both cerebral hemispheres without mass effect. The lateral ventricles are symmetrical in size and configuration with moderate enlargement. Bone windows reveal no calvarial abnormality. There is no scalp soft tissue abnormality. Bilateral paranasal sinuses and mastoid air cells are well-aerated. CT/CT head/brain wo IV con IMPRESSION: No acute intracranial process seen.
[2022-08-16 10:35] VITALS: BP 174/78; PULSE 76; RESP 16; TEMP 36.1; O2SAT 98; BMI 23.1
--- NOTE | 2022-08-16 12:51 | ECG_ITS ---
Test Reason : FALL Blood Pressure : / mmHG Vent. Rate : 053 BPM Atrial Rate : 053 BPM P-R Int : 152 ms QRS Dur : 090 ms QT Int : 440 ms P-R-T Axes : 052 021 050 degrees QTc Int : 412 ms Sinus bradycardia Septal infarct , age undetermined Abnormal ECG When compared with ECG of 01-NOV-2020 11:14, Vent. rate has decreased BY 32 BPM Left bundle branch block is no longer Present Septal infarct is now Present Referred By: Radha Florentino Electronically Signed By:NICK BAUER MD
[2022-08-16 14:31] LABS: COVID-19 Test Negative (Negative); IDNOW Serial# 9DB6401D; Influenza A Negative (Negative); Influenza B2 Negative (Negative)
--- NOTE | 2022-08-16 15:18 | ED.FALL ---
HPI - Fall General Chief Complaint: Fall Stated Complaint: fall l leg inj Time Seen by Provider: 08/16/22 15:09 Source: patient, family and EMS Mode of arrival: EMS History of Present Illness HPI Narrative: 77-year-old female with past medical history of NSTEMI, GI bleed, anemia, elevated troponin presents to the emergency department today after a fall. The patient's daughter states she fell last night. The patient complains of pain in the left foot. There are no other complaints of any acute pain or injury. MD complaint: fall Onset (ago): day(s) (1) Fall from: standing Fall witnessed: yes, by family Place fall occurred: home Loss of consciousness: none Prolonged down time: no Related Data Home Medications Medication Instructions Recorded Confirmed losartan 100 1 tab PO DAILY 10/26/20 12/23/20 mg-hydrochlorothiazide 25 mg tablet sertraline 50 mg tablet 1 tab PO DAILY 10/26/20 12/23/20 simvastatin 40 mg tablet 1 tab PO BEDTIME 10/26/20 12/23/20 trazodone 50 mg tablet 1 tab PO BEDTIME 10/26/20 12/23/20 Previous Rx's Medication Instructions Recorded acetaminophen 650 mg 650 mg PO Q8H PRN pain #30 tabs 11/05/20 tablet,extended release (Tylenol 8 Hour) oxycodone 5 mg capsule 5 mg PO Q4H PRN pain #26 caps 11/05/20 walker #1 ea 11/06/20 omeprazole 40 mg capsule,delayed 40 mg PO BID #60 caps 03/11/21 release doxycycline hyclate 100 mg capsule 100 mg PO BID 10 days #20 caps 11/02/21 oxycodone 5 mg tablet 2.5 mg PO Q8H PRN pain #10 tabs 11/08/21 Allergies Allergy/AdvReac Type Severity Reaction Status Date / Time No Known Allergies Allergy Verified 08/16/22 10:40 [No Known Allergies*] Review of Systems Review of Systems: Constitutional: Denies chills and Denies fever(s) Eyes: Denies blurry vision and Denies diplopia ENT: Denies nasal congestion and Denies sore throat Cardiovascular: Denies chest pain, Denies syncope and Denies rapid heart rate Respiratory: Denies cough and Denies wheezing Gastrointestinal: Denies diarrhea, Denies nausea and Denies vomiting Genitourinary: No dysuria, frequency or urgency. Musculoskeletal: Denies back pain and Denies myalgias. Admits to polyarthralgia Neuro: Denies dizziness and Denies syncope Allergic/Immunologic: Denies wheezing, rash Neurologic: Denies Abnormal speech present [facility] Past Medical History Medical History Acute diverticulitis Acute duodenal ulcer with bleeding High cholesterol HTN (hypertension) NSTEMI (non-ST elevated myocardial infarction) UTI (urinary tract infection) Surgical History Status post exploratory laparotomy (~10/2020) Social History Social History Household Members: Family and Children Housing: Apartment Do you presently have visiting nurse or other home services: No Cigarette Packs Per Day: 1 Years Smoked: 55 Second Hand Smoke Exposure: No Advance Directives: No Advance Directives Information Provided: Yes Physical Exam Vital Signs: Vital Signs: Last Vital Signs Temp 97.8 F 08/16/22 15:34 Pulse 57 08/16/22 16:32 Resp 16 08/16/22 15:34 BP 200/85 H 08/16/22 16:32 Pulse Ox 98 08/16/22 16:32 O2 Del Method 08/16/22 15:34 BMI result Body Mass Index 23.1 Vital signs show only mild hypertension Const: General: cooperative, comfortable and no acute distress Nutritional Appearance: average body habitus Orientation/consciousness: patient oriented x3 HEENT: Head: Yes normal to inspection, Yes normocephalic and Yes atraumatic Ears: external ears normal General nose exam: Normal external nose present Eyes: Conjunctivae: conjunctivae normal Sclerae: sclerae normal Pupils: Equal, round and reactive pupils present EOM: EOMs intact bilaterally Neck: Neck: Yes normal visual inspection and Yes full ROM Chest: Chest palpation & inspection: normal inspection of the chest Resp: Effort & Inspection: normal respiratory effort and no cough Auscultation: clear to auscultation bilaterally Cardio: Rate: regular rate Rhythm: regular rhythm GI: Inspection: Yes normal to inspection Palpation (GI): nontender Back/Spine/Pelvis: Cervical Spine: normal cervical lordosis and cervical ROM normal Skin: General skin exam: no rashes or lesions noted Neuro: General: patient oriented x3 and CN's II-XI intact bilaterally Cranial nerves: Yes Equal, round and reactive pupils present Speech: No Abnormal speech present Extrem: Other: Small contusion noted on the inside of the right knee Medical Decision Making Medical Decision Making [facility] Narrative: Xray reviewed, no acute fracture. PT/CM consult for possible placement in short term rehab. Discussion of test interpretation with radiology: Discussion of test interpretation with radiology (My interpretation of the CT scan of the head is no acute hemorrhage or abnormality) Radiologist's interpretation of plain films and CT scan Left foot FINDINGS: Diffuse osteopenia but no fracture or destructive process. Alignment is preserved. 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 Vascular calcifications are present. CT scan of the head Discharge Plan Discharge Clinical Impression: Fall in elderly patient, Acute pain of left foot Prescriptions: No Action omeprazole 40 mg capsule,delayed release(DR/EC) 40 mg PO BID Qty: 60 1RF trazodone 50 mg tablet 1 tab PO BEDTIME simvastatin 40 mg tablet 1 tab PO BEDTIME losartan-hydrochlorothiazide 100-25 mg tablet 1 tab PO DAILY sertraline 50 mg tablet 1 tab PO DAILY oxycodone 5 mg capsule 5 mg PO Q4H PRN (Reason: pain) Qty: 26 0RF Rx Instructions: Take 1-2 capsules every 4-6 hours as needed for pain. acetaminophen [Tylenol 8 Hour] 650 mg tablet extended release 650 mg PO Q8H PRN (Reason: pain) Qty: 30 0RF (DME) walker Misc See Rx Instructions .ROUTE .MEDSUPPLY Qty: 1 0RF Rx Instructions: As needed oxycodone 5 mg tablet 2.5 mg PO Q8H PRN (Reason: pain) Qty: 10 0RF Rx Instructions: Narcotic may cause dizziness or drowsiness so use with caution doxycycline hyclate 100 mg capsule 100 mg PO BID 10 Days Qty: 20 0RF
[2022-08-16 15:34] VITALS: BP 200/85; PULSE 57; RESP 16; TEMP 36.6; O2SAT 98
--- OUTSIDE RECORDS SUMMARY | 2022-08-16 15:48 | XMS_ITS | Continuity of Care Document ---
:1945 Author Organization [facility] Address [address] [place] [id number] Care Team Providers Name Role Phone Remy LEUNG, Argelia Sanchez Primary Care Physician Encounter [facility] [place] Date(s): 01/26/20 - 01/26/[address] [address] Discharge Disposition: A-D/C Home Attending Physician: Alexandra Madden MD Admitting Physician: Alexandra Madden MD Referring Physician: Not on Staff, Referring MD Medications cephalexin monohydrate 250 mg oral capsule 1 capsule = 250 mg, By Mouth, 4 times a day, for 7 days, # 28 capsule, 0 Refills, Acute 02/02/20 20:56:00 EDT, 01/26/20 20:56:00 EDT, Capsule, [id number], 56, kg, 01/26/20 18:59:00 EDT, Dry Weight Start Date: 01/26/20 Stop Date: 02/02/20 Status: Ordered Results Radiology Reports Exam Date Time Procedure Performing Provider Status 01/26/20 7:20 PM Chest Portable Lizet Arriaga; Angely (Verified ) Notes:(Chest Portable) Reason For Exam: pt is PUI;AnginaRESULT: Chest Portable Chest Portable 01/26/2020 Reason: Angina; pt is PUI; Clinical Question(s): Pneumonia; Hx of Present Illness: Epigastric Pain COMPARISON: None. FINDINGS: LINES AND TUBES: None. LUNGS AND PLEURA: Clear lungs. Normal pulmonary vascularity. No pleural effusion. No pneumothorax. HEART, MEDIASTINUM AND GRETCHEN: Heart is normal in size. Normal mediastinal and hilar contour. BONES AND SOFT TISSUES: No acute abnormality. IMPRESSION: No acute abnormality. WSN: [id number] Ordering Physician: Romina Schmitz Dictated By: Angeline Davis MD, I Dictated Date/Time: 01/26/20 7:26 pm Reviewed By: Angeline Davis MD, I Signed By: Angeline Davis MD, I Signed Date/Time: 01/26/20 7:26 pm Transcribed By: ASHLEY Transcribed Date/Time: 01/26/20 7:26 pm Vital Signs Most recent to oldest 1 2 3 [Reference Range]: Weight 56 kg 56 kg 56 kg (01/26/20 9:10 PM) (01/26/20 6:59 PM) (01/26/20 6:2 1 PM) Oxygen Saturation [94-100 100 % 100 % %] (01/26/20 9:10 PM) (01/26/20 6:21 PM) Pulse Rate [55-90 bpm] 97 bpm 88 bpm *H* (01/26/20 6:21 PM) (01/26/20 9:10 PM) Blood Pressure 180/88 mm Hg 179/84 mm Hg [90-138/55-84 mm Hg] *H* *H* (01/26/20 9:10 PM) (01/26/20 6:21 PM) Respiratory Rate [16-30 20 br/min 24 br/min br/min] (01/26/20 9:10 PM) (01/26/20 6:21 PM) Temperature [96.8-100.4 98.0 DegF DegF] (01/26/20 6:21 PM) Mode of Delivery (Oxygen) Room air Room air (01/26/20 9:10 PM) (01/26/20 6:21 PM) Blood pressure sites Arm, right Arm, right (01/26/20 9:10 PM) (01/26/20 6:21 PM) Temperature Route Oral (01/26/20 6:21 PM) Dry Weight 56 kg 56 kg 56 kg (01/26/20 9:10 PM) (01/26/20 6:59 PM) (01/26/20 6:2 1 PM) Weight Obtained Via Patient/family stated (01/26/20 6:21 PM) Dry Weight Obtained Via Patient/family stated (01/26/20 6:21 PM)
[2022-08-16 16:32] VITALS: BP 200/85; PULSE 57; O2SAT 98
--- NOTE | 2022-08-16 17:57 | MHC.CM.ED ---
PT recommending Home w PT if 04/04 help available for patient. POP met with patient and daughter, Yuliya Cardoso ([phone]). Pt currently lives with daughter. Has a walker that she doesn't use, and has no services. Pt is currently scheduled to move in with her son in [place]. Son, Tien Cardoso, will pick patient up on Tuesday. Daughter is not interested in Home PT or STR, as patient is moving. Daughter is in school [employer] medical field representative school and has her practical experience at [facility] on [facility] in [place]. She is requesting a note from the provider, so she can stay home to care for her mother this week. Dr. Mejia met with patient and daughter. Will right school note for daughter. Both patient and daughter feel safe going home. POP reiterated with patient need for her to use her walker all of the time for safety and stability. RN aware of above. Pt to be d/c home.
== END 2022-08-16 17:26 | disposition home or self-care (01) ==
PROVIDERS: Student in an Organized Health Care Education/Training Program; Emergency Provider Emergency Medicine; PCP Internal Medicine
DX: M79.672 Pain in left foot (principal); R51.9 Headache, unspecified; R26.81 Unsteadiness on feet; Z20.822 Contact with and (suspected) exposure to COVID-19; Z79.899 Other long term (current) drug therapy
CPT/HCPCS: 70450; 73630; 87502; 87635; 93005; 97161; 99284

== ENCOUNTER 2022-09-29 10:04 | Outpatient (REF) | payer MEDICARE, SELFPAY ==
[2022-09-29 10:20] LABS: MANUAL DIFF FLAG NO
[2022-09-29 11:02] LABS: Basophils Absolute Auto 0.1 X10*3/uL (0.0-0.2); Eosinophils Absolute Auto 0.4 X10*3/uL (0.0-0.4); Eosinophils Percent Auto 5.7 % (0-4); Hemoglobin 13.3 g/dl (12.0-16.0); Imm Gran Abs Auto 0.02 X10*3/uL (0.00-0.03); Imm Gran Pct Auto 0.3 % (0.0-0.4); Lymphocytes Percent Auto 26.7 % (20-40); Mean Corpuscular HGB Conc 33.3 g/dl (31.0-35.0); Mean Corpuscular Hemoglobin 30.1 pg (27.0-33.0); Mean Corpuscular Volume 90.5 fL (80.0-98.0); Mean Platelet Volume 9.5 fL (9.4-12.3); Monocytes Absolute Auto 0.5 X10*3/uL (0.1-1.2); Monocytes Percent Auto 7.1 % (2-11); Neutrophils Absolute Auto 4.4 x10*3/uL (2.0-8.3); Neutrophils Percent Auto 59.2 % (45-73); Platelet Count 447 X10*3/uL (160-400); Red Blood Count 4.42 X10*6/uL (4.20-5.50); Red Cell Distribution Width 14.1 % (11.0-16.0); White Blood Count 7.4 X10*3/uL (4.8-10.8)
[2022-09-29 11:45] LABS: Alanine Aminotransferase 12 U/L (0-31); Albumin Level 4.3 g/dL (3.5-5.0); Alkaline Phosphatase 107 U/L (39-117); Anion Gap 15 (12-20); Aspartate Amino Transferase 16 U/L (5-31); Bilirubin Total 0.5 mg/dL (0.0-1.0); Blood Urea Nitrogen 16 mg/dL (9-16); Calcium 9.7 mg/dL (8.4-10.2); Carbon Dioxide 22 mmol/L (22-29); Chloride 107 mmol/L (96-108); Cholesterol 221 mg/dL; Estimated Glomerular Filt Rate 54; Glucose Random 107 mg/dL (60-115); HDL Cholesterol 38 mg/dL; LDL Cholesterol Calculated 142 mg/dl; Potassium 3.8 mmol/L (3.3-5.1); Sodium 140 mmol/L (135-145); Total Protein 6.9 g/dL (6.5-8.0); Triglycerides 205 mg/dL
[2022-09-29 12:07] LABS: Ferritin 30 ng/mL (10-250); Folate 5.9 ng/mL (> or = 4.0); TSH reflex Free T4 1.72 uIU/mL (0.32-4.0); Vitamin B12 690 pg/mL (200-900)
== END 2022-09-29 10:05 | disposition home or self-care (01) ==
LOC: HO.LAB 10:04
PROVIDERS: PCP Internal Medicine; Visit Provider Internal Medicine
DX: E78.00 Pure hypercholesterolemia, unspecified (principal); I10 Essential (primary) hypertension; R42 Dizziness and giddiness; R63.4 Abnormal weight loss; W19.XXXS Unspecified fall, sequela
CPT/HCPCS: 36415; 80053; 80061; 82607; 82728; 82746; 84443; 85025

== ENCOUNTER 2023-03-30 08:37 | Inpatient (IN) | payer OTHER, SELFPAY ==
[2023-03-30] VITALS (13 sets, daily range): BP systolic 122–222; BP diastolic 52–97; PULSE 72–92; RESP 14–220; TEMP 36.3–37.2; O2SAT 96–99; BMI 24.4; BMI 22.3
--- NOTE | 2023-03-30 | ECG_ITS ---
Test Reason : postop Blood Pressure : / mmHG Vent. Rate : 078 BPM Atrial Rate : 078 BPM P-R Int : 122 ms QRS Dur : 088 ms QT Int : 400 ms P-R-T Axes : -04 026 180 degrees QTc Int : 456 ms Normal sinus rhythm ST & T wave abnormality, consider lateral ischemia Abnormal ECG When compared with ECG of 16-AUG-2022 15:29, Nonspecific T wave abnormality, worse in Inferior leads T wave inversion now evident in Anterolateral leads Referred By: Zeny Dozier Electronically Signed By:Brandon Lozano
--- NOTE | ~2023-03-30 | CT_ITS ---
EXAMINATION: CT ABDOMEN AND PELVIS WITHOUT AND WITH CONTRAST CLINICAL INFORMATION: Acute lower GI bleed COMPARISON: CT abdomen pelvis 10/30/2020 TECHNIQUE: Multidetector volumetric imaging was performed from the superior aspect of the liver through the pubic symphysis both before as well as after the administration of intravenous contrast. 85 mL of Omnipaque 350 was used for the contrast-enhanced portion of the exam. A third set of scans were performed after a delay of 2 minutes to assess extravasation into the bowel. Sagittal and coronal reformatted images were obtained on the technologist's workstation. This CT examination was performed using dose optimization techniques as appropriate, variously including the following: *Automated exposure control *Adjustment of mA and/or kV according to patient size (this includes techniques or standardized protocols for targeted exams where dose is matched to indication/reason for exam; i.e. extremities or head) *Use of iterative reconstruction technique DLP: 1180 mGy-cm FINDINGS: LUNG BASES: The visualized lung bases are unremarkable. LIVER, GALLBLADDER, AND BILIARY TREE: The liver is normal in size and shape but with decreased attenuation suggesting hepatic steatosis. No focal hepatic lesion or biliary ductal dilatation is present. The gallbladder is unremarkable with no evidence of radiopaque gallstones, gallbladder wall thickening, or obvious pericholecystic inflammatory changes. PANCREAS: Unremarkable. SPLEEN: Unremarkable. ADRENAL GLANDS: Unremarkable. KIDNEYS AND URETERS: The kidneys are normal in size, shape, and attenuation. No hydronephrosis, hydroureter, or calculi seen. No perinephric stranding. BLADDER: Unremarkable. GASTROINTESTINAL TRACT: Unfortunately, on the noncontrast imaging, radiopaque material is present throughout the colon filling nearly every diverticulum and therefore assessment for GI bleeding is not really possible. No new or additional contrast is seen in the bowel lumen on the immediate contrast enhanced imaging as well as on the delayed imaging, but there is marked limitation because of the presence of contrast on the delayed imaging. If this patient is truly bleeding, recommend tagged red blood cell study for further assessment. As stated above, extensive diverticular changes are present throughout the colon. No evidence of bowel obstruction. The small and large bowel are otherwise unremarkable. The appendix is unremarkable. ABDOMINAL WALL: No significant hernia is appreciated. LYMPH NODES: No retroperitoneal lymphadenopathy. VASCULAR: Atherosclerotic changes without aneurysm. PELVIC VISCERA: The uterus and adnexa are unremarkable. OSSEOUS STRUCTURES: Degenerative changes are present in the spine. Mild compression fracture at T12. CT/CT gi bleed abd pel wo/w IVcon IMPRESSION: 1. Limited study for evaluation of GI bleeding at this dense material is present throughout the colon filling most of the diverticula prior to the injection of IV contrast. No evidence of active GI bleeding. Consider tagged radionuclide RBC study in this setting if available. 2. Extensive colonic diverticulosis without diverticulitis. 3. Hepatic steatosis. 4. Other incidental findings as described above. Fleischner guidelines were followed.
--- NOTE | 2023-03-30 08:48 | ED.GENADULT ---
HPI - General Adult General Chief complaint: GI Bleed Stated complaint: GI bleed x 1hr Per EMS Time Seen by Provider: 03/30/23 08:39 Source: patient and EMS Mode of arrival: EMS Limitations: no limitations History of Present Illness HPI narrative: This is a 77-year-old female history of GI bleeds, diverticulitis, diabetes, hypertension, hyperlipidemia, NSTEMI, presenting to the emergency department for acute lower GI bleeding that started this morning, patient has saturated through a few depends prior to arrival. Patient denies any associated pain. This has happened to her in the past. Patient does have a longstanding ibuprofen use history. Patient is not on anticoagulants. Denies chest pain, shortness of breath, palpitation, headache, vision changes, dizziness, weakness, nausea, vomiting, abdominal pain. Denies any recent trauma. Related Data Home Medications Medication Instructions Recorded Confirmed losartan 50 mg tablet 50 mg PO DAILY 03/30/23 03/30/23 meclizine 12.5 mg tablet 12.5 mg PO QID PRN Dizziness 03/30/23 03/30/23 mirtazapine 30 mg tablet 30 mg PO BEDTIME 03/30/23 03/30/23 rosuvastatin 20 mg tablet 20 mg PO BEDTIME 03/30/23 03/30/23 sertraline 50 mg tablet 50 mg PO DAILY 03/30/23 03/30/23 simvastatin 40 mg tablet 40 mg PO BEDTIME 03/30/23 03/30/23 Previous Rx's Medication Instructions Recorded walker #1 ea 11/06/20 Allergies Allergy/AdvReac Type Severity Reaction Status Date / Time No Known Allergies Allergy Verified 08/16/22 10:40 [No Known Allergies*] Review of Systems Review of Systems: Constitutional : No Weight loss, No Fever, No Chills, No Fatigue, No Malaise ENT/Mouth : No sore throat, No Rhinorrhea Eyes: No Eye Pain, No Swelling, No Redness Cardiovascular : No Chest Pain, No SOB, No Dyspnea on Exertion, No Orthopnea, No Edema, No Palpitations Respiratory : No Cough, No Sputum, No Wheezing Gastrointestinal : No Nausea, No Vomiting, No Diarrhea, No Constipation, No abdominal Pain, + Hematochezia, No Melena Genitourinary : No Dysuria, No Urinary Frequency, No Hematuria, Musculoskeletal : No joint pain, No Myalgias, No Joint Swelling Skin : No Skin Lesions, No rash Neuro : No Weakness, No Numbness, No Dizziness, No Headache Psych : No Anxiety/Panic, No Depression All other systems reviewed and are negative Yes all other systems are reviewed and are negative [facility] Past Medical History Attestation statement: The following information was validated with the patient. Source: old records reviewed and nursing notes reviewed Medical History Acute diverticulitis Acute duodenal ulcer with bleeding High cholesterol HTN (hypertension) NSTEMI (non-ST elevated myocardial infarction) UTI (urinary tract infection) Surgical History Status post exploratory laparotomy (~10/2020) Social History Social History Household Members: Family and Children Housing: Apartment Do you presently have visiting nurse or other home services: No Patient Tobacco Use Status: Never used Tobacco Cigarette Packs Per Day: 1 Years Smoked: 55 Second Hand Smoke Exposure: No Physical Exam ED Vital Signs: Vital Signs - 24 hr 03/30/23 08:44 03/30/23 08:45 Temperature 97.6 F Pulse Rate 87 85 Respiratory Rate 16 14 Blood Pressure 145/63 H 148/73 H Pulse Oximetry 98 96 Oxygen Delivery Method Room Air Room Air BMI result Body Mass Index 24.4 vss Appearance: Alert.? Oriented X3.? No acute distress.? Head: Normocephalic, atraumatic, no step-offs or deformities Eyes: Pupils equal, round and reactive to light.? Neck: Normal inspection.? Neck supple.? CVS: Normal heart rate and rhythm.? Pulses normal.? Respiratory: No respiratory distress.? Breath sounds normal.? Abdomen: Soft and nontender.? Skin: Skin warm and dry.? Normal skin color.? Normal skin turgor.? Extremities: No lower extremity edema.? No calf ttp. 5/5 strength to bilateral upper and lower extremities Neuro: Oriented X 3.? No motor deficit.? No sensory deficit. CN 2-12 intact Course Reevaluation(s) Reevaluation #1: CBC with slight leukocytosis and a normocytic anemia hemoglobin 10.2, hematocrit 31.7, repeat hemoglobin 9.2 hematocrit 29.7 consistent with acute blood loss, chemistry with elevated BUN, fluids ordered, no other abnormalities noted on chemistry. Normal lipase. Coags unremarkable. Guaiac-positive. CT abdomen and pelvis GI bleeding steady limited study secondary to dense material which is present throughout the colon filling most of the diverticula. No signs of active GI bleeding at this time. Extensive colonic diverticulosis without diverticulitis. Hepatic steatosis noted. Patient is being currently evaluated by GI who I called to evaluate patient, patient likely going for endoscopy to the operating room. Plan is for hospital admission. Time: 12:35 Reevaluation #2: I had to place an 18 gauge IV to patient's left AC under ultrasound guidance. Time: 12:37 Medications Administered Discontinued Medications Generic Name Dose Route Start Last Admin Trade Name Freq PRN Reason Stop Dose Admin Sodium Chloride 1,000 mls @ 999 mls/hr 03/30/23 09:00 03/30/23 13:57 Ns IV 03/30/23 10:00 Infused .Q1H1M LEOPOLDO Infusion Sodium Chloride 1,000 mls @ 999 mls/hr 03/30/23 09:00 03/30/23 13:57 Ns IV 03/30/23 10:00 Infused .Q1H1M LEOPOLDO Infusion Iohexol 80 ml 03/30/23 10:44 03/30/23 10:44 Iohexol 350 Mg/Ml 100 Ml Infus..Btl IV 03/30/23 10:45 80 ml ONCE ONE Administration Medical Decision Making Medical Decision Making [facility] Narrative: 0849 77-year-old female presents with bright red blood per rectum since this morning, no associated abdominal pain. Patient has had to change her depends multiple times today. Physical exam no abdominal tenderness to palpation. Regular rate and rhythm. Lungs clear. There is a large amount of bright red blood per rectum with small clots noted. Physical exam concerning for lower acute GI bleed, will rule out acute blood loss anemia, electrolyte abnormalities. Concerns for possible bleeding ulcer. At this time there is no signs of acute hemorrhagic shock. On chart review it appears as though patient had a similar presentation to this in 2020 where she was noted to have a bleeding duodenal ulcer, and developed subsequent hemorrhagic shock due to GI bleed and required an ICU level of care admission. Patient has a history of ibuprofen use. Plan at this time type and screen, GI bleeding steady, electrolytes, PT INR. Differential Diagnosis Differential Diagnoses: The differential diagnosis associated with the presentation includes Physical exam concerning for lower acute GI bleed, will rule out acute blood loss anemia, electrolyte abnormalities. Concerns for possible bleeding ulcer. Admission/Observation Consideration of admission/observation: Escalation of care including admission/observation considered Consult Healthcare Provider Management of the patient was discussed with: Hospitalist Lab Data MDM Lab Attestation statement: I reviewed the patient's lab results. 03/30/23 09:28 03/30/23 09:28 Labs: Lab Results 03/30/23 03/30/23 03/30/23 Range/Units 08:55 09:28 09:28 WBC 13.5 H (4.8-10.8) X10*3/uL RBC 3.45 L D (4.20-5.50) X10*6/uL Hgb 10.2 L D (12.0-16.0) g/dl Hct 31.7 L D (37.0-47.0) % MCV 91.9 (80.0-98.0) fL MCH 29.6 (27.0-33.0) pg MCHC 32.2 (31.0-35.0) g/dl RDW 15.1 (11.0-16.0) % Plt Count 473 H (160-400) X10*3/uL MPV 9.4 (9.4-12.3) fL Immature Gran % (Auto) 0.8 H (0.0-0.4) % Neut % (Auto) 85.2 H (45-73) % Lymph % (Auto) 10.7 L (20-40) % [place] % (Auto) 3.0 (2-11) % Eos % (Auto) 0.0 (0-4) % Baso % (Auto) 0.3 (0-2) % Lymph # (Auto) 1.4 (1.2-4.9) X10*3/uL [place] # (Auto) 0.4 (0.1-1.2) X10*3/uL Eos # (Auto) 0.0 (0.0-0.4) X10*3/uL Baso # (Auto) 0.0 (0.0-0.2) X10*3/uL Abs Immat Gran (auto) 0.11 H (0.00-0.03) X10*3/uL Absolute Neuts (auto) 11.5 H (2.0-8.3) x10*3/uL Absolute Nucleated RBC 0.000 (0.0-0.012) X10*3/uL Nucleated RBC % (auto) 0.0 (0.0-0.2) /100WBC PT 11.4 (10.0-13.1) SEC INR 1.0 (0.9-1.1) Sodium (135-145) mmol/L Potassium (3.3-5.1) mmol/L Chloride (96-108) mmol/L Carbon Dioxide (22-29) mmol/L Anion Gap (12-20) BUN (9-16) mg/dL Creatinine (0.5-1.4) mg/dL Estim Creat Clear Calc Estimated GFR Random Glucose (60-115) mg/dL Calcium (8.4-10.2) mg/dL Magnesium (1.6-2.6) mg/dL Total Bilirubin (0.0-1.0) mg/dL AST (5-31) U/L ALT (0-31) U/L Alkaline Phosphatase (39-117) U/L Total Protein (6.5-8.0) g/dL Albumin (3.5-5.0) g/dL Lipase (8-78) U/L Stool Occult Blood POSITIVE (NEGATIVE) Blood Type Antibody Screen Antibody Identification Antigen Identification Crossmatch Crossmatch ([facility]) Blood Bank Comment 03/30/23 03/30/23 03/30/23 Range/Units 09:28 09:28 09:28 WBC (4.8-10.8) X10*3/uL RBC (4.20-5.50) X10*6/uL Hgb (12.0-16.0) g/dl Hct (37.0-47.0) % MCV (80.0-98.0) fL MCH (27.0-33.0) pg MCHC (31.0-35.0) g/dl RDW (11.0-16.0) % Plt Count (160-400) X10*3/uL MPV (9.4-12.3) fL Immature Gran % (Auto) (0.0-0.4) % Neut % (Auto) (45-73) % Lymph % (Auto) (20-40) % [place] % (Auto) (2-11) % Eos % (Auto) (0-4) % Baso % (Auto) (0-2) % Lymph # (Auto) (1.2-4.9) X10*3/uL [place] # (Auto) (0.1-1.2) X10*3/uL Eos # (Auto) (0.0-0.4) X10*3/uL Baso # (Auto) (0.0-0.2) X10*3/uL Abs Immat Gran (auto) (0.00-0.03) X10*3/uL Absolute Neuts (auto) (2.0-8.3) x10*3/uL Absolute Nucleated RBC (0.0-0.012) X10*3/uL Nucleated RBC % (auto) (0.0-0.2) /100WBC PT (10.0-13.1) SEC INR (0.9-1.1) Sodium 138 (135-145) mmol/L Potassium 5.1 D (3.3-5.1) mmol/L Chloride 109 H (96-108) mmol/L Carbon Dioxide 17 L (22-29) mmol/L Anion Gap 17 (12-20) BUN 31 H (9-16) mg/dL Creatinine 1.19 (0.5-1.4) mg/dL Estim Creat Clear Calc 33.1 Estimated GFR 44 Random Glucose 240 H (60-115) mg/dL Calcium 9.1 D (8.4-10.2) mg/dL Magnesium 2.2 (1.6-2.6) mg/dL Total Bilirubin 0.3 (0.0-1.0) mg/dL AST 30 (5-31) U/L ALT 20 (0-31) U/L Alkaline Phosphatase 74 (39-117) U/L Total Protein 6.9 (6.5-8.0) g/dL Albumin 3.7 (3.5-5.0) g/dL Lipase 8 (8-78) U/L Stool Occult Blood (NEGATIVE) Blood Type O Positive Antibody Screen POSITIVE Antibody Identification Anti-Fya Antigen Identification Fya Antigen - NEGATIVE Crossmatch See Detail Crossmatch ([facility]) See Detail Blood Bank Comment Technical 03/30/23 Range/Units 12:17 WBC 17.2 H (4.8-10.8) X10*3/uL RBC 3.10 L (4.20-5.50) X10*6/uL Hgb 9.2 L (12.0-16.0) g/dl Hct 29.7 L (37.0-47.0) % MCV 95.8 (80.0-98.0) fL MCH 29.7 (27.0-33.0) pg MCHC 31.0 (31.0-35.0) g/dl RDW 15.5 (11.0-16.0) % Plt Count 408 H (160-400) X10*3/uL MPV 9.4 (9.4-12.3) fL Immature Gran % (Auto) 0.9 H (0.0-0.4) % Neut % (Auto) 84.8 H (45-73) % Lymph % (Auto) 9.9 L (20-40) % [place] % (Auto) 4.1 (2-11) % Eos % (Auto) 0.1 (0-4) % Baso % (Auto) 0.2 (0-2) % Lymph # (Auto) 1.7 (1.2-4.9) X10*3/uL [place] # (Auto) 0.7 (0.1-1.2) X10*3/uL Eos # (Auto) 0.0 (0.0-0.4) X10*3/uL Baso # (Auto) 0.0 (0.0-0.2) X10*3/uL Abs Immat Gran (auto) 0.15 H (0.00-0.03) X10*3/uL Absolute Neuts (auto) 14.6 H (2.0-8.3) x10*3/uL Absolute Nucleated RBC 0.000 (0.0-0.012) X10*3/uL Nucleated RBC % (auto) 0.0 (0.0-0.2) /100WBC PT (10.0-13.1) SEC INR (0.9-1.1) Sodium (135-145) mmol/L Potassium (3.3-5.1) mmol/L Chloride (96-108) mmol/L Carbon Dioxide (22-29) mmol/L Anion Gap (12-20) BUN (9-16) mg/dL Creatinine (0.5-1.4) mg/dL Estim Creat Clear Calc Estimated GFR Random Glucose (60-115) mg/dL Calcium (8.4-10.2) mg/dL Magnesium (1.6-2.6) mg/dL Total Bilirubin (0.0-1.0) mg/dL AST (5-31) U/L ALT (0-31) U/L Alkaline Phosphatase (39-117) U/L Total Protein (6.5-8.0) g/dL Albumin (3.5-5.0) g/dL Lipase (8-78) U/L Stool Occult Blood (NEGATIVE) Blood Type Antibody Screen Antibody Identification Antigen Identification Crossmatch Crossmatch ([facility]) Blood Bank Comment Independent Interpretation I performed an independent interpretation of an: CT Scan (CT/CT gi bleed abd pel wo/w IVcon IMPRESSION: 1. Limited study for evaluation of GI bleeding at this dense material is present throughout the colon filling most of the diverticula prior to the injection of IV contrast. No evidence of active GI bleeding. Consider tagged radionuclide RBC study in thi) Radiology Impression Discussion of test interpretation with radiology: I have reviewed the radiologist's reading. Core Measures AMI core measures followed: Yes Measure exclusions: not indicated Critical Care Time Critical Care Time Critical Care Time: Yes Total Critical Care Time: 60 Attestation: I attest to this time spent taking care of the patient, obtaining history, physical, reviewing labs, imaging, speaking to my attending, speaking to specialist. Discharge Plan Discharge Clinical Impression: Acute lower gastrointestinal bleeding Interventions: Admission Worksheet (ED) Last Done: 03/30/23 13:56
[2023-03-30 09:28] LABS: OBS Int Ctl Valid YES; OBS1 POSITIVE (NEGATIVE)
[2023-03-30 09:35] LABS: Basophils Percent Auto 0.3 % (0-2); Hematocrit 31.7 % (37.0-47.0); Hemoglobin 10.2 g/dl (12.0-16.0); Imm Gran Abs Auto 0.11 X10*3/uL (0.00-0.03); Imm Gran Pct Auto 0.8 % (0.0-0.4); Lymphocytes Absolute Auto 1.4 X10*3/uL (1.2-4.9); Lymphocytes Percent Auto 10.7 % (20-40); MANUAL DIFF FLAG NO; Mean Corpuscular HGB Conc 32.2 g/dl (31.0-35.0); Mean Corpuscular Hemoglobin 29.6 pg (27.0-33.0); Mean Corpuscular Volume 91.9 fL (80.0-98.0); Mean Platelet Volume 9.4 fL (9.4-12.3); Monocytes Absolute Auto 0.4 X10*3/uL (0.1-1.2); Neutrophils Absolute Auto 11.5 x10*3/uL (2.0-8.3); Neutrophils Percent Auto 85.2 % (45-73); Platelet Count 473 X10*3/uL (160-400); Red Blood Count 3.45 X10*6/uL (4.20-5.50); Red Cell Distribution Width 15.1 % (11.0-16.0); White Blood Count 13.5 X10*3/uL (4.8-10.8)
--- NOTE | 2023-03-30 09:35 | PC.NURSE ---
IVs placed, labs drawn, OBS sent to lab. pt resting quietly with family at bedside. no complaints at this time. rr even/unlabored. wctm
[2023-03-30 09:40] LABS: Prothrombin Time 11.4 SEC (10.0-13.1)
[2023-03-30] MEDS: 0.9 % Sodium Chloride 1,000 ML 999 ML IV ×2 (09:44→09:45)
--- NOTE | 2023-03-30 09:45 | PC.NURSE ---
TOYA Lawson placed ultrasound guided 18G IV to pt R forearm. pt tolerated well
[2023-03-30 09:46] LABS: Lipase 8 U/L (8-78)
[2023-03-30 09:51] LABS: Alanine Aminotransferase 20 U/L (0-31); Albumin Level 3.7 g/dL (3.5-5.0); Alkaline Phosphatase 74 U/L (39-117); Anion Gap 17 (12-20); Aspartate Amino Transferase 30 U/L (5-31); Bilirubin Total 0.3 mg/dL (0.0-1.0); Blood Urea Nitrogen 31 mg/dL (9-16); Calcium 9.1 mg/dL (8.4-10.2); Carbon Dioxide 17 mmol/L (22-29); Chloride 109 mmol/L (96-108); Creatinine Clr Calc Pharmacy 33.1; Estimated Glomerular Filt Rate 44; Glucose Random 240 mg/dL (60-115); Magnesium 2.2 mg/dL (1.6-2.6); Potassium 5.1 mmol/L (3.3-5.1); Sodium 138 mmol/L (135-145); Total Protein 6.9 g/dL (6.5-8.0)
--- NOTE | 2023-03-30 10:30 | PC.NURSE ---
18G IV infiltrated. pt given heat pack. TOYA Lawson placed 18G in LAC via ultrasound. pt tolerated well. fluids running. pt currently at CT scan
[2023-03-30] MEDS: iohexoL 350 MG/ML 100 ML INFUS..BTL 80 ML IV (10:44)
[2023-03-30 12:21] LABS: MANUAL DIFF FLAG NO
[2023-03-30 12:23] LABS: Basophils Percent Auto 0.2 % (0-2); Eosinophils Percent Auto 0.1 % (0-4); Hematocrit 29.7 % (37.0-47.0); Hemoglobin 9.2 g/dl (12.0-16.0); Imm Gran Abs Auto 0.15 X10*3/uL (0.00-0.03); Imm Gran Pct Auto 0.9 % (0.0-0.4); Lymphocytes Absolute Auto 1.7 X10*3/uL (1.2-4.9); Lymphocytes Percent Auto 9.9 % (20-40); Mean Corpuscular Hemoglobin 29.7 pg (27.0-33.0); Mean Corpuscular Volume 95.8 fL (80.0-98.0); Mean Platelet Volume 9.4 fL (9.4-12.3); Monocytes Absolute Auto 0.7 X10*3/uL (0.1-1.2); Monocytes Percent Auto 4.1 % (2-11); Neutrophils Absolute Auto 14.6 x10*3/uL (2.0-8.3); Neutrophils Percent Auto 84.8 % (45-73); Platelet Count 408 X10*3/uL (160-400); Red Cell Distribution Width 15.5 % (11.0-16.0); White Blood Count 17.2 X10*3/uL (4.8-10.8)
--- NOTE | 2023-03-30 12:47 | P.HPHOSP_ITS ---
History of Present Illness Date of Service: 03/30/23 Chief Complaint: brbpr 77F PMH htn, hld, DM, depression, anxiety, peptic ulcer disease presented with brbpr. patient reports 1 days multiple episodes of brbpr without pain, lightheadedness. uses nsaids, not on AC. in ED hgb 9.2, down from 13.[address] abd limited showed divertulosis, hepatic steatosis. Review of Systems Review of Systems: Yes all other systems are reviewed and are negative [facility] Medical History Acute diverticulitis Acute duodenal ulcer with bleeding High cholesterol HTN (hypertension) NSTEMI (non-ST elevated myocardial infarction) UTI (urinary tract infection) Surgical History Status post exploratory laparotomy (~10/2020) Social History Household Members: Family and Children Housing: Apartment Do you presently have visiting nurse or other home services: No Cigarette Packs Per Day: 1 Years Smoked: 55 Smoked in Last 30 Days: No Second Hand Smoke Exposure: No Use of substances other than those prescribed or required for medical reasons: No Advance Directives: No Advance Directives Information Provided: Yes Meds Allergies Allergy/AdvReac Type Severity Reaction Status Date / Time No Known Allergies Allergy Verified 08/16/22 10:40 [No Known Allergies*] Active Medications: Current Medications Pharmacy Consult (Consult Rx Perform Med Rec) 1 each MISCELLANE ONCE PRN PRN Reason: Consult order Home Medications Medication Instructions Recorded Confirmed Last Taken Type losartan 100 1 tab PO DAILY 10/26/20 12/23/20 10/29/20 History mg-hydrochlorothiazide 25 mg tablet sertraline 50 mg tablet 1 tab PO DAILY 10/26/20 12/23/20 10/29/20 History simvastatin 40 mg tablet 1 tab PO BEDTIME 10/26/20 12/23/20 10/29/20 History trazodone 50 mg tablet 1 tab PO BEDTIME 10/26/20 12/23/20 10/29/20 History Physical Exam Vital Signs and Narrative: Vital Signs: Last Vital Signs Temp 97.6 F 03/30/23 08:45 Pulse 85 03/30/23 08:45 Resp 14 03/30/23 08:45 BP 148/73 H 03/30/23 08:45 Pulse Ox 96 03/30/23 08:45 O2 Del Method Room Air 03/30/23 08:45 BMI result Body Mass Index 24.4 General: AO X 3, no acute distress Resp: CTA bilateral, no accessory muscles used CVS: S1,S2,RRR GI: soft, non tender, non distended Neuro: motor grossly intact, alert Psych: appropriate affect, appropriate insight Results Labs 03/30/23 12:17 03/30/23 09:28 Labs: Laboratory Results - last 24 hr 03/30/23 03/30/23 03/30/23 08:55 09:28 09:28 MCV 91.9 MCH 29.6 MCHC 32.2 RDW 15.1 Plt Count 473 H MPV 9.4 Immature Gran % (Auto) 0.8 H Neut % (Auto) 85.2 H Lymph % (Auto) 10.7 L [place] % (Auto) 3.0 Eos % (Auto) 0.0 Baso % (Auto) 0.3 Lymph # (Auto) 1.4 [place] # (Auto) 0.4 Eos # (Auto) 0.0 Baso # (Auto) 0.0 Abs Immat Gran (auto) 0.11 H Absolute Neuts (auto) 11.5 H Absolute Nucleated RBC 0.000 Nucleated RBC % (auto) 0.0 PT 11.4 INR 1.0 Anion Gap Estim Creat Clear Calc Estimated GFR Random Glucose Calcium Magnesium Total Bilirubin AST ALT Alkaline Phosphatase Total Protein Albumin Lipase Stool Occult Blood POSITIVE Blood Type Antibody Screen Antibody Identification Crossmatch Blood Bank Comment 03/30/23 03/30/23 03/30/23 09:28 09:28 09:28 MCV MCH MCHC RDW Plt Count MPV Immature Gran % (Auto) Neut % (Auto) Lymph % (Auto) [place] % (Auto) Eos % (Auto) Baso % (Auto) Lymph # (Auto) [place] # (Auto) Eos # (Auto) Baso # (Auto) Abs Immat Gran (auto) Absolute Neuts (auto) Absolute Nucleated RBC Nucleated RBC % (auto) PT INR Anion Gap 17 Estim Creat Clear Calc 33.1 Estimated GFR 44 Random Glucose 240 H Calcium 9.1 D Magnesium 2.2 Total Bilirubin 0.3 AST 30 ALT 20 Alkaline Phosphatase 74 Total Protein 6.9 Albumin 3.7 Lipase 8 Stool Occult Blood Blood Type O Positive Antibody Screen POSITIVE Antibody Identification Anti-Fya Crossmatch See Detail Blood Bank Comment Technical 03/30/23 12:17 MCV 95.8 MCH 29.7 MCHC 31.0 RDW 15.5 Plt Count 408 H MPV 9.4 Immature Gran % (Auto) 0.9 H Neut % (Auto) 84.8 H Lymph % (Auto) 9.9 L [place] % (Auto) 4.1 Eos % (Auto) 0.1 Baso % (Auto) 0.2 Lymph # (Auto) 1.7 [place] # (Auto) 0.7 Eos # (Auto) 0.0 Baso # (Auto) 0.0 Abs Immat Gran (auto) 0.15 H Absolute Neuts (auto) 14.6 H Absolute Nucleated RBC 0.000 Nucleated RBC % (auto) 0.0 PT INR Anion Gap Estim Creat Clear Calc Estimated GFR Random Glucose Calcium Magnesium Total Bilirubin AST ALT Alkaline Phosphatase Total Protein Albumin Lipase Stool Occult Blood Blood Type Antibody Screen Antibody Identification Crossmatch Blood Bank Comment Imaging Radiologist's Impressions: Impressions Abdomen/Pelvis CT 03/30/23 10:45 IMPRESSION: 1. Limited study for evaluation of GI bleeding at this dense material is present throughout the colon filling most of the diverticula prior to the injection of IV contrast. No evidence of active GI bleeding. Consider tagged radionuclide RBC study in this setting if available. 2. Extensive colonic diverticulosis without diverticulitis. 3. Hepatic steatosis. 4. Other incidental findings as described above. Fleischner guidelines were followed. Assessment and Plan (1) Acute lower gastrointestinal bleeding: Status: Acute Plan 77F PMH htn, hld, DM, depression, anxiety, peptic ulcer disease presented with brbpr acute blood loss anemia given history of severe bleed from duodenal ulcer, plan for EGD today iv ppi, monitor cbc if negative will need nuclear scan DM insulin sliding scale htn will hold meds with active bleed dvt prophylaxis - mechanical due to bleed full code pateint with significant gi bleed causing acute drop in hgb, expeceted to require atleast 2 midnights inpatient. Time Spent With Patient Time: Total time managing care of this patient today ____ minutes. Quality Stroke Does the patient have a stroke diagnosis?: No VTE Prior VTE?: No VTE Risk Level:: Medical - moderate - high VTE Device Contraindication: N/A - Device Ordered VTE Drug Contraindication: Treatment Not Tolerated
--- NOTE | 2023-03-30 13:16 | PHA.MEDREC ---
Pharmacy Consult ? Medication Reconciliation Pharmacy has completed the medication reconciliation. Patient had medications with her in a bag
--- NOTE | 2023-03-30 13:50 | PC.NURSE ---
this rn attempted to place NG tube which pt did not tolerate well. surgeon aware and stated that pt does not need NG tube anymore.
[2023-03-30 13:52] LABS: Appearance Urine Clear; Color Urine Yellow; Glucose Urine UA Negative (Negative); Leukocyte Esterase Urine Small (1+) (Negative); Nitrite Urine Negative (Negative); PH 5.5 (5.0-9.0); Specific Gravity - Urine >= 1.030 (1.005-1.025); UMIC TRIGGER UACC YES; Urine Blood Large (3+) (Negative); Urine Ketones Negative (Negative); Urine Protein Trace mg/dL (Neg-Trace)
[2023-03-30 13:57] LABS: Bacteria Urine Trace (None Seen); Hyaline Casts Urine 0-2 /LPF (0-2); Squamous Epithelial Cell Urine 0-2 /HPF (0-2); UACC Culture Trigger YES; WBC Urine 21-50 /HPF (0-5)
--- NOTE | 2023-03-30 14:48 | PC.NURSE ---
spoke to ed rn sts patient did not receive blood
--- NOTE | 2023-03-30 14:49 | PC.NURSE ---
spoke to santino from blood bank blood was not picked up for patient. pt has a 22 no consent found for blood. will attempt a 20 gauge pt aware careplan
--- NOTE | 2023-03-30 14:58 | HO.ANESPROP2 ---
HPI - Anesthesia Eval Consult details Narrative: for upper endo to rule out bleed. [facility] Active Problems Active Problems: All Active Problems (Updated 03/30/23 @ 12:38 by TOYA Quevedo) Acute lower gastrointestinal bleeding (Acute) NSTEMI (non-ST elevated myocardial infarction) (Acute) Status post exploratory laparotomy (Acute ~10/2020) Hemorrhagic shock (Acute) Acute duodenal ulcer with bleeding (Acute) GI bleed (Acute) Hypertension (Acute) Hyperlipidemia (Acute) Diabetes (Acute) Insomnia (Acute) Diverticulosis (Acute) Anxiety reaction (Acute) Acute gastrointestinal bleeding (Acute) Anemia (Acute) Elevated troponin (Acute) Past Medical History Medical History Acute diverticulitis Acute duodenal ulcer with bleeding High cholesterol HTN (hypertension) NSTEMI (non-ST elevated myocardial infarction) UTI (urinary tract infection) Family History Family history of problems with anesthesia: No Surgical History Surgical History Status post exploratory laparotomy (~10/2020) History of Problems with Anesthesia: Yes Social History Social History Household Members: Family and Children Housing: Apartment Do you presently have visiting nurse or other home services: No Patient Tobacco Use Status: Never used Tobacco Cigarette Packs Per Day: 1 Years Smoked: 55 Second Hand Smoke Exposure: No Meds Allergies Allergy/AdvReac Type Severity Reaction Status Date / Time No Known Allergies Allergy Verified 08/16/22 10:40 [No Known Allergies*] Active Medications: Current Medications Dextrose (Dextrose 50 % 25 Gm/50 Ml Syringe) 25 gm IVPUSH Q15M PRN; Protocol PRN Reason: per Hypoglycemia Standing Ord. Glucose (Glucose Gel 15 Gm Gel..Gram.) 15 gm PO Q15M PRN; Protocol PRN Reason: per Hypoglycemia Standing Ord. Insulin Human Lispro (Insulin Lispro 100 Unit/Ml 3 Ml Vial) 0 unit SUBCUT QIDACHS [facility]; Protocol Pantoprazole Sodium (Pantoprazole Sodium 40 Mg/10 Ml Vial) 40 mg IVPUSH BID@0630,1630 [facility] Pharmacy Consult (Consult Rx Perform Med Rec) 1 each MISCELLANE ONCE PRN PRN Reason: Consult order Sodium Chloride (0.9 % Sodium Chloride Flush 3 Ml Syringe) 3 ml IVFLUSH QSHIFT [facility] Home Medications Medication Instructions Recorded Confirmed Last Taken Type losartan 50 mg tablet 50 mg PO DAILY 03/30/23 03/30/23 Unknown History meclizine 12.5 mg tablet 12.5 mg PO QID PRN Dizziness 03/30/23 03/30/23 Unknown History mirtazapine 30 mg tablet 30 mg PO BEDTIME 03/30/23 03/30/23 Unknown History rosuvastatin 20 mg tablet 20 mg PO BEDTIME 03/30/23 03/30/23 Unknown History sertraline 50 mg tablet 50 mg PO DAILY 03/30/23 03/30/23 Unknown History simvastatin 40 mg tablet 40 mg PO BEDTIME 03/30/23 03/30/23 Unknown History Exam Exam Date and Time: March 30, 2023 1458 Height,Weight and Vital Signs: Height 5 ft 4 in Weight 58.967 kg Last Vital Signs Temp 98 F 03/30/23 14:33 Pulse 80 03/30/23 14:33 Resp 20 03/30/23 14:33 BP 186/83 H 03/30/23 14:33 Pulse Ox 96 03/30/23 14:33 O2 Del Method Room Air 03/30/23 14:33 Pertinent Lab Results Pertinent Lab Results: Laboratory Tests 03/30/23 03/30/23 03/30/23 08:55 09:28 09:28 WBC 13.5 H RBC 3.45 L D Hgb 10.2 L D Hct 31.7 L D MCV 91.9 MCH 29.6 MCHC 32.2 RDW 15.1 Plt Count 473 H MPV 9.4 Immature Gran % (Auto) 0.8 H Neut % (Auto) 85.2 H Lymph % (Auto) 10.7 L [place] % (Auto) 3.0 Eos % (Auto) 0.0 Baso % (Auto) 0.3 Lymph # (Auto) 1.4 [place] # (Auto) 0.4 Eos # (Auto) 0.0 Baso # (Auto) 0.0 Abs Immat Gran (auto) 0.11 H Absolute Neuts (auto) 11.5 H Absolute Nucleated RBC 0.000 Nucleated RBC % (auto) 0.0 PT 11.4 INR 1.0 Sodium Potassium Chloride Carbon Dioxide Anion Gap BUN Creatinine Estim Creat Clear Calc Estimated GFR Random Glucose Calcium Magnesium Total Bilirubin AST ALT Alkaline Phosphatase Total Protein Albumin Lipase Urine Color Urine Appearance Urine pH Ur Specific [place] Urine Protein Urine Glucose (UA) Urine Ketones Urine Blood Urine Nitrite Ur Leukocyte Esterase Urine RBC Urine WBC Ur Squamous Epith Cells Urine Bacteria Hyaline Casts Stool Occult Blood POSITIVE Blood Type Antibody Screen Antibody Identification Antigen Identification Crossmatch Crossmatch ([facility]) Blood Bank Comment 03/30/23 03/30/23 03/30/23 09:28 09:28 09:28 WBC RBC Hgb Hct MCV MCH MCHC RDW Plt Count MPV Immature Gran % (Auto) Neut % (Auto) Lymph % (Auto) [place] % (Auto) Eos % (Auto) Baso % (Auto) Lymph # (Auto) [place] # (Auto) Eos # (Auto) Baso # (Auto) Abs Immat Gran (auto) Absolute Neuts (auto) Absolute Nucleated RBC Nucleated RBC % (auto) PT INR Sodium 138 Potassium 5.1 D Chloride 109 H Carbon Dioxide 17 L Anion Gap 17 BUN 31 H Creatinine 1.19 Estim Creat Clear Calc 33.1 Estimated GFR 44 Random Glucose 240 H Calcium 9.1 D Magnesium 2.2 Total Bilirubin 0.3 AST 30 ALT 20 Alkaline Phosphatase 74 Total Protein 6.9 Albumin 3.7 Lipase 8 Urine Color Urine Appearance Urine pH Ur Specific [place] Urine Protein Urine Glucose (UA) Urine Ketones Urine Blood Urine Nitrite Ur Leukocyte Esterase Urine RBC Urine WBC Ur Squamous Epith Cells Urine Bacteria Hyaline Casts Stool Occult Blood Blood Type O Positive Antibody Screen POSITIVE Antibody Identification Anti-Fya Antigen Identification Fya Antigen - NEGATIVE Crossmatch See Detail Crossmatch ([facility]) See Detail Blood Bank Comment Technical 03/30/23 03/30/23 12:17 13:46 WBC 17.2 H RBC 3.10 L Hgb 9.2 L Hct 29.7 L MCV 95.8 MCH 29.7 MCHC 31.0 RDW 15.5 Plt Count 408 H MPV 9.4 Immature Gran % (Auto) 0.9 H Neut % (Auto) 84.8 H Lymph % (Auto) 9.9 L [place] % (Auto) 4.1 Eos % (Auto) 0.1 Baso % (Auto) 0.2 Lymph # (Auto) 1.7 [place] # (Auto) 0.7 Eos # (Auto) 0.0 Baso # (Auto) 0.0 Abs Immat Gran (auto) 0.15 H Absolute Neuts (auto) 14.6 H Absolute Nucleated RBC 0.000 Nucleated RBC % (auto) 0.0 PT INR Sodium Potassium Chloride Carbon Dioxide Anion Gap BUN Creatinine Estim Creat Clear Calc Estimated GFR Random Glucose Calcium Magnesium Total Bilirubin AST ALT Alkaline Phosphatase Total Protein Albumin Lipase Urine Color Yellow Urine Appearance Clear Urine pH 5.5 Ur Specific [place] >= 1.030 H Urine Protein Trace Urine Glucose (UA) Negative Urine Ketones Negative Urine Blood Large (3+) H Urine Nitrite Negative Ur Leukocyte Esterase Small (1+) H Urine RBC 11-20 H Urine WBC 21-50 H Ur Squamous Epith Cells 0-2 Urine Bacteria Trace Hyaline Casts 0-2 Stool Occult Blood Blood Type Antibody Screen Antibody Identification Antigen Identification Crossmatch Crossmatch ([facility]) Blood Bank Comment Airway Heart: rrr Lungs: cta Other: er note says i.v placed and prbc given, in pre op no i.v seen , pt states i.v not placed no prbc given. Assessment and Plan Assessment Anesthesia Assessment: Anesthesia Plan Discussed and Chart Reviewed Final Anesthetic Review Family History of Problems with Anesthesia: No History of Problems with Anesthesia: Yes NPO: Yes ASA Class: III and Emergency Final Preanesthetic Review: No Changes in Pt Med Stat, Meds/Allgs Chart Reviewed, Consent Obtained/Reviewed and Anes Risks/Benef Reviewed Patient Risk: Intermediate Procedure Risk: Low Anesthetic Plan Anesthetic Plan: MAC: Disposition: Standard PACU
--- NOTE | 2023-03-30 15:14 | PC.NURSE ---
pt will receive 1 unit of prbc after procedure
--- NOTE | 2023-03-30 15:51 | PM.EVENT ---
Event Note Date of Service: 03/30/23 Event Note: EGD dictated 1x15mm ulcer in duodenum at jctn of bulb and 2nd portion on anterior wall with clot but no active bleeding. No therapy performed. She had tachycardia to 120-130 during the procedure. Rec: pantoprazole infusion follow hct surgical consult consider repeat EGD if rebleeds Time Spent With Patient Time: Total time managing care of this patient today ____ minutes.
--- NOTE | 2023-03-30 15:59 | P.CONAN_ITS ---
HPI - Anesthesia Eval Consult details Narrative: 77 yo with ho ugi bleed presents to Er with hgb of 9 and brb per rectum for upper endoscopy [facility] Active Problems Active Problems: All Active Problems (Updated 03/30/23 @ 12:38 by TOYA Quevedo) Acute lower gastrointestinal bleeding (Acute) NSTEMI (non-ST elevated myocardial infarction) (Acute) Status post exploratory laparotomy (Acute ~10/2020) Hemorrhagic shock (Acute) Acute duodenal ulcer with bleeding (Acute) GI bleed (Acute) Hypertension (Acute) Hyperlipidemia (Acute) Diabetes (Acute) Insomnia (Acute) Diverticulosis (Acute) Anxiety reaction (Acute) Acute gastrointestinal bleeding (Acute) Anemia (Acute) Elevated troponin (Acute) Past Medical History Medical History Acute diverticulitis Acute duodenal ulcer with bleeding High cholesterol HTN (hypertension) NSTEMI (non-ST elevated myocardial infarction) UTI (urinary tract infection) Family History Family history of problems with anesthesia: No Surgical History Surgical History Status post exploratory laparotomy (~10/2020) History of Problems with Anesthesia: Yes Social History Social History Household Members: Family and Children Housing: Apartment Do you presently have visiting nurse or other home services: No Patient Tobacco Use Status: Never used Tobacco Cigarette Packs Per Day: 1 Years Smoked: 55 Second Hand Smoke Exposure: No Meds Allergies Allergy/AdvReac Type Severity Reaction Status Date / Time No Known Allergies Allergy Verified 08/16/22 10:40 [No Known Allergies*] Active Medications: Current Medications Dextrose (Dextrose 50 % 25 Gm/50 Ml Syringe) 25 gm IVPUSH Q15M PRN; Protocol PRN Reason: per Hypoglycemia Standing Ord. Glucose (Glucose Gel 15 Gm Gel..Gram.) 15 gm PO Q15M PRN; Protocol PRN Reason: per Hypoglycemia Standing Ord. Lactated Ringer's (Lr) 500 mls @ 20 mls/hr IVCONT .Q24H [facility] Insulin Human Lispro (Insulin Lispro 100 Unit/Ml 3 Ml Vial) 0 unit SUBCUT QIDACHS [facility]; Protocol Pantoprazole Sodium (Pantoprazole Sodium 40 Mg/10 Ml Vial) 40 mg IVPUSH BID@0630,1630 [facility] Pharmacy Consult (Consult Rx Perform Med Rec) 1 each MISCELLANE ONCE PRN PRN Reason: Consult order Sodium Chloride (0.9 % Sodium Chloride Flush 3 Ml Syringe) 3 ml IVFLUSH QSHIFT [facility] Home Medications Medication Instructions Recorded Confirmed Last Taken Type losartan 50 mg tablet 50 mg PO DAILY 03/30/23 03/30/23 Unknown History meclizine 12.5 mg tablet 12.5 mg PO QID PRN Dizziness 03/30/23 03/30/23 Unknown History mirtazapine 30 mg tablet 30 mg PO BEDTIME 03/30/23 03/30/23 Unknown History rosuvastatin 20 mg tablet 20 mg PO BEDTIME 03/30/23 03/30/23 Unknown History sertraline 50 mg tablet 50 mg PO DAILY 03/30/23 03/30/23 Unknown History simvastatin 40 mg tablet 40 mg PO BEDTIME 03/30/23 03/30/23 Unknown History Exam Exam Date and Time: March 30, 2023 1559 Height,Weight and Vital Signs: Height 5 ft 4 in Weight 58.967 kg Last Vital Signs Temp 97.7 F 03/30/23 15:45 Pulse 83 03/30/23 15:45 Resp 20 03/30/23 15:45 BP 127/52 L 03/30/23 15:45 Pulse Ox 99 03/30/23 15:45 O2 Del Method Room Air 03/30/23 15:45 Pertinent Lab Results Pertinent Lab Results: Laboratory Tests 03/30/23 03/30/23 03/30/23 08:55 09:28 09:28 WBC 13.5 H RBC 3.45 L D Hgb 10.2 L D Hct 31.7 L D MCV 91.9 MCH 29.6 MCHC 32.2 RDW 15.1 Plt Count 473 H MPV 9.4 Immature Gran % (Auto) 0.8 H Neut % (Auto) 85.2 H Lymph % (Auto) 10.7 L [place] % (Auto) 3.0 Eos % (Auto) 0.0 Baso % (Auto) 0.3 Lymph # (Auto) 1.4 [place] # (Auto) 0.4 Eos # (Auto) 0.0 Baso # (Auto) 0.0 Abs Immat Gran (auto) 0.11 H Absolute Neuts (auto) 11.5 H Absolute Nucleated RBC 0.000 Nucleated RBC % (auto) 0.0 PT 11.4 INR 1.0 Sodium Potassium Chloride Carbon Dioxide Anion Gap BUN Creatinine Estim Creat Clear Calc Estimated GFR Random Glucose Calcium Magnesium Total Bilirubin AST ALT Alkaline Phosphatase Total Protein Albumin Lipase Urine Color Urine Appearance Urine pH Ur Specific [place] Urine Protein Urine Glucose (UA) Urine Ketones Urine Blood Urine Nitrite Ur Leukocyte Esterase Urine RBC Urine WBC Ur Squamous Epith Cells Urine Bacteria Hyaline Casts Stool Occult Blood POSITIVE Blood Type Antibody Screen Antibody Identification Antigen Identification Crossmatch Crossmatch ([facility]) Blood Bank Comment 03/30/23 03/30/23 03/30/23 09:28 09:28 09:28 WBC RBC Hgb Hct MCV MCH MCHC RDW Plt Count MPV Immature Gran % (Auto) Neut % (Auto) Lymph % (Auto) [place] % (Auto) Eos % (Auto) Baso % (Auto) Lymph # (Auto) [place] # (Auto) Eos # (Auto) Baso # (Auto) Abs Immat Gran (auto) Absolute Neuts (auto) Absolute Nucleated RBC Nucleated RBC % (auto) PT INR Sodium 138 Potassium 5.1 D Chloride 109 H Carbon Dioxide 17 L Anion Gap 17 BUN 31 H Creatinine 1.19 Estim Creat Clear Calc 33.1 Estimated GFR 44 Random Glucose 240 H Calcium 9.1 D Magnesium 2.2 Total Bilirubin 0.3 AST 30 ALT 20 Alkaline Phosphatase 74 Total Protein 6.9 Albumin 3.7 Lipase 8 Urine Color Urine Appearance Urine pH Ur Specific [place] Urine Protein Urine Glucose (UA) Urine Ketones Urine Blood Urine Nitrite Ur Leukocyte Esterase Urine RBC Urine WBC Ur Squamous Epith Cells Urine Bacteria Hyaline Casts Stool Occult Blood Blood Type O Positive Antibody Screen POSITIVE Antibody Identification Anti-Fya Antigen Identification Fya Antigen - NEGATIVE Crossmatch See Detail Crossmatch ([facility]) See Detail Blood Bank Comment Technical 03/30/23 03/30/23 12:17 13:46 WBC 17.2 H RBC 3.10 L Hgb 9.2 L Hct 29.7 L MCV 95.8 MCH 29.7 MCHC 31.0 RDW 15.5 Plt Count 408 H MPV 9.4 Immature Gran % (Auto) 0.9 H Neut % (Auto) 84.8 H Lymph % (Auto) 9.9 L [place] % (Auto) 4.1 Eos % (Auto) 0.1 Baso % (Auto) 0.2 Lymph # (Auto) 1.7 [place] # (Auto) 0.7 Eos # (Auto) 0.0 Baso # (Auto) 0.0 Abs Immat Gran (auto) 0.15 H Absolute Neuts (auto) 14.6 H Absolute Nucleated RBC 0.000 Nucleated RBC % (auto) 0.0 PT INR Sodium Potassium Chloride Carbon Dioxide Anion Gap BUN Creatinine Estim Creat Clear Calc Estimated GFR Random Glucose Calcium Magnesium Total Bilirubin AST ALT Alkaline Phosphatase Total Protein Albumin Lipase Urine Color Yellow Urine Appearance Clear Urine pH 5.5 Ur Specific [place] >= 1.030 H Urine Protein Trace Urine Glucose (UA) Negative Urine Ketones Negative Urine Blood Large (3+) H Urine Nitrite Negative Ur Leukocyte Esterase Small (1+) H Urine RBC 11-20 H Urine WBC 21-50 H Ur Squamous Epith Cells 0-2 Urine Bacteria Trace Hyaline Casts 0-2 Stool Occult Blood Blood Type Antibody Screen Antibody Identification Antigen Identification Crossmatch Crossmatch ([facility]) Blood Bank Comment Airway Mallampati Class: I Neck ROM: Full Loose/Missing/Broken Teeth: Yes Heart: rr Lungs: cta Assessment and Plan Assessment Anesthesia Assessment: Anesthesia Plan Discussed and Chart Reviewed Final Anesthetic Review Family History of Problems with Anesthesia: No History of Problems with Anesthesia: Yes NPO: Yes ASA Class: III and Emergency Final Preanesthetic Review: No Changes in Pt Med Stat, Meds/Allgs Chart Reviewed, Consent Obtained/Reviewed and Anes Risks/Benef Reviewed Procedure Risk: Low Anesthetic Plan Anesthetic Plan: MAC: Disposition: Standard PACU
--- NOTE | 2023-03-30 16:02 | HO.ANESEVENT ---
Anesthesia Event Note Date of Service: 04/01/23 Event Note: patient developed tachycardia during the procdure, she was treated with 5 mg of Labetolol with good result. she was brought to the with a hr nsr 80bpm, bp 128/62 12 lead ekg showed NSR but some changes that may be associated with lateral ischemia discussed with Dr Orosco. i will make the Hospitalist aware. Time Spent With Patient Time: Total time managing care of this patient today __50__ minutes.
--- NOTE | 2023-03-30 16:10 | P.BOP_ITS ---
Brief Operative Note Date of Service: 03/30/23 Pre-op diagnosis: gi bleed Post-op diagnosis: same (duodenal ulcer) Procedure: EGD Surgeon: Amol Orosco Anesthesia: MAC Was an [employer] used for this Procedure?: No Estimated blood loss (mL): 0 Pathology: none sent Condition: stable Disposition: PACU
--- NOTE | 2023-03-30 16:10 | MHC.SHP ---
Pre-Procedural Eval Section A Date of Service: 03/30/23 The patient is an INPATIENT: Yes Changes since office visit: No Cold of Flu in the past 2 weeks, No New Medical Problems, No Changes in Medication and No Patient answered all questions The History & Physical has been completed within 30 days and I have reviewed it.: Yes Section B Chief Complaint: brbpr Allergies: Allergies Allergy/AdvReac Type Severity Reaction Status Date / Time No Known Allergies Allergy Verified 08/16/22 10:40 [No Known Allergies*] Plan I have reviewed the history and physical and performed a pertinent physical examination on my patient. No changes have occurred unless specified. Time Spent With Patient Time: Total time managing care of this patient today ____ minutes.
--- NOTE | 2023-03-30 17:00 | MHC.EDTECH ---
Patient had EKG done at 15:49 by 03/30/23 by Endy Dang was not documented.
--- NOTE | 2023-03-30 17:51 | PC.NURSE ---
pt back from OR/PACU. family at bedside. pt soiled and cleaned up by pct. report given to Sara. pt to be admitted to room 451. rr even/unlabored. pt black duffle bag brought to OR but did not return with pt back to ED. Asim pct to OR to look for/retrieve bag/belongings and bring to pt room
[2023-03-30 18:02] LABS: Glucose, Whole Blood 129 mg/dL (60-115)
[2023-03-30] MEDS: 0.9 % Sodium Chloride Flush 3 ML SYRINGE IVFLUSH ×2 (18:21→20:23)
[2023-03-30] MEDS: Pantoprazole Sodium 40 MG/10 ML VIAL 80 MG IVPUSH (18:21)
[2023-03-30] MEDS: Lactated Ringers 500 ML 20 ML IVCONT (18:23)
[2023-03-30] MEDS: hydrALAZINE HCl 20 MG/ML VIAL 5 MG IVPUSH (18:30)
[2023-03-30 20:19] LABS: Glucose, Whole Blood 111 mg/dL (60-115)
[2023-03-30] MEDS: Pantoprazole Sodium 80 MG in 0.9 % Sodium Chloride 80 ML 10 MG IV (20:40)
[2023-03-30] MEDS: diphenhydrAMINE HCL 50 MG/ML VIAL IVPUSH (21:51)
--- NOTE | 2023-03-30 22:30 | OP_ITS ---
DATE OF SERVICE: 03/30/2023 SURGEON: Amol Orosco MD INDICATIONS: GI bleeding. PREOPERATIVE DIAGNOSIS: POSTOPERATIVE DIAGNOSIS: PROCEDURE PERFORMED: Upper endoscopy. ESTIMATED BLOOD LOSS: COMPLICATIONS: ANESTHESIA: Monitored anesthesia care. ASSISTANTS: SPECIMENS: DESCRIPTION OF PROCEDURE: A history and physical was performed. The risks and benefits of the procedure were explained to the patient. Informed consent was obtained. The patient was placed in the left lateral decubitus position. The Olympus video gastroscope was introduced into the esophagus, stomach, and duodenum. Examination was performed. The scope was removed. She tolerated the procedure well and was returned to the recovery area in stable condition. During the procedure, she did have tachycardia into the 120 to 130 range, which was controlled by Dr. Dozier. FINDINGS: Esophagus: The esophagus was normal. There was a small hiatal hernia. Stomach: The stomach showed some old blood but no active bleeding. Duodenum: There was a 12 x 15 mm ulcer at the junction of the bulb and 2nd portion on the anterior wall. There was no active bleeding but adherent clot. The clot was irrigated with no active bleeding. It was elected not to perform therapy, as there was no active bleeding, and the patient had developed tachycardia. Multiple, less than 10mm superficial, ulcers were seen in the 2nd portion and more distal duodenum. These were not associated with any bleeding. IMPRESSION: Duodenal ulcer as above. RECOMMENDATION: 1. Pantoprazole continuous infusion. 2. Continue n.p.o. 3. Surgical consultation. 4. Monitor hematocrit. 5. Consider repeat endoscopy if she has evidence of recurrent bleeding. MD DAMIAN Lofton/FAITH / [id number] MTDD
[2023-03-31] VITALS (11 sets, daily range): BP systolic 118–178; BP diastolic 57–109; PULSE 64–86; RESP 18–20; TEMP 36.2–36.9; O2SAT 93–97
--- NOTE | 2023-03-31 | ECG_ITS ---
Test Reason : ST depression Blood Pressure : / mmHG Vent. Rate : 063 BPM Atrial Rate : 063 BPM P-R Int : 144 ms QRS Dur : 090 ms QT Int : 474 ms P-R-T Axes : -07 029 204 degrees QTc Int : 485 ms Normal sinus rhythm Anteroseptal infarct , age undetermined ST & T wave abnormality, consider inferolateral ischemia Abnormal ECG When compared with ECG of 30-MAR-2023 15:49, Anteroseptal infarct is now Present Referred By: Bradford Negro Electronically Signed By:Brandon Lozano
--- NOTE | 2023-03-31 00:39 | CONS_ITS ---
DATE OF SERVICE: 03/30/2023 REFERRING PHYSICIAN: TOYA HARDIN REASON FOR CONSULTATION: GI bleeding. HISTORY OF PRESENT ILLNESS: The patient is a pleasant 77-year-old woman who was admitted to the hospital after presenting to the emergency room today with complaints of rectal bleeding. She has a history of a gastric ulcer requiring surgical plication in October 2020 after endoscopic therapy was unsuccessful, and she developed hemorrhagic shock. She reports passing dark and bright red blood rectally at home the morning of admission and was brought to the hospital by EMS. Laboratory studies in the hospital showed a hematocrit of 31.7, which was down from 40 on September 29 of this year. She was ordered for 1 unit of packed red blood cells and followup hematocrit 3 hours later before the blood had been infused was 29.7. The patient denies any upper GI symptoms. She had been prescribed omeprazole, but was not on this when she came to the emergency room and did have a prescription bottle with 400 mg of ibuprofen and that she had been taking intermittently for symptoms of back discomfort despite her history of peptic ulcer disease. NG tube attempted placement was unsuccessful. PAST MEDICAL HISTORY: 1. GI bleeding with history of peptic ulcer disease as above. 2. Hypertension. 3. Hyperlipidemia. 4. Diabetes. 5. Anxiety/depression. 6. NSTEMI. CURRENT MEDICATIONS: Her current medication list is reviewed in the chart. ALLERGIES: THERE ARE NONE REPORTED. FAMILY HISTORY: Noncontributory. SOCIAL HISTORY: She denies tobacco or alcohol use. PAST SURGICAL HISTORY: Exploratory laparotomy in October for control of bleeding. REVIEW OF SYSTEMS: SKIN: No pruritus. HEENT: Negative. CARDIOPULMONARY: No shortness of breath or chest pain. GASTROINTESTINAL: As above. GENITOURINARY: Negative. NEUROPSYCHIATRIC: Negative. PHYSICAL EXAMINATION: GENERAL: Shows a pleasant female, in no acute distress. VITAL SIGNS: Reviewed in the electronic medical record and are stable. SKIN: Anicteric. HEENT: Shows no scleral icterus. NECK: Without lymphadenopathy or thyromegaly. LUNGS: Clear. HEART: Shows a regular rate and rhythm. S1, S2. No murmur. ABDOMEN: Soft without focal masses or tenderness. Bowel sounds are present. No organomegaly is noted. EXTREMITIES: Without edema. LABORATORY DATA: Reviewed. CT scanning obtained in the emergency department was nondiagnostic for bleeding because of barium present from previous examinations. IMPRESSION: Gastrointestinal bleeding. The source for this is not clear. This could be from an upper GI source given her history of peptic ulcer disease and prior bleeding and her apparent continued use of NSAIDs despite her history. I would recommend she undergo upper endoscopy for further evaluation. I have discussed this with the patient and her son. She understands risks and benefits and agrees to proceed. If this is negative, then further evaluation with nuclear bleeding scan may be helpful to look for a lower GI source, and she could need further evaluation with colonoscopy. Thanks for asking me to see her. I will follow her in the hospital with you. MD DAMIAN Lofton/FAITH / [phone]
[2023-03-31] MEDS: Pantoprazole Sodium 80 MG in 0.9 % Sodium Chloride 80 ML 10 MG IV ×3 (05:33→17:55)
[2023-03-31 06:22] LABS: Hematocrit 25.2 % (37.0-47.0); Hemoglobin 8.5 g/dl (12.0-16.0); Mean Corpuscular HGB Conc 33.7 g/dl (31.0-35.0); Mean Corpuscular Hemoglobin 31.1 pg (27.0-33.0); Mean Corpuscular Volume 92.3 fL (80.0-98.0); Platelet Count 299 X10*3/uL (160-400); Red Blood Count 2.73 X10*6/uL (4.20-5.50); Red Cell Distribution Width 14.8 % (11.0-16.0); White Blood Count 9.6 X10*3/uL (4.8-10.8)
[2023-03-31 06:36] LABS: Anion Gap 12 (12-20); Blood Urea Nitrogen 23 mg/dL (9-16); Calcium 8.2 mg/dL (8.4-10.2); Carbon Dioxide 20 mmol/L (22-29); Chloride 113 mmol/L (96-108); Creatinine Clr Calc Pharmacy 42.8; Estimated Glomerular Filt Rate 59; Glucose Fasting 107 mg/dL (60-99); Potassium 3.5 mmol/L (3.3-5.1); Sodium 141 mmol/L (135-145)
[2023-03-31 07:14] LABS: Glucose, Whole Blood 98 mg/dL (60-115)
[2023-03-31 07:21] LABS: Troponin-I High Sensitivity 59.5 ng/L (<3.5-17.0)
--- NOTE | 2023-03-31 07:57 | PM.CNGS ---
History of Present Illness Consult details Consult date: 03/31/23 Requesting physician: Amol Orosco Narrative: 77-year-old female patient with history of hypertension, hyperlipidemia, diabetes mellitus, depression, anxiety and bleeding duodenal ulcer presenting to the emergency department with bright red blood per rectum. She denies abdominal pain and reports multiple episodes of bleeding. She previously underwent a plication of bleeding duodenal ulcer on 10/31/2020. Patient was found to have a large posterior ulcer at the 1st portion of the duodenum at that time. Patient is currently not on ulcer prophylaxis and is on NSAIDs. Patient underwent endoscopy last evening and was found to have a large duodenal ulcer at a similar location with an adherent clot. No active bleeding was identified. Patient is currently on Protonix. This morning the patient is very sleepy but denies any abdominal pain. Review of Systems Review of Systems: Yes Unobtainable due to mental condition PMFSH Past Medical History Medical History Acute diverticulitis Acute duodenal ulcer with bleeding High cholesterol HTN (hypertension) NSTEMI (non-ST elevated myocardial infarction) UTI (urinary tract infection) Surgical History Surgical History Status post exploratory laparotomy (~10/2020) Social History Social History Household Members: Family Household Members Other:: 4 Housing: Apartment Do you presently have visiting nurse or other home services: No Patient Tobacco Use Status: Never used Tobacco Cigarette Packs Per Day: 1 Years Smoked: 55 Second Hand Smoke Exposure: No Meds Allergies Allergy/AdvReac Type Severity Reaction Status Date / Time No Known Allergies Allergy Verified 08/16/22 10:40 [No Known Allergies*] Active Medications: Current Medications Dextrose (Dextrose 50 % 25 Gm/50 Ml Syringe) 25 gm IVPUSH Q15M PRN; Protocol PRN Reason: per Hypoglycemia Standing Ord. Glucose (Glucose Gel 15 Gm Gel..Gram.) 15 gm PO Q15M PRN; Protocol PRN Reason: per Hypoglycemia Standing Ord. Hydralazine HCl (Hydralazine Hcl 20 Mg/Ml Vial) 5 mg IVPUSH Q6H PRN; Protocol PRN Reason: [id number]>190 Last Admin: 03/30/23 18:30 Dose: 5 mg Lactated Ringer's (Lr) 500 mls @ 20 mls/hr IVCONT .Q24H [facility] Last Admin: 03/30/23 18:23 Dose: 20 mls/hr Pantoprazole Sodium 80 mg/ (Sodium Chloride) 100 mls @ 10 mls/hr IV .Q10H [facility] Last Admin: 03/31/23 05:33 Dose: 8 mg/hr, 10 mls/hr Insulin Human Lispro (Insulin Lispro 100 Unit/Ml 3 Ml Vial) 0 unit SUBCUT QIDACHS [facility]; Protocol Last Admin: 03/30/23 20:14 Dose: Not Given Pharmacy Consult (Consult Rx Perform Med Rec) 1 each MISCELLANE ONCE PRN PRN Reason: Consult order Sodium Chloride (0.9 % Sodium Chloride Flush 3 Ml Syringe) 3 ml IVFLUSH QSHIFT [facility] Last Admin: 03/30/23 20:23 Dose: 3 ml Home Medications Medication Instructions Recorded Confirmed Last Taken Type losartan 50 mg tablet 50 mg PO DAILY 03/30/23 03/30/23 Unknown History meclizine 12.5 mg tablet 12.5 mg PO QID PRN Dizziness 03/30/23 03/30/23 Unknown History mirtazapine 30 mg tablet 30 mg PO BEDTIME 03/30/23 03/30/23 Unknown History rosuvastatin 20 mg tablet 20 mg PO BEDTIME 03/30/23 03/30/23 Unknown History sertraline 50 mg tablet 50 mg PO DAILY 03/30/23 03/30/23 Unknown History simvastatin 40 mg tablet 40 mg PO BEDTIME 03/30/23 03/30/23 Unknown History Physical Exam Vital Signs: Vital Signs: Last Vital Signs Temp 97.1 F 03/31/23 07:13 Pulse 64 03/31/23 07:13 Resp 20 03/31/23 07:13 BP 142/60 H 03/31/23 07:13 Pulse Ox 93 03/31/23 07:13 O2 Del Method Room Air 03/31/23 07:13 BMI result Body Mass Index 22.3 Const: General: lethargic Nutritional Appearance: well nourished Orientation/consciousness: lethargic HEENT: Head: Yes normocephalic and Yes atraumatic Ears: hearing grossly normal bilaterally Resp: Effort & Inspection: normal respiratory effort, no audible wheezes, no cough and no respiratory distress GI: Inspection: Yes normal to inspection Palpation (GI): Soft to palpation, nontender, no guarding, not rigid and No Rebound tenderness present Percussion: Yes normal to percussion Auscultation: normal bowel sounds Rectal Exam - Female: deferred Skin: Other: Warm, dry, no rash, normal color Extrem: General: Yes no clubbing, cyanosis or edema Results Labs 03/31/23 06:13 03/31/23 06:13 Labs: Abnormal lab results 03/30/23 03/30/23 03/30/23 Range/Units 09:28 09:28 09:28 WBC 13.5 H (4.8-10.8) X10*3/uL RBC 3.45 L D (4.20-5.50) X10*6/uL Hgb 10.2 L D (12.0-16.0) g/dl Hct 31.7 L D (37.0-47.0) % Plt Count 473 H (160-400) X10*3/uL MPV (9.4-12.3) fL Immature Gran % (Auto) 0.8 H (0.0-0.4) % Neut % (Auto) 85.2 H (45-73) % Lymph % (Auto) 10.7 L (20-40) % Abs Immat Gran (auto) 0.11 H (0.00-0.03) X10*3/uL Absolute Neuts (auto) 11.5 H (2.0-8.3) x10*3/uL Chloride 109 H (96-108) mmol/L Carbon Dioxide 17 L (22-29) mmol/L BUN 31 H (9-16) mg/dL POC Glucose (60-115) mg/dL Random Glucose 240 H (60-115) mg/dL Fasting Glucose (60-99) mg/dL Calcium (8.4-10.2) mg/dL Troponin I High Sens (<3.5-17.0) ng/L Ur Specific [place] (1.005-1.025) Urine Blood (Negative) Ur Leukocyte Esterase (Negative) Urine RBC (0-2) /HPF Urine WBC (0-5) /HPF Crossmatch See Detail Crossmatch ([facility]) See Detail 03/30/23 03/30/23 03/30/23 Range/Units 12:17 13:46 17:59 WBC 17.2 H (4.8-10.8) X10*3/uL RBC 3.10 L (4.20-5.50) X10*6/uL Hgb 9.2 L (12.0-16.0) g/dl Hct 29.7 L (37.0-47.0) % Plt Count 408 H (160-400) X10*3/uL MPV (9.4-12.3) fL Immature Gran % (Auto) 0.9 H (0.0-0.4) % Neut % (Auto) 84.8 H (45-73) % Lymph % (Auto) 9.9 L (20-40) % Abs Immat Gran (auto) 0.15 H (0.00-0.03) X10*3/uL Absolute Neuts (auto) 14.6 H (2.0-8.3) x10*3/uL Chloride (96-108) mmol/L Carbon Dioxide (22-29) mmol/L BUN (9-16) mg/dL POC Glucose 129 H (60-115) mg/dL Random Glucose (60-115) mg/dL Fasting Glucose (60-99) mg/dL Calcium (8.4-10.2) mg/dL Troponin I High Sens (<3.5-17.0) ng/L Ur Specific [place] >= 1.030 H (1.005-1.025) Urine Blood Large (3+) H (Negative) Ur Leukocyte Esterase Small (1+) H (Negative) Urine RBC 11-20 H (0-2) /HPF Urine WBC 21-50 H (0-5) /HPF Crossmatch Crossmatch ([facility]) 03/31/23 03/31/23 03/31/23 Range/Units 06:13 06:13 06:13 WBC (4.8-10.8) X10*3/uL RBC 2.73 L (4.20-5.50) X10*6/uL Hgb 8.5 L (12.0-16.0) g/dl Hct 25.2 L (37.0-47.0) % Plt Count (160-400) X10*3/uL MPV 9.0 L (9.4-12.3) fL Immature Gran % (Auto) (0.0-0.4) % Neut % (Auto) (45-73) % Lymph % (Auto) (20-40) % Abs Immat Gran (auto) (0.00-0.03) X10*3/uL Absolute Neuts (auto) (2.0-8.3) x10*3/uL Chloride 113 H (96-108) mmol/L Carbon Dioxide 20 L (22-29) mmol/L BUN 23 H (9-16) mg/dL POC Glucose (60-115) mg/dL Random Glucose (60-115) mg/dL Fasting Glucose 107 H (60-99) mg/dL Calcium 8.2 L D (8.4-10.2) mg/dL Troponin I High Sens 59.5 H* (<3.5-17.0) ng/L Ur Specific [place] (1.005-1.025) Urine Blood (Negative) Ur Leukocyte Esterase (Negative) Urine RBC (0-2) /HPF Urine WBC (0-5) /HPF Crossmatch Crossmatch ([facility]) Short CBC 03/30/23 03/30/23 03/31/23 Range/Units 09:28 12:17 06:13 WBC 13.5 H 17.2 H 9.6 (4.8-10.8) X10*3/uL Hgb 10.2 L D 9.2 L 8.5 L (12.0-16.0) g/dl Hct 31.7 L D 29.7 L 25.2 L (37.0-47.0) % Plt Count 473 H 408 H 299 D (160-400) X10*3/uL BMP 03/30/23 03/31/23 09:28 06:13 Sodium 138 141 Potassium 5.1 D 3.5 D Chloride 109 H 113 H Carbon Dioxide 17 L 20 L BUN 31 H 23 H Creatinine 1.19 0.92 Calcium 9.1 D 8.2 L D Liver Function 03/30/23 Range/Units 09:28 Total Bilirubin 0.3 (0.0-1.0) mg/dL AST 30 (5-31) U/L ALT 20 (0-31) U/L Alkaline Phosphatase 74 (39-117) U/L Albumin 3.7 (3.5-5.0) g/dL Urine 03/30/23 Range/Units 13:46 Urine Color Yellow Urine Appearance Clear Urine pH 5.5 (5.0-9.0) Ur Specific [place] >= 1.030 H (1.005-1.025) Urine Protein Trace (Neg-Trace) mg/dL Urine Glucose (UA) Negative (Negative) mg/dL All other labs normal. Assessment and Plan (1) Acute duodenal ulcer with bleeding: Status: Acute Plan 77-year-old female patient presenting with a recurrent upper GI bleed found to have recurring duodenal ulcer by upper endoscopy. No active bleeding was identified however there was stigmata of a previous bleed with an adherent clot to the ulcer surface. Patient apparently was not on antiulcer therapy and in fact was apparently taking NSAIDs. Ideally patient will be placed on lifetime anti ulcer treatment. If this is not possible or if rebleeding occurs despite optimal treatment, patient may require repeat endoscopy for bleeding control. If this is unsuccessful, options include angiography with embolization (with require transfer), or surgery. Definitive surgical intervention would include antrectomy with gastrojejunostomy, vagotomy. Will continue to monitor during her hospitalization. Time Spent With Patient Time: Total time managing care of this patient today ____ minutes. Procedures Date of Service Date of Service: 03/31/23
[2023-03-31] MEDS: 0.9 % Sodium Chloride Flush 3 ML SYRINGE IVFLUSH ×3 (08:25→21:31)
--- NOTE | 2023-03-31 08:43 | HO.PM.IMPN ---
Subjective Subjective Date of Service: 03/31/23 Interval History: weak, tired Physical Exam Vital Signs: Vital Signs: Last Vital Signs Temp 97.1 F 03/31/23 07:13 Pulse 64 03/31/23 07:13 Resp 20 03/31/23 07:13 BP 142/60 H 03/31/23 07:13 Pulse Ox 93 03/31/23 07:13 O2 Del Method Room Air 03/31/23 07:13 BMI result Body Mass Index 22.3 frail, lethargic, oriented times 3, lungs cta bilateral, RRR Objective Data Active Medications Dextrose (Dextrose 50 % 25 Gm/50 Ml Syringe) 25 gm IVPUSH Q15M PRN; Protocol PRN Reason: per Hypoglycemia Standing Ord. Glucose (Glucose Gel 15 Gm Gel..Gram.) 15 gm PO Q15M PRN; Protocol PRN Reason: per Hypoglycemia Standing Ord. Hydralazine HCl (Hydralazine Hcl 20 Mg/Ml Vial) 5 mg IVPUSH Q6H PRN; Protocol PRN Reason: sbp>190 Last Admin: 03/30/23 18:30 Dose: 5 mg Documented By: KELLY Comments: SBP 202 Lactated Ringer's (Lr) 500 mls @ 20 mls/hr IVCONT .Q24H [facility] Last Admin: 03/30/23 18:23 Dose: 20 mls/hr Documented By: KELLY Pantoprazole Sodium 80 mg/ (Sodium Chloride) 100 mls @ 10 mls/hr IV .Q10H [facility] Last Admin: 03/31/23 08:25 Dose: 8 mg/hr, 10 mls/hr Documented By: LEAH Insulin Human Lispro (Insulin Lispro 100 Unit/Ml 3 Ml Vial) 0 unit SUBCUT QIDACHS [facility]; Protocol Last Admin: 03/31/23 08:26 Dose: Not Given Documented By: LEAH Non-Admin Reason: No Insulin Coverage Pharmacy Consult (Consult Rx Perform Med Rec) 1 each MISCELLANE ONCE PRN PRN Reason: Consult order Sodium Chloride (0.9 % Sodium Chloride Flush 3 Ml Syringe) 3 ml IVFLUSH QSHIFT [facility] Last Admin: 03/31/23 08:25 Dose: 3 ml Documented By: LEAH Labs 03/31/23 06:13 03/31/23 06:13 Labs: Laboratory Results - last 24 hr 03/30/23 03/30/23 03/30/23 08:55 09:28 09:28 MCV 91.9 MCH 29.6 MCHC 32.2 RDW 15.1 Plt Count 473 H MPV 9.4 Immature Gran % (Auto) 0.8 H Neut % (Auto) 85.2 H Lymph % (Auto) 10.7 L [place] % (Auto) 3.0 Eos % (Auto) 0.0 Baso % (Auto) 0.3 Lymph # (Auto) 1.4 [place] # (Auto) 0.4 Eos # (Auto) 0.0 Baso # (Auto) 0.0 Abs Immat Gran (auto) 0.11 H Absolute Neuts (auto) 11.5 H Absolute Nucleated RBC 0.000 Nucleated RBC % (auto) 0.0 PT 11.4 INR 1.0 Anion Gap Estim Creat Clear Calc Estimated GFR POC Glucose Random Glucose Fasting Glucose Calcium Magnesium Total Bilirubin AST ALT Alkaline Phosphatase Troponin I High Sens Total Protein Albumin Lipase Urine Color Urine Appearance Urine pH Ur Specific [place] Urine Protein Urine Glucose (UA) Urine Ketones Urine Blood Urine Nitrite Ur Leukocyte Esterase Urine RBC Urine WBC Ur Squamous Epith Cells Urine Bacteria Hyaline Casts Stool Occult Blood POSITIVE Blood Type Antibody Screen Antibody Identification Antigen Identification Crossmatch Crossmatch ([facility]) Blood Bank Comment 03/30/23 03/30/23 03/30/23 09:28 09:28 09:28 MCV MCH MCHC RDW Plt Count MPV Immature Gran % (Auto) Neut % (Auto) Lymph % (Auto) [place] % (Auto) Eos % (Auto) Baso % (Auto) Lymph # (Auto) [place] # (Auto) Eos # (Auto) Baso # (Auto) Abs Immat Gran (auto) Absolute Neuts (auto) Absolute Nucleated RBC Nucleated RBC % (auto) PT INR Anion Gap 17 Estim Creat Clear Calc 33.1 Estimated GFR 44 POC Glucose Random Glucose 240 H Fasting Glucose Calcium 9.1 D Magnesium 2.2 Total Bilirubin 0.3 AST 30 ALT 20 Alkaline Phosphatase 74 Troponin I High Sens Total Protein 6.9 Albumin 3.7 Lipase 8 Urine Color Urine Appearance Urine pH Ur Specific [place] Urine Protein Urine Glucose (UA) Urine Ketones Urine Blood Urine Nitrite Ur Leukocyte Esterase Urine RBC Urine WBC Ur Squamous Epith Cells Urine Bacteria Hyaline Casts Stool Occult Blood Blood Type O Positive Antibody Screen POSITIVE Antibody Identification Anti-Fya Antigen Identification Fya Antigen - NEGATIVE Crossmatch See Detail Crossmatch ([facility]) See Detail Blood Bank Comment Technical 03/30/23 03/30/23 03/30/23 12:17 13:46 17:59 MCV 95.8 MCH 29.7 MCHC 31.0 RDW 15.5 Plt Count 408 H MPV 9.4 Immature Gran % (Auto) 0.9 H Neut % (Auto) 84.8 H Lymph % (Auto) 9.9 L [place] % (Auto) 4.1 Eos % (Auto) 0.1 Baso % (Auto) 0.2 Lymph # (Auto) 1.7 [place] # (Auto) 0.7 Eos # (Auto) 0.0 Baso # (Auto) 0.0 Abs Immat Gran (auto) 0.15 H Absolute Neuts (auto) 14.6 H Absolute Nucleated RBC 0.000 Nucleated RBC % (auto) 0.0 PT INR Anion Gap Estim Creat Clear Calc Estimated GFR POC Glucose 129 H Random Glucose Fasting Glucose Calcium Magnesium Total Bilirubin AST ALT Alkaline Phosphatase Troponin I High Sens Total Protein Albumin Lipase Urine Color Yellow Urine Appearance Clear Urine pH 5.5 Ur Specific [place] >= 1.030 H Urine Protein Trace Urine Glucose (UA) Negative Urine Ketones Negative Urine Blood Large (3+) H Urine Nitrite Negative Ur Leukocyte Esterase Small (1+) H Urine RBC 11-20 H Urine WBC 21-50 H Ur Squamous Epith Cells 0-2 Urine Bacteria Trace Hyaline Casts 0-2 Stool Occult Blood Blood Type Antibody Screen Antibody Identification Antigen Identification Crossmatch Crossmatch ([facility]) Blood Bank Comment 03/30/23 03/31/23 03/31/23 20:04 06:13 06:13 MCV 92.3 MCH 31.1 MCHC 33.7 RDW 14.8 Plt Count 299 D MPV 9.0 L Immature Gran % (Auto) Neut % (Auto) Lymph % (Auto) [place] % (Auto) Eos % (Auto) Baso % (Auto) Lymph # (Auto) [place] # (Auto) Eos # (Auto) Baso # (Auto) Abs Immat Gran (auto) Absolute Neuts (auto) Absolute Nucleated RBC 0.000 Nucleated RBC % (auto) 0.0 PT INR Anion Gap 12 Estim Creat Clear Calc 42.8 Estimated GFR 59 POC Glucose 111 Random Glucose Fasting Glucose 107 H Calcium 8.2 L D Magnesium Total Bilirubin AST ALT Alkaline Phosphatase Troponin I High Sens Total Protein Albumin Lipase Urine Color Urine Appearance Urine pH Ur Specific [place] Urine Protein Urine Glucose (UA) Urine Ketones Urine Blood Urine Nitrite Ur Leukocyte Esterase Urine RBC Urine WBC Ur Squamous Epith Cells Urine Bacteria Hyaline Casts Stool Occult Blood Blood Type Antibody Screen Antibody Identification Antigen Identification Crossmatch Crossmatch ([facility]) Blood Bank Comment 03/31/23 03/31/23 03/31/23 06:13 06:36 07:06 MCV MCH MCHC RDW Plt Count MPV Immature Gran % (Auto) Neut % (Auto) Lymph % (Auto) [place] % (Auto) Eos % (Auto) Baso % (Auto) Lymph # (Auto) [place] # (Auto) Eos # (Auto) Baso # (Auto) Abs Immat Gran (auto) Absolute Neuts (auto) Absolute Nucleated RBC Nucleated RBC % (auto) PT INR Anion Gap Estim Creat Clear Calc Estimated GFR POC Glucose 98 Random Glucose Fasting Glucose Calcium Magnesium Total Bilirubin AST ALT Alkaline Phosphatase Troponin I High Sens 59.5 H* Cancelled Total Protein Albumin Lipase Urine Color Urine Appearance Urine pH Ur Specific [place] Urine Protein Urine Glucose (UA) Urine Ketones Urine Blood Urine Nitrite Ur Leukocyte Esterase Urine RBC Urine WBC Ur Squamous Epith Cells Urine Bacteria Hyaline Casts Stool Occult Blood Blood Type Antibody Screen Antibody Identification Antigen Identification Crossmatch Crossmatch ([facility]) Blood Bank Comment Assessment and Plan (1) Acute duodenal ulcer with bleeding: Status: Acute Plan 7F PMH htn, hld, DM, depression, anxiety, peptic ulcer disease presented with brbpr acute blood loss anemia due to duodenal ulcer (see EGD report 03/30/23) iv ppi, monitor cbc follow up surgery eval DM insulin sliding scale htn will hold meds with active bleed dvt prophylaxis - mechanical due to bleed full code Time Spent With Patient Time: Total time managing care of this patient today ____ minutes. Quality Stroke Does the patient have a stroke diagnosis?: No VTE Prior VTE?: No VTE Risk Level:: Medical - moderate - high VTE Device Contraindication: N/A - Device Ordered VTE Drug Contraindication: Treatment Not Tolerated
--- NOTE | 2023-03-31 09:06 | MHC.CM.PN ---
CM attempted to meet with Patient at bedside but she appeared to be having difficulty staying awake. CM spoke with Daughter/Yuliya @ [phone] and addressed IMM with her(original will be mailed certified letter to Yuliya and a copy has been placed on the chart). Patient lives in an apartment with her Son and she uses a cane PRN. Patient had no services [employer] and home/self care is the goal. CM has initiated and will follow for dc planning. Patient is Darius hardwick and her PCP was recently Dr. Argelia Alberto but Yuliya believes that Patient's Son changed Patient's insurance and Patient does not presently have a PCP.
--- NOTE | 2023-03-31 09:45 | HO.POSTANES ---
Post Anesthesia Evaluation Post Anesthesia Evaluation Date of Service: 03/31/23 Vital Signs: Vital Signs Temp Pulse Resp BP Pulse Ox O2 Del Method 03/31/23 07:13 97.1 F 64 20 142/60 H 93 Room Air 03/31/23 03:15 97.8 F 73 18 123/60 96 Room Air 03/30/23 22:59 98.3 F 72 18 180/70 H 98 Room Air Anesthesia: Monitored Mental Status: Awake Pain Control: Satisfactory Nausea/Vomiting: None Hydration: Adequate Anesthesia-Related Issues: No Anes. Related Issues Comments: questionable NTEMI with bump in troponins and new ekg changes.
[2023-03-31 10:46] LABS: Glucose, Whole Blood 98 mg/dL (60-115)
--- NOTE | 2023-03-31 10:59 | PM.GIPN ---
Subjective Subjective Date of Service: 03/31/23 Interval History: no bleeding reported overnight no c/o abd pain Critical Care Time (minutes): 0 Physical Exam Vital Signs: Vital Signs: Last Vital Signs Temp 97.1 F 03/31/23 07:13 Pulse 64 03/31/23 07:13 Resp 20 03/31/23 07:13 BP 142/60 H 03/31/23 07:13 Pulse Ox 93 03/31/23 07:13 O2 Del Method Room Air 03/31/23 07:13 BMI result Body Mass Index 22.3 GI: Other: abdomen is soft and nontender Objective Data Labs 03/31/23 06:13 03/31/23 06:13 Procedures Date of Service Date of Service: 03/31/23 Progress Note: A&P Assessment and plan (1) GI bleed: Status: Acute Assessment and Plan: no bleeding currently keep bp under control continue ppi no plans for egd today, start clears transfuse 1u prbcs today given cardiac issues. Time Spent With Patient Time: Total time managing care of this patient today ____ minutes. Quality Stroke Does the patient have a stroke diagnosis?: No VTE Prior VTE?: No VTE Risk Level:: Medical - moderate - high VTE Device Contraindication: N/A - Device Ordered VTE Drug Contraindication: Treatment Not Tolerated
--- NOTE | 2023-03-31 14:27 | P.CONCA_ITS ---
History of Present Illness History of Present Illness Date of Service: 03/31/23 Requesting physician: Chip Garza Chief complaint: brbpr, anemia, ECG changes Narrative: 77-year-old female with history of GI bleed presenting with bright red blood per rectum.. She has been noticed to have lateral T-wave inversions some depressions on the EKG. Her hemoglobin is 8.5. She is denying any chest discomfort or shortness of breath. High sensitivity troponin level is 59.5. Blood pressure is mildly elevated. [facility] Past Medical History Medical History Acute diverticulitis Acute duodenal ulcer with bleeding High cholesterol HTN (hypertension) NSTEMI (non-ST elevated myocardial infarction) UTI (urinary tract infection) Surgical History Surgical History Status post exploratory laparotomy (~10/2020) Social History Social History Household Members: Family Household Members Other:: 4 Housing: Apartment Do you presently have visiting nurse or other home services: No Patient Tobacco Use Status: Never used Tobacco Cigarette Packs Per Day: 1 Years Smoked: 55 Second Hand Smoke Exposure: No service: No Meds Allergies Allergy/AdvReac Type Severity Reaction Status Date / Time No Known Allergies Allergy Verified 08/16/22 10:40 [No Known Allergies*] Active Medications: Current Medications Dextrose (Dextrose 50 % 25 Gm/50 Ml Syringe) 25 gm IVPUSH Q15M PRN; Protocol PRN Reason: per Hypoglycemia Standing Ord. Glucose (Glucose Gel 15 Gm Gel..Gram.) 15 gm PO Q15M PRN; Protocol PRN Reason: per Hypoglycemia Standing Ord. Hydralazine HCl (Hydralazine Hcl 20 Mg/Ml Vial) 5 mg IVPUSH Q6H PRN; Protocol PRN Reason: sbp>190 Last Admin: 03/30/23 18:30 Dose: 5 mg Lactated Ringer's (Lr) 500 mls @ 20 mls/hr IVCONT .Q24H [facility] Last Admin: 03/30/23 18:23 Dose: 20 mls/hr Pantoprazole Sodium 80 mg/ (Sodium Chloride) 100 mls @ 10 mls/hr IV .Q10H [facility] Last Admin: 03/31/23 08:25 Dose: 8 mg/hr, 10 mls/hr Insulin Human Lispro (Insulin Lispro 100 Unit/Ml 3 Ml Vial) 0 unit SUBCUT QIDACHS [facility]; Protocol Last Admin: 03/31/23 11:12 Dose: Not Given Pharmacy Consult (Consult Rx Perform Med Rec) 1 each MISCELLANE ONCE PRN PRN Reason: Consult order Sodium Chloride (0.9 % Sodium Chloride Flush 3 Ml Syringe) 3 ml IVFLUSH QSHIFT [facility] Last Admin: 03/31/23 08:25 Dose: 3 ml Home Medications Medication Instructions Recorded Confirmed Last Taken Type losartan 50 mg tablet 50 mg PO DAILY 03/30/23 03/30/23 Unknown History meclizine 12.5 mg tablet 12.5 mg PO QID PRN Dizziness 03/30/23 03/30/23 Unknown History mirtazapine 30 mg tablet 30 mg PO BEDTIME 03/30/23 03/30/23 Unknown History rosuvastatin 20 mg tablet 20 mg PO BEDTIME 03/30/23 03/30/23 Unknown History sertraline 50 mg tablet 50 mg PO DAILY 03/30/23 03/30/23 Unknown History simvastatin 40 mg tablet 40 mg PO BEDTIME 03/30/23 03/30/23 Unknown History Physical Exam Vital Signs: Vital Signs: Last Vital Signs Temp 98.4 F 03/31/23 13:55 Pulse 81 03/31/23 13:55 Resp 20 03/31/23 11:12 BP 152/67 H 03/31/23 13:55 Pulse Ox 97 03/31/23 13:55 O2 Del Method Room Air 03/31/23 13:55 BMI result Body Mass Index 22.3 GENERAL APPEARANCE: in no acute distress, pleasant. NECK: no carotid bruit, no jugular venous distention. SKIN: no suspicious lesions, warm and dry. HEART: no murmurs, regular rate and rhythm. LUNGS: clear to auscultation bilaterally. ABDOMEN: soft, nontender. EXTREMITIES: no edema. PERIPHERAL PULSES: equal. NEUROLOGIC: No gross deficits, AAO X 3 Objective Labs and Meds 03/31/23 06:13 03/31/23 06:13 Lab results: Laboratory Results - last 24 hr 03/30/23 03/30/23 03/30/23 09:28 17:59 20:04 WBC RBC Hgb Hct MCV MCH MCHC RDW Plt Count MPV Absolute Nucleated RBC Nucleated RBC % (auto) Sodium Potassium Chloride Carbon Dioxide Anion Gap BUN Creatinine Estim Creat Clear Calc Estimated GFR POC Glucose 129 H 111 Fasting Glucose Calcium Troponin I High Sens Blood Type O Positive Antibody Screen POSITIVE Antibody Identification Anti-Fya Antigen Identification Fya Antigen - NEGATIVE Crossmatch See Detail Crossmatch ([facility]) See Detail Blood Bank Comment Technical 03/31/23 03/31/23 03/31/23 06:13 06:13 06:13 WBC 9.6 RBC 2.73 L Hgb 8.5 L Hct 25.2 L MCV 92.3 MCH 31.1 MCHC 33.7 RDW 14.8 Plt Count 299 D MPV 9.0 L Absolute Nucleated RBC 0.000 Nucleated RBC % (auto) 0.0 Sodium 141 Potassium 3.5 D Chloride 113 H Carbon Dioxide 20 L Anion Gap 12 BUN 23 H Creatinine 0.92 Estim Creat Clear Calc 42.8 Estimated GFR 59 POC Glucose Fasting Glucose 107 H Calcium 8.2 L D Troponin I High Sens 59.5 H* Blood Type Antibody Screen Antibody Identification Antigen Identification Crossmatch Crossmatch ([facility]) Blood Bank Comment 03/31/23 03/31/23 03/31/23 06:36 07:06 10:39 WBC RBC Hgb Hct MCV MCH MCHC RDW Plt Count MPV Absolute Nucleated RBC Nucleated RBC % (auto) Sodium Potassium Chloride Carbon Dioxide Anion Gap BUN Creatinine Estim Creat Clear Calc Estimated GFR POC Glucose 98 98 Fasting Glucose Calcium Troponin I High Sens Cancelled Blood Type Antibody Screen Antibody Identification Antigen Identification Crossmatch Crossmatch ([facility]) Blood Bank Comment 03/31/23 13:10 WBC RBC Hgb Hct MCV MCH MCHC RDW Plt Count MPV Absolute Nucleated RBC Nucleated RBC % (auto) Sodium Potassium Chloride Carbon Dioxide Anion Gap BUN Creatinine Estim Creat Clear Calc Estimated GFR POC Glucose Fasting Glucose Calcium Troponin I High Sens Blood Type O Positive Antibody Screen POSITIVE Antibody Identification Anti-Fya Antigen Identification Crossmatch Crossmatch ([facility]) See Detail Blood Bank Comment Assessment and Plan (1) Hypertension: Qualifiers: Hypertension type: essential hypertension Qualified Code(s): I10 - Essential (primary) hypertension Status: Acute (2) GI bleed: Status: Acute (3) Abnormal ECG: Status: Acute Plan 77-year-old female presenting with GI bleed. She has anemia and ECG changes. She is denying any chest discomfort shortness of breath. Blood transfusion. Blood pressure is elevated and losartan can be resumed at a lower dose of 25 mg daily. She is intermediate risk for perioperative complications and can undergo EGD/colonoscopy as required. EKG changes are due to anemia. Thank you for allowing me to participate in the care of your patient. Please feel free to contact me if you have any questions. Time Spent With Patient Time: Total time managing care of this patient today ____ minutes. Procedures Date of Service Date of Service: 03/31/23
[2023-03-31] MEDS: Lactated Ringers 500 ML 20 ML IVCONT (14:50)
--- NOTE | 2023-03-31 16:00 | PC.NURSE ---
Pt having high blood pressure at this time; pt blood pressure 178/83. Dr. Garza aware and notified. PRN hydralazine in place but does not meet parameters to give. Will continue to monitor.
[2023-03-31 16:32] LABS: Glucose, Whole Blood 79 mg/dL (60-115)
[2023-03-31 20:33] LABS: Glucose, Whole Blood 88 mg/dL (60-115)
[2023-03-31] MEDS: Melatonin 3 MG TABLET 6 MG PO (21:45)
[2023-04-01] VITALS: BP 158/77; PULSE 71; RESP 18; TEMP 37; O2SAT 98
[2023-04-01 03:19] VITALS: BP 180/78; PULSE 64; RESP 18; TEMP 36.6; O2SAT 97
[2023-04-01 05:41] LABS: Hematocrit 30.7 % (37.0-47.0); Hemoglobin 10.3 g/dl (12.0-16.0); Mean Corpuscular HGB Conc 33.6 g/dl (31.0-35.0); Mean Corpuscular Hemoglobin 31.3 pg (27.0-33.0); Mean Corpuscular Volume 93.3 fL (80.0-98.0); Mean Platelet Volume 9.3 fL (9.4-12.3); NRBC Pct Auto 0.2 /100WBC (0.0-0.2); Platelet Count 294 X10*3/uL (160-400); Red Blood Count 3.29 X10*6/uL (4.20-5.50); Red Cell Distribution Width 14.2 % (11.0-16.0); White Blood Count 9.6 X10*3/uL (4.8-10.8)
[2023-04-01 05:59] LABS: Anion Gap 10 (12-20); Blood Urea Nitrogen 15 mg/dL (9-16); Calcium 8.4 mg/dL (8.4-10.2); Carbon Dioxide 21 mmol/L (22-29); Chloride 111 mmol/L (96-108); Creatinine Clr Calc Pharmacy 43.7; Estimated Glomerular Filt Rate > 60; Glucose Fasting 91 mg/dL (60-99); Potassium 3.4 mmol/L (3.3-5.1); Sodium 139 mmol/L (135-145)
[2023-04-01 07:25] VITALS: BP 143/65; PULSE 65; RESP 20; TEMP 36.6; O2SAT 94
[2023-04-01 07:26] LABS: Glucose, Whole Blood 93 mg/dL (60-115)
[2023-04-01] MEDS: Pantoprazole Sodium 80 MG in 0.9 % Sodium Chloride 80 ML 10 MG IV (08:27)
[2023-04-01] MEDS: 0.9 % Sodium Chloride Flush 3 ML SYRINGE IVFLUSH ×3 (08:28→19:57)
[2023-04-01] MEDS: Sertraline HCL 50 MG TABLET PO (08:28)
[2023-04-01] MEDS: Losartan Potassium 50 MG TABLET PO (08:28)
--- NOTE | 2023-04-01 08:37 | HO.PM.IMPN ---
Subjective Subjective Date of Service: 04/01/23 Interval History: no further bleeding Physical Exam Vital Signs: Vital Signs: Last Vital Signs Temp 97.9 F 04/01/23 07:25 Pulse 65 04/01/23 07:25 Resp 20 04/01/23 07:25 BP 143/65 H 04/01/23 07:25 Pulse Ox 94 04/01/23 07:25 O2 Del Method Room Air 04/01/23 07:25 BMI result Body Mass Index 22.3 General: AO X 3, no acute distress Resp: CTA bilateral, no accessory muscles used CVS: S1,S2,RRR GI: soft, non tender, non distended Neuro: motor grossly intact, alert Psych: appropriate affect, appropriate insight Objective Data Active Medications Atorvastatin Calcium (Atorvastatin Calcium 80 Mg Tablet) 80 mg PO BEDTIME [facility] Dextrose (Dextrose 50 % 25 Gm/50 Ml Syringe) 25 gm IVPUSH Q15M PRN; Protocol PRN Reason: per Hypoglycemia Standing Ord. Glucose (Glucose Gel 15 Gm Gel..Gram.) 15 gm PO Q15M PRN; Protocol PRN Reason: per Hypoglycemia Standing Ord. Hydralazine HCl (Hydralazine Hcl 20 Mg/Ml Vial) 5 mg IVPUSH Q6H PRN; Protocol PRN Reason: sbp>190 Last Admin: 03/30/23 18:30 Dose: 5 mg Documented By: KELLY Comments: SBP 202 Lactated Ringer's (Lr) 500 mls @ 20 mls/hr IVCONT .Q24H [facility] Last Admin: 03/31/23 14:50 Dose: 20 mls/hr Documented By: LEAH Pantoprazole Sodium 80 mg/ (Sodium Chloride) 100 mls @ 10 mls/hr IV .Q10H [facility] Last Admin: 04/01/23 08:27 Dose: 8 mg/hr, 10 mls/hr Documented By: CRYSTAL Insulin Human Lispro (Insulin Lispro 100 Unit/Ml 3 Ml Vial) 0 unit SUBCUT QIDACHS [facility]; Protocol Last Admin: 04/01/23 07:24 Dose: Not Given Documented By: CRYSTAL Non-Admin Reason: No Insulin Coverage Losartan Potassium (Losartan Potassium 50 Mg Tablet) 50 mg PO DAILY [facility]; Protocol Last Admin: 04/01/23 08:28 Dose: 50 mg Documented By: CRYSTAL Melatonin (Melatonin 3 Mg Tablet) 6 mg PO BEDTIME PRN PRN Reason: Insomnia Last Admin: 03/31/23 21:45 Dose: 6 mg Documented By: DAYA Pharmacy Consult (Consult Rx Perform Med Rec) 1 each MISCELLANE ONCE PRN PRN Reason: Consult order Sertraline HCl (Sertraline Hcl 50 Mg Tablet) 50 mg PO DAILY [facility] Last Admin: 04/01/23 08:28 Dose: 50 mg Documented By: CRYSTAL Sodium Chloride (0.9 % Sodium Chloride Flush 3 Ml Syringe) 3 ml IVFLUSH QSHIFT [facility] Last Admin: 04/01/23 08:28 Dose: 3 ml Documented By: CRYSTAL Labs 04/01/23 05:21 04/01/23 05:21 Labs: Laboratory Results - last 24 hr 03/30/23 03/31/23 03/31/23 09:28 10:39 13:10 MCV MCH MCHC RDW Plt Count MPV Absolute Nucleated RBC Nucleated RBC % (auto) Anion Gap Estim Creat Clear Calc Estimated GFR POC Glucose 98 Fasting Glucose Calcium Blood Type O Positive O Positive Antibody Screen POSITIVE POSITIVE Antibody Identification Anti-Fya Anti-Fya Antigen Identification Fya Antigen - NEGATIVE Crossmatch See Detail Crossmatch ([facility]) See Detail See Detail Blood Bank Comment Technical 03/31/23 03/31/23 04/01/23 16:26 20:28 05:21 MCV 93.3 MCH 31.3 MCHC 33.6 RDW 14.2 Plt Count 294 MPV 9.3 L Absolute Nucleated RBC 0.020 H Nucleated RBC % (auto) 0.2 Anion Gap Estim Creat Clear Calc Estimated GFR POC Glucose 79 88 Fasting Glucose Calcium Blood Type Antibody Screen Antibody Identification Antigen Identification Crossmatch Crossmatch ([facility]) Blood Bank Comment 04/01/23 04/01/23 05:21 07:17 MCV MCH MCHC RDW Plt Count MPV Absolute Nucleated RBC Nucleated RBC % (auto) Anion Gap 10 L Estim Creat Clear Calc 43.7 Estimated GFR > 60 POC Glucose 93 Fasting Glucose 91 Calcium 8.4 Blood Type Antibody Screen Antibody Identification Antigen Identification Crossmatch Crossmatch ([facility]) Blood Bank Comment Microbiology Microbiology Results: Microbiology 03/30/23 Unknown Urine Culture - Final Urine Catheterized - Straight Catheter Assessment and Plan (1) Acute duodenal ulcer with bleeding: Status: Acute Plan 7F PMH htn, hld, DM, depression, anxiety, peptic ulcer disease presented with brbpr acute blood loss anemia due to duodenal ulcer (see EGD report 03/30/23) iv ppi, monitor cbc, transfused 1 unit prbc 03/31/23 clears DM insulin sliding scale htn losartan dvt prophylaxis - mechanical due to bleed full code reason for continued hospitalization:monitor, high risk lesion for rebleed Time Spent With Patient Time: Total time managing care of this patient today ____ minutes. Quality Stroke Does the patient have a stroke diagnosis?: No VTE Prior VTE?: No VTE Risk Level:: Medical - moderate - high VTE Device Contraindication: N/A - Device Ordered VTE Drug Contraindication: Treatment Not Tolerated
--- NOTE | 2023-04-01 10:05 | PM.PNGS ---
Subjective Subjective Date of Service: 04/01/23 Interval history: Feels well this morning. Tolerating clear liquids. Denies any abdominal pain. No nausea, vomiting. Feels hungry and wants to eat. Physical Exam Vital Signs: Vital Signs: Last Vital Signs Temp 97.9 F 04/01/23 07:25 Pulse 65 04/01/23 07:25 Resp 20 04/01/23 07:25 BP 143/65 H 04/01/23 07:25 Pulse Ox 94 04/01/23 07:25 O2 Del Method Room Air 04/01/23 07:25 BMI result Body Mass Index 22.3 Const: General: comfortable, no acute distress and alert Orientation/consciousness: patient oriented x3 Resp: Effort & Inspection: normal respiratory effort GI: Inspection: No distended Palpation (GI): Soft to palpation, nontender, no guarding and not rigid Skin: General skin exam: no rashes or lesions noted Neuro: General: patient oriented x3 and moves all extremities Objective Data Active Medications Atorvastatin Calcium (Atorvastatin Calcium 80 Mg Tablet) 80 mg PO BEDTIME [facility] Dextrose (Dextrose 50 % 25 Gm/50 Ml Syringe) 25 gm IVPUSH Q15M PRN; Protocol PRN Reason: per Hypoglycemia Standing Ord. Glucose (Glucose Gel 15 Gm Gel..Gram.) 15 gm PO Q15M PRN; Protocol PRN Reason: per Hypoglycemia Standing Ord. Hydralazine HCl (Hydralazine Hcl 20 Mg/Ml Vial) 5 mg IVPUSH Q6H PRN; Protocol PRN Reason: sbp>190 Last Admin: 03/30/23 18:30 Dose: 5 mg Documented By: KELLY Comments: SBP 202 Insulin Human Lispro (Insulin Lispro 100 Unit/Ml 3 Ml Vial) 0 unit SUBCUT QIDACHS [facility]; Protocol Last Admin: 04/01/23 07:24 Dose: Not Given Documented By: CRYSTAL Non-Admin Reason: No Insulin Coverage Losartan Potassium (Losartan Potassium 50 Mg Tablet) 50 mg PO DAILY [facility]; Protocol Last Admin: 04/01/23 08:28 Dose: 50 mg Documented By: CRYSTAL Melatonin (Melatonin 3 Mg Tablet) 6 mg PO BEDTIME PRN PRN Reason: Insomnia Last Admin: 03/31/23 21:45 Dose: 6 mg Documented By: DAYA Pantoprazole Sodium (Pantoprazole Sodium 40 Mg/10 Ml Vial) 40 mg IVPUSH BID@[id number],[id number] [facility] Pharmacy Consult (Consult Rx Perform Med Rec) 1 each MISCELLANE ONCE PRN PRN Reason: Consult order Sertraline HCl (Sertraline Hcl 50 Mg Tablet) 50 mg PO DAILY [facility] Last Admin: 04/01/23 08:28 Dose: 50 mg Documented By: CRYSTAL Sodium Chloride (0.9 % Sodium Chloride Flush 3 Ml Syringe) 3 ml IVFLUSH QSHIFT [facility] Last Admin: 04/01/23 08:28 Dose: 3 ml Documented By: CRYSTAL Labs 04/01/23 05:21 04/01/23 05:21 Labs: Laboratory Results - last 24 hr 03/30/23 03/31/23 03/31/23 09:28 10:39 13:10 MCV MCH MCHC RDW Plt Count MPV Absolute Nucleated RBC Nucleated RBC % (auto) Anion Gap Estim Creat Clear Calc Estimated GFR POC Glucose 98 Fasting Glucose Calcium Blood Type O Positive O Positive Antibody Screen POSITIVE POSITIVE Antibody Identification Anti-Fya Anti-Fya Antigen Identification Fya Antigen - NEGATIVE Crossmatch See Detail Crossmatch ([facility]) See Detail See Detail Blood Bank Comment Technical 03/31/23 03/31/23 04/01/23 16:26 20:28 05:21 MCV 93.3 MCH 31.3 MCHC 33.6 RDW 14.2 Plt Count 294 MPV 9.3 L Absolute Nucleated RBC 0.020 H Nucleated RBC % (auto) 0.2 Anion Gap Estim Creat Clear Calc Estimated GFR POC Glucose 79 88 Fasting Glucose Calcium Blood Type Antibody Screen Antibody Identification Antigen Identification Crossmatch Crossmatch ([facility]) Blood Bank Comment 04/01/23 04/01/23 05:21 07:17 MCV MCH MCHC RDW Plt Count MPV Absolute Nucleated RBC Nucleated RBC % (auto) Anion Gap 10 L Estim Creat Clear Calc 43.7 Estimated GFR > 60 POC Glucose 93 Fasting Glucose 91 Calcium 8.4 Blood Type Antibody Screen Antibody Identification Antigen Identification Crossmatch Crossmatch ([facility]) Blood Bank Comment Microbiology Microbiology Results: Microbiology 03/30/23 Unknown Urine Culture - Final Urine Catheterized - Straight Catheter Procedures Date of Service Date of Service: 04/01/23 Progress Note: A&P Assessment and plan (1) Acute duodenal ulcer with bleeding: Status: Acute Plan 77-year-old female patient presenting with a recurrent upper GI bleed found to have recurring duodenal ulcer by upper endoscopy. No active bleeding was identified however there was stigmata of a previous bleed with an adherent clot to the ulcer surface. Doing well. No evidence of rebleeding. Abd very benign, vitals stable. H/H stable and trending up. Can advance diet as tolerated. Time Spent With Patient Time: Total time managing care of this patient today ____ minutes. Quality Stroke Does the patient have a stroke diagnosis?: No VTE Prior VTE?: No VTE Risk Level:: Medical - moderate - high VTE Device Contraindication: N/A - Device Ordered VTE Drug Contraindication: Treatment Not Tolerated
[2023-04-01 11:16] LABS: Glucose, Whole Blood 83 mg/dL (60-115)
[2023-04-01 11:41] VITALS: BP 161/70; PULSE 53; RESP 20; TEMP 36.1; O2SAT 97
[2023-04-01 15:43] VITALS: BP 158/74; PULSE 68; RESP 18; TEMP 37; O2SAT 97
[2023-04-01 16:11] LABS: Glucose, Whole Blood 109 mg/dL (60-115)
[2023-04-01] MEDS: Pantoprazole Sodium 40 MG/10 ML VIAL IVPUSH (16:42)
[2023-04-01 19:16] VITALS: BP 151/81; PULSE 89; RESP 17; TEMP 37.1; O2SAT 97
[2023-04-01] MEDS: Melatonin 3 MG TABLET 6 MG PO (19:57)
[2023-04-01] MEDS: Atorvastatin Calcium 80 MG TABLET PO (19:57)
[2023-04-01 20:28] LABS: Glucose, Whole Blood 111 mg/dL (60-115)
[2023-04-02] VITALS (7 sets, daily range): BP systolic 158–174; BP diastolic 60–77; PULSE 57–88; RESP 16–22; TEMP 35.6–36.8; O2SAT 94–97
[2023-04-02 05:54] LABS: Hematocrit 29.9 % (37.0-47.0); Hemoglobin 10.2 g/dl (12.0-16.0); Mean Corpuscular HGB Conc 34.1 g/dl (31.0-35.0); Mean Corpuscular Hemoglobin 31.9 pg (27.0-33.0); Mean Corpuscular Volume 93.4 fL (80.0-98.0); Mean Platelet Volume 9.3 fL (9.4-12.3); Platelet Count 322 X10*3/uL (160-400); White Blood Count 9.2 X10*3/uL (4.8-10.8)
[2023-04-02] MEDS: Pantoprazole Sodium 40 MG/10 ML VIAL IVPUSH ×2 (05:59→16:30)
[2023-04-02 06:23] LABS: Anion Gap 11 (12-20); Blood Urea Nitrogen 15 mg/dL (9-16); Calcium 8.5 mg/dL (8.4-10.2); Carbon Dioxide 22 mmol/L (22-29); Chloride 111 mmol/L (96-108); Creatinine Clr Calc Pharmacy 43.3; Estimated Glomerular Filt Rate 60; Glucose Fasting 100 mg/dL (60-99); Potassium 3.5 mmol/L (3.3-5.1); Sodium 140 mmol/L (135-145)
[2023-04-02 07:44] LABS: Glucose, Whole Blood 106 mg/dL (60-115)
[2023-04-02] MEDS: Losartan Potassium 50 MG TABLET PO ×2 (08:12→11:07)
[2023-04-02] MEDS: Sertraline HCL 50 MG TABLET PO (08:12)
[2023-04-02] MEDS: 0.9 % Sodium Chloride Flush 3 ML SYRINGE IVFLUSH ×3 (08:12→20:05)
--- NOTE | 2023-04-02 09:45 | PM.PNGS ---
Subjective Subjective Date of Service: 04/02/23 Interval history: no bleeding episodes feels well denies abdl pain tolerating liquids Physical Exam Vital Signs: Vital Signs: Last Vital Signs Temp 97.3 F 04/02/23 07:18 Pulse 65 04/02/23 07:18 Resp 16 04/02/23 07:18 BP 168/64 H 04/02/23 07:18 Pulse Ox 94 04/02/23 07:18 O2 Del Method Room Air 04/02/23 07:18 BMI result Body Mass Index 22.3 Const: General: comfortable and no acute distress Resp: Effort & Inspection: normal respiratory effort Cardio: Rate: regular rate GI: Palpation (GI): Soft to palpation and nontender Objective Data Active Medications Atorvastatin Calcium (Atorvastatin Calcium 80 Mg Tablet) 80 mg PO BEDTIME [facility] Last Admin: 04/01/23 19:57 Dose: 80 mg Documented By: RAMILA Dextrose (Dextrose 50 % 25 Gm/50 Ml Syringe) 25 gm IVPUSH Q15M PRN; Protocol PRN Reason: per Hypoglycemia Standing Ord. Glucose (Glucose Gel 15 Gm Gel..Gram.) 15 gm PO Q15M PRN; Protocol PRN Reason: per Hypoglycemia Standing Ord. Hydralazine HCl (Hydralazine Hcl 20 Mg/Ml Vial) 5 mg IVPUSH Q6H PRN; Protocol PRN Reason: sbp>190 Last Admin: 03/30/23 18:30 Dose: 5 mg Documented By: KELLY Comments: SBP 202 Insulin Human Lispro (Insulin Lispro 100 Unit/Ml 3 Ml Vial) 0 unit SUBCUT QIDACHS [facility]; Protocol Last Admin: 04/02/23 08:11 Dose: Not Given Documented By: PUSHPA Non-Admin Reason: No Insulin Coverage Comments: per policy Losartan Potassium (Losartan Potassium 50 Mg Tablet) 50 mg PO DAILY [facility]; Protocol Last Admin: 04/02/23 08:12 Dose: 50 mg Documented By: PUSHPA Melatonin (Melatonin 3 Mg Tablet) 6 mg PO BEDTIME PRN PRN Reason: Insomnia Last Admin: 04/01/23 19:57 Dose: 6 mg Documented By: RAMILA Pantoprazole Sodium (Pantoprazole Sodium 40 Mg/10 Ml Vial) 40 mg IVPUSH BID@0630,1630 [facility] Last Admin: 04/02/23 05:59 Dose: 40 mg Documented By: RAMILA Pharmacy Consult (Consult Rx Perform Med Rec) 1 each MISCELLANE ONCE PRN PRN Reason: Consult order Sertraline HCl (Sertraline Hcl 50 Mg Tablet) 50 mg PO DAILY [facility] Last Admin: 04/02/23 08:12 Dose: 50 mg Documented By: PUSHPA Sodium Chloride (0.9 % Sodium Chloride Flush 3 Ml Syringe) 3 ml IVFLUSH QSHIFT [facility] Last Admin: 04/02/23 08:12 Dose: 3 ml Documented By: PUSHPA Labs 04/02/23 05:33 04/02/23 05:33 Labs: Laboratory Results - last 24 hr 04/01/23 04/01/23 04/01/23 11:09 16:01 20:13 MCV MCH MCHC RDW Plt Count MPV Absolute Nucleated RBC Nucleated RBC % (auto) Anion Gap Estim Creat Clear Calc Estimated GFR POC Glucose 83 109 111 Fasting Glucose Calcium 04/02/23 04/02/23 04/02/23 05:33 05:33 07:25 MCV 93.4 MCH 31.9 MCHC 34.1 RDW 14.0 Plt Count 322 MPV 9.3 L Absolute Nucleated RBC 0.000 Nucleated RBC % (auto) 0.0 Anion Gap 11 L Estim Creat Clear Calc 43.3 Estimated GFR 60 POC Glucose 106 Fasting Glucose 100 H Calcium 8.5 Procedures Date of Service Date of Service: 04/02/23 Progress Note: A&P Assessment and plan (1) GI bleed: Status: Acute Assessment and Plan: looks well no further bleeding exam benign she says she being discharged this weekend she should stay off of NSAIDs needs PPI she ay have some dementia - may be self medicating at home; will need assistance with multiple meds Time Spent With Patient Time: Total time managing care of this patient today ____ minutes. Quality Stroke Does the patient have a stroke diagnosis?: No VTE Prior VTE?: No VTE Risk Level:: Medical - moderate - high VTE Device Contraindication: N/A - Device Ordered VTE Drug Contraindication: Treatment Not Tolerated
--- NOTE | 2023-04-02 09:53 | P.PNIM_ITS ---
Subjective Subjective Date of Service: 04/02/23 Interval History: no further bleeding Physical Exam Vital Signs: Vital Signs: Last Vital Signs Temp 97.3 F 04/02/23 07:18 Pulse 65 04/02/23 07:18 Resp 16 04/02/23 07:18 BP 168/64 H 04/02/23 07:18 Pulse Ox 94 04/02/23 07:18 O2 Del Method Room Air 04/02/23 07:18 BMI result Body Mass Index 22.3 General: AO X 3, no acute distress Resp: CTA bilateral, no accessory muscles used CVS: S1,S2,RRR GI: soft, non tender, non distended Neuro: motor grossly intact, alert Psych: appropriate affect, appropriate insight Objective Data Active Medications Atorvastatin Calcium (Atorvastatin Calcium 80 Mg Tablet) 80 mg PO BEDTIME [facility] Last Admin: 04/01/23 19:57 Dose: 80 mg Documented By: RAMILA Dextrose (Dextrose 50 % 25 Gm/50 Ml Syringe) 25 gm IVPUSH Q15M PRN; Protocol PRN Reason: per Hypoglycemia Standing Ord. Glucose (Glucose Gel 15 Gm Gel..Gram.) 15 gm PO Q15M PRN; Protocol PRN Reason: per Hypoglycemia Standing Ord. Hydralazine HCl (Hydralazine Hcl 20 Mg/Ml Vial) 5 mg IVPUSH Q6H PRN; Protocol PRN Reason: sbp>190 Last Admin: 03/30/23 18:30 Dose: 5 mg Documented By: KELLY Comments: SBP 202 Insulin Human Lispro (Insulin Lispro 100 Unit/Ml 3 Ml Vial) 0 unit SUBCUT QIDACHS [facility]; Protocol Last Admin: 04/02/23 08:11 Dose: Not Given Documented By: PUSHPA Non-Admin Reason: No Insulin Coverage Comments: per policy Losartan Potassium (Losartan Potassium 50 Mg Tablet) 50 mg PO DAILY [facility]; Protocol Last Admin: 04/02/23 08:12 Dose: 50 mg Documented By: PUSHPA Melatonin (Melatonin 3 Mg Tablet) 6 mg PO BEDTIME PRN PRN Reason: Insomnia Last Admin: 04/01/23 19:57 Dose: 6 mg Documented By: RAMILA Pantoprazole Sodium (Pantoprazole Sodium 40 Mg/10 Ml Vial) 40 mg IVPUSH BID@0630,1630 [facility] Last Admin: 04/02/23 05:59 Dose: 40 mg Documented By: RAMILA Pharmacy Consult (Consult Rx Perform Med Rec) 1 each MISCELLANE ONCE PRN PRN Reason: Consult order Sertraline HCl (Sertraline Hcl 50 Mg Tablet) 50 mg PO DAILY [facility] Last Admin: 04/02/23 08:12 Dose: 50 mg Documented By: PUSHPA Sodium Chloride (0.9 % Sodium Chloride Flush 3 Ml Syringe) 3 ml IVFLUSH QSHIFT [facility] Last Admin: 04/02/23 08:12 Dose: 3 ml Documented By: PUSHPA Labs 04/02/23 05:33 04/02/23 05:33 Labs: Laboratory Results - last 24 hr 04/01/23 04/01/23 04/01/23 11:09 16:01 20:13 MCV MCH MCHC RDW Plt Count MPV Absolute Nucleated RBC Nucleated RBC % (auto) Anion Gap Estim Creat Clear Calc Estimated GFR POC Glucose 83 109 111 Fasting Glucose Calcium 04/02/23 04/02/23 04/02/23 05:33 05:33 07:25 MCV 93.4 MCH 31.9 MCHC 34.1 RDW 14.0 Plt Count 322 MPV 9.3 L Absolute Nucleated RBC 0.000 Nucleated RBC % (auto) 0.0 Anion Gap 11 L Estim Creat Clear Calc 43.3 Estimated GFR 60 POC Glucose 106 Fasting Glucose 100 H Calcium 8.5 Assessment and Plan (1) Acute duodenal ulcer with bleeding: Status: Acute Plan 7F PMH htn, hld, DM, depression, anxiety, peptic ulcer disease presented with brbpr acute blood loss anemia due to duodenal ulcer (see EGD report 03/30/23) iv ppi, monitor cbc, transfused 1 unit prbc 03/31/23 solids DM insulin sliding scale htn losartan dvt prophylaxis - mechanical due to bleed full code reason for continued hospitalization:monitor, high risk lesion for rebleed Time Spent With Patient Time: Total time managing care of this patient today ____ minutes. Quality Stroke Does the patient have a stroke diagnosis?: No VTE Prior VTE?: No VTE Risk Level:: Medical - moderate - high VTE Device Contraindication: N/A - Device Ordered VTE Drug Contraindication: Treatment Not Tolerated
[2023-04-02 11:36] LABS: Glucose, Whole Blood 108 mg/dL (60-115)
--- NOTE | 2023-04-02 12:19 | PM.PNCARD ---
Subjective Subjective Date of Service: 04/02/23 Interval history: Seen and examined at bedside. Peptic ulcer disease is the cause for anemia. Blood pressure is elevated. Physical Exam Vital Signs: Last Vital Signs Temp 97.1 F 04/02/23 11:10 Pulse 62 04/02/23 11:10 Resp 18 04/02/23 11:10 BP 170/68 H 04/02/23 11:10 Pulse Ox 97 04/02/23 11:10 O2 Del Method Room Air 04/02/23 11:10 BMI result Body Mass Index 22.3 GENERAL APPEARANCE: in no acute distress, pleasant. NECK: no carotid bruit, no jugular venous distention. SKIN: no suspicious lesions, warm and dry. HEART: no murmurs, regular rate and rhythm. LUNGS: clear to auscultation bilaterally. ABDOMEN: soft, nontender. EXTREMITIES: no edema. PERIPHERAL PULSES: equal. NEUROLOGIC: No gross deficits, AAO X 3 Objective Labs and Meds 04/02/23 05:33 04/02/23 05:33 Lab results: Laboratory Results - last 24 hr 04/01/23 04/01/23 04/02/23 16:01 20:13 05:33 WBC 9.2 RBC 3.20 L Hgb 10.2 L Hct 29.9 L MCV 93.4 MCH 31.9 MCHC 34.1 RDW 14.0 Plt Count 322 MPV 9.3 L Absolute Nucleated RBC 0.000 Nucleated RBC % (auto) 0.0 Sodium Potassium Chloride Carbon Dioxide Anion Gap BUN Creatinine Estim Creat Clear Calc Estimated GFR POC Glucose 109 111 Fasting Glucose Calcium 04/02/23 04/02/23 04/02/23 05:33 07:25 11:12 WBC RBC Hgb Hct MCV MCH MCHC RDW Plt Count MPV Absolute Nucleated RBC Nucleated RBC % (auto) Sodium 140 Potassium 3.5 Chloride 111 H Carbon Dioxide 22 Anion Gap 11 L BUN 15 Creatinine 0.91 Estim Creat Clear Calc 43.3 Estimated GFR 60 POC Glucose 106 108 Fasting Glucose 100 H Calcium 8.5 Progress Note: A&P Assessment and plan (1) Abnormal ECG: Status: Acute (2) GI bleed: Status: Acute (3) Hypertension: Status: Acute Plan 77-year-old female with abnormal EKG in the setting of anemia due to GI bleed. She has no history of peptic ulcer disease and was using NSAIDs and came back with bleeding again. She does not know her medications and apparently was taking multiple doses of the same medications. She would benefit from a pillbox through pharmacy. Blood pressure is elevated. Titrating losartan to 100 mg daily. If blood pressure still not controlled on amlodipine can be tried. Please avoid IV hydralazine. Thank you for allowing me to participate in the care of your patient. Please feel free to contact me if you have any questions. Time Spent With Patient Time: Total time managing care of this patient today ____ minutes. Progress Note: Quality Stroke Does the patient have a stroke diagnosis?: No Procedures Date of Service Date of Service: 04/02/23
[2023-04-02 16:14] LABS: Glucose, Whole Blood 167 mg/dL (60-115)
[2023-04-02] MEDS: Insulin Lispro 100 UNIT/ML 3 ML VIAL SUBCUT (16:30)
[2023-04-02] MEDS: Melatonin 3 MG TABLET 6 MG PO (20:04)
[2023-04-02] MEDS: Acetaminophen 325 MG TABLET 650 MG PO (20:05)
[2023-04-02] MEDS: Atorvastatin Calcium 80 MG TABLET PO (20:05)
[2023-04-02 20:33] LABS: Glucose, Whole Blood 125 mg/dL (60-115)
[2023-04-03 03:38] VITALS: BP 165/71; PULSE 55; RESP 20; TEMP 35.8; O2SAT 96
[2023-04-03] MEDS: Pantoprazole Sodium 40 MG/10 ML VIAL IVPUSH (05:34)
[2023-04-03 06:40] LABS: Hematocrit 31.2 % (37.0-47.0); Hemoglobin 10.6 g/dl (12.0-16.0); Mean Corpuscular Volume 91.2 fL (80.0-98.0); Mean Platelet Volume 9.1 fL (9.4-12.3); Platelet Count 398 X10*3/uL (160-400); Red Blood Count 3.42 X10*6/uL (4.20-5.50); Red Cell Distribution Width 14.4 % (11.0-16.0); White Blood Count 10.4 X10*3/uL (4.8-10.8)
[2023-04-03 06:54] LABS: Anion Gap 13 (12-20); Blood Urea Nitrogen 14 mg/dL (9-16); Calcium 8.8 mg/dL (8.4-10.2); Carbon Dioxide 20 mmol/L (22-29); Chloride 111 mmol/L (96-108); Creatinine Clr Calc Pharmacy 43.7; Estimated Glomerular Filt Rate > 60; Glucose Fasting 105 mg/dL (60-99); Potassium 3.5 mmol/L (3.3-5.1); Sodium 140 mmol/L (135-145)
[2023-04-03 07:11] VITALS: BP 149/81; PULSE 56; RESP 17; TEMP 36.2; O2SAT 93
[2023-04-03 07:43] LABS: Glucose, Whole Blood 99 mg/dL (60-115)
[2023-04-03] MEDS: 0.9 % Sodium Chloride Flush 3 ML SYRINGE IVFLUSH (07:58)
[2023-04-03] MEDS: Losartan Potassium 50 MG TABLET 100 MG PO (07:59)
[2023-04-03] MEDS: Sertraline HCL 50 MG TABLET PO (07:59)
--- NOTE | 2023-04-03 09:02 | PM.DS ---
DS: Providers Provider Date of Service: 04/03/23 Date of admission: 03/30/23 12:51 Primary care physician: Argelia Alberto MD Consults: 03/30/23 16:14 Consult to General Surgery Routine Consulting Provider: [facility] General Surgeons Reason for consultation: duodenal ulcer 03/30/23 16:34 Consult to Cardiology Routine Consulting Provider: [facility] Cardiovascular Services Reason for consultation: history of NSTEMI, ischemic changes during EGD DS: Diagnosis Discharge Diagnosis (1) Abnormal ECG: Status: Acute (2) GI bleed: Status: Acute (3) Hypertension: Status: Acute DS: Summary Hospital Course Hospital Course: from initial hpi: 77F PMH htn, hld, DM, depression, anxiety, peptic ulcer disease presented with brbpr. patient reports 1 days multiple episodes of brbpr without pain, lightheadedness. uses nsaids, not on AC. in ED hgb 9.2, down from 13.[address] abd limited showed divertulosis, hepatic steatosis. hospital course: Patient was admitted for acute blood loss anemia. She underwent EGD which revealed duodenal ulcer. She was treated with IV Protonix, she required 1 unit of PRBC. Bleeding stopped and hemoglobin stabilized. It is between 10 and 11 at discharge. She was advanced to solid diet and tolerated well. She was instructed to discontinue all NSAIDs. And will be started on omeprazole as outpatient. She should follow up with Gastroenterology. For diabetes she was continued on insulin. For hypertension she was noted to be hypertensive during hospitalization and losartan was increased to 100 mg daily. Patient is feeling better will be discharged home. Time Spent with Patient Time attestation: Total time managing care of this patient today ____ minutes. Discharge coordination time: Greater than 30 minutes Quality: Safe Use of Opioids Does Pt have an Active Cancer Diagnosis on the Problem List?: No Quality: Stroke Does the patient have a stroke diagnosis?: No Physical Exam Vital Signs: Vital Signs: Last Vital Signs Temp 97.1 F 04/03/23 07:11 Pulse 56 04/03/23 07:11 Resp 17 04/03/23 07:11 BP 149/81 H 04/03/23 07:11 Pulse Ox 93 04/03/23 07:11 O2 Del Method Room Air 04/03/23 07:11 BMI result Body Mass Index 22.3 GENERAL APPEARANCE: in no acute distress, pleasant. NECK: no carotid bruit, no jugular venous distention. SKIN: no suspicious lesions, warm and dry. HEART: no murmurs, regular rate and rhythm. LUNGS: clear to auscultation bilaterally. ABDOMEN: soft, nontender. EXTREMITIES: no edema. PERIPHERAL PULSES: equal. NEUROLOGIC: No gross deficits, AAO X 3 DS: Data Data Completed and Pending Completed studies during hospitalization [Text1]: Procedures Control Bleeding in Gastrointestinal Tract, Via Natural or Artificial Opening Endoscopic (10/30/20) Drainage of Duodenum, Open Approach (10/30/20) Insertion of Infusion Device into Superior Vena Cava, Percutaneous Approach (10/30/20) Repair Duodenum, Open Approach (10/30/20) Transfusion of Nonautologous Frozen Plasma into Peripheral Vein, Percutaneous Approach (10/30/20) Transfusion of Nonautologous Platelets into Peripheral Vein, Percutaneous Approach (10/30/20) Transfusion of Nonautologous Red Blood Cells into Peripheral Vein, Percutaneous Approach (10/30/20) Ultrasonography of Superior Vena Cava, Guidance (10/30/20) Labs on day of discharge: Laboratory Results - last 24 hr 04/02/23 04/02/23 04/02/23 11:12 16:09 20:24 WBC RBC Hgb Hct MCV MCH MCHC RDW Plt Count MPV Absolute Nucleated RBC Nucleated RBC % (auto) Sodium Potassium Chloride Carbon Dioxide Anion Gap BUN Creatinine Estim Creat Clear Calc Estimated GFR POC Glucose 108 167 H 125 H Fasting Glucose Calcium 04/03/23 04/03/23 04/03/23 06:24 06:24 07:13 WBC 10.4 RBC 3.42 L Hgb 10.6 L Hct 31.2 L MCV 91.2 MCH 31.0 MCHC 34.0 RDW 14.4 Plt Count 398 MPV 9.1 L Absolute Nucleated RBC 0.000 Nucleated RBC % (auto) 0.0 Sodium 140 Potassium 3.5 Chloride 111 H Carbon Dioxide 20 L Anion Gap 13 BUN 14 Creatinine 0.90 Estim Creat Clear Calc 43.7 Estimated GFR > 60 POC Glucose 99 Fasting Glucose 105 H Calcium 8.8 Discharge Plan Discharge Anticipated Discharge Date/Time: 04/03/23 08:57 Patient Disposition: Home, Self-Care Discharge Diagnosis: duodenal ulcer Referrals: Argelia Alberto MD [Primary Care Provider] - 1 Week Discharge Medications: New losartan 50 mg Tablet 100 mg PO DAILY Qty: 30 0RF Protocol: Hold for SBP< HOLD for SBP < : 90 omeprazole 40 mg capsule,delayed release(DR/EC) 40 mg PO BID Qty: 60 0RF Continued (GREG) bernard Coyle See Rx Instructions .ROUTE .MEDSUPPLY Qty: 1 0RF Rx Instructions: As needed meclizine 12.5 mg tablet 12.5 mg PO QID PRN (Reason: Dizziness) mirtazapine 30 mg tablet 30 mg PO BEDTIME sertraline 50 mg tablet 50 mg PO DAILY rosuvastatin 20 mg tablet 20 mg PO BEDTIME Discontinued losartan 50 mg tablet 50 mg PO DAILY simvastatin 40 mg tablet 40 mg PO BEDTIME Discharge Orders: Discharge Order (Routine); Ordered 04/03/23 Ordered By: Chip Garza Diet: Advance to usual diet Activity on Discharge: As tolerated Stand Alone Forms: Patient Portal Discharge page Care Plan Goals: avoid bleed Health Concerns: duodenal ulcer Plan of Treatment: stop all NSAIDs, start omeprazole 40mg bid, follow up with gi, increae losartan to 100mg daily Assessment: see above
--- NOTE | 2023-04-03 09:51 | W.MHC.F2F ---
Service Date Service Date: 04/03/23 Encounter Date of encounter: 04/03/23 Reasons for Services Signs and symptoms assessed: wekayara Reason for group home: medication management, medication treatment and teach disease management Homebound: Leaving the home is medically contraindicated at this time without the asist of a device and/or another person due th the listed conditions above and below. Reason homebound: unsteady gait / fall risk Certification: Based on the above findings, I certify that this patient is confined to the home and needs intermittent group home care, physical therapy and/or speech therapy, or continues to need occupational therapy. The patient is under my care, and I have initiated the establishment of the plan of care. The patient will be followed by a physician who will periodically review the plan of care. Time Spent With Patient Time: Total time managing care of this patient today ____ minutes.
--- NOTE | 2023-04-03 09:57 | MHC.CM.PN ---
Addendum entered by Grecia Valladares 04/03/23 10:00: Second IMM given 04/03. Original Note: Pt is medically cleared for D/C home to patients son Trell's house with family support. Pts son Trell to transport his mother home. Pt and her son met with CM and state they would like some assistance in the home such as a RESTAURANT B[employer]ENDER. Referrals sent for [facility] and [facility].
== END 2023-04-03 10:08 | disposition home health service (06) | DRG 378 ==
LOC: HO.ED 12:46 → HO.EDOVER 12:52 → HO.IMC 17:20
PROVIDERS: Internal Medicine Gastroenterology; Physician Assistant; Admitting Provider Internal Medicine; Emergency Provider Emergency Medicine; PCP Internal Medicine; Visit Provider Internal Medicine
PROC: 0DJ08ZZ Inspection of Upper Intestinal Tract, Via Natural or Artificial Opening Endoscopic (ICD-10-PCS; principal; 2023-03-30 15:10)
DX: K26.0 Acute duodenal ulcer with hemorrhage (principal); D62 Acute posthemorrhagic anemia; I10 Essential (primary) hypertension; R94.31 Abnormal electrocardiogram [ECG] [EKG]; E11.9 Type 2 diabetes mellitus without complications; E78.00 Pure hypercholesterolemia, unspecified; K44.9 Diaphragmatic hernia without obstruction or gangrene; R00.0 Tachycardia, unspecified; I25.2 Old myocardial infarction; Z79.899 Other long term (current) drug therapy
CPT/HCPCS: 36415; 74178; 80048; 80053; 81001; 82272; 82947; 83690; 83735; 84484; 85025; 85027; 85610; 86850; 86870; 86885; 86900; 86901; 86902; 86905; 86920; 86922; 87086; 93005; 99285; 99499; J1200; P9016; Q9967

== ENCOUNTER 2023-03-30 12:51 | Outpatient (BNV) | payer OTHER, SELFPAY | END 2023-03-31 06:42 | PROVIDERS: Admitting Provider Internal Medicine; Emergency Provider Emergency Medicine; PCP Internal Medicine; Visit Provider Internal Medicine Cardiovascular Disease | DX: R94.31 Abnormal electrocardiogram [ECG] [EKG] (principal) | CPT/HCPCS: 93010 ==

== ENCOUNTER → 2023-03-30 12:51 | Outpatient (BNV) | payer OTHER, SELFPAY | PROVIDERS: Admitting Provider Internal Medicine; Emergency Provider Emergency Medicine; Visit Provider Surgery | DX: K92.2 Gastrointestinal hemorrhage, unspecified (principal) | CPT/HCPCS: 99223; 99232 ==

== ENCOUNTER → 2023-03-30 12:51 | Outpatient (BNV) | payer OTHER, SELFPAY | PROVIDERS: Admitting Provider Internal Medicine; Emergency Provider Emergency Medicine; PCP Internal Medicine; Visit Provider Internal Medicine Cardiovascular Disease | DX: R94.31 Abnormal electrocardiogram [ECG] [EKG] (principal); K92.2 Gastrointestinal hemorrhage, unspecified; I10 Essential (primary) hypertension | CPT/HCPCS: 93010; 99222; 99232 ==

== ENCOUNTER → 2023-03-30 12:51 | Outpatient (BNV) | payer OTHER, SELFPAY | PROVIDERS: Admitting Provider Internal Medicine; Emergency Provider Emergency Medicine; Visit Provider Internal Medicine | DX: K26.0 Acute duodenal ulcer with hemorrhage (principal) | CPT/HCPCS: 99223; 99232; 99233; 99239 ==

== ENCOUNTER 2023-05-31 16:02 | Outpatient (REF) | payer OTHER, SELFPAY | END 2023-05-31 16:03 | disposition home or self-care (01) | LOC: HO.LAB 16:02 | PROVIDERS: PCP Internal Medicine; Visit Provider Internal Medicine | DX: Z13.89 Encounter for screening for other disorder (principal) ==

== ENCOUNTER 2023-06-01 11:51 | Outpatient (REF) | payer OTHER, SELFPAY ==
[2023-06-01 12:08] LABS: MANUAL DIFF FLAG NO
[2023-06-01 13:01] LABS: Basophils Absolute Auto 0.1 X10*3/uL (0.0-0.2); Basophils Percent Auto 0.8 % (0-2); Eosinophils Absolute Auto 0.4 X10*3/uL (0.0-0.4); Hematocrit 37.6 % (37.0-47.0); Hemoglobin 12.2 g/dl (12.0-16.0); Imm Gran Abs Auto 0.01 X10*3/uL (0.00-0.03); Imm Gran Pct Auto 0.1 % (0.0-0.4); Lymphocytes Absolute Auto 2.1 X10*3/uL (1.2-4.9); Lymphocytes Percent Auto 26.3 % (20-40); Mean Corpuscular HGB Conc 32.4 g/dl (31.0-35.0); Mean Corpuscular Hemoglobin 28.9 pg (27.0-33.0); Mean Corpuscular Volume 89.1 fL (80.0-98.0); Monocytes Absolute Auto 0.6 X10*3/uL (0.1-1.2); Monocytes Percent Auto 7.8 % (2-11); Neutrophils Absolute Auto 4.7 x10*3/uL (2.0-8.3); Platelet Count 402 X10*3/uL (160-400); Red Blood Count 4.22 X10*6/uL (4.20-5.50); Red Cell Distribution Width 13.7 % (11.0-16.0); White Blood Count 7.9 X10*3/uL (4.8-10.8)
[2023-06-01 14:04] LABS: Alanine Aminotransferase 14 U/L (0-31); Albumin Level 4.4 g/dL (3.5-5.0); Alkaline Phosphatase 93 U/L (39-117); Anion Gap 13 (12-20); Aspartate Amino Transferase 21 U/L (5-31); Bilirubin Total 0.4 mg/dL (0.0-1.0); Blood Urea Nitrogen 19 mg/dL (9-16); Calcium 9.5 mg/dL (8.4-10.2); Carbon Dioxide 22 mmol/L (22-29); Chloride 106 mmol/L (96-108); Cholesterol 139 mg/dL (<200); Estimated Glomerular Filt Rate 46; Glucose Random 115 mg/dL (60-115); HDL Cholesterol 40 mg/dL (>40); LDL Cholesterol Calculated 72 mg/dL (<100); Potassium 3.3 mmol/L (3.3-5.1); Sodium 138 mmol/L (135-145); Total Protein 7.4 g/dL (6.5-8.0); Triglycerides 138 mg/dL (<150)
[2023-06-01 14:28] LABS: Vitamin D 25-OH Total 59.9 ng/mL (>30)
== END 2023-06-01 11:52 | disposition home or self-care (01) ==
LOC: HO.LAB 11:51
PROVIDERS: PCP Internal Medicine; Visit Provider Internal Medicine
DX: E78.00 Pure hypercholesterolemia, unspecified (principal); I10 Essential (primary) hypertension; K26.4 Chronic or unspecified duodenal ulcer with hemorrhage; M81.8 Other osteoporosis without current pathological fracture
CPT/HCPCS: 36415; 80053; 80061; 82306; 85025

== ENCOUNTER 2024-02-20 09:59 | Outpatient (REF) | payer OTHER, SELFPAY ==
[2024-02-20 11:18] LABS: Alanine Aminotransferase 15 U/L (0-31); Albumin Level 4.2 g/dL (3.5-5.0); Alkaline Phosphatase 95 U/L (39-117); Anion Gap 12 (12-20); Aspartate Amino Transferase 22 U/L (5-31); Bilirubin Total 0.3 mg/dL (0.0-1.0); Blood Urea Nitrogen 13 mg/dL (9-16); Calcium 9.6 mg/dL (8.4-10.2); Carbon Dioxide 24 mmol/L (22-29); Chloride 106 mmol/L (96-108); Cholesterol 206 mg/dL (<200); Estimated Glomerular Filt Rate 47; Glucose Random 113 mg/dL (60-115); HDL Cholesterol 36 mg/dL (>40); LDL Cholesterol Calculated 129 mg/dL (<100); Potassium 4.1 mmol/L (3.3-5.1); Sodium 138 mmol/L (135-145); Total Protein 7.7 g/dL (6.5-8.0); Triglycerides 209 mg/dL (<150)
[2024-02-20 11:34] LABS: Ferritin 19 ng/mL (10-250); Thyroid Stimulating Hormone 2.69 uIU/mL (0.32-4.0)
[2024-02-20 11:36] LABS: Vitamin B12 435 pg/mL (200-900)
[2024-02-22 23:58] LABS: TS Negative Control Passed; TS Panel A 0; TS Panel B 1; TS Positive Control Passed; TSpotTB Negative (Negative)
== END 2024-02-20 10:00 | disposition home or self-care (01) ==
LOC: HO.LAB 09:59
PROVIDERS: PCP Internal Medicine; Visit Provider Internal Medicine
DX: E78.00 Pure hypercholesterolemia, unspecified (principal); F32.5 Major depressive disorder, single episode, in full remission; I10 Essential (primary) hypertension; R26.81 Unsteadiness on feet
CPT/HCPCS: 36415; 80053; 80061; 82607; 82728; 84443; 86481

== ENCOUNTER 2024-12-19 18:51 | Emergency (ER) | payer OTHER, MEDICAID, SELFPAY ==
--- NOTE | ~2024-12-19 | XR_ITS ---
CLINICAL HISTORY: fall, trauma 3 view left ankle Comparison: CR/SR - XR FOOT LT MIN 3V - 08/16/22 10:54 EST Findings: No acute fracture identified. Severe tibiotalar degenerative changes. No significant ankle joint effusion. No foreign body. IMPRESSION: 1. No acute findings. This document has been electronically signed by: Damion Mg MD on 12/19/2024 19:25:04
--- NOTE | ~2024-12-19 | XR_ITS ---
CLINICAL HISTORY: s p toe injury manipulation attempt 3 view left foot Comparison: CR - XR FOOT LT MIN 3V - 12/19/24 19:06 EDT Findings: Reduction of the 3rd proximal interphalangeal dislocation seen previously. Improved nearly anatomic alignment of the 4th proximal phalanx fracture. Remaining fractures noted on the prior study are unchanged. IMPRESSION: 1. Anatomic alignment of the 3rd proximal interphalangeal joint status post successful relocation/reduction. 2. Improved nearly anatomic alignment of the 4th proximal phalanx fracture. This document has been electronically signed by: Damion Mg MD on 12/19/2024 22:48:26
--- NOTE | ~2024-12-19 | XR_ITS ---
CLINICAL HISTORY: fall yesterday, trauma 3 view left foot Comparison: CR/SR - XR FOOT LT MIN 3V - 08/16/22 10:54 EST Findings: Mildly displaced 1st proximal phalanx fracture. Displaced left 4th proximal phalanx fracture. Complete dislocation of the left 3rd proximal interphalangeal joint. Nondisplaced intra-articular fracture of the left 2nd proximal phalanx extending into the proximal interphalangeal joint. Diffuse osteopenia again noted. Advanced tibiotalar arthritic changes. Scattered [id number] arthritic changes in the foot worst at the 1st metatarsophalangeal. No ankle effusion. No radiopaque foreign body. IMPRESSION: 1. Nondisplaced left 2nd proximal phalanx fracture extending into the proximal interphalangeal joint. 2. Mildly displaced 1st proximal phalanx fracture. 3. Displaced left 4th proximal phalanx fracture. 4. Complete dislocation of the left 3rd proximal interphalangeal joint. This document has been electronically signed by: Damion Mg MD on 12/19/2024 19:27:41
[2024-12-19 18:53] VITALS: BP 163/66; PULSE 76; RESP 18; TEMP 36.5; O2SAT 98; BMI 24.9
--- NOTE | 2024-12-19 18:54 | ED.GENADULT ---
HPI - General Adult General Chief complaint: Fall Stated complaint: L foot injury s/p fall Time Seen by Provider: 12/19/24 19:34 History of Present Illness ED Provider: Mindy RAYMUNDO narrative: The patient is an 79-year-old female who says that she hurt her left foot yesterday when she fell. She has trouble describing the fall but does not feel that she injured anything other than the foot. The patient lives with her son who is her primary tailor helper. This evening the family noticed that she had developed a large blister on the dorsum of the left foot and she was brought to the hospital for evaluation. Related Data Home Medications ?Medication ?Instructions ?Recorded ?Confirmed meclizine 12.5 mg tablet 12.5 mg PO QID PRN Dizziness 03/30/23 03/30/23 mirtazapine 30 mg tablet 30 mg PO BEDTIME 03/30/23 03/30/23 rosuvastatin 20 mg tablet 20 mg PO BEDTIME 03/30/23 03/30/23 sertraline 50 mg tablet 50 mg PO DAILY 03/30/23 03/30/23 Previous Rx's ?Medication ?Instructions ?Recorded walker #1 ea 11/06/20 losartan 50 mg tablet 100 mg PO DAILY #30 tabs 04/03/23 omeprazole 40 mg capsule,delayed 40 mg PO BID #60 caps 04/03/23 release cephalexin 500 mg capsule 500 mg PO TID 3 days #9 caps 12/19/24 Allergies Allergy/AdvReac Type Severity Reaction Status Date / Time No Known Allergies Allergy Verified 12/19/24 18:58 [No Known Allergies*] Review of Systems Review of Systems: Yes all other systems are reviewed and are negative [facility] Past Medical History Medical History Acute diverticulitis Acute duodenal ulcer with bleeding High cholesterol HTN (hypertension) NSTEMI (non-ST elevated myocardial infarction) UTI (urinary tract infection) Surgical History Status post exploratory laparotomy (~10/2020) Social History Social History Household Members: Family Household Members Other:: 4 Housing: Apartment Do you presently have visiting nurse or other home services: No Comment: not for pain Patient Tobacco Use Status: Never used Tobacco Cigarette Packs Per Day: 1 Years Smoked: 55 Smoked in Last 30 Days: No Second Hand Smoke Exposure: No Use of substances other than those prescribed or required for medical reasons: No Advance Directives: No Advance Directives Information Provided: No service: No Physical Exam ED Vital Signs: Vital Signs - 24 hr 12/19/24 18:53 12/19/24 22:26 12/19/24 23:02 Temperature 97.7 F 97.6 F 97.6 F Pulse Rate 76 58 58 Respiratory Rate 18 18 18 Blood Pressure 163/66 H 179/68 H 179/68 H Pulse Oximetry 98 96 96 Oxygen Delivery Method Room Air Room Air Room Air BMI result Body Mass Index 24.9 Const Other: The patient is an 79-year-old woman who is awake and alert, pleasant cooperative. She is very pleasant but I suspect there is some mild degree of cognitive impairment. She does not appear acutely ill. HENMT Other: No signs of trauma to the head or the face. There is no raccoon eyes. No Fuentes sign. No sign of bruising or injury or tenderness. Eyes General: appearance normal, both eyes and all related structures Neck Other: No posterior midline C-spine tenderness. Excellent range of motion of the neck without discomfort. C-spine is clinically clear. Resp Effort & Inspection: normal respiratory effort Auscultation: clear to auscultation bilaterally Cardio Rate: regular rate Rhythm: regular rhythm Heart sounds: S1 normal heart sound present and S2 normal heart sound present Skin Other: There is a large blood blister type swelling on the dorsum of the left foot just proximal to the toes. The area of blister like swelling is about 4 cm x 3 cm. This is clearly fluid filled and soft but intact. There was no leakage of blister fluid. There is some mild bruising like skin discoloration of the toes. On the underside of the 3rd toe at the plantar aspect of the PIP joint is a partial-thickness laceration. This was well cleaned and explored and I am fairly certain this is not a full-thickness injury. Neuro Other: The patient is awake and alert. I suspect she has some very mild degree of cognitive impairment but she otherwise has a normal mental status and is pleasant and cooperative. Cranial nerves 2-12 are intact. She has intact strength and sensation her extremities. Extrem Other: There is a large blood blister on the dorsum of the left foot just proximal to the toes. There is some generalized slight soft tissue swelling to the remainder of the dorsum of the foot and slightly in the region of the ankle generally. There is no ankle deformity and there is no malleolar tenderness. She can move the ankle joint well without apparent discomfort. There are some bruises to the toes themselves but there is no gross deformity to the alignment of the toes. The patient's initial x-ray suggested a dislocation of the PIP joint of the 3rd toe. I did not appreciate any obvious clinical correlation to this radiological finding. The patient's initial x-ray also indicated an angulated fracture of the 4th toe. The patient's clinical exam however did not obviously correlate with the x-ray findings. There was no obvious deformity to the alignment of the 4th toe either. The patient's initial x-ray also indicated there were fractures of the 1st and 2nd toes as well. The patient did not seem to have tenderness of either of these toes corresponding to fractures. The patient seemed to have the most pain when I touched the 4th toe. The patient had a good dorsalis pedis pulse in the left foot. Course Course Course Narrative: RME, this is a rapid medical exam performed by Davey Han please refer to primary provider for complete H&P- 79 year old female presents for evaluation of left foot pain after falling twice yesterday. She uses a walker at baseline due to poor gait. She denies getting dizzy or syncope. She denies hitting her head or losing consciousness. She has ecchymosis and a large blister to the left foot. Plan for x-ray of left foot Medications Administered Discontinued Medications Generic Name Dose Route Start Last Admin Trade Name Freq PRN Reason Stop Dose Admin Bacitracin 1 appl 12/19/24 22:17 12/19/24 22:30 Bacitracin Oint 0.9 Gm Packet TOPICAL 12/19/24 22:18 1 appl ONCE ONE Administration Protocol Cephalexin HCl 500 mg 12/19/24 22:23 12/19/24 22:30 Cephalexin 500 Mg Capsule PO 12/19/24 22:24 500 mg ONCE ONE Administration Diphtheria/Tetanus/Acell Pertussis 0.5 ml 12/19/24 21:36 12/19/24 21:43 Leonel Post(Desmond),Tet Adult 0.5 Ml Syringe IM 12/19/24 21:37 0.5 ml .ONCE ONE Administration Medical Decision Making Medical Decision Making MDM Narrative: The patient is a very pleasant 79-year-old female who apparently fell approximately 24 hours prior to presentation in the emergency room and injured her left foot. I do not appreciate any other injuries on her body. She is not on any anticoagulation. Her mental status seems normal. I see no signs of a head injury and her C-spine is clinically clear. She has a large blood blister on the dorsum of the left foot and some bruising to her toes. There is some slight soft tissue swelling to the ankle but the ankle does not seem tender. The patient's x-ray of the foot indicated injuries to the 1st, 2nd, 3rd, and 4th toes. Clinically there were no obvious deformities to the toes to correspond to the x-ray findings. The patient only really seem to have tenderness with manipulation of the 4th toe. There is a partial-thickness laceration to the underside of the 3rd toe ( on the plantar aspect of the toe at approximately the PIP joint ). After thoroughly cleaning this area I was fairly convinced this is not a full-thickness laceration but only a partial thickness laceration. Since the x-ray suggested a dislocation of the PIP joint of the 3rd toe I applied direct manual traction to the 3rd toe. The patient found this somewhat uncomfortable but not remarkably so. Since the x-ray also suggested an angulated fracture to the proximal phalanx of the 4th toe I provided manual traction and manipulation to the 4th toe as well. The patient found this procedure much more painful but tolerated it well. I thoroughly cleaned what I believe is a partial-thickness laceration to the underside of the 3rd toe. Bacitracin was applied. A post reduction x-ray of the foot was obtained after my attempts at manipulation. On the repeat x-ray he apparent dislocation of the PIP joint of the 3rd toe seemed to have resolved and the angulation of the fracture of the 4th toe was improved. The patient was updated on her tetanus shot. I explained to her daughter who was at the bedside that the blood blister will be initially left intact. The patient will be given a postop shoe. She will be placed on prophylactic cephalexin. I explained that the patient should stay off the left foot and keep the foot elevated. I anticipate that the blood blister will likely rupture at some point in time at which point the thin superficial skin of the blood blister can be debrided and bacitracin can be applied. The patient should follow up with her PCP. Discharge Plan Discharge Clinical Impression: Closed fracture of fourth toe of left foot, Blood blister Patient Disposition: Home, Self-Care Instructions: Toe Fracture (ED) Additional Instructions: There is a fracture of the 4th toe on the left foot. The x-ray indicates findings of fractures on other toes but I am not sure that these toes are really fractured since she does not seem to be that tender on the other toes. There is a small break in the skin on the underside of the 3rd toe. Please keep this clean and apply bacitracin 2 times a day for several days. She has been started on cephalexin as an antibiotic for prophylaxis of an infection. Please take this 3 times a day as prescribed. There is a blister on the top of the foot that is currently intact. This blister may rupture. If the blister ruptures you may simply, with tweezers, peel away all of the very thin superficial skin that was the bubble of the blister. Remove as much of this superficial skin as you can easily do. Then apply bacitracin and a Band-Aid or gauze over the wound. As much as you can please try to stay off the foot and keep the left foot elevated. Please contact your regular doctor's office for a follow up appointment next week. Return to the emergency room if significantly worse. Prescriptions: New cephalexin 500 mg capsule 500 mg PO TID 3 Days Qty: 9 0RF No Action (DME) bernard Coyle See Rx Instructions .ROUTE .MEDSUPPLY Qty: 1 0RF Rx Instructions: As needed meclizine 12.5 mg tablet 12.5 mg PO QID PRN (Reason: Dizziness) mirtazapine 30 mg tablet 30 mg PO BEDTIME sertraline 50 mg tablet 50 mg PO DAILY rosuvastatin 20 mg tablet 20 mg PO BEDTIME losartan 50 mg Tablet 100 mg PO DAILY Qty: 30 0RF Protocol: Hold for SBP< HOLD for SBP < : 90 omeprazole 40 mg capsule,delayed release(DR/EC) 40 mg PO BID Qty: 60 0RF Referrals: Argelia Alberto MD [Primary Care Provider] - (foot injury) Interventions: ED Discharge Assessment Last Done: 12/19/24 23:02 Discharge Date/Time: 12/19/24 23:02 Print Language: [place]
--- OUTSIDE RECORDS SUMMARY | 2024-12-19 19:51 | XMS_ITS | Continuity of Care Document ---
Author Organization [facility] Address [address] [place] [address] Phone Care Team Providers Care Brickmason Helper Name Role Phone Unavailable Unavailable Unavailable Medications Medication Instructions Dosage Effective Dates (start - stop) Status Comments alprazolam 1 mg tablet take 1 tablet by Oral route 2 times per day PRN take one tablet twice a day as needed - Active alprazolam 1 mg tablet take 1 tablet by Oral route 2 times per day PRN take one tablet twice a day as needed - No Longer Active Advance Directives Directive Yes / No Effective Date File Name No Information Encounters Encounter Description Practice Location Reason(s) For Visit Diagnoses Date Provider Providers Copied on Encounter [facility], [address] [place] [address], [facility], tel:[phone] [facility] Adult Medicine No Information 2 No Information [facility], [address] [place] [address], tel:[phone] Conversion No Information 2 No Information [facility], [address] [place] [address], tel:[phone] Conversion anxiety 2 No Information [facility], [address] [place] [address], tel:[phone] Conversion No Information 2 No Information Family History Family Member Type Diagnosis Age At Onset No Information Payers Payer name Insurance type Covered republican ID Authoriza tion(s) No Information Social History Type Description Quantity Date Captured Comments Sex Female Smoking Status No Information Vital Signs Date / Time: Height Weight BMI Pulse Rate Blood Pressure Temperature Respiratory Rate Body Surface Area Head Circumference Head Circ. Percentile Wt./Ancelmo. Percentile BMI percentile Pulse Ox Inhaled Ox 62.00 in 63.000 kg (139.00 lbs) 25.4 0 kg/m eter (2) 60 /min 144/85 mm[Hg] 97.60 F 16 /min Chief Complaint And Reason For Visit No Information Reason For Referral Reason For Referral No Information History Of Present Illness Encounter Date Complaint History Of Prese nt Illness No Information Functional Status Date Functional Assessmen t No Information Instructions Date Instruction Additional Infor mation No Information Assessments Type Assessment Date No Information Patient Care Teams Name Effective Dates (start - stop) Status Members No Information
[2024-12-19] MEDS: Diphth,Pertus(ACell),Tet Adult 0.5 ML SYRINGE IM (21:43)
[2024-12-19 22:26] VITALS: BP 179/68; PULSE 58; RESP 18; TEMP 36.4; O2SAT 96
[2024-12-19] MEDS: Bacitracin Oint 0.9 GM PACKET 1 APPL TOPICAL (22:30)
[2024-12-19] MEDS: cephALEXin 500 MG CAPSULE PO (22:30)
[2024-12-19 23:02] VITALS: BP 179/68; PULSE 58; RESP 18; TEMP 36.4; O2SAT 96
== END 2024-12-19 23:02 | disposition home or self-care (01) ==
PROVIDERS: Emergency Provider Emergency Medicine; PCP Internal Medicine
DX: S92.502A Displaced unspecified fracture of left lesser toe(s), initial encounter for closed fracture (principal); S90.812A Abrasion, left foot, initial encounter; S90.425A Blister (nonthermal), left lesser toe(s), initial encounter; M79.672 Pain in left foot; X58.XXXA Exposure to other specified factors, initial encounter; Y93.9 Activity, unspecified; Y92.9 Unspecified place or not applicable; Y99.8 Other external cause status; Z23 Encounter for immunization
CPT/HCPCS: 73610; 73630; 90471; 90715; 99284

== ENCOUNTER → 2024-12-19 18:54 | Outpatient (BNV) | payer OTHER, MEDICAID, SELFPAY | PROVIDERS: PCP Internal Medicine; Visit Provider Radiology Diagnostic Radiology | DX: M79.672 Pain in left foot (principal); S93.114A Dislocation of interphalangeal joint of right lesser toe(s), initial encounter | CPT/HCPCS: 73610; 73630 ==

== ENCOUNTER 2025-01-10 14:54 | Outpatient (REF) | payer OTHER, SELFPAY ==
--- OUTSIDE RECORDS SUMMARY | 2025-01-10 16:53 | XMS_ITS | Continuity of Care Document ---
Author Organization [facility] Address [address] [place] [address] Phone Care Team Providers Care Media Relations Intern Name Role Phone Unavailable Unavailable Unavailable Medications [...] Diagnoses Date Provider Providers Copied on Encounter [facility], [address] [place] [address], [facility], tel:[phone] [facility] Adult Medicine No Information 2 No Information [facility], [address] [place] [address], tel:[phone] Conversion No Information 2 No Information [facility], [address] [place] [address], tel:[phone] Conversion anxiety 2 No Information [facility], [address] [place] [address], tel:[phone] Conversion No Information 2 No Information Family History Family Member Type Diagnosis Age At Onset No Information Payers Payer name Insurance type Covered green party ID Authoriza tion(s) No Information Social History [...]
== END 2025-01-10 14:55 | disposition home or self-care (01) ==
LOC: HO.SH 14:54
PROVIDERS: Visit Provider Internal Medicine
DX: Z01.118 Encounter for examination of ears and hearing with other abnormal findings (principal); H90.3 Sensorineural hearing loss, bilateral
CPT/HCPCS: 92557

== ENCOUNTER 2025-01-14 08:21 | Outpatient (REF) | payer MEDICARE, OTHER, SELFPAY ==
--- NOTE | ~2025-01-14 | XR_ITS ---
EXAMINATION: XR FOOT 3 OR MORE VIEWS LEFT HISTORY: M79.672 - Pain in left foot COMPARISON: Comparison is made with prior examinations dated 12/19/2024 FINDINGS: Three views of the left foot are submitted. The bones are osteopenic. Again seen are fractures of the head of the 1st proximal phalanx and the base of the 4th proximal phalanx. The fracture lines remain visible. A fracture deformity of the head of the 2nd proximal phalanx may be chronic. There is the suggestion of a lucency at the base of the 4th metatarsal which could represent an acute fracture or a fracture which is only now evident due to bone resorption. There is no dislocation. 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 There are vascular calcifications. XR/XR foot LT min 3V IMPRESSION: 1. Fractures of the head of the 1st proximal phalanx of the base of the 4th proximal phalanx without change. 2. Probable old fracture deformity of the head of the 2nd proximal phalanx. 3. Possible fracture of the base of the 4th metatarsal. Continued follow-up is recommended. Electronically signed by: Cruz Herbert MD 01/14/2025 01:37 PM EDT
--- OUTSIDE RECORDS SUMMARY | 2025-01-15 08:38 | XMS_ITS | Continuity of Care Document ---
Author Organization [facility] Address [address] [place] [address] Phone Care Team Providers Care Lease Out Worker Name Role Phone Unavailable Unavailable Unavailable Medications [...] Diagnoses Date Provider Providers Copied on Encounter [facility], [address] [place] [address], [facility], tel:[phone] [facility] Adult Medicine No Information [address] [facility], [address] [place] [address], tel:[phone] Conversion No Information [address] [facility], [address] [place] [address], tel:[phone] Conversion anxiety [address] [facility], [address] [place] [address], tel:[phone] Conversion No Information 2 No Information Family History Family Member Type Diagnosis Age At Onset No Information Payers Payer name Insurance type Covered libertarian ID Authoriza tion(s) No Information Social History [...]
== END 2025-01-14 08:22 | disposition home or self-care (01) ==
LOC: HO.HOSX 08:21
PROVIDERS: Visit Provider Physician Assistant
DX: M79.672 Pain in left foot (principal)
CPT/HCPCS: 73630

== ENCOUNTER 2025-01-14 09:45 | Outpatient (AMB) | payer OTHER, MEDICAID, SELFPAY ==
[2025-01-14 10:01] VITALS: BMI 24.9
--- NOTE | 2025-01-14 10:01 | A.OFFVIS_ITS ---
Vital Signs 01/14/25 10:01 Height 5 ft 4 in Weight 145 lb BMI 24.9 Intake Visit Reasons: FC- LT 4th proximal phalanx fx, DOI 12/18/24 Intake Note: Rose is an 79 year old female who presents today for an ER follow up of left foot, 4th toe fracture, DOI 12/18/24. Patient had a fall causing an injury to her foot. She [place] [facility] [place] where x-rays were taken and placed in a post op shoe. ER notes indicate a small break in the skin on 3rd toe, as well as a blood blister on the top of the foot. She was instructed to apply bacitracin twice a day to 3rd toes, she was also prescribed cephalexin TID. Patient reports currently she has no pain, discoloration to her foot that she did not have before, limping and has some swelling. Denies numbness or tingling in toes. Hx of dizziness and has had multiple falls. Allergies No Known Allergies [No Known Allergies*] Allergy (Verified 01/14/25 10:04) Medication List - Last Reconciled 01/14/25 by Do Garcia PA-C losartan 100 mg See Protocol PO DAILY meclizine 12.5 mg PO QID PRN mirtazapine 30 mg PO BEDTIME omeprazole 40 mg PO BID rosuvastatin 20 mg PO BEDTIME sertraline 50 mg PO DAILY walker As needed HPI HPI FC- LT 4th proximal phalanx fx, DOI 12/18/24: Details: 79-year-old female presents to the office today for an injury she sustained to her left foot on 12/18/2024. Her son is accompanying her today. She states she took a fall and injured the foot and was seen in the emergency department where x-rays were obtained and she was placed in a postop shoe. She was referred to our office for ortho eval. She denies pain with ambulation. She has inte rmittent swelling. REPLACED BY [facility] Medical History Acute diverticulitis Acute duodenal ulcer with bleeding High cholesterol HTN (hypertension) NSTEMI (non-ST elevated myocardial infarction) UTI (urinary tract infection) Surgical History Status post exploratory laparotomy (~10/2020) Social History Household Members: Family Household Members Other:: 4 Housing: Apartment Do you presently have visiting nurse or other home services: No Comment: not for pain Patient Tobacco Use Status: Never used Tobacco Cigarette Packs Per Day: 1 Years Smoked: 55 Second Hand Smoke Exposure: No service: No Review of Systems Const All systems reviewed & are unremarkable except as noted in HPI and below Physical Exam Vital Signs: BMI result Body Mass Index 24.9 Const General: cooperative and no acute distress Orientation/consciousness: patient oriented x3 Resp Effort & Inspection: normal respiratory effort and able to speak in complete sentences Cardio Peripheral pulses: Peripheral pulses 2+ throughout Neuro General: patient oriented x3 Extrem Other: Left foot over to its stricture. Mild swelling but no tenderness to palpation over the fracture site. Neurovascularly intact. Office Procedures AMB Fracture Care Fracture Billing Code: Fracture Billing Code Results Reviewed Results Reviewed: X-rays of the left foot obtained in the office today and reviewed by me show a minimally displaced angulated 4th proximal phalanx fracture with interval healing. Assessment & Plan Assessment & Plan (1) Toe fracture, left: Code(s): S92.912A - Unspecified fracture of left toe(s), initial encounter for closed fracture Category: Medical Plan: The patient will continue to weightbear as tolerated and can increase activities as tolerated. She has a postop shoe which she continue to use as tolerated and transition to a regular street shoe as symptoms allow. If symptoms arise or there is any concerns she will contact our office otherwise follow up as needed. Orders: Orders XR foot LT min 3V Today M79.672 - Pain in left foot Coding Level of Care Code New Pt Level 3 (56239) Complex EM visit Add On G2211 Diagnoses Toe fracture, left S92.912A CPT Codes Fracture Care - Fracture Billing Code: Fracture Billing Code ([id number])
--- OUTSIDE RECORDS SUMMARY | 2025-01-14 10:45 | XMS_ITS | Continuity of Care Document ---
Author Organization [facility] Address [address] [place] [address] Phone Care Team Providers Care Finance Teacher Name Role Phone Unavailable Unavailable Unavailable Medications [...] Diagnoses Date Provider Providers Copied on Encounter [facility], [address] [place] [address], [facility], tel:[phone] [facility] Adult Medicine No Information 2 No Information [facility], [address] [place] [address], tel:[phone] Conversion No Information 2 No Information [facility], [address] [place] [address], tel:[phone] Conversion anxiety 2 No Information [facility], [address] [place] [address], tel:[phone] Conversion No Information 2 No Information Family History Family Member Type Diagnosis Age At Onset No Information Payers Payer name Insurance type Covered constitution party ID Authoriza tion(s) No Information Social [...]
== END 2025-01-14 10:19 | disposition home or self-care (01) ==
LOC: HO.HOS 09:45
PROVIDERS: PCP Internal Medicine; Visit Provider Physician Assistant
DX: S92.912A Unspecified fracture of left toe(s), initial encounter for closed fracture (principal)
CPT/HCPCS: 99203; G2211

== ENCOUNTER → 2025-01-14 09:47 | Outpatient (BNV) | payer OTHER, SELFPAY | PROVIDERS: Visit Provider Radiology Diagnostic Radiology | DX: S62.615A Displaced fracture of proximal phalanx of left ring finger, initial encounter for closed fracture (principal) | CPT/HCPCS: 73630 ==

== ENCOUNTER 2025-01-20 12:06 | Emergency (ER) | payer MEDICARE, OTHER, SELFPAY ==
[2025-01-20] VITALS (13 sets, daily range): BP systolic 124–168; BP diastolic 56–73; PULSE 59–104; RESP 14–20; TEMP 36–36.8; O2SAT 95–98; BMI 25.7
--- NOTE | ~2025-01-20 | CT_ITS ---
CLINICAL HISTORY: dizziness, recent fall CT head without contrast. COMPARISON: CT head dated 08/16/22 at 14:16 EST FINDINGS: The visualized paranasal sinuses are clear. The mastoid air cells are clear. No calvarial fracture. Atherosclerotic intracranial vasculature. No evidence for mass or mass effect. No intracranial hemorrhage or abnormal extra-axial fluid collection. Chronic lacunar infarct present within the right basal ganglia. The ventricles are proportional with the degree of moderate global cerebral volume loss without evidence of hydrocephalus. Basilar cisterns are patent. There are periventricular areas of low attenuation compatible with mild white matter small vessel disease. Posterior fossa appears unremarkable. IMPRESSION: 1. No acute intracranial findings. This document has been electronically signed by: Wayne Latham MD on 01/20/2025 20:39:55
--- NOTE | ~2025-01-20 | XR_ITS ---
CLINICAL HISTORY: fall, midline tenderness Three views of the thoracic spine. COMPARISON: None FINDINGS: Scoliosis. Compression fracture of the L1 vertebral body with approximately 50 percent height loss, age-indeterminate. Compression fracture of the inferior endplate of T12 with approximately 20 percent height loss, age-indeterminate. Remaining vertebral body heights appear maintained. Marginal osteophytes along the mid to lower thoracic spine. Atherosclerotic aortic vascular calcifications. IMPRESSION: 1. Age-indeterminate compression fractures of the L1 vertebral body with approximately 50 percent height loss and inferior endplate of T12 with approximately 20 percent height loss. Recommend comparison with prior imaging if available. This document has been electronically signed by: Wayne Latham MD on 01/20/2025 13:34:42
--- NOTE | ~2025-01-20 | XR_ITS ---
CLINICAL HISTORY: fall, pain with ambulation --- Additional Notes or Special Instructions: busy (1230 )-[place] Three views of the lumbar spine. COMPARISON: None FINDINGS: Five [id number]-[id number] lumbar type vertebral bodies. Leftward curvature of the lower lumbar spine. Compression fracture of the L1 vertebral body with approximately 50 percent height loss, age-indeterminate. Compression fracture of the inferior endplate of T12 with approximately 20 percent height loss, age-indeterminate. Small marginal osteophytes present throughout the lumbar spine. Facet joint arthrosis present throughout the mid to lower lumbar spine with neural foraminal narrowing most pronounced at at L5-S1. There is loss of disc space height at L5-S1. Visualized bones of the pelvis appear intact. Pelvic phleboliths present. Atherosclerotic vascular calcifications. IMPRESSION: 1. Age-indeterminate compression fractures of the L1 and T12 vertebral bodies. Recommend comparison with prior imaging if available. This document has been electronically signed by: Wayne Latham MD on 01/20/2025 13:36:57
--- NOTE | ~2025-01-20 | XR_ITS ---
CLINICAL HISTORY: R lateral tenderness Single view of the chest with right rib films. COMPARISON: None FINDINGS: Normal heart size. Atherosclerotic thoracic aorta. Elevation of the right hemidiaphragm. No consolidation. No pleural effusion or pneumothorax. No fracture identified. IMPRESSION: 1. No acute cardiopulmonary abnormality. 2. No rib fracture identified. This document has been electronically signed by: Wayne Latham MD on 01/20/2025 15:33:23
--- NOTE | 2025-01-20 12:18 | ED.GENADULT ---
HPI - General Adult General Chief complaint: Fall Stated complaint: fall Time Seen by Provider: 01/20/25 12:17 Source: patient, family, RN notes reviewed and old records reviewed Mode of arrival: ambulatory Limitations: no limitations History of Present Illness ED Provider: Yajaira RAYMUNDO narrative: Patient is an 79-year-old female with history of NSTEMI, HTN, HLD, DM, anemia presenting to the ED with son complaining of back pain since a slip and fall at home 2 weeks ago. Patient was in her room, had a mechanical slip and fall to the floor. Son states that his stepson heard the fall and went to patient's room right away where she was on the floor but awake, alert and oriented. She is not antigoagulated, denies head strike. He assisted her up, but patient has been having ongoing pain since that time. She has been using Tylenol with little relief. She is supposed to ambulate with cane but does not always use it per son. Denies radiation of pain to her legs. Denies saddle anesthesia or bowel/bladder incontinence. Has been ambulating at home but with pain. MD complaint: back pain Onset (ago): week(s) Location: back Radiation: non-radiation Severity: severe Quality: aching Pain Consistency: colicky Relieving factors: rest Exacerbating factors: movement Associated symptoms: denies other symptoms Treatments prior to arrival: other (Tylenol) Related Data Home Medications ?Medication ?Instructions ?Recorded ?Confirmed meclizine 12.5 mg tablet 12.5 mg PO QID PRN Dizziness 03/30/23 01/14/25 mirtazapine 30 mg tablet 30 mg PO BEDTIME 03/30/23 01/14/25 rosuvastatin 20 mg tablet 20 mg PO BEDTIME 03/30/23 01/14/25 sertraline 50 mg tablet 50 mg PO DAILY 03/30/23 01/14/25 Previous Rx's ?Medication ?Instructions ?Recorded walker #1 ea 11/06/20 losartan 50 mg tablet 100 mg PO DAILY #30 tabs 04/03/23 omeprazole 40 mg capsule,delayed 40 mg PO BID #60 caps 04/03/23 release lidocaine 5 % topical patch 1 patch topical DAILY #15 ea 01/20/25 tramadol 25 mg tablet 25 mg PO Q8H PRN severe pain 01/20/25 (scale score 7-10) 3 days #9 tabs Allergies Allergy/AdvReac Type Severity Reaction Status Date / Time No Known Allergies Allergy Verified 01/20/25 12:14 [No Known Allergies*] Review of Systems Review of Systems: As per HPI Yes all other systems are reviewed and are negative Constitutional: Constitutional: Reports as per HPI COUNTS INCLUDE 234 BEDS AT THE [facility] Past Medical History Medical History Acute diverticulitis Acute duodenal ulcer with bleeding High cholesterol HTN (hypertension) NSTEMI (non-ST elevated myocardial infarction) UTI (urinary tract infection) Surgical History Status post exploratory laparotomy (~10/2020) Social History Social History Household Members: Family Household Members Other:: 4 Housing: Apartment Do you presently have visiting nurse or other home services: No Comment: not for pain Patient Tobacco Use Status: Never used Tobacco Cigarette Packs Per Day: 1 Years Smoked: 55 Smoked in Last 30 Days: No Second Hand Smoke Exposure: No Use of substances other than those prescribed or required for medical reasons: No Advance Directives: No Advance Directives Information Provided: Yes Do you have a plan to hurt others: No Plan service: No Physical Exam ED Vital Signs: Vital Signs - 24 hr 01/20/25 12:12 01/20/25 12:32 01/20/25 12:32 Temperature 98 F 98.3 F 98 F Pulse Rate 76 71 76 Respiratory Rate 18 16 18 Blood Pressure 140/71 H 132/70 132/70 Pulse Oximetry 98 95 98 Oxygen Delivery Method Room Air Room Air 01/20/25 14:06 01/20/25 14:09 Temperature 97.8 F 97.8 F Pulse Rate 71 71 Respiratory Rate 14 14 Blood Pressure 156/65 H 156/65 H Pulse Oximetry 96 Oxygen Delivery Method Room Air BMI result Body Mass Index 25.7 Vital signs have been reviewed and appear to be correct. Blood pressure normal. Heart rate normal. Respiratory rate normal. Temperature normal. Oxygen saturation normal. Const General: cooperative, healthy appearing and no acute distress Orientation/consciousness: oriented to person, oriented to place, oriented to time and patient oriented x3 Limitations: no limitations HENMT Head: Yes normocephalic and Yes atraumatic Ears: external ears normal General nose exam: Normal external nose present Face and sinus: Yes face symmetric Mouth: oropharynx normal and moist mucous membranes Throat: Yes uvula midline Eyes Pupils: Equal, round and reactive pupils present Neck Neck: Yes normal visual inspection and Yes supple Resp Effort & Inspection: normal respiratory effort and able to speak in complete sentences Auscultation: clear to auscultation bilaterally Cardio Rate: regular rate Rhythm: regular rhythm Heart sounds: S1 normal heart sound present and S2 normal heart sound present GI Palpation (GI): Soft to palpation and nontender Auscultation: normoactive bowel sounds General: Yes no CVA tenderness Back/Spine/Pelvis Back: no CVA tenderness Cervical Spine: normal cervical lordosis, cervical ROM normal, No pain with cervical ROM, No Cervical spine tenderness and No step off deformity Thoracic/Lumbar Spine: thoracic and lumbar spine normal to inspection, thoraco-lumbar ROM normal, pain with thoraco-lumbar ROM, thoracic spinal tenderness at T11 and at T12, No lumbar spinal tenderness and straight leg raise positive left Pelvis: no pain with anterior-posterior compression and no pain with lateral compression Skin General skin exam: elasticity normal and turgor normal Neuro General: oriented to person, oriented to place, oriented to time, patient oriented x3, tone normal, moves all extremities, Normal light touch and pain sensation, no focal motor deficits, CN's II-XI intact bilaterally and deep tendon reflexes 2+ bilaterally Cranial nerves: Yes Equal, round and reactive pupils present Cognition (Neuro): normal cognition Motor exam (neuro): 5/5 motor strength present throughout and Normal motor muscle tone present throughout Extrem General: Yes full ROM, Yes no pedal edema and Yes no calf tenderness Psych Mental Status: mental status grossly normal Affect: normal affect Thought process: Normal thought process present Course Reevaluation(s) Reevaluation #1: Patient now noted to have right lateral rib tenderness, xray ordered. Time: 13:54 Reevaluation #2: No fracture noted on rib x-ray. Patient stable for discharge home. Will send short course of Tramadol, as patient lives with son and he states she is not left alone. Discussed with patient and son that the Tramadol should be used with caution as this can cause drowsiness and increase her risk for falls. Also discussed with patient that she should use her assistive devices at ALL times to prevent further falls in the future. Return precautions discussed. Patient already has appt scheduled with PCP. Patient and son verbalized understanding of and agreement with plan. Time: 15:56 Medications Administered Discontinued Medications Generic Name Dose Route Start Last Admin Trade Name Vaishali PRN Reason Stop Dose Admin Lidocaine 1 patch 01/20/25 12:23 01/20/25 12:43 Lidocaine 4 % Patch Adh..Patch TRANSDERMA 01/20/25 12:24 1 patch ONCE ONE Administration Protocol Tramadol HCl 25 mg 01/20/25 12:23 01/20/25 12:39 Tramadol Hcl 50 Mg Tablet PO 01/20/25 12:24 25 mg ONCE ONE Administration Medical Decision Making Medical Decision Making [facility] Narrative: Patient is an 79-year-old female with history of NSTEMI, HTN, HLD, DM, anemia presenting to the ED with son complaining of back pain since a slip and fall at home 2 weeks ago. On exam patient is awake, A+Ox3, VS WNL, afebrile, normal neurological exam without focal deficits, physical exam findings as above. Given reported symptoms and physical exam findings, initial differential includes but is not limited to initial differential includes vertebral fracture or subluxation, thoracic strain, degenerative disc disease, disc herniation, spinal stenosis, spondylosis. Do not suspect malignancy/mass, SEA, cauda equina/cord compression. X-rays of thoracic and lumbar spine notable for age indeterminate fractures of T12 and L1. My interpretation is in agreement with the radiologist's interpretation. No prior imaging available from comparison. Patient does report improvement in pain after Tramadol. Differential Diagnosis Differential Diagnoses: The differential diagnosis associated with the presentation includes As per [facility] Admission/Observation Consideration of admission/observation: Escalation of care including admission/observation considered Patient would have been admitted to the hospital had their work up had any findings where hospital admission was appropriate and their clinical presentation warranted hospital admission. Independent Interpretation I performed an independent interpretation of an: Plain X-Ray Interpretation: X-rays of thoracic and lumbar spine notable for age indeterminate fractures of T12 and L1. Radiology Impression Discussion of test interpretation with radiology: I have reviewed the radiologist's reading. Radiologist Impression: IMPRESSION: 1. Age-indeterminate compression fractures of the L1 and T12 vertebral bodies. Recommend comparison with prior imaging if available. IMPRESSION: 1. Age-indeterminate compression fractures of the L1 vertebral body with approximately 50 percent height loss and inferior endplate of T12 with approximately 20 percent height loss. Recommend comparison with prior imaging if available. Independent Historian Clinical information obtained from an independent historian. History obtained from or confirmed by: Other (son) External Record Review External record reviewed: Inpatient record, Office record and Outpatient record Discharge Plan Discharge Clinical Impression: Closed fracture of thoracic vertebral body, Closed lumbar vertebral fracture Patient Disposition: Home, Self-Care Instructions: Vertebral Compression Fracture (ED) Additional Instructions: You were evaluated in the emergency department for back pain after a fall. Your x-rays showed fractures of your vertebrae (T12/L1). We recommend that you continue to use Tylenol for pain. You are being prescribed Tramadol for severe pain as well as topical lidocaine patches. The Tramadol can make you drowsy, you should not take this if you are home alone as it can increase your risk of falls. You can wear the lidocaine patches for up to 12 hours in a 24 hour period, do not apply heat directly over the patches. Follow up with your primary care provider. Return if you develop worsening pain, new weakness, numbness, or tingling to your arms or legs, or any other new or concerning symptoms. IT IS IMPORTANT THAT YOU USE YOUR CANE/WALKER AT ALL TIMES TO PREVENT FUTURE FALLS! Prescriptions: New lidocaine 5 % adhesive patch,medicated 1 patch topical DAILY Qty: 15 0RF Rx Instructions: leave on most painful area for up to 12 hrs tramadol 25 mg tablet 25 mg PO Q8H PRN (Reason: severe pain (scale score 7-10)) 3 Days Qty: 9 0RF No Action (DME) walker [facility] See Rx Instructions .ROUTE .MEDSUPPLY Qty: 1 0RF Rx Instructions: As needed meclizine 12.5 mg tablet 12.5 mg PO QID PRN (Reason: Dizziness) mirtazapine 30 mg tablet 30 mg PO BEDTIME sertraline 50 mg tablet 50 mg PO DAILY rosuvastatin 20 mg tablet 20 mg PO BEDTIME losartan 50 mg Tablet 100 mg PO DAILY Qty: 30 0RF Protocol: Hold for SBP< HOLD for SBP < : 90 omeprazole 40 mg capsule,delayed release(DR/EC) 40 mg PO BID Qty: 60 0RF Print Language: Greenlandic
[2025-01-20] MEDS: traMADoL HCL 50 MG TABLET 25 MG PO (12:39)
[2025-01-20] MEDS: Lidocaine 4 % Patch ADH..PATCH 1 PATCH TRANSDERMA (12:43)
--- NOTE | 2025-01-20 12:45 | PC.NURSE ---
Patient presents to ED c/o of back pain. Patient reports falling down at home 2 weeks ago. Pain is rated 9/10. Denies LOC, Denies Headstrike. Pain medication provided
--- NOTE | 2025-01-20 12:47 | PC.NURSE ---
Patient presents to ED c/o back pain. Patient reports falling at home 2 weeks ago. Denies LOC, Denies Headstrike. Patient was found by son in law. Back pain rated 9/10. Lidocaine patch applied to back, effectiveness pending. administered tramadol, effectiveness pending. Patient currently getting xrays of back, results pending. Son at bedside. Plan of care on going
--- NOTE | 2025-01-20 14:11 | PC.NURSE ---
Xray results show fractures in L1 and T12, patient to get xray of ribs, results pending. Pain medication reassessed, Patient verbalizes positive effect, reporting no pain at this time.
--- NOTE | 2025-01-20 16:30 | PC.NURSE ---
First contact with patient. RN attempted trial ambulation. Pt needed assist to get to edge of bed but then stated she was too dizzy to stand. VSS, back in bed. Given snack. Provider aware. Possible cause is tramadol. Primary RN aware.
--- NOTE | 2025-01-20 17:10 | PC.NURSE ---
Ambulation trialed again, patient able to sit with no dizzyness. Upon standing patient became dizzy and unsteady on feet. Patient safely assisted back to bed. made aware
--- NOTE | 2025-01-20 17:13 | ECG_ITS ---
Test Reason : DIZZINESS Blood Pressure : */* mmHG Vent. Rate : 72 BPM Atrial Rate : 72 BPM P-R Int : 130 ms QRS Dur : 142 ms QT Int : 458 ms P-R-T Axes : -19 -14 163 degrees QTcB Int : 501 ms Normal sinus rhythm Left bundle branch block Abnormal ECG When compared with ECG of 31-Mar-2023 06:42, Left bundle branch block is now Present Criteria for Anteroseptal infarct are no longer Present Referred By: Grecia Gates Electronically Signed By: NICK BAUER MD
[2025-01-20 18:07] LABS: MANUAL DIFF FLAG NO
[2025-01-20 18:12] LABS: Basophils Absolute Auto 0.1 X10*3/uL (0.0-0.2); Basophils Percent Auto 0.9 % (0-2); Eosinophils Absolute Auto 0.4 X10*3/uL (0.0-0.4); Eosinophils Percent Auto 4.4 % (0-4); Hematocrit 44.6 % (37.0-47.0); Hemoglobin 14.5 g/dl (12.0-16.0); Imm Gran Abs Auto 0.03 X10*3/uL (0.00-0.03); Imm Gran Pct Auto 0.3 % (0.0-0.4); Lymphocytes Absolute Auto 2.7 X10*3/uL (1.2-4.9); Lymphocytes Percent Auto 30.1 % (20-40); Mean Corpuscular HGB Conc 32.5 g/dl (31.0-35.0); Mean Corpuscular Hemoglobin 29.1 pg (27.0-33.0); Mean Corpuscular Volume 89.6 fL (80.0-98.0); Monocytes Absolute Auto 0.5 X10*3/uL (0.1-1.2); Monocytes Percent Auto 6.1 % (2-11); Neutrophils Absolute Auto 5.2 x10*3/uL (2.0-8.3); Neutrophils Percent Auto 58.2 % (45-73); Platelet Count 488 X10*3/uL (160-400); Red Blood Count 4.98 X10*6/uL (4.20-5.50); Red Cell Distribution Width 14.6 % (11.0-16.0); White Blood Count 8.9 X10*3/uL (4.8-10.8)
[2025-01-20] MEDS: 0.9 % Sodium Chloride 1,000 ML 999 ML IV (18:33)
[2025-01-20 18:34] LABS: Alanine Aminotransferase 16 U/L (0-31); Albumin Level 4.5 g/dL (3.5-5.0); Anion Gap 17 (12-20); Aspartate Amino Transferase 24 U/L (5-31); Bilirubin Total 0.2 mg/dL (0.0-1.0); Blood Urea Nitrogen 27 mg/dL (9-16); Calcium 9.7 mg/dL (8.4-10.2); Carbon Dioxide 18 mmol/L (22-29); Chloride 107 mmol/L (96-108); Creatinine Clr Calc Pharmacy 27.1; Estimated Glomerular Filt Rate 32; Glucose Random 180 mg/dL (60-115); Magnesium 2.3 mg/dL (1.6-2.6); Potassium 3.4 mmol/L (3.3-5.1); Sodium 139 mmol/L (135-145); Total Protein 7.6 g/dL (6.5-8.0)
[2025-01-20 18:36] LABS: Troponin-I High Sensitivity 17.7 ng/L (<3.5-17.0)
[2025-01-20 18:37] LABS: Alkaline Phosphatase 181 U/L (39-117)
--- NOTE | 2025-01-20 19:54 | PC.NURSE ---
new iv line placed as fluids were not infusing through previous iv. #22g RFA
[2025-01-20 21:07] LABS: Troponin-I High Sensitivity 15.8 ng/L (<3.5-17.0)
== END 2025-01-20 21:34 | disposition home or self-care (01) ==
PROVIDERS: Physician Assistant Medical; Registered Nurse Emergency; Emergency Provider Emergency Medicine Emergency Medical Services; PCP Internal Medicine
DX: S22.089A Unspecified fracture of T11-T12 vertebra, initial encounter for closed fracture (principal); S32.019A Unspecified fracture of first lumbar vertebra, initial encounter for closed fracture; M54.50 Low back pain, unspecified; E11.9 Type 2 diabetes mellitus without complications; R51.9 Headache, unspecified; I44.7 Left bundle-branch block, unspecified; R11.0 Nausea; I10 Essential (primary) hypertension; R07.89 Other chest pain; M54.6 Pain in thoracic spine; R94.31 Abnormal electrocardiogram [ECG] [EKG]; W19.XXXA Unspecified fall, initial encounter; Y93.9 Activity, unspecified; Y92.9 Unspecified place or not applicable; Y99.8 Other external cause status; Z79.899 Other long term (current) drug therapy
CPT/HCPCS: 36415; 70450; 71101; 72072; 72100; 80053; 83735; 84484; 85025; 93005; 96360; 96361; 99284; 99285

== ENCOUNTER → 2025-01-20 12:23 | Outpatient (BNV) | payer MEDICARE, MEDICAID, SELFPAY | PROVIDERS: Emergency Provider Emergency Medicine Emergency Medical Services; PCP Internal Medicine; Visit Provider Radiology Diagnostic Radiology | DX: R42 Dizziness and giddiness (principal); R07.82 Intercostal pain; S22.080A Wedge compression fracture of T11-T12 vertebra, initial encounter for closed fracture; S32.010A Wedge compression fracture of first lumbar vertebra, initial encounter for closed fracture | CPT/HCPCS: 70450; 71101; 72072; 72100 ==

== ENCOUNTER → 2025-01-20 17:13 | Outpatient (BNV) | payer MEDICARE, MEDICAID, SELFPAY | PROVIDERS: Emergency Provider Emergency Medicine Emergency Medical Services; PCP Internal Medicine; Visit Provider Internal Medicine Cardiovascular Disease | DX: I44.7 Left bundle-branch block, unspecified (principal) | CPT/HCPCS: 93010 ==

== ENCOUNTER 2025-02-26 09:54 | Outpatient (AMB) | payer OTHER, SELFPAY ==
--- NOTE | 2025-02-26 09:55 | A.OFFVIS_ITS ---
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 Patient was brought to [facility] ER on 01/20/25 and was referred by [facility]. Patient reported that her injury occurred about a month ago at home, slip and fall. Patient was prescribed tramadol and lidocaine patches as needed. Patient reported that taking Tylenol gave her little relief. Patient did not see Physical Therapy or received injections. Patient reports that her pain is in the middle back and that with any movement she has a dullache. Cant sit for to long. Allergies No Known Allergies [No Known Allergies*] Allergy (Verified 02/26/25 10:01) Medication List - Last Reconciled 02/26/25 by Wendy Lacy MD lidocaine 5% 1 patch topical DAILY losartan 100 mg See Protocol PO DAILY meclizine 12.5 mg PO QID PRN mirtazapine 30 mg PO BEDTIME omeprazole 40 mg PO BID rosuvastatin 20 mg PO BEDTIME sertraline 50 mg PO DAILY walker As needed HPI Comments Details: She fell 12/18/24 and actually saw Ortho for toe fracture. Son reports poor balance and was complaining of dizziness. PCP prescribes meclizine and adjusted HTN medications. They also took off sleeping pill at night. She falls less nowadays, but says still falls 2-3 times a week. Seen She lives with son Trell (, 2 kids 15 and 22, aunt). Room in first floor. She does get up at night and goes to bathroom, then would tend to fall at night. Son noticed improved cognition with removal of sleeping pill. Uses RW inside the house and outside. Needs assistance for dressing, most of toileting and bathroom, but she likes to do it on her own if she can. Seen in ER 01/20. Found to have L1 and T12 compression fractures. Right now, no pain, 0/10. But son, she does complain of pain at home, less often now. Denies bladder/bowel incontinence. Started to get services, [employer] twice a week, 2 1/2 hours per day. PFSH Medical History (Updated 02/26/25 @ 10:42 by Wendy Lacy MD) Memory impairment Lumbar vertebral fracture Thoracic vertebral fracture Falls frequently NSTEMI (non-ST elevated myocardial infarction) Acute duodenal ulcer with bleeding Acute diverticulitis UTI (urinary tract infection) High cholesterol HTN (hypertension) Surgical History Status post exploratory laparotomy (~10/2020) Social History Household Members: Family Household Members Other:: 4 Housing: Apartment Do you presently have visiting nurse or other home services: No Comment: not for pain Patient Tobacco Use Status: Never used Tobacco Cigarette Packs Per Day: 1 Years Smoked: 55 Second Hand Smoke Exposure: No service: No Review of Systems Const All systems reviewed & are unremarkable except as noted in HPI and below Physical Exam Vital Signs: BMI result Body Mass Index 23.3 Constitutional: Patient appears to be in no acute distress, well nourished and well developed. Patient was appropriately conversant and oriented. MSK: No specific abnormalities found on inspection of the spine and all extremities. No pain with palpation over the lumbar area. No tenderness over SI or hip area. Difficulty getting up from seated position. Neurological: Assistance with standing and walking needed. Results Reviewed Results Reviewed: Reviewed ER notes 01/20/25. Ordering Physician: Grecia Gates NP Date of Service: 01/20/25 Procedure(s): XR lumbar spine 2-3V Accession Number(s): [id number] cc: Argelia Alberto MD; Grecia Gates NP~ CLINICAL HISTORY: fall, pain with ambulation --- Additional Notes or Special Instructions: busy (1230)-[place] Three views of the lumbar spine. COMPARISON: None FINDINGS: Five bny-rwm-[id number] lumbar type vertebral bodies. Leftward curvature of the lower lumbar spine. Compression fracture of the L1 vertebral body with approximately 50 percent height loss, age-indeterminate. Compression fracture of the inferior endplate of T12 with approximately 20 percent height loss, age-indeterminate. Small marginal osteophytes present throughout the lumbar spine. Facet joint arthrosis present throughout the mid to lower lumbar spine with neural foraminal narrowing most pronounced at at L5-S1. There is loss of disc space height at L5-S1. Visualized bones of the pelvis appear intact. Pelvic phleboliths present. Atherosclerotic vascular calcifications. IMPRESSION: 1. Age-indeterminate compression fractures of the L1 and T12 vertebral bodies. Recommend comparison with prior imaging if available. This document has been electronically signed by: Wayne Latham MD on 01/20/2025 13:36:57 Ordering Physician: Grecia Gates NP Date of Service: 01/20/25 Procedure(s): XR thoracic spine 3V Accession Number(s): [id number] cc: Argelia Alberto MD; Grecia Gates NP~ CLINICAL HISTORY: fall, midline tenderness Three views of the thoracic spine. COMPARISON: None FINDINGS: Scoliosis. Compression fracture of the L1 vertebral body with approximately 50 percent height loss, age-indeterminate. Compression fracture of the inferior endplate of T12 with approximately 20 percent height loss, age-indeterminate. Remaining vertebral body heights appear maintained. Marginal osteophytes along the mid to lower thoracic spine. Atherosclerotic aortic vascular calcifications. IMPRESSION: 1. Age-indeterminate compression fractures of the L1 vertebral body with approximately 50 percent height loss and inferior endplate of T12 with approximately 20 percent height loss. Recommend comparison with prior imaging if available. This document has been electronically signed by: Wayne Latham MD on 01/20/2025 13:34:42 Also saw Ortho 01/14/25: 4th toe fracture, DOI 12/18/24 Assessment & Plan Assessment & Plan (1) Thoracic vertebral fracture: Comment: T12, seen on xray 01/20/25 Code(s): S22.009A - Unspecified fracture of unspecified thoracic vertebra, initial encounter for closed fracture Category: Medical Qualifiers: Encounter type: initial encounter Fracture morphology: wedge compression Fracture type: closed Thoracic vertebra fracture level: T12 Qualified Code(s): S22.080A - Wedge compression fracture of T11-T12 vertebra, initial encounter for closed fracture (2) Lumbar vertebral fracture: Comment: L1, seen on xray 01/20/25 Code(s): S32.009A - Unspecified fracture of unspecified lumbar vertebra, initial encounter for closed fracture Category: Medical Qualifiers: Encounter type: initial encounter Fracture morphology: wedge compression Fracture type: closed Lumbar vertebra fracture level: L1 Qualified Code(s): S32.010A - Wedge compression fracture of first lumbar vertebra, initial encounter for closed fracture (3) Falls frequently: Code(s): R29.6 - Repeated falls Category: Medical (4) Memory impairment: Code(s): R41.3 - Other amnesia Category: Medical Plan 1. Frequent falls, sustaining T12 and L1 compression fracture. Fortunately, not complaining of much pain anymore. They are open to wearing a TLSO. Referral to [facility]. We will start home PT as well. No indication for kyphoplasty at this time. 2. Fall risk - son provides care. Plan for her to move to other son out of state until June. 3. Memory impairment - referring to neurology. Assessment and plan discussed with patient, and patient was agreeable. All questions were answered thoroughly. Total of 45 minute spent today including chart review, results review, history taking, physical examination, discussion of assessment and plan, and coord ination of care. Wendy Lacy MD, CALEB Board Certified, [place] [employer] and [employer] (ABPMR) Board Certified, [place] [employer] (ABEM) Orders: Referrals Neurology Referral R29.6 - Repeated falls, R41.3 - Other amnesia Home Health Referral R29.6 - Repeated falls, S22.009A - Unspecified fracture of unspecified thoracic vertebra, initial encounter for closed fracture, S32.009A - Unspecified fracture of unspecified lumbar vertebra, initial encounter for closed fracture Medications: New back brace TLSO for T12 and L1 compression fractures to wear daily for 6 months or until directed 1 ea 0 Coding Level of Care Code New Pt Level 4 (69487) Diagnoses Closed wedge compression fracture of T12 vertebra, initial encounter S22.080A Encounter type: initial encounter Fracture morphology: wedge compression Fracture type: closed Thoracic vertebra fracture level: T12 Closed wedge compression fracture of L1 vertebra, initial encounter S32.010A Encounter type: initial encounter Fracture morphology: wedge compression Fracture type: closed Lumbar vertebra fracture level: L1 Falls frequently R29.6 Memory impairment R41.3
[2025-02-26 09:57] VITALS: BMI 23.3
--- OUTSIDE RECORDS SUMMARY | 2025-02-26 11:08 | XMS_ITS | Continuity of Care Document ---
Author Organization [facility] v[facility] Address [address] [place] [address] Phone Care Team Providers Care Corporate Ethics Officer Name Role Phone Unavailable Unavailable Unavailable Medications [...] Copied on Encounter [facility], [address] [place] [address], [facility], tel:[phone] [facility] Adult Medicine No Information 2 No Information [facility], [address] [place] [address], tel:[phone] Conversion No Information 2 No Information [facility], [address] [place] [address], tel:[phone] Conversion anxiety 2 No Information [facility], [address] [place] [address], tel:[phone] Conversion No Information 2 No Information Family History Family Member Type Diagnosis Age At Onset No Information Payers Payer name Insurance type Covered alliance party ID Authoriza tion(s) No Information Social [...]
== END 2025-02-26 11:03 | disposition home or self-care (01) ==
LOC: HO.HOS 09:54
PROVIDERS: PCP Internal Medicine; Visit Provider Physical Medicine & Rehabilitation
DX: S22.080A Wedge compression fracture of T11-T12 vertebra, initial encounter for closed fracture (principal); S32.010A Wedge compression fracture of first lumbar vertebra, initial encounter for closed fracture; R29.6 Repeated falls; R41.3 Other amnesia
CPT/HCPCS: 99204

== ENCOUNTER → 2025-02-26 09:54 | Outpatient (BNVA) | payer OTHER, SELFPAY | PROVIDERS: PCP Internal Medicine; Visit Provider Physical Medicine & Rehabilitation ==